=== PATIENT | female | born 1960 | race Caucasian/White ===

== ENCOUNTER 2023-08-10 11:41 | Outpatient (REF) | payer OTHER, SELFPAY ==
[2023-08-10 14:19] LABS: SARS-CoV-2 Ag POSITIVE (NEGATIVE)
[2023-08-10 14:20] LABS: Influenza Virus A Antigen Negative; Influenza Virus B Antigen Negative; Internal Control Within Normal Limits
== END 2023-08-10 11:42 | disposition home or self-care (01) ==
LOC: LAB 11:41
PROVIDERS: PCP Internal Medicine; Visit Provider Internal Medicine
DX: R53.83 Other fatigue (principal); Z20.822 Contact with and (suspected) exposure to COVID-19
CPT/HCPCS: 87804; 87811

== ENCOUNTER 2024-08-12 10:46 | Observation (INO) | payer OTHER, SELFPAY ==
[2024-08-12] VITALS (30 sets, daily range): BP systolic 144–199; BP diastolic 81–116; PULSE 78–97; TEMP 36.6–37; O2SAT 92–99; BMI 34.9; BMI 44.7
--- NOTE | 2024-08-12 10:54 | ECG_ITS ---
[facility] Test Date: 2024-08-12 Pat Name: EVY MORALES Department: Room: - Gender: Female [employer]: : 1960 Requested By: ISRAEL GERARD Order Number: [id number] Reading MD: ISRAEL GERARD Measurements Intervals [place] Rate: 84 P: 53 NC: 144 QRS: 24 QRSD: 72 T: 14 QT: 350 QTc: 391 Interpretive Statements 1100 Sinus rhythm 4068 Nonspecific Twave abnormality 9130 borderline ECG Compared to ECG 12/20/2016 19:53:50 ST (T wave) deviation no longer present Possible ischemia no longer present Electronically Signed On 08-13-2024 8:07:02 EST by ISRAEL GERARD
--- OUTSIDE RECORDS SUMMARY | 2024-08-12 10:55 | XMS_ITS | CCD ---
Author Organization [facility] Care Team Providers Care Surface Lay Out Technician Name Role Phone ALEXA LADD Unavailable Unavailable BALL, FAB E Unavailable Unavailable BALL, FAB E Unavailable Unavailable Ball, Fab Unavailable ISMAEL, DR WOOD Consulting Unavailable BALL, DR WOOD Primary Care Unavailable BALL, DR WOOD Admitting Unavailable BALL, DR WOOD Attending Unavailable BALL, DR WOOD Consulting Unavailable BALL, DR WOOD Primary Care Unavailable BALL, DR WOOD Admitting Unavailable BALL, DR WOOD Attending Unavailable BALL, DR WOOD Attending Unavailable BALL, DR WOOD Consulting Unavailable BALL, DR WOOD Primary Care Unavailable BALL, DR WOOD Admitting Unavailable ZIEBER, DR JESUS Camacho Consulting Unavailable Ball DO, Fab E Primary Care Provider BALL, FAB E Referring Unavailable BALL, FAB E Primary Care Unavailable NATE MOORESEA Sharita Referring Unavailable BALL, FAB E Primary Care Unavailable TERESA, GABRIELLA Sharita Referring Unavailable BALL, FAB E Primary Care Unavailable BALL, FAB E Referring Unavailable BALL, FAB E Primary Care Unavailable GRILLISSOPHIA Admitting Unavailable GRILLIS, SOPHIA Attending Unavailable BALL, FAB E Primary Care Unavailable GRILLISSOPHIA Attending Unavailable GRILLIS, SOPHIA Referring Unavailable BALL, FAB E Primary Care Unavailable TESS MADERA Attending Unavailable BALL, FAB E Primary Care Unavailable BALL, FAB E Referring Unavailable BALL, FAB E Primary Care Unavailable PADANILANAHY ARGUELLO Attending Unavailable BALL, FAB E Referring Unavailable BALL, FAB E Primary Care Unavailable PADANILAMANAHY Attending Unavailable BALL, FAB E Referring Unavailable BALL, FAB E Primary Care Unavailable SHARLADEUZIEL TORRES R Attending Unavailable BALL, FAB E Referring Unavailable BALL, FAB E Primary Care Unavailable SADDEMI, UZIEL R Attending Unavailable BALL, FAB E Referring Unavailable BALL, FAB E Primary Care Unavailable SADRANULFOMIUZIEL R Attending Unavailable BALL, FAB E Referring Unavailable BALL, FAB E Primary Care Unavailable SADDEMIUZIEL R Attending Unavailable BALL, FAB E Referring Unavailable BALL, FAB E Primary Care Unavailable SADDEMIUZIEL Attending Unavailable FAB GUEVARA Referring Unavailable FAB GUEVARA Primary Care Unavailable CECI REILLY Attending Unavailable FAB GUEVARA Referring Unavailable FAB GUEVARA Primary Care Unavailable Allergies Allergy Classification Reported Allergen(s) Allergy Type Date of Onset Reaction(s) Facility (18 sources) Morphine; Translations: [MORPHINE] Drug Allergy 3 Vomiting [facility] (4 sources) patient allergy list reviewed by nurse or physicia Propensity to adverse reactions 8 Comment:Done [facility] Other (2 sources) Morphine Drug Allergy Unknown Adzilla Other Medications Current Medications Medication Drug Class(es) Dates Sig (Normalized) Sig (Original) 3 ML semaglutide 1.34 MG/ML Pen Injector [Ozempic] (11 sources) Ozempic (1 MG/DO SE) 4 MG/3ML as directed Subcutaneous Active 3 ML semaglutide 2.68 MG/ML Pen Injector [Ozempic] (11 sources) Start: 10-06-2022 inject 2 mg by subcutaneous injection every week Ozempic (2 MG/DOSE) 8 MG/3ML 2 MG Subcutaneous weekly for 90 days Sep, Active Start: 10-06-2022 inject 2 mg by subcu taneous injection every week Ozempic (2 MG/DOSE) 8 MG/3ML 2 MG Subcutaneous weekly for 30 days Sep, Active amLODIPine 10 mg oral tablet (20 sources) Dihydropyridine Calcium Channel Elmer Start: 12-21-2023 End: 06-06-2024 take 10 mg by mouth once daily Amlodipine Active 10 MG PO Daily 90 June 06, 2024 3:05pm Start: 08-01-2022 amLODIPine (NO RVASC) 5 mg tablet 08/01/2022 Active cholecalciferol 1.25 mg oral tablet (15 sources) Vitamin D Start: 03-16-2024 Cholecalcifero l (Vitamin D3) Active 1250 MCG PO March 16, 2024 12:00am Dialyvite Vitami n D3 Max 1.25 MG (94835 UT) 1 tablet Orally Active Dialyvite Vitami n D3 Max 1.25 MG (51342 UT) 1 tablet Orally Active 0.5 ML dulaglutide 9 MG/ML Auto-Injector [Trulicity] (3 sources) GLP-1 Receptor Agonist Start: 05-17-2023 Trulicity 4.5 MG/0.5 ML as directed Subcutaneous weekly for 90 days Apr, Active Start: 03-22-2023 inject 4.5 mg by sub cutaneous injection every week Trulicity 4.5 MG/0.5ML 4.5 MG Subcutaneous weekly for 28 days Feb, Active levothyroxine sodium 0.025 mg oral tablet (3 sources) l-Thyroxine Start: 03-23-2024 take 1 tablet by mouth once daily Levothyroxine Active 0 .ROUTE .COMPLEX March 23, 2024 1:21pm TAKE 1 TABLET BY MOUTH DAILY Start: 03-23-2024 End: 03-23-2024 levothyroxine (SYNTHROID, LE VOTHROID) 25 MCG tablet Take 1 tablet (25 mcg total) by mouth. 03/23/2024 Active metFORMIN hydrochloride 500 mg oral tablet (20 sources) Biguanide Start: 01-21-2024 take 1 tablet by mouth once daily at dinner Metformin Active 0 .ROUTE .COMPLEX January 21, 2024 1:19pm TAKE 1 TABLET BY MOUTH EVERY DAY WITH EVENING MEAL Start: 08-01-2022 End: 01-21-2024 take 500 mg by mouth once daily Metformin Discontinued 500 MG PO Daily January 21, 2024 12:00am January 21, 2024 1:19pm take 1 tablet by kirby th every twenty-four hours metFORMIN HCl ER 500 MG 1 tablet with evening meal Orally Once a day Active MOUNJARO 2.5 mg/0.5 mL pen injector (1 source) Start: 03-17-2024 inject 2.5 mg by subcutaneous injection every week MOUNJARO 2.5 mg/0.5 mL pen injector ADMINISTER 2.5 MG UNDER THE SKIN EVERY WEEK FOR 4 WEEKS 03/17/2024 Active ozempic (2 mg/dose) 8 mg/3ml solution pen-injector (2 sources) Start: 10-06-2022 inject 2 mg by subcutaneous injection every week Ozempic (2 MG/DOSE) 8 MG/3ML 2 MG Subcutaneous weekly Sep, Active OZEMPIC 2 mg/dose (8 mg/3 mL) pen injector (2 sources) Start: 07-14-2023 OZEMPIC 2 mg/d ose (8 mg/3 mL) pen injector 07/14/2023 Active Start: 07-14-2023 OZEMPIC 2 mg/d ose (8 mg/3 mL) pen injector paxlovid (300/100) 20 x 150 mg & 10 x 100mg tablet therapy pack (2 sources) Start: 08-10-2023 Paxlovid (300/ 100) 20 x 150 MG & 10 x 100MG as directed Orally bid for 5 days Jul, Active Tirzepatide (1 source) Start: 06-06-2024 Tirzepatide (M marco) 12.5 mg/0.5 mL pen injector Active 10 MG SUBCUT every week 2 June 06, 2024 3:04pm TRULICITY 4.5 mg/0.5 mL pen injector (3 sources) Start: 04-22-2023 TRULICITY 4.5 mg/0.5 mL pen injector Start: 04-22-2023 inject 4.5 mg by sub cutaneous injection every week TRULICITY 4.5 mg/0.5 mL pen injector ADMINISTER 4.5 MG UNDER THE SKIN WEEKLY 0 04/22/2023 Active venlafaxine (20 sources) Serotonin and Norepinephrine Reuptake Inhibitor Start: 03-17-2024 Venlafaxine Active 0 .ROUTE .COMPLEX 90 March 17, 2024 11:20am TAKE 1 CAPSULE DAILY Start: 03-17-2024 End: 03-17-2024 take 75 mg by mouth once daily Venlafaxine Discontinue d 75 MG PO Daily March 17, 2024 12:00am March 17, 2024 11:20am Start: 08-02-2022 venlafaxine XR (EFFEXOR XR) 75 mg 24 hr capsule 08/02/2022 Active Venlafaxine HCl ER 75 mg TAKE 1 CAPSULE DAILY Active Completed/Discontinued Medications Medication Drug Class(es) Dates Sig (Normalized) Sig (Original) betamethasone 3 mg/ml / betamethasone acetate 3 mg/ml injectable suspension (2 sources) Corticosteroid Start: 05-16-2024 End: 05-16-2024 12 mg, intra-articular, One-Time Injection, Starting on Wed05/16/24 at 1501, For 1 dose Start: 09-07-2023 End: 09-07-2023 betamethasone acet & sod herbie s (CELESTONE) injection 12 mg ibuprofen 800 mg oral tablet (20 sources) Nonsteroidal Anti-inflammatory Drug Start: 10-06-2022 End: 03-16-2024 take 800 mg by mouth every eight hours Ibuprofen Discontinued 800 MG PO Every 8 hours 270 90 December 21, 2023 1:47pm March 16, 2024 12:01pm Lidocaine (11 sources) Antiarrhythmic, Amide Local Anesthetic Start: 07-06-2023 Lidocaine 14 Jun, 2023 20 mg Start: 12-22-2022 Lidocaine 02 2022 10 mg losartan potassium 25 mg oral tablet (20 sources) Angiotensin 2 Receptor Elmer Start: 09-02-2022 End: 10-13-2023 take 25 mg by mouth once daily Losartan Discontinued 25 MG PO Daily October 13, 2023 1:00am October 13, 2023 7:11pm OZEMPIC 1 mg/dose (4 mg/3 mL) pen injector (2 sources) Start: 09-02-2022 End: 09-28-2023 OZEMPIC 1 mg/dose (4 mg/3 mL) pen injector Start: 09-02-2022 OZEMPIC 1 mg/d ose (4 mg/3 mL) pen injector pantoprazole 40 mg delayed release oral tablet (20 sources) Proton Pump Inhibitor Start: 08-01-2022 End: 12-21-2023 take 40 mg by mouth once daily Pantoprazole Discontinued 40 MG PO Daily December 21, 2023 12:00am December 21, 2023 9:39am peg 3350-sod sulf,[id number]-ogx-zuf 178.7-7.3-0.5 gram recon soln (2 sources) Start: 09-28-2023 End: 09-29-2023 peg 3350-sod sulf,[id number]-sem-qgi 178.7-7.3-0.5 gram recon soln Indications: Encounter for screening colonoscopy Take 1 kit by mouth once daily for 1 dose. Please see instructional sheet given by physicians office. 1 each 0 09/28/2023 09/29/2023 Start: 09-28-2023 End: 09-29-2023 peg 3350-sod sulf,chlr-pot-m ag 178.7-7.3-0.5 gram recon soln Indications: Encounter for screening colonoscopy Take 1 kit by mouth once daily for 1 dose. Please see instructional sheet given by physicians office. 1 each 0 09/28/2023 09/29/2023 Active potassium chloride 10 meq extended release oral tablet (15 sources) Start: 03-16-2024 End: 03-16-2024 take 10 mEq by mouth twice daily Potassium Chloride Discontinued 10 MEQ PO Twice daily March 16, 2024 12:00am March 16, 2024 12:01pm take 1 tablet by kirby th every twelve hours Potassium Chloride ER 10 MEQ 1 tablet wi th food Orally Twice a day Active Semaglutide (Ozempic) 2 mg/dose (8 mg/3 mL) pen injector (4 sources) Start: 03-16-2024 End: 03-16-2024 inject 2 mg by subcutaneous injection every week Semaglutide (Ozempic) 2 mg/dose (8 mg/3 mL) pen injector Discontinued 2 MG SUBCUT every week March 16, 2024 12:01pm March 16, 2024 1:17pm Start: 03-16-2024 inject 2 mg by subcu taneous injection every week Semaglutide (Ozempic) 2 mg/dose (8 mg/3 mL) pen injector Active 2 MG SUBCUT every week March 16, 2024 12:01pm Start: 03-16-2024 End: 03-16-2024 Semaglutide (Ozempic) 2 mg/d ose (8 mg/3 mL) pen injector Discontinued MG SUBCUT March 16, 2024 12:00am March 16, 2024 12:02pm Tirzepatide (2 sources) Start: 04-10-2024 End: 05-02-2024 Tirzepatide (Mounjaro) 5 mg/ 0.5 mL pen injector Discontinued 5 MG SUBCUT every week 10 20April 10, 2024 1:34pm May 02, 2024 2:48pm Start: 03-16-2024 End: 04-10-2024 inject 1 mg by subcutaneous injection every week Tirzepatide (Mounjaro) 5 mg/0.5 mL pen injector Discontinued 5 MG SUBCUT every week 2 March 16, 2024 12:00am April 10, 2024 1:35pm Begin after 4 weeks at 2.5mg dose. Tirzepatide (1 source) Start: 05-02-2024 End: 06-06-2024 Tirzepatide (Mounjaro) 10 mg /0.5 mL pen injector Discontinued 10 MG SUBCUT every week 2 May 02, 2024 12:00am June 06, 2024 3:05pm Tirzepatide (2 sources) Start: 03-16-2024 End: 04-07-2024 Tirzepatide (Mounjaro) 2.5 m g/0.5 mL pen injector Discontinued 2.5 MG SUBCUT every week 2 March 16, 2024 1:19pm April 07, 2024 3:34pm Start: 03-16-2024 End: 03-16-2024 Tirzepatide (Mounjaro) 2.5 m g/0.5 mL pen injector Discontinued 2.5 MG SUBCUT every week 2 March 16, 2024 12:00am March 16, 2024 1:22pm Tirzepatide (1 source) Start: 03-16-2024 End: 05-02-2024 inject 5 mg by subcutaneous injection every week Tirzepatide (Mounjaro) 7.5 mg/0.5 mL pen injector Discontinued 7.5 MG SUBCUT every week 2 March 16, 2024 12:00am May 02, 2024 2:48pm Begin after 4 weeks of 5mg dose triamcinolone acetonide 40 mg/ml injectable suspension (11 sources) Corticosteroid Start: 12-22-2022 Kenalog-40 Jun, 40 mg Problems Active Problems Problem Classification Problem Date Documented Date Episodic/Chronic Acute bronchitis (10 sources) Acute bronchitis; Translations: [Acute bronchitis, unspecified] Onset: 07-05-2015 Episodic Anxiety disorders (19 sources) Generalized anxiety disorder; Translations: [Generalized anxiety disorder] Onset: 12-21-2016 Chronic Conditions associated with dizziness or vertigo (14 sources) Benign paroxysmal positional vertigo; Translations: [Benign paroxysmal vertigo, bilateral] Episodic Diabetes mellitus with complications (20 sources) Hyperglycemia due to type 2 diabetes mellitus; Translations: [Type 2 diabetes mellitus with hyperglycemia] Chronic Diabetes mellitus without complication (18 sources) Impaired fasting glycemia; Translations: [Impaired fasting glucose] Episodic Diverticulosis and diverticulitis (1 source) Diverticulosis of intestine, part unspecified, without perforation or abscess without bleeding; Translations: [Diverticulosis of intestine, part unspecified, without perforation or abscess without bleeding] Onset: 10-05-2023 Chronic Esophageal disorders (15 sources) Esophageal reflux finding; Translations: [Esophageal reflux] Onset: 01-31-2016 03-13-2024 Chronic Esophageal disorders (12 sources) Esophageal disorders; Translations: [Gastroesophageal reflux disease with esophagitis without hemorrhage] Essential hypertension (20 sources) Essential (primary) hypertension; Translations: [Essential hypertension] Onset: 01-07-2018 Chronic Fluid and electrolyte disorders (13 sources) Hypokalemia; Translations: [Hypokalemia] Episodic Genitourinary symptoms and ill-defined conditions (15 sources) Dysuria; Translations: [Dysuria] Onset: 01-31-2016 Episodic Headache; including migraine (5 sources) Headache; Translations: [Headache, unspecified] Episodic Joint disorders and dislocations; trauma-related (2 sources) Traumatic arthropathy-knee; Translations: [Traumatic arthropathy, left knee] Onset: 09-07-2023 09-07-2023 Chronic Malaise and fatigue (20 sources) Malaise; Translations: [Other malaise] Onset: 01-31-2016 03-16-2024 Episodic Miscellaneous mental health disorders (13 sources) Occipital headache; Translations: [Occipital headache] Chronic Mood disorders (8 sources) Major depression single episode, in partial remission; Translations: [Major depressive disorder, single episode, in partial or unspecified remission] Onset: 12-25-2016 Chronic Mood disorders (2 sources) Mood disorders; Translations: [Major depressive disorder, single episode, in partial or unspecified remission] Onset: 12-25-2016 Nutritional deficiencies (18 sources) Vitamin D deficiency; Translations: [Vitamin D deficiency, unspecified] Chronic Osteoarthritis (20 sources) Localized, primary osteoarthritis of the ankle and/or foot; Translations: [Primary osteoarthritis, unspecified ankle and foot] Onset: 12-11-2022 Chronic Other congenital anomalies (5 sources) Congenital pes planus; Translations: [Congenital pes planus, unspecified foot] Onset: 09-21-2014 Chronic Other connective tissue disease (18 sources) Other symptoms and signs involving the nervous system; Translations: [Suspected sleep apnea] Episodic Other connective tissue disease (1 source) Inflammation of rotator cuff tendon; Translations: [Other shoulder lesions, unspecified shoulder] 06-04-2024 Episodic Other connective tissue disease (1 source) Other shoulder lesions, unspecified shoulder; Translations: [Disorders of bursae and tendons in shoulder region, unspecified] 06-06-2024 Episodic Other diseases of veins and lymphatics (13 sources) Chronic peripheral venous hypertension; Translations: [Chronic venous hypertension (idiopathic) without complications of bilateral lower extremity] Chronic Other diseases of veins and lymphatics (2 sources) Venous insufficiency of leg; Translations: [Venous insufficiency (chronic) (peripheral)] 03-13-2024 Episodic Other diseases of veins and lymphatics (2 sources) Venous insufficiency (chronic) (peripheral); Translations: [Venous (peripheral) insufficiency, unspecified] 03-16-2024 Episodic Other ear and sense organ disorders (5 sources) Otitis externa; Translations: [Unspecified otitis externa, unspecified ear] Chronic Other lower respiratory disease (4 sources) Cough; Translations: [Cough, unspecified] Episodic Other nervous system disorders (20 sources) Chronic pain; Translations: [Other chronic pain] Chronic Other nervous system disorders (3 sources) Other chronic pain; Translations: [Chronic pain] Chronic Other nervous system disorders (13 sources) Skin sensation disturbance; Translations: [Paresthesia of skin] Episodic Other nervous system disorders (4 sources) Paresthesia; Translations: [Paresthesia of skin] Episodic Other nervous system disorders (1 source) Paresthesia of skin; Translations: [Paresthesia of skin] Episodic Other non-traumatic joint disorders (9 sources) Rotator cuff arthropathy of left shoulder; Translations: [Other specific arthropathies, not elsewhere classified, left shoulder] Chronic Other non-traumatic joint disorders (2 sources) Other specific arthropathies, not elsewhere classified, left shoulder; Translations: [OTH SPEC ARTHROPATHIES NEC LT SHLDR] Onset: 12-17-2022 Chronic Other non-traumatic joint disorders (13 sources) Chronic pain of left upper limb; Translations: [Pain in left shoulder] Episodic Other non-traumatic joint disorders (6 sources) Pain in left shoulder; Translations: [Left shoulder pain] Episodic Other nutritional; endocrine; and metabolic disorders (16 sources) Obesity; Translations: [Obesity, unspecified] Chronic Other nutritional; endocrine; and metabolic disorders (5 sources) Obese class II; Translations: [Body mass index 39.0-39.9, adult] Onset: 01-31-2016 Chronic Other nutritional; endocrine; and metabolic disorders (5 sources) Body mass index 40+ - severely obese; Translations: [Body mass index (BMI) 40.0-44.9, adult] Onset: 01-31-2016 Chronic Other nutritional; endocrine; and metabolic disorders (2 sources) Obesity, unspecified; Translations: [Obesity, unspecified] Chronic Other screening for suspected conditions (not mental disorders or infectious disease) (20 sources) Iron deficiency screening; Translations: [Encounter for screening for diseases of the blood and blood-forming organs and certain disorders involving the immune mechanism] Onset: 09-09-2023 09-28-2023 Episodic Residual codes; unclassified (20 sources) Obstructive sleep apnea syndrome; Translations: [Obstructive sleep apnea (adult) (pediatric)] 03-13-2024 Chronic Residual codes; unclassified (7 sources) Obstructive sleep apnea (adult) (pediatric); Translations: [Obstructive sleep apnea (adult)(pediatric)] Onset: 03-24-2022 Chronic Thyroid disorders (20 sources) Subclinical hypothyroidism; Translations: [Other specified hypothyroidism] Resolved: 04-07-2021 03-13-2024 Chronic Unclassified (4 sources) Exposure to acute respiratory syndrome coronavirus 2; Translations: [Contact with and (suspected) exposure to COVID-19] Unclassified (1 source) Contact dermatitis and other eczema, due to unspecified cause; Translations: [Contact dermatitis and other eczema, due to unspecified cause] Onset: 07-10-2014 Unclassified (1 source) Routine general medical examination at health care facility; Translations: [Routine general medical examination at health care facility] Onset: 04-29-2018 Unclassified (1 source) Other screening mammogram; Translations: [Other screening mammogram] Onset: 09-21-2014 Unclassified (1 source) Cough, unspecified; Translations: [Cough, unspecified] Unclassified (1 source) Contact with and (suspected) exposure to COVID-19; Translations: [Contact with and (suspected) exposure to COVID-19] Unclassified (1 source) screening Onset: 10-05-2023 Unclassified (1 source) Work Related Injury Onset: 10-20-2023 Unclassified (1 source) Colon Cancer Screening Onset: 09-28-2023 Past or Other Problems Problem Classification Problem Date Documented Da te Episodic/Chronic Abdominal pain (5 sources) Left upper quadrant pain; Translations: [Left upper quadrant pain] Onset: 04-20-2014 Episodic Allergic reactions (9 sources) Allergic contact dermatitis due to plants, except food; Translations: [Allergic contact dermatitis due to plants, except food] Onset: 07-10-2014 Episodic Joint disorders and dislocations; trauma-related (2 sources) Tear of medial meniscus of knee; Translations: [Other tear of medial meniscus, current injury, left knee, subsequent encounter] Onset: 09-07-2023 09-07-2023 Episodic Nonspecific chest pain (5 sources) Chest pain; Translations: [Chest pain, unspecified] Onset: 07-10-2014 Episodic Other circulatory disease (4 sources) Elevated blood-pressure reading without diagnosis of hypertension; Translations: [Elevated blood-pressure reading, without diagnosis of hypertension] Onset: 12-21-2016 Episodic Other circulatory disease (1 source) Elevated blood-pressure reading, without diagnosis of hypertension; Translations: [Elevated blood-pressure reading, without diagnosis of hypertension] Onset: 12-21-2016 Episodic Other connective tissue disease (5 sources) Enthesopathy of hip region; Translations: [Enthesopathy of hip region] Onset: 01-31-2016 Episodic Other connective tissue disease (1 source) Pain in left foot; Translations: [Pain in left foot] Onset: 09-22-2023 Episodic Other diseases of veins and lymphatics (5 sources) Peripheral venous insufficiency; Translations: [Unspecified venous (peripheral) insufficiency] Onset: 04-06-2017 Episodic Other non-traumatic joint disorders (4 sources) Arthralgia of the ankle and/or foot; Translations: [Pain in unspecified ankle and joints of unspecified foot] Onset: 04-06-2016 Episodic Other non-traumatic joint disorders (1 source) Pain in unspecified ankle and joints of unspecified foot; Translations: [Pain in unspecified ankle and joints of unspecified foot] Onset: 04-06-2016 Episodic Other non-traumatic joint disorders (1 source) Pain in left knee; Translations: [Pain in left knee] Onset: 09-22-2023 Episodic Other nutritional; endocrine; and metabolic disorders (5 sources) Morbid obesity; Translations: [Morbid (severe) obesity due to excess calories] Resolved: 07-23-2022 Chronic Residual codes; unclassified (1 source) Pain Onset: 10-20-2023 Episodic Spondylosis; intervertebral disc disorders; other back problems (5 sources) Low back pain; Translations: [Low back pain, unspecified] Onset: 01-31-2016 Episodic Sprains and strains (20 sources) Strain of other muscles, fascia and tendons at shoulder and upper arm level, left arm, subsequent encounter; Translations: [Strain of unspecified muscle, fascia and tendon at shoulder and upper arm level, left arm, subsequent encounter] Onset: 02-03-2019 09-07-2023 Episodic Unclassified (5 sources) Exposure to potentially hazardous substance; Translations: [Contact with and (suspected) exposure to other potentially hazardous chemicals] Onset: 05-31-2017 Viral infection (14 sources) Disease caused by 2019-nCoV; Translations: [COVID-19] Results Test Name Value Interpretation Reference Range Facility $ Large Joint Injection: Sharita corrales 05-16-2024 Melody Robledo 05/25/2024 6:00 PM $ Large Joint Injection: L knee on 05/16/2024 3:01 PM Indications: pain Details: 22 G needle, anterolateral approach Medications: 12 mg betamethasone acet & sod phos 6 mg/mL Outcome: tolerated well, no immediate complications The patient was instructed to use ice, NSAIDs, or Tylenol for pain as needed. The patient will call with any signs or concerns. Procedure, treatment alternatives, risks and benefits explained, specific risks discussed. Consent was given by the patient. Patient was prepped and draped in the usual sterile fashion. MANUALLY TRANSCRIBED RESULTS [facility] MAMM SCREENING BILATERAL W C classification clerk 12-28-2023 MAMM SCREENING BILATERAL W CAD MAMM SCREENING BILATERAL W CAD *ADDENDUM*Addendum: Second read. IMPRESSION: I agree with the interpretation. Finalized by Rg Godoy MD on 12/28/2023 9:00 AM 1 b MAMM 1 YR Normal [facility] XR FOOT LT MIN 3 VWSon 09-22 XR FOOT LT MIN 3 VWS XR FOOT LT MIN 3 VWS HISTORY: Pain, fall COMPARISON: None FINDINGS: Multiple views of the left foot were obtained. Osseous structures are intact with normal alignment. Plantar calcaneal spur. Degenerative change involving the midfoot. Mild soft tissue swelling. IMPRESSION: * No acute abnormality. Finalized by Weston Key MD on 09/22/2023 1:30 PM Normal [facility] XR KNEE LT MIN 4 VWSon 09-22 XR KNEE LT MIN 4 VWS XR KNEE LT MIN 4 VWS History: Left knee pain, unspecified chronicity Exam/Technique: 3 views left knee and sunrise view Comparison: 10/21/2022 x-ray Findings: There is no acute osseous injury or significant degenerative fusion. Joint spaces grossly preserved. IMPRESSION: Grossly unremarkable osseous exam Finalized by Dianna Casillas MD on 09/22/2023 1:26 PM Normal [facility] $ Large Joint Injection: L k martieon 09-07-2023 Melody Robledo 09/09/2023 4:41 PM $ Large Joint Injection: L knee on 09/07/2023 3:55 PM Indications: pain Details: 22 G needle, anterolateral approach Medications: 12 mg betamethasone acet & sod phos 6 mg/mL Outcome: tolerated well, no immediate complications The patient was instructed to use ice, NSAIDs, or Tylenol for pain as needed. The patient will call with any signs or concerns. Procedure, treatment alternatives, risks and benefits explained, specific risks discussed. Patient was prepped and draped in the usual sterile fashion. MANUALLY TRANSCRIBED RESULTS [facility] MRI SHOULDER LT WO CONon MRI SHOULDER LT WO CON EXAMINATION: MRI SHOULDER LT WO CON HISTORY: Idiopathic osteoarthritis ; chronic left shoulder pain COMPARISON: No relevant comparison available. TECHNIQUE: A variety of imaging planes and parameters were utilized for visualization of suspected pathology. Imaging was performed without contrast. FINDINGS: ROTATOR CUFF REGION CUFF TENDONS: Prominent increased signal intensity in the supraspinatus and and mildly increased within the subscapularis tendons indicates tendon degeneration and/or tendinitis. No erwin tear is seen. CUFF MUSCLES: Normal appearing muscles. DELTOID: No significant atrophy or tear. LONG BICEPS TENDON: No abnormal signal, attrition, or tear. LABRUM/BICEPS ANCHOR SUPERIOR: No visible labral tear or biceps anchor pathology. ANTERIOR/INFERIOR: No visible tear or attrition. POSTERIOR: No posterior labrum abnormality. CAPSULE No visible capsular laxity or thickening. AC JOINT REGION AC JOINT: Mild osteoarthropathy with no significant narrowing of the underlying coracoacromial arch. AC LIGAMENTS: Normal acromioclavicular ligament. CC LIGAMENTS: Normal coracoclavicular ligaments. ACROMION: Mild lateral downsloping. SUBACROMIAL BURSA: No significant effusion. HYALINE CARTILAGE: No visible cartilage narrowing or focal defect. OTHER BONES: Normal proximal humerus, glenoid, and coracoid. OTHER OBSERVATIONS: Negative. No other significant findings or glenohumeral effusion. IMPRESSION: 1. High-grade strain versus pneumonitis of the supraspinous tendon; mild involving the subscapularis tendon. No convincing tear. 2. Mild degenerative changes of acromioclavicular joint and slight lateral downsloping of the acromion process. Electronically authenticated by: JESUS TINOCO Date: 2022-12-11 15:42 Normal [facility] ED Noteon 01-07-2018 HIM IP Note OR Nursing Unit Manager Normal [facility] ED Provider Noteon 8 HIM IP Note OR Nursing Unit Manager Normal [facility] Vital Signs Date Time Vital Sign Value Performing Clinician Facility 06-06-2024 14:45-0400 Body height 139.7 cm [facility] 06-06-2024 14:45-0400 Body mass index (BMI) [Ratio] 45.3 kg/m2 [facility] 06-06-2024 14:45-0400 Body weight 88.62 kg [facility] 06-06-2024 14:45-0400 Diastolic blood pressure 80 mm[Hg] [facility] 06-06-2024 14:45-0400 Heart rate 74 /min [facility] 06-06-2024 14:45-0400 Respiratory rate 12 /min [facility] 06-06-2024 14:45-0400 Systolic blood pressure 147 mm[Hg] [facility] 05-16-2024 14:59-0400 Body height 142.2 cm Uziel Capellan MD Work Phone: [facility] 05-16-2024 14:59-0400 Body mass index (BMI) [Ratio] 41.7 kg/m2 Uziel Capellan MD Work Phone: [facility] 05-16-2024 14:59-0400 Body weight 84.37 kg Uziel Capellan MD Work Phone: [facility] 03-16-2024 11:35-0400 Body height 139.7 cm [facility] 03-16-2024 11:35-0400 Body mass index (BMI) [Ratio] 45.6 kg/m2 [facility] 03-16-2024 11:35-0400 Body weight 89.07 kg [facility] 03-16-2024 11:35-0400 Diastolic blood pressure 82 mm[Hg] [facility] 03-16-2024 11:35-0400 Heart rate 71 /min [facility] 03-16-2024 11:35-0400 Respiratory rate 12 /min [facility] 03-16-2024 11:35-0400 Systolic blood pressure 139 mm[Hg] [facility] 10-20-2023 14:27-0500 Body height 142.2 cm Anahy Marina MD Work Phone: [facility] 10-20-2023 14:27-0500 Body mass index (BMI) [Ratio] 41.7 kg/m2 Anahy Marina MD Work Phone: [facility] 10-20-2023 14:27-0500 Body weight 84.37 kg Anahy Marina MD Work Phone: [facility] 09-28-2023 14:32-0500 Body mass index (BMI) [Ratio] 42.54 kg/m2 Ceci RIZO Work Phone: [facility] 09-28-2023 14:32-0500 Body weight 89.18 kg Ceci Reilly BACKBREAKER-ADVISOR TO [employer] IN [employer] [facility]: [facility] 09-28-2023 14:32-0500 Diastolic blood pressure 94 mm[Hg] Ceci Reilly BACKBREAKER-ADVISOR TO [employer] IN [employer] [facility] 09-28-2023 14:32-0500 Heart rate 74 /min Ceci Reilly BACKBREAKER-ADVISOR TO [employer] IN [employer] [facility]: [facility] 09-28-2023 14:32-0500 Systolic blood pressure 180 mm[Hg] Ceci Reilly BACKBREAKER-ADVISOR TO [employer] IN [employer] Work [facility]: [facility] 09-07-2023 15:38-0500 Body height 144.8 cm Uziel Capellan MD [facility] 09-07-2023 15:38-0500 Body mass index (BMI) [Ratio] 40.47 kg/m2 Uziel Capellan MD [facility] 09-07-2023 15:38-0500 Body weight 84.82 kg Uziel Capellan MD Work Phone: [employer] 07-06-2023 11:30-0500 Body height 149.86 cm Fab Ball Other [employer] Other 07-06-2023 11:30-0500 Body mass index (BMI) [Ratio] 39.1 kg/m2 Fab Ball Other [employer] Other 07-06-2023 11:30-0500 Body weight 87.82 kg Fab Ball Other [employer] Other 07-06-2023 11:30-0500 Diastolic blood pressure 84 mm[Hg] Fab Ball Other [facility] Other 07-06-2023 11:30-0500 Respiratory rate 12 /min Fab Ball Other [employer] Other 07-06-2023 11:30-0500 Systolic blood pressure 145 mm[Hg] Fab Ball Other [facility] Other 12-22-2022 16:00-0400 Body height 149.86 cm Fab Ball Other [employer] Other 12-22-2022 16:00-0400 Body mass index (BMI) [Ratio] 38.69 kg/m2 Fab Ball Other [employer] Other 12-22-2022 16:00-0400 Body weight 86.91 kg Fab Ball Other [facility] Other 12-22-2022 16:00-0400 Diastolic blood pressure 85 mm[Hg] Fab Ball Other [facility] Other 12-22-2022 16:00-0400 Respiratory rate 12 /min Fab Ball Other [facility] Other 12-22-2022 16:00-0400 Systolic blood pressure 148 mm[Hg] Fab Ball Other [facility] Other 10-06-2022 15:00-0500 Body height 149.86 cm Fab Ball Other [facility] Other 10-06-2022 15:00-0500 Body mass index (BMI) [Ratio] 38.49 kg/m2 Fab Ball Other [employer] Other 10-06-2022 15:00-0500 Body weight 86.46 kg Fab Ball Other [facility] Other 10-06-2022 15:00-0500 Diastolic blood pressure 82 mm[Hg] Fab Guevara Other [employer] Other 10-06-2022 15:00-0500 Respiratory rate 12 /min Fab Guevara Other [facility] Other 10-06-2022 15:00-0500 Systolic blood pressure 124 mm[Hg] Fab Guevara Other [employer] Other Encounters Encounter Date Encounter Type Care Provider Facility Start: 06-06-2024 End: 06-06-2024 ambulatory [facility] Work Phone: Start: 06-06-2024 End: 06-06-2024 Patient encounter procedure [facility] Work Phone: Start: 05-16-2024 End: 05-16-2024 Patient encounter procedure Uziel Capellan MD Work Phone: [facility] Comment on above: Post-traumatic osteo arthritis of left knee (Primary Dx) Start: 05-16-2024 End: 05-16-2024 ambulatory [facility] Start: 04-03-2024 End: 04-03-2024 ambulatory [facility] Start: 03-16-2024 End: 03-16-2024 ambulatory [facility] Work Phone: Start: 03-16-2024 End: 03-16-2024 Patient encounter procedure [facility] Work Phone: Start: 01-04-2024 End: 01-04-2024 ambulatory [facility] Start: 12-08-2023 End: 12-08-2023 ambulatory [facility] Start: 12-01-2023 End: 12-01-2023 ambulatory [facility] Start: 10-20-2023 End: 10-20-2023 Office outpatient visit 15 minutes Anahy Marina MD Work Phone: [facility] [place] [facility] Comment on above: Sprain of MTP joint of left lesser toe(s), init (Primary Dx) Start: 10-20-2023 End: 10-20-2023 ambulatory ANAHY Mondragon [facility] Start: 10-06-2023 End: 10-07-2023 ambulatory FAB Herron [facility] Start: 10-06-2023 End: 10-06-2023 Evaluation and management of inpatient TESS MADERA [facility] Start: 10-05-2023 End: 10-06-2023 Evaluation and management of inpatient SOPHIA BRUNO [facility] Start: 09-29-2023 End: 09-29-2023 ambulatory [facility] Pat Phone Call Provider 1 [facility] Start: 09-28-2023 End: 09-28-2023 Patient encounter procedure Ceci Reilly BACKBREAKER-ADVISOR TO [employer] IN [employer] Work Phone: [facility] Comment on above: Encounter for screen ing colonoscopy (Primary Dx) Start: 09-28-2023 End: 09-28-2023 ambulatory CECI Maryellen REILLY [facility] Start: 09-22-2023 End: 09-26-2023 ambulatory GABRIELLA MOORE [facility] Start: 09-10-2023 ambulatory ANAHY [facility] Start: 09-09-2023 End: 09-10-2023 ambulatory FAB Herron ISMAEL [facility] Start: 09-07-2023 End: 09-07-2023 ambulatory UZIEL CAPELLAN [facility] Start: 09-07-2023 End: 09-07-2023 Patient encounter procedure Uziel Capellan MD Work Phone: [facility] [place] [facility] Comment on above: 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, wood veneer taper ior cruciate ligament, left, subsequent encounter (Primary Dx); Other tear of medial meniscus of left knee as current injury, subsequent encounter; Traumatic arthritis of knee, left Start: 08-10-2023 End: 08-10-2023 ambulatory Fab Ball Other [facility] Other Start: 08-10-2023 Telephone encounter Fab Ball [facility] Start: 07-06-2023 End: 07-06-2023 ambulatory Fab Ball Other [facility] Other Start: 07-06-2023 Office outpatient vi sit 15 minutes Fab Ball [facility] Start: 05-13-2023 End: 05-13-2023 ambulatory Fba Ball Other [facility] Other Start: 05-13-2023 Telephone encounter Fab Ball [facility] Start: 05-12-2023 End: 05-12-2023 ambulatory Fab Ball Other [facility] Other Start: 05-12-2023 Telephone encounter Fab Ball [facility] Start: 03-22-2023 End: 03-22-2023 ambulatory Fab Ball Other [facility] Other Start: 03-22-2023 Telephone encounter Fab Ball [facility] Start: 03-19-2023 End: 03-19-2023 ambulatory Fab Ball Other [facility] Other Start: 03-19-2023 Telephone encounter Fab Ball [facility] Start: 12-22-2022 End: 12-22-2022 ambulatory Fab Ball Other [facility] Other Start: 12-22-2022 Office outpatient vi sit 15 minutes Fab Ball [facility] Start: 12-17-2022 End: 12-17-2022 ambulatory Fab Ball Other [facility] Other Start: 12-17-2022 Telephone encounter Fab Ball [facility] Start: 12-11-2022 End: 12-12-[address] FAB GUEVARA Facility:[facility] Start: 10-06-2022 End: 10-06-2022 ambulatory Fab Guevara Other [facility] Other Start: 10-06-2022 Office outpatient vi sit 25 minutes [facility] Start: 09-02-2022 End: 09-02-2022 ambulatory Fab Guevara Other [facility] Other Start: 09-02-2022 Telephone encounter Fab [facility]ue[facility] Start: 09-01-2022 End: 09-01-2022 ambulatory Fab Guevara Other [facility] Other Start: 09-01-2022 Telephone encounter Fab Guevara [facility] Start: 03-24-2022 End: 03-25-[address] FAB GUEVARA Facility:[facility] Start: 03-03-2022 End: 03-04-[address] FAB GUEVARA Facility:[facility] Start: 01-12-2022 Adult health examination Shaun Guevara Other [facility] Other Start: 01-12-2022 Encounter for genera l adult medical examination without abnormal findings Fab Ismael Other [facility] Other Start: 01-07-2018 End: 01-07-2018 Emergency department patient visit AGUILAR WILBERTO [facility] Procedures Date Procedure Procedure Detail Performing Clinician Start: 05-16-2024 Arthrocentesis aspir &/inj major jt/bursa w/o us Uziel Capellan MD Work Phone: Start: 10-05-2023 Colonoscopy Anahy aguirre MD Work Phone: Start: 09-07-2023 Arthrocentesis aspir &/inj major jt/bursa w/o us Uziel Capellan MD Work Phone: Start: 04-29-2018 General examination of patient Fab Guevara Other Start: 01-07-2018 IP CONSULT TO PRIMAR Y CARE PROVIDER ALEXA LADD Start: 09-21-2014 Screening mammography B octavio Guevara Other Depression screening Qian Guevara Other Depression screening Qian Guevara Other Screening for malign ant neoplasm of breast Fab Guevara Other Screening for malign ant neoplasm of breast Fab Guveara Other Plan of Treatment Date Care Activity Detail Author Start: 10-05-2033 Screening for malign ant neoplasm of colon Colonoscopy [facility] Start: 07-01-2032 DTaP,Tdap and Td Vac cines (2 - Td or Tdap) DTaP,Tdap and Td Vaccines (2 - Td or Tdap) [facility] Start: 07-01-2032 DTaP,Tdap and Td Vac cines (3 - Td or Tdap) DTaP,Tdap and Td Vaccines (3 - Td or Tdap) [facility] Start: 05-16-2025 Adult BMI Screening Adult BMI Screen ing [facility] Start: 04-03-2025 Tobacco Screening Tobacco Screening [facility] Start: 10-20-2024 Adult BMI Screening Adult BMI Screen ing [facility] Start: 10-20-2024 Tobacco Screening Tobacco Screening [facility] Start: 09-29-2024 Tobacco Screening Tobacco Screening [facility] Start: 09-28-2024 Adult BMI Screening Adult BMI Screen ing [facility] Start: 09-28-2024 Tobacco Screening Tobacco Screening [facility] Start: 09-07-2024 Adult BMI Screening Adult BMI Screen ing [facility] Start: 09-07-2024 Tobacco Screening Tobacco Screening [facility] Start: 04-23-2024 COVID-19 Vaccine ( season) COVID-19 Vaccine ( season) [facility] Start: 04-23-2024 Influenza vaccination Influenza Vacc ine [facility] Start: 12-08-2023 End: 12-08-2023 Patient encounter procedure 12/08/2023 1:50 PM EDT [facility] [address] [place] [address] Uziel Capellan MD [address], [place] [address] [facility] Start: 12-01-2023 End: 12-01-2023 Patient encounter procedure 12/01/2023 2:45 PM EDT Office Visit [facility] [address] [facility] [place] [phone] Anahy Marina MD [address] [place] [address] [facility] Start: 10-05-2023 End: 10-05-2023 Admission to same day surgery center 10/05/2023 11:00 AM EST - 10/05/2023 11:30 AM EST Surgery [facility] [address] [place] [phone] Sophia Bruno, DO [address] [place], [place] [id number] COLONOSCOPY DIAGNOSTIC / SCREENING [27626 (CPT )] [facility] Comment on above: COLONOSCOPY DIAGNOST IC / SCREENING [49766 (CPT )] Start: 10-05-2023 End: 10-05-2023 Colonoscopy flx dx w/collj spec when pfrmd COLONOSCOPY DIAGNOSTIC / SCREENING Screen for colon cancer 10/05/2023 11:00 AM [facility] Start: 10-05-2023 Subsequent hospital visit by physician 10/05/2023 11:00 AM EST Hospital Encounter [facility] [address] [place] [phone] Sophia Bruno, DO [address] [place] [address] [facility] Start: 09-29-2023 End: 09-29-2023 ambulatory 09/29/2023 3:00 PM EST Support Visit [facility] [address] [facility] [place] [phone] [facility] Start: 04-23-2023 COVID-19 Vaccine ( season) COVID-19 Vaccine ( season) [facility] Start: 04-23-2023 Influenza vaccination Influenza Vacc ine [facility] Start: 2009 Administration of varicella zoster vaccine Zoster (Shingles) Vaccine (1 of 2) [facility] Start: 1977 Adult BMI Follow Up Plan Adult BMI Follow Up Plan [facility] Start: 1971 Depression Screening Depression Scre ening [facility] End: 09-28-2024 Colonoscopy Colonoscopy GI Routine Encounter for screening colonoscopy 1 Occurrences starting 09/28/2023 until 09/28/2024 [facility] Work Phone: Comment on above: 1 Occurrences starti ng 09/28/2023 until 09/28/2024 [facility] Immunizations Immunization Date Immunization Notes Care Provider Fa cility 05-29-2022 influenza virus vaccine, unspecified formulation Uziel Capellan MD Work Phone: [facility] 05-22-2014 tetanus and diphther ia toxoids, adsorbed, preservative free, for adult use (5 Lf of tetanus toxoid and 2 Lf of diphtheria toxoid) Fab Guevara Other [facility] Payers Date Payer Category Payer Unknown [id number] 2022 Worker's Compensation WORKER'S C [employer] WORKER'S COMPENSATION - GENERIC PLAN [id number] 2022-Present [phone] [facility] [address] [place] [address] [id number] 2022 Unknown [id number] 2016 Unknown [id number]. [id number] 1959 Unknown [id number] 2.16.840.1.730746.3.579.2. 593 1959 Unknown [id number] 2.16.840.1.413444.3.579.2. 593 1959 Unknown [id number] 2.16.840.1.309474.3.579.2. 593 1959 Unknown [id number] 2.16.840.1.357082.3.579.2. 1286 1959 Unknown [id number] 2.16.840.1.923793.3.579.2. 1286 1959 Unknown [id number] 2.16.840.1.340757.3.579.2. 1286 1959 Unknown [id number] 2.16.840.1.369223.3.579.2. 1286 1959 Unknown [id number] 2.16.840.1.299371.3.579.2. 1286 1959 Unknown [id number] 2.16.840.1.547640.3.579.2. 1286 1959 Unknown [id number] 2.16.840.1.662229.3.579.2. 1286 1959 Unknown [id number] 2.16.840.1.710501.3.579.2. 1286 1959 Unknown [id number] 2.16.840.1.911713.3.579.2. 1286 1959 Unknown [id number] 2.16.840.1.780605.3.579.2. 1286 1959 Unknown [id number] 2.16.840.1.949318.3.579.2. 1286 1959 Unknown [id number] 2.16.840.1.930240.3.579.2. 1286 1959 Unknown [id number] 2.16.840.1.936303.3.579.2. 1286 1959 Unknown [id number] 2.16.840.1.054869.3.579.2. 1286 1959 Unknown [id number] 2.16.840.1.519854.3.579.2. 1286 1959 Unknown [id number] 2.16.840.1.958361.3.579.2. 1286 1959 Unknown [id number] 2.16.840.1.191451.3.579.2. 1286 1959 Unknown [id number] 2.16.840.1.589611.3.579.2. 1286 1959 Unknown [id number] Social History Date Type Detail Facility Start: 10-03-2020 End: 09-07-2023 Sex Assigned At [facility] Other Start: 10-21-2022 End: 10-13-2023 Tobacco smoking status NHIS Never smoked tobacco [facility] Start: 10-21-2022 Tobacco use and exposure Smokeless tobacco non-user [facility] Start: 09-07-2023 End: 05-16-2024 Alcohol intake Lifetime non-drinker (finding) [facility] Start: 10-03-2020 End: 09-07-2023 History of Social function [facility] Housing Instability Unknown [facility] Start: 1960 Sex Assigned At Not on file [facility] Start: 1960 Sex Assigned At Female [facility] Start: 01-26-2024 Gender identity Identifies as female gender (finding) [facility] Start: 01-26-2024 Sexual orientation Heterosexual (fin ding) [facility] NEGATED: Highlighted rowStart: NINF History of tobacco use Passive smoker [facility] Clinical Notes 09-01-2022 to 05-16-2024 Uziel Capellan MD - 05/16/2024 3:20 PM Viral Marina MD - 10/20/2023 2:25 PM ESTPerioperative Nursing Note - Shikha Bailon RN - 09/29/2023 3:00 PM EST Note Date & Type Note Facility 05-16-2024 History of Presen t illness Narrative Associated Order(s): $ Large Joint Injection: L knee Post-Procedure Diagnose(s): Post-traumatic osteoarthritis of left knee Chief Complaint: Chief Complaint Patient presents with Left Knee - Pain [facility]. Left knee celestone injection 01/04/24, states it lasted almost 3 months. Approved for Lt Knee Celestone inj today Subjective History Carmen Mays is a 63 y.o. female who presents to the office today for recheck of the left knee. The last time we saw the patient was 04/03/2024 and we did seek out authorization for left knee posttraumatic osteoarthritis. This is a worker's comp claim. She does do well with the injections and they do last 3 months. Objective History: Patient was alert and oriented x3, no apparent distress. Left knee: She does lack a few degrees short of extension. She is able to flex to around 115 . She is able to perform a straight leg raise today. No significant effusion. She does have joint line tenderness. Ligamentously stable. XRAYS: None Assessment: Carmen Mays is a 63 y.o. female with left knee posttraumatic osteoarthritis Plan: We did discuss treatment options with the patient today. She does have approval for left knee cortisone injection, worker's comp. Therefore we did give her risks and benefits of left knee cortisone injection today. Patient was agreeable. We will plan to see her back in 3 months for reassessment. $ Large Joint Injection: L knee on 05/16/2024 3:01 PM Indications: pain Details: 22 G needle, anterolateral approach Medications: 12 mg betamethasone acet & sod phos 6 mg/mL Outcome: tolerated well, no immediate complications The patient was instructed to use ice, NSAIDs, or Tylenol for pain as needed. The patient will call with any signs or concerns. Procedure, treatment alternatives, risks and benefits explained, specific risks discussed. Consent was given by the patient. Patient was prepped and draped in the usual sterile fashion. I, Uziel Capellan MD, personally performed the face to face evaluation on this patient. I discussed with the patient and confirmed the accuracy and completeness of the aforementioned history prepared by the [facility] practice provider, and I personally performed the clinical examination of the patient. I discussed the treatment plan with the patient and my physician's bioinformatics assistant. Details of today's visit are as described above. The patient is doing well with the present treatment regimen. We injected her left knee again today and she will continue with home exercises and return for follow-up in about 3 months. [facility] 10-20-2023 History of Presen t illness Narrative [facility] Anahy Marina MD Orthopaedic Surgery Specializing in Foot & Ankle Last Encounter with Mt: new Last Encounter with Speciality: 07/07/2023 Uziel Capellan MD Date of visit: 10/20/2023 Chief Complaint: Chief Complaint Patient presents with Left Foot - Pain, Work Related Injury [facility]. New patient. Left foot injury 09/22/23, after she tripped over a students bag. XR 10/06/23. CELSO Mays is a 63 y.o. female that presents for evaluation of her left foot. 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 This is a [facility] claim. Since the incident she has been able to weight bear and her pain has been gradually getting better and better. She localizes the pain primarily over the dorsum of her foot but does state that it runs of along the lateral aspect of her foot to her ankle. She states that she did have some swelling about her lateral ankle at the time of the incident. She is currently working but is taking breaks every hour to elevate her foot. Examination Exam: Exam of the legs show normal posterior tibial and dorsalis pedis pulses. Normal sensation to light touch in foot and ankle. She has tenderness to palpation about the 2nd and 3rd metatarsal heads. She has 5/5 strength in plantar flexion, dorsiflexion, eversion but 4/5 strength with inversion. She has no pain about the posterior tibial tendon. She does have scars about her medial ankle from previous rivera. External notes reviewed: Review of test/study reports: My personal interpretation of tests: Xrays ordered & done in office: No image results found. Procedures in clinic today: None Assessment 63-year-old female with left 2nd and 3rd foot MTP sprain This is a [facility] claim. Plan That patient states that she is doing well and progressing. We will continue her current restrictions and have her follow up in 1 month for repeat evaluation. I, Anahy Marina, personally performed the face to face evaluation on this patient. I discussed with the patient and confirmed the accuracy and completeness of the aforementioned history, and I personally performed the clinical examination of the patient. I have established and discusses the course of treatment with the patient and Physician Bakery Manager. The critical element of all procedures were performed by me. My examination, medical decision making and treatment plan are reflected above and are as follows: Most her pain appears to be localized along the MTP joints. Patient has got pain with stressing of these joints. Some tenderness to palpation along the metatarsal shafts out. No Lisfranc tenderness. No proximal leg tenderness fairly good motion about the ankle. I think at this point I discussed with the possibility of trying a spring light insert but she does not really want to do that she does feel like things are improving. I am going to have her continue current work restrictions for now and I am going to see her back in 1 month for re-evaluation documented in this encounter [facility] 10-06-2023 Note XR FOOT LT MIN 3 VWS Procedure: Left foot radiographs performed Number of views:3 History:Injury and pain Comparison:09/22/2023 Findings: There is no fracture, dislocation, or destructive lesion. There is a plantar calcaneal enthesophyte Impression: No acute findings. Finalized by Denise Phillips DO on 10/06/2023 4:16 PM [facility] 09-29-2023 Miscellaneous Notes Preoperative Education Checklist- General Surgery date: 10/05/23 Surgery time: 1100 Arrival time: 0900 1. Bring a photo ID and your insurance card with you the day of surgery. You will check in at the main lobby of the [facility]- registration desk is straight ahead as soon as you walk in. Tell them you are here for surgery. 2. If you have a Living Will/Durable Power of Audience Development Manager for Health Care that is not on file here, please bring a copy the day of surgery. 3. Please shower/bathe the night before surgery with the provided soap or wipes. Do not shower the morning of surgery- you will do use wipes when you arrive here at the hospital before getting into your surgical gown. Do not shave the area of your procedure for 2 days prior to your surgery. 4. NO powder, lotion, perfume/cologne, aftershave, make-up, deodorant, or hair products after you have bathed. 5. NO nail jordanian/acrylic on at least one finger. If you are having a hand, wrist or foot surgery then all nail jordanian and artificial/acrylic nails must be removed from that hand or foot. 6. Avoid ALL Aspirin and non-steroidal anti-inflammatory drugs and certain vitamins (Ibuprofen, Advil, Aleve, Excedrin, Meloxicam, Celebrex, fish/krill oil, etc.) for 7 days prior to surgery as instructed by your surgeon and/or your prescribing doctor. Tylenol IS ALLOWED. If you are on Ticlid, Xarelto, Eliquis, Pradaxa, Plavix or Coumadin, please check with your prescribing doctor for instructions for when to stop them. 7. If you use an inhaler, continue to use it routinely. 8. Nothing to eat or drink (not even water, gum, mints, or hard candy!) AFTER midnight prior to your surgery. 9. Take only medications that you are instructed to on the morning of surgery with a TINY SIP OF WATER. 10. Choose a responsible adult that will be able to drive you home when you are discharged from your hospital stay for your surgery and can stay with you in your home for 24 hours after your procedure. You must NOT drive any vehicle or operate any machinery for 24 hours after surgery. 11. When you dress for your appointment, please wear loose fitting clothing that is appropriate to accommodate your surgical area procedure. BRING WITH YOU ANY DEVICES YOU MAY NEED: BETHANY hose, ice machine, sling/swath, brace or special shoe, oversized zip-up or button up shirt, CPAP machine if staying overnight. 12. Do NOT wear jewelry, watches, or any piercings or metal for surgery- leave these valuables and money at home. 13. Do NOT wear contact lenses for surgery- glasses are okay if needed. 14. The anesthesiologist will talk with you the day of surgery and will ask you to sign a Consent Form. 15. Refrain from smoking or any type of tobacco use for at least 8 hours and marijuana for 24 hours prior to arrival for your surgery. 16. If a GREEN BLOOD band is given to you, please bring it with you for the day of surgery. 17. Notify your surgeon if you develop any illness before your surgery. 18. If you are staying overnight, please DO NOT BRING your home medications with you. 19. If you have any questions prior to surgery, please call the Preadmission Testing office at [phone], Mon.-Fri. 7 a.m.-3 p.m. Leave a voicemail if needed. Pre-Surgery Instructions: Medication Instructions amLODIPine (NORVASC) 5 mg tablet Take morning of procedure ibuprofen (MOTRIN) 800 mg tablet Stop taking 1 week prior to procedure losartan (COZAAR) 25 mg tablet Take morning of procedure metFORMIN (GLUCOPHAGE) 500 mg tablet Stop taking 0 days prior to procedure pantoprazole (PROTONIX) 40 mg EC tablet Stop taking 0 days prior to procedure peg 3350-sod sulf,spdr-yjj-gur 178.7-7.3-0.5 gram recon soln Stop taking 0 days prior to procedure TRULICITY 4.5 mg/0.5 mL pen injector Stop taking 1 week prior to procedure venlafaxine XR (EFFEXOR XR) 75 mg 24 hr capsule Stop taking 0 days prior to procedure documented in this encounter [facility] 09-29-2023 Nurse Note Preoperative Education Checklist- General Surgery date: 10/05/23 Surgery time: 1100 Arrival time: 0900 1. Bring a photo ID and your insurance card with you the day of surgery. You will check in at the main lobby of the [facility]- registration desk is straight ahead as soon as you walk in. Tell them you are here for surgery. 2. If you have a Living Will/Durable Power of Audience Development Manager for Health Care that is not on file here, please bring a copy the day of surgery. 3. Please shower/bathe the night before surgery with the provided soap or wipes. Do not shower the morning of surgery- you will do use wipes when you arrive here at the hospital before getting into your surgical gown. Do not shave the area of your procedure for 2 days prior to your surgery. 4. NO powder, lotion, perfume/cologne, aftershave, make-up, deodorant, or hair products after you have bathed. 5. NO nail jordanian/acrylic on at least one finger. If you are having a hand, wrist or foot surgery then all nail jordanian and artificial/acrylic nails must be removed from that hand or foot. 6. Avoid ALL Aspirin and non-steroidal anti-inflammatory drugs and certain vitamins (Ibuprofen, Advil, Aleve, Excedrin, Meloxicam, Celebrex, fish/krill oil, etc.) for 7 days prior to surgery as instructed by your surgeon and/or your prescribing doctor. Tylenol IS ALLOWED. If you are on Ticlid, Xarelto, Eliquis, Pradaxa, Plavix or Coumadin, please check with your prescribing doctor for instructions for when to stop them. 7. If you use an inhaler, continue to use it routinely. 8. Nothing to eat or drink (not even water, gum, mints, or hard candy!) AFTER midnight prior to your surgery. 9. Take only medications that you are instructed to on the morning of surgery with a TINY SIP OF WATER. 10. Choose a responsible adult that will be able to drive you home when you are discharged from your hospital stay for your surgery and can stay with you in your home for 24 hours after your procedure. You must NOT drive any vehicle or operate any machinery for 24 hours after surgery. 11. When you dress for your appointment, please wear loose fitting clothing that is appropriate to accommodate your surgical area procedure. BRING WITH YOU ANY DEVICES YOU MAY NEED: BETHANY hose, ice machine, sling/swath, brace or special shoe, oversized zip-up or button up shirt, CPAP machine if staying overnight. 12. Do NOT wear jewelry, watches, or any piercings or metal for surgery- leave these valuables and money at home. 13. Do NOT wear contact lenses for surgery- glasses are okay if needed. 14. The anesthesiologist will talk with you the day of surgery and will ask you to sign a Consent Form. 15. Refrain from smoking or any type of tobacco use for at least 8 hours and marijuana for 24 hours prior to arrival for your surgery. 16. If a GREEN BLOOD band is given to you, please bring it with you for the day of surgery. 17. Notify your surgeon if you develop any illness before your surgery. 18. If you are staying overnight, please DO NOT BRING your home medications with you. 19. If you have any questions prior to surgery, please call the Preadmission Testing office at [phone], Mon.-Fri. 7 a.m.-3 p.m. Leave a voicemail if needed. Pre-Surgery Instructions: Medication Instructions amLODIPine (NORVASC) 5 mg tablet Take morning of procedure ibuprofen (MOTRIN) 800 mg tablet Stop taking 1 week prior to procedure losartan (COZAAR) 25 mg tablet Take morning of procedure metFORMIN (GLUCOPHAGE) 500 mg tablet Stop taking 0 days prior to procedure pantoprazole (PROTONIX) 40 mg EC tablet Stop taking 0 days prior to procedure peg 3350-sod sulf,zojb-uql-zbk 178.7-7.3-0.5 gram recon soln Stop taking 0 days prior to procedure TRULICITY 4.5 mg/0.5 mL pen injector Stop taking 1 week prior to procedure venlafaxine XR (EFFEXOR XR) 75 mg 24 hr capsule Stop taking 0 days prior to procedure [facility] 09-28-2023 History of Presen t illness Narrative Images from the original note were not included. Chief Complaint: Colon cancer screening History of Present Illness Carmen Mays is a 63 y.o. female who presents to the office for colon cancer screening. This is her first colonoscopy. She denies any changes in her bowels including diarrhea, constipation, abdominal pain, melena, hematochezia, unexplained weight loss. There is no known family history of colon cancer. Review of Systems Constitutional: Negative for fever and unexpected weight change. HENT: Negative for trouble swallowing. Respiratory: Negative for shortness of breath. Cardiovascular: Negative for chest pain. Gastrointestinal: Negative for nausea, vomiting, abdominal pain, diarrhea, constipation, blood in stool and black tarry stool. Genitourinary: Negative for dysuria and difficulty urinating. Musculoskeletal: Negative for gait problem. Skin: Negative for rash and wound. Neurological: Negative for dizziness, weakness and light-headedness. Hematological: Does not bruise/bleed easily. Psychiatric/Behavioral: Negative for confusion. Past Medical History: Diagnosis Date Diabetes mellitus type 2, controlled ([facility]) Hypertension Past Surgical History: Procedure Laterality Date GANGLION CYST EXCISION Left excision ganglion cyst left wrist HAND SURGERY OOPHORECTOMY TOTAL ABDOMINAL HYSTERECTOMY 1997 Allergies Allergen Reactions Morphine Vomiting Current Outpatient Medications: amLODIPine (NORVASC) 5 mg tablet, , Disp: , Rfl: ibuprofen (MOTRIN) 800 mg tablet, TAKE 1 TABLET BY MOUTH EVERY 8 HOURS WITH FOOD OR MILK NEEDED, Disp: , Rfl: losartan (COZAAR) 25 mg tablet, , Disp: , Rfl: metFORMIN (GLUCOPHAGE) 500 mg tablet, 1 tablet (500 mg total) daily with breakfast., Disp: , Rfl: pantoprazole (PROTONIX) 40 mg EC tablet, , Disp: , Rfl: TRULICITY 4.5 mg/0.5 mL pen injector, , Disp: , Rfl: venlafaxine XR (EFFEXOR XR) 75 mg 24 hr capsule, , Disp: , Rfl: peg 3350-sod sulf,zsnt-cwc-hmd 178.7-7.3-0.5 gram recon soln, Take 1 kit by mouth once daily for 1 dose. Please see instructional sheet given by physicians office., Disp: 1 each, Rfl: 0 Social History Socioeconomic History Marital status: Spouse name: Not on file Number of children: Not on file Years of education: Not on file Highest education level: Not on file Occupational History Not on file Tobacco Use Smoking status: Never Passive exposure: Never Smokeless tobacco: Never Vaping Use Vaping Use: Never used Substance and Sexual Activity Alcohol use: Never Drug use: Never Sexual activity: Defer Other Topics Concern Not on file Social History Narrative Not on file Social Determinants of Health Financial Resource Strain: Not on file Food Insecurity: No Food Insecurity (09/28/2023) Hunger Screening Food Insecurity - Worry: Never True Food Insecurity - Inability: Never True Transportation Needs: Not on file Physical Activity: Not on file Stress: Not on file Social Connections: Not on file Interpersonal Safety: Not on file Housing Instability: Not on file Family History Problem Relation Age of Onset Hypertension Mother Asthma Father Diabetes Sister Diabetes Brother Cancer Brother Objective Physical Exam Constitutional: General: She is not in acute distress. Appearance: Normal appearance. She is obese. She is not ill-appearing. HENT: Head: Normocephalic and atraumatic. Mouth/Throat: Mouth: Mucous membranes are moist. Eyes: Pupils: Pupils are equal, round, and reactive to light. Cardiovascular: Rate and Rhythm: Normal rate. Pulmonary: Effort: Pulmonary effort is normal. No respiratory distress. Abdominal: General: There is no distension. Palpations: Abdomen is soft. Musculoskeletal: General: Normal range of motion. Skin: General: Skin is warm and dry. Neurological: Mental Status: She is alert and oriented to person, place, and time. Mental status is at baseline. Vital Signs: Blood pressure (!) 180/94, pulse 74, weight 89.2 kg (196 lb 9.6 oz). Respiratory Source: No data recorded Admission Weight: Weight: 89.2 kg (196 lb 9.6 oz) Labs No results found for: WBC , HGB , HCT , MCV , PLT No results found for: GLU , CALCIUM , NA , K , CO2 , CL , BUN , CREATININE No results found for: AMYLASE No results found for: LIPASE No results found for: ALT , AST , GGT , ALKPHOS , LABBILI No results found for: INR , PROTIME Assessment Carmen Mays is a 63 y.o.female who presents to the office for screening colonoscopy. Plan Colonoscopy with possible biopsy and/or polypectomy. Risks, benefits, and alternatives discussed with patient. Educated on bowel evacuation preparation. Patient verbalizes understanding and wishes to proceed. Evaluation included: Preparing to see the patient (e.g., review of tests) Obtaining and/or reviewing separately obtained history Performing a medically appropriate examination and/or evaluation Counseling and educating the patient/family/caregiver Referring and communicating with other health patient care technician Encounter for screening colonoscopy [Z12.11] SALLIE OROURKE [facility] General Surgery [place] This note was created with the assistance of a speech recognition program. While intending to generate a timely document that accurately reflects the content of the visit, no guarantee can be provided that every grammatical or spelling mistake has been or will be identified or corrected. Thank you for your understanding. SALLIE Orourke 09/28/23 1457 documented in this encounter [facility] 09-07-2023 History of Presen t illness Narrative Associated Order(s): $ Large Joint Injection: L knee Post-Procedure Diagnose(s): 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, posterior cruciate ligament, left, subsequent encounter; Other tear of medial meniscus of left knee as current injury, subsequent encounter; Traumatic arthritis of knee, left Images from the original note were not included. [facility] [address] [facility] [id number] Name: Carmen Mays : 1960 SUMMARY OF VISITS: 09/09/2023 SUBJECTIVE: Chief Complaint: Left knee pain History of Present Illness: For the sake of review, the patient is a 62-year-old female with left knee pain from a reported work-related injury. 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 She reports that she recently obtained approval for a left knee cortisone injection. Currently, she rates her pain a 9/10 with 10 disabling and 1 being bothersome. Pain is diffusely located. The pain is worse with activity. Review of Systems: Refer to HPI for other pertinent ROS findings OBJECTIVE: Physical Examination: There were no vitals filed for this visit. Body mass index is 40.47 kg/m . GENERAL APPEARANCE: The patient is well-developed, well-nourished, and in no acute distress. The patient is alert and oriented x 3, pleasant, and cooperative. The patient has a very large body habitus. The patient walks with an antalgic gait. LEFT LOWER EXTREMITY: There is diffuse tricompartmental tenderness of the knee primarily involving the patellofemoral compartment. Knee flexion: 135 Extension: 0-5 degrees. There is a trace knee effusion. Crepitus is present. The patient can straight leg raise against gravity. There are no skin lesions, masses, rashes, or ulcers. There is no obvious muscle atrophy and there are no fasciculations or spasticity. There is full range of motion of the hip and ankle without crepitus or instability. There is good muscle strength 5/5 throughout the motor groups supplied by the lumbar and sacral plexus. Gastroc, TA, HS, and Quad intact. ASSESSMENT: 1. 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, posterior cruciate ligament, left, subsequent encounter 2. Other tear of medial meniscus of left knee as current injury, subsequent encounter 3. Traumatic arthritis of knee, left Radiologic findings: X-ray knee left minimum 4 views Four views of the left knee were obtained today. Grafts reveal degenerative arthritis of the left knee. There is mild medial compartment narrowing and mild patellofemoral arthrosis. No fractures, bone lesions, or loose bodies are seen. Medical Decision Making: Proceeded with left knee cortisone injection as planned for suspected left knee pain from work-related injury. PLAN: Left knee cortisone injection with 2 cc Celestone and 2 cc lidocaine/ follow-up in 3 months $ Large Joint Injection: L knee on 09/07/2023 3:55 PM Indications: pain Details: 22 G needle, anterolateral approach Medications: 12 mg betamethasone acet & sod phos 6 mg/mL Outcome: tolerated well, no immediate complications The patient was instructed to use ice, NSAIDs, or Tylenol for pain as needed. The patient will call with any signs or concerns. Procedure, treatment alternatives, risks and benefits explained, specific risks discussed. Patient was prepped and draped in the usual sterile fashion. This note is dictated with the use of M*Modal. Please note that this dictation was completed with computer voice recognition software. Quite often unanticipated grammatical, syntax, homophones, and other interpretive errors are inadvertently transcribed by the computer software. Please disregard these errors. Please excuse any errors that have escaped final proofreading PHYSICIAN ATTESTATION I, Uziel R Saddemi, MD, personally performed the face to face evaluation on this patient. I discussed with the patient and confirmed the accuracy and completeness of the aforementioned history prepared by the [facility] practice provider, and I personally performed the clinical examination of the patient. I discussed the treatment plan with the patient and my physician's bioinformatics assistant. Details of today's visit are as described above. I personally injected the patient's left knee today. [facility] Encounter Date Diagnosis Assessment Notes Jul, COVID- 19 (ICD-1 0 - U07.1) [facility] Other 11-14-2023 Evaluation note* Encounter Date Diagnosis Assessment Notes Treatment Notes Treatment Clinical Notes Jun, Rotator cuff arthropathy of left shoulder (ICD-10 - M12.812) ROM exercises, ice/heat and Tylenol. No impovement, consider referral to Orthopedics Jun, Pain in left shoulder (ICD-10 - M25.512) Subacromial injection given w/o complications. SHe is aware that her pain may worsen before it improves. Jun, Primary hypertension (ICD-10 - I10) This patient is instructed to consume a healthy, low-fat, low-salt diet. They are also encouraged to continue exercise to achieve/maintain a normal BMI. Jun, Type 2 diabetes mellitus with hyperglycemia, without long-term current use of insulin (ICD-10 - E11.65) This patient is following a comprehensive diabetic treatment plan. They are checking their feet daily for calluses and nonhealing ulcers. They are being seen for yearly dilated eye examinations. Goals: SBP less than 130, LDL less than 100, FBS less than 140, A1C less than 7%. They are checking their BS daily, will which are reviewed at the office visit. Continue regular routine monitoring of A1C,] Microalbumin, Dilated eye exam and Foot exam Jun, Other chronic pain (ICD-10 - G89.29) [facility] Other 09-21-2023 Evaluation note* Encounter Date Diagnosis Assessment Notes Treatment Notes Treatment Clinical Notes Apr, Type 2 diabetes mellitus with hyperglycemia, without long-term current use of insulin (ICD-10 - E11.65) Apr, Type 2 diabetes mellitus with hyperglycemia (ICD-10 - E11.65) [facility] Other 07-31-2023 Evaluation note* Encounter Date Diagnosis Assessment Notes Treatment Notes Treatment Clinical Notes Feb, Type 2 diabetes mellitus with hyperglycemia (ICD-10 - E11.65) [facility] Other 05-02-2023 Evaluation note* Encounter Date Diagnosis Assessment Notes Treatment Notes Treatment Clinical Notes December, Primary osteoarthritis, left shoulder (ICD-10 - M19.012) Ovoid reaching, lifting w/ left shoulder. ROM exercises to maintain adequate motion and ovoid stiffness December, Acute pain of left shoulder (ICD-10 - M25.512) ROM exercises, heat/ice and Tylenol. PT completed w/o improvement. IA injection and further treatment/evaluat ion based on response - 40mg Kenalog w/ 3ml Xylocaine injected w/o complications, patient tolerated procedure - instructed to use ice and rest shoulder for next 48 hours December, Essential hypertension (ICD-10 - I10) This patient is instructed to consume a healthy, low-fat, low-salt diet. They are also encouraged to continue exercise to achieve/maintain a normal BMI. [facility] Other 04-27-2023 Evaluation note* Encounter Date Diagnosis Assessment Notes Treatment Notes Treatment Clinical Notes Nov, Type 2 diabetes mellitus with hyperglycemia, without long-term current use of insulin (ICD-10 - E11.65) [facility] Other 02-14-2023 Evaluation note* Encounter Date Diagnosis Assessment Notes Treatment Notes Treatment Clinical Notes Sep, Essential hypertension (ICD-10 - I10) This patient is instructed to consume a healthy, low-fat, low-salt diet. They are also encouraged to continue exercise to achieve/maintain a normal BMI. Sep, Type 2 diabetes mellitus with hyperglycemia, without long-term current use of insulin (ICD-10 - E11.65) This patient is following a comprehensive diabetic treatment plan. They are checking their feet daily for calluses and nonhealing ulcers. They are being seen for yearly dilated eye examinations. Goals: SBP less than 130, LDL less than 100, FBS less than 140, AC and A1C less than 7%. They are checking their BS daily, will which are reviewed at the office visit. Sep, SANTINO (obstructive sleep apnea) (ICD-10 - G47.33) This patient is aware of the benefits associated with SANTINO: With continued use, the patient reduces the risk for [place], CVA, HTN, cardiac dysrhythmias and sudden cardiac deaths.The patient is also aware of the association between SANTINO and morning headaches, daytime somnolence, fatigue and obesity, which also has been improved with continued use.The patient is compliant with treatment, wearing the equipment every night for greater than 4 hours.The patient is instructed to continue use of the CPAP for SANTINO treatment. Sep, Benign paroxysmal positional vertigo due to bilateral vestibular disorder (ICD-10 - H81.13) Sutherland-Daroff Maneuvers given to patient. Fall precautions Sep, Pain in left shoulder (ICD-10 - M25.512) Completed PT w/o benefit. Has taken Tylenol, Motrin and creams w/o benefit Reduced ROM especially w/ abduction and internal rotation. Recommend MRI Sep, DANA (generalized anxiety disorder) (ICD-10 - F41.1) Healthy diet and exercise. Continue w/ weight loss [facility] Other 01-11-2023 Evaluation note* Encounter Date Diagnosis Assessment Notes Treatment Notes Treatment Clinical Notes Aug, Type 2 diabetes mellitus with hyperglycemia, without long-term current use of insulin (ICD-10 - E11.65) [facility] Other 01-10-2023 Evaluation note* Encounter Date Diagnosis Assessment Notes Treatment Notes Treatment Clinical Notes Aug, Pain in left shoulder (ICD-10 - M25.512) Aug, Other chronic pain (ICD-10 - G89.29) [facility] Other Evaluation noteNo InformationNortD[employer] Other Evaluation note* Diagnosis 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, posterior cruciate ligament, left, subsequent encounter- Primary Other tear of medial meniscus of left knee as current injury, subsequent encounter Traumatic arthritis of knee, left [facility] Diagnosis Encounter for screening colonoscopy- Primary Screen for colon cancer Special screening for malignant neoplasms, colon documented in [facility] Diagnosis Sprain of MTP joint of left lesser toe(s), init- Primary documented [facility] Diagnosis Onset Date Resolution Status Chronic venous insufficiency of lower extremity acute Fatigue acute GERD (gastroesophageal reflux disease) acute Hypertension acute SANTINO (obstructive sleep apnea) acute Subclinical hypothyroidism a cute Type 2 diabetes mellitus with hyperglycemia acute [facility] Work Phone: Evaluation note* Diagnosis Post-traumatic osteoarthritis of left knee- Primary documented [facility] Diagnosis Onset Date Resolution Status Chronic venous insufficiency of lower extremity acute Fatigue acute GERD (gastroesophageal reflux disease) acute Hypertension acute SANTINO (obstructive sleep apnea) acute Subclinical hypothyroidism a cute Type 2 diabetes mellitus with hyperglycemia acute Hypertension acute Left shoulder pain acute Rotator cuff tendonitis acut e Type 2 diabetes mellitus with hyperglycemia acute [facility] Work Phone: History general Narrative - Reported* Type Description Date Medical History Essential hypertension Medical History Impaired fasting blood sugar Medical History Depression screening Medical History COVID-19 Medical History Suspected sleep apnea Medical History Subclinical hypothyroidism Medical History Breast cancer screening by mammo gram Medical History Screening for iron deficiency an emia Medical History Malaise Medical History Fatigue Medical History Elevated TSH Medical History Vitamin D deficiency Medical History Obesity Medical History Occipital headache Medical History Type 2 diabetes flavia itus with hyperglycemia, without long-term current use of insulin Medical History Hypokalemia Medical History Primary osteoarthritis, left dean ulder Medical History Strain of other musc les, fascia and tendons at shoulder and upper arm level, left arm, subsequent encounter Medical History Left shoulder pain Medical History Chronic pain Medical History Gastroesophageal ref lux disease with esophagitis without hemorrhage Medical History Paresthesias Medical History Primary osteoarthritis, unspecif ied ankle and foot Medical History Obstructive sleep apnea Medical History Chronic venous hyper tension (idiopathic) without complications of bilateral lower extremity Surgical History Hysterectomy Surgical History Left wrist, ganglion cyst Hospitalization History See above [facility] Other InstructionsNot on filedocumented in this encounter [facility]ructionsNot on filedocumented [facility] Summary Purpose Family History Relationship Condition Age at Onset Recorded Date/T laurel father Hypertension Unknown Diabetes mellitus Unknown Asthma Unknown Unknown mother Hypertension Unknown Advance Directives Advance Directive Response Recorded Date/ Time Advance Directives No September 16, 2023 11:46am Chief Complaint and Reason for Visit Chief Complaint 6 month follow up Reason for Visit Chronic venous insuf ficiency of lower extremity Fatigue GERD (gastroesophageal reflux disease) Hypertension SANTINO (obstructive sleep apnea) Subclinical hypothyroidism Type 2 diabetes mellitus with hyperglycemia Chief Complaint 6 month follow up Lt shoulder cortisone injection Reason for Visit Chronic venous insuf ficiency of lower extremity Fatigue GERD (gastroesophageal reflux disease) Hypertension SANTINO (obstructive sleep apnea) Subclinical hypothyroidism Type 2 diabetes mellitus with hyperglycemia Hypertension Left shoulder pain Rotator cuff tendonitis Type 2 diabetes mellitus with hyperglycemia Additional Source Comments INFORMATION SOURCE (unrecogn ized section and content) DATE CREATED AUTHOR 02/09/2018 [facility] DATE CREATED AUTHOR AUTHOR'S ORGANIZ ATION 12/18/2022 [facility] DATE CREATED AUTHOR AUTHOR'S ORGANIZ ATION 12/29/2023 [facility] DATE CREATED AUTHOR AUTHOR'S ORGANIZ ATION 05/19/2024 [facility] REASON FOR VISIT (unrecogniz ed section and content) Reason Comments Pain BWC. Left knee jean tone injection 01/04/24, states it lasted almost 3 months. Approved for Lt Knee Celestone inj today Reason Comments Pain BWC. New patient. Le ft foot injury 09/22/23, after she tripped over a students bag. XR 10/06/23. Work Related Injury BWC. New patient. Le ft foot injury 09/22/23, after she tripped over a students bag. XR 10/06/23. Reason Comments Colon Cancer Screening Screening, first colon Reason Comments Pain Wc Ok'd injec Left k nee Test resultsLEFT SHOULDER INJECTIONMedication Changeshoulder injectionCheck Upprescription refill Care Teams (unrecognized sec tion and content) Surface Lay Out Technician Relationship Specialty [place] [address] [place] [id number] PCP - General Internal Medicine 04/07/21 Surface Lay Out Technician Relationship Specialty Start Date End Date Fab Guevara DO [address] [place] [id number] PCP - General Internal Medicine 04/07/21 Surface Lay Out Technician Relationship Specialty Start Date End Date Fab Guevara [address] [place] [id number] PCP - General Internal Medicine 04/07/21 Surface Lay Out Technician Relationship Specialty Start Date End Date Fab Guevara [address] [place] [id number] PCP - General Internal Medicine 04/07/21 Team Status: Active Member Role Status Dates Fab Guevara DO Primary Care Provider Active Team Status: Inactive Member Role Status Dates Fab Guevara DO Primary Care Provide r, Attending Provider Active Start: March 16, 2024 End: March 16, 2024 Surface Lay Out Technician Relationship Specialty Start Date End Date Fab Guevara [address] [place] [id number] PCP - General Internal Medicine 04/07/21 Team Status: Inactive Member Role Status Dates Fab Ismael DO Primary Care Provide r, Attending Provider Active Start: June 06, 2024 End: June 06, 2024 Goals (unrecognized section and content) Goals may be documented in a n alternate section FOR RECORDS PERTAINING TO PATIENTS WHO ARE OR HAVE BEEN ENROLLED IN A CHEMICAL DEPENDENCY/SUBSTANCEABUSE PROGRAM, SOME INFORMATION MAY BE OMITTED. This clinical summary was aggregated from multiple sources. Caution should be exercised in using it in the provision of clinical care. This summary normalizes information from multiple sources, and as a consequence, information in this document may materially change the coding, format and clinical context of patient data. In addition, data may be omitted in some cases. CLINICAL DECISIONS SHOULD BE BASED ON THE PRIMARY CLINICAL RECORDS. [employer] [facility]. provides no warranty or guarantee of the accuracy or completeness of information in this document.
--- NOTE | 2024-08-12 11:00 | XR_ITS ---
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 CLINICAL INDICATION: 63 years Female cough FINDINGS: The exam is limited somewhat by portable lordotic radiographic technique. The cardiomediastinal silhouette and pulmonary vasculature are within normal limits. The lungs are clear. There is no evidence of pleural effusion or pneumothorax. XR/XR chest 1V IMPRESSION: Chest radiograph is within normal limits. Electronically authenticated by: MERE SWIFT Date: 08/12/2024 11:59
--- NOTE | 2024-08-12 11:00 | CT_ITS ---
The [address] [address] Patient Name: EVY MORALES MRN: [facility]:[id number] date: 1960 Sex: F Assigned Patient Location: ER Current Patient Location: ER Accession/Order Number: [id number] Exam Date: 08/12/2024 11:05 Report Date: 08/12/2024 11:27 At the request of: VICTOR HUGO MATIAS Procedure: CT stroke head/brain wo con EXAM: CT stroke head/brain wo con HISTORY: Confusion, altered mental status, hypertension. COMPARISON: None. TECHNIQUE: Axial noncontrast CT imaging of the head was performed with coronal and sagittal reformats. This CT exam was performed using one or more of the following dose reduction techniques: Automated exposure control, adjustment of the MA and/or kV according to patient size, or use of iterative reconstruction technique. FINDINGS: Calvarium/skull base: No evidence of acute fracture or destructive lesion. Paranasal sinuses: No air fluid levels. Brain: No acute intracranial hemorrhage. No acute large vascular territory infarct. Likely remote lacunar infarct versus prominent perivascular space involving the inferior left lentiform nucleus. No mass lesion or mass effect. No hydrocephalus. CT/CT stroke head/brain wo con IMPRESSION: No acute large vascular territory infarct or acute intracranial hemorrhage. If there is clinical concern for acute ischemia recommend MRI brain for further evaluation. Electronically authenticated by: RUI MORALES Date: 08/12/2024 11:27
[2024-08-12 11:05] LABS: Glucometer 89 mg/dL (74-106)
[2024-08-12 11:07] LABS: Basophils Absolute Auto 0.1 10^3/uL (0.0-0.1); Basophils Percent Auto 0.9 % (0.2-2.0); Eosinophils Absolute Auto 0.2 10^3/uL (0.0-0.7); Eosinophils Percent Auto 3.2 % (0.9-7.0); Hematocrit 40.4 % (36.0-48.0); Hemoglobin 13.3 g/dL (12.0-16.0); Immature Granulocytes Abs Auto 0.02 10^3/uL (0.00-0.03); Immature Granulocytes Pct Auto 0.3 % (0.0-0.5); Lymphocytes Absolute Auto 2.2 10^3/uL (1.2-3.8); Lymphocytes Percent Auto 29.7 % (20.5-60.0); Mean Corpuscular HGB Conc 32.9 g/dL (29.9-35.2); Mean Corpuscular Hemoglobin 33.3 pg (26.7-34.0); Mean Platelet Volume 9.7 fL (9.5-13.5); Monocytes Absolute Auto 0.5 10^3/uL (0.3-0.8); Monocytes Percent Auto 6.2 % (1.7-12.0); Neutrophils Absolute Auto 4.5 10^3/uL (1.4-6.5); Neutrophils Percent Auto 59.7 % (43.0-75.0); Platelet Count 286 10^3/uL (150-450); Red Cell Distribution Width 12.6 % (11.0-15.0); White Blood Count 7.5 10^3/uL (4.0-11.0)
--- NOTE | 2024-08-12 11:11 | ED_ITS ---
HPI - Altered Mental Status General Chief Complaint: Altered Mental Status Stated Complaint: CONFUSION Time Seen by Provider: 08/12/24 10:52 Source: patient Mode of arrival: walk-in History of Present Illness HPI narrative: The patient is coming to us with confusion noted by the family member and at the bedside the son providing the history. They noted yesterday that she did not remember that she have to go to work and today she did not remember that it was Wednesday and she was going to work. The patient does not remember what happened today and she is tearful while being asked about the details because she does not remember them She had no specific weakness in her upper or lower extremity there was no noted specific organic symptom of nausea vomiting or difficulty speaking The patient had a cough and that was the only positive and her review of system Related Data Home Medications ?Medication ?Instructions ?Recorded ?Confirmed amlodipine 10 mg tablet 10 mg PO DAILY 08/12/24 08/12/24 ibuprofen 800 mg tablet 800 mg PO Q8H 08/12/24 08/12/24 losartan 25 mg tablet 25 mg PO DAILY 08/12/24 08/12/24 metformin 500 mg tablet 500 mg PO Q8H 08/12/24 08/12/24 pantoprazole 40 mg tablet,delayed 40 mg PO Q12H 08/12/24 08/12/24 release tirzepatide 15 mg/0.5 mL 15 mg subcut .WEEKLY 08/12/24 08/12/24 subcutaneous pen injector (Mounjaro) venlafaxine 75 mg capsule,extended 75 mg PO DAILY 08/12/24 08/12/24 release 24 hr Allergies Allergy/AdvReac Type Severity Reaction Status Date / Time No Known Drug Allergies Allergy Verified 08/12/24 10:50 Review of Systems ROS Status of ROS 10 or more systems reviewed and unremark able except as noted in history and below PFSH PFSH Social History Little interest or pleasure in doing things: not at all Feeling down, depressed, or hopeless: not at all Exam Narrative Exam Narrative: Nurses notes and vital signs reviewed and patient is not hypoxic. General: Well-appearing and in no apparent distress. Skin: Warm, dry, no pallor noted. No rash. Head: Normocephalic, atraumatic. Neck: Supple, non-tender. Eye: Pupils are equal, round and EOMI. No scleral icterus. Ears, Nose, Mouth, and Throat: TM are clear, no nasal mucosal hypertrophy. Oral mucosa is moist, no posterior oropharynx erythema, uvula is mid-line Cardiovascular: Regular Rate and Rhythm without murmur, gallop or rub. Respiratory: No accessory muscle use or respiratory distress. Lungs are clear to auscultation, no wheezing, rales or rhonchi Chest Wall: no tenderness Back: No midline thoracic or lumbar vertebral tenderness. No CVA tenderness Musculoskeletal: normal ROM, no calf or popliteal tenderness, no lower extremity edema/swelling GI: Abdomen is soft, non-distended. Normal bowel sounds. No masses appreciated. No tenderness to palpation. No rebound, guarding, or rigidity noted. Neurological: A&O x2. No cranial nerve dysfunction observed. No truncal ataxia. Moves all extremities. Sensation intact. Psychiatric: Cooperative and interactive. Normal mood and affect. Constitutional Vital Signs, click to edit/add: Last Vital Signs Temp 98.6 F 08/12/24 10:50 Pulse 88 08/12/24 11:01 Resp 25 H 08/12/24 11:01 BP 185/107 H 08/12/24 11:01 Pulse Ox 96 08/12/24 10:55 O2 Del Method Room Air 08/12/24 10:50 Course Vital Signs Vital signs: Vital Signs Temperature 98.6 F 08/12/24 10:50 Pulse Rate 93 H 08/12/24 10:50 Respiratory Rate 20 08/12/24 10:50 Blood Pressure 177/112 H 08/12/24 10:50 Pulse Oximetry 96 08/12/24 10:50 Oxygen Delivery Method Room Air 08/12/24 10:50 Temperature 98.6 F 08/12/24 10:50 Pulse Rate 88 08/12/24 11:01 Respiratory Rate 25 H 08/12/24 11:01 Blood Pressure 185/107 H 08/12/24 11:01 Pulse Oximetry 96 08/12/24 10:55 Oxygen Delivery Method Room Air 08/12/24 10:50 MDM - Altered Mental Status MDM Narrative Medical decision making narrative: The patient EKG showing sinus rhythm with a heart rate of [address] elevation or depression CBC and chemistry showed no acute pathology The patient ethanol level was negative and the patient CT head as well showed no acute pathology It was noted that the patient blood pressure was elevated upon arrival and it stayed elevated the whole time she does not remember taking her blood pressure medication today and also yesterday The patient case was discussed with teleneurology service and the diagnosis right now is transient global amnesia and possible stroke and the aspirin was started with the advised to keep the blood pressure elevated until we get an MRI of the brain CT angio head and neck are not required The patient case was discussed with and he agreed on admitting the patient for further evaluation Lab Data Labs: Lab Results 08/12/24 08/12/24 Range/Units 10:58 10:59 WBC 7.5 (4.0-11.0) 10^3/uL RBC 4.00 L (4.20-5.40) 10^6/uL Hgb 13.3 (12.0-16.0) g/dL Hct 40.4 (36.0-48.0) % MCV 101.0 H (81.0-99.0) fL MCH 33.3 (26.7-34.0) pg MCHC 32.9 (29.9-35.2) g/dL RDW 12.6 (11.0-15.0) % Plt Count 286 (150-450) 10^3/uL MPV 9.7 (9.5-13.5) fL Neut % (Auto) 59.7 (43.0-75.0) % Lymph % (Auto) 29.7 (20.5-60.0) % Bartholomew % (Auto) 6.2 (1.7-12.0) % Eos % (Auto) 3.2 (0.9-7.0) % Baso % (Auto) 0.9 (0.2-2.0) % Neut # (Auto) 4.5 (1.4-6.5) 10^3/uL Lymph # (Auto) 2.2 (1.2-3.8) 10^3/uL Bartholomew # (Auto) 0.5 (0.3-0.8) 10^3/uL Eos # (Auto) 0.2 (0.0-0.7) 10^3/uL Baso # (Auto) 0.1 (0.0-0.1) 10^3/uL Abs Immat Gran (auto) 0.02 (0.00-0.03) 10^3/uL Imm/Tot Granulo (auto) 0.3 (0.0-0.5) % PT 10.5 (9.0-11.6) sec INR 0.99 Sodium 144 (136-145) mmol/L Potassium 3.7 (3.5-5.1) mmol/L Chloride 106 (98-107) mmol/L Carbon Dioxide 27.6 (21.0-32.0) mmol/L Anion Gap 14.1 BUN 14.0 (7.0-18.0) mg/dL Creatinine 1.00 (0.55-1.02) mg/dL Est GFR ( Amer) >60 (>=60 mL/min/1.73m^2) Est GFR (Non-Af Amer) 56 L (>=60 mL/min/1.73m^2) BUN/Creatinine Ratio 14.0 Glucose 90 (74-106) mg/dL Lactate 0.9 (0.4-2.0) mmol/L Calcium 9.5 (8.5-10.1) mg/dL Magnesium 1.8 (1.8-2.4) mg/dL Total Bilirubin 0.7 (0.2-1.0) mg/dL AST 23 (15-37) U/L ALT 21 (14-59) U/L Alkaline Phosphatase 105 (46-116) U/L Troponin I High Sens 5.8 (4.0-51.3) pg/mL Total Protein 7.3 (6.4-8.2) g/dL Albumin 3.9 (3.4-5.0) g/dL Globulin 3.4 g/dL Albumin/Globulin Ratio 1.1 Ethanol Quant <3 mg/dL POC Glucose 89 (74-106) mg/dL Discharge Plan Discharge Chief Complaint: Altered Mental Status Clinical Impression: Amnesia, global, transient, Stroke Patient Disposition: Admitted As Inpatient Time of Disposition Decision: 12:55 Condition: Good
[2024-08-12 11:20] LABS: INR 0.99; Prothrombin Time 10.5 sec (9.0-11.6)
[2024-08-12 11:34] LABS: Lactate/Lactic Acid 0.9 mmol/L (0.4-2.0)
[2024-08-12 11:35] LABS: Alanine Aminotransferase 21 U/L (14-59); Albumin Globulin Ratio 1.1; Albumin Level 3.9 g/dL (3.4-5.0); Alkaline Phosphatase 105 U/L (46-116); Anion Gap 14.1; Aspartate Amino Transferase 23 U/L (15-37); Bilirubin Total 0.7 mg/dL (0.2-1.0); Calcium 9.5 mg/dL (8.5-10.1); Carbon Dioxide 27.6 mmol/L (21.0-32.0); Chloride 106 mmol/L (98-107); Estimated GFR (African America >60 (>=60 mL/min/1.73m^2); Estimated GFR (Non-African Ame 56 (>=60 mL/min/1.73m^2); Globulin 3.4 g/dL; Glucose 90 mg/dL (74-106); Magnesium 1.8 mg/dL (1.8-2.4); Potassium 3.7 mmol/L (3.5-5.1); Sodium 144 mmol/L (136-145); Total Protein 7.3 g/dL (6.4-8.2); Troponin I High Sensitivity 5.8 pg/mL (4.0-51.3)
[2024-08-12 12:34] LABS: Ethanol <3 mg/dL
--- NOTE | 2024-08-12 12:54 | CT_ITS ---
[address] [address] Patient Name: EVY MORALES MRN: [id number] date: 1960 Sex: F Assigned Patient Location: MS Current Patient Location: MS Accession/Order Number: [id number] Exam Date: 08/12/2024 13:30 Report Date: 08/12/2024 15:16 At the request of: SHAIKH REJI Procedure: CT angio neck CTA HEAD/NECK. HISTORY: SUSPECTED STROKE COMPARISON: None. TECHNIQUE: CT angiogram of the head and neck obtained after administration of nonionic intravenous contrast material, Multiplanar and volume rendered 3-D reformats were created. NASCET criteria was used for evaluation of luminal stenosis. 3-D vascular images were constructed on a separate workstation. FINDINGS: THORACIC AORTA: Normal. There is a normal anatomy at the origin of the great vessels. RIGHT COMMON CAROTID ARTERY: No significant stenosis. RIGHT EXTERNAL CAROTID ARTERY: No significant stenosis. RIGHT INTERNAL CAROTID ARTERY: No significant stenosis. LEFT COMMON CAROTID ARTERY: No significant stenosis. LEFT EXTERNAL CAROTID ARTERY: No significant stenosis. LEFT INTERNAL CAROTID ARTERY: No significant stenosis. RIGHT VERTEBRAL ARTERY: No significant stenosis. LEFT VERTEBRAL ARTERY: No significant stenosis. [place] OF [place]: The bilateral intracranial internal carotid arteries, anterior cerebral arteries, middle cerebral arteries and anterior and posterior communicating arteries are normal. POSTERIOR INTRACRANIAL CIRCULATION: The basilar artery and posterior cerebral arteries are patent, without stenosis or occlusion. DURAL SINUSES: Patent. No intracranial aneurysm measuring least 2 mm identified. No intracranial AVM. LUNG APICES: The lung apices are clear. SOFT TISSUES: The prevertebral soft tissues are normal. No soft tissue inflammation. There is a 2.5 cm right thyroid lobe nodule. OSSEOUS STRUCTURES: No acute osseous abnormality throughout the imaged axial skeleton and skull base. CT/CT angio neck IMPRESSION: 1. No high-grade or hemodynamically flow-limiting stenosis of the major arteries of the head and neck. 2. Right thyroid lobe 2.5 cm nodule. Recommend nonemergent thyroid ultrasound correlation. Electronically authenticated by: CANDIDA NAVAS Date: 08/12/2024 15:16
--- NOTE | 2024-08-12 12:54 | CT_ITS ---
[address] [address] Patient Name: EVY MORALES MRN: [id number] date: 1960 Sex: F Assigned Patient Location: ER Current Patient Location: Accession/Order Number: [id number] Exam Date: 08/12/2024 13:30 Report Date: 08/12/2024 15:16 At the request of: SHAIKH REJI Procedure: CT angio head CTA HEAD/NECK. HISTORY: SUSPECTED STROKE COMPARISON: None. TECHNIQUE: CT angiogram of the head and neck obtained after administration of nonionic intravenous contrast material, Multiplanar and volume rendered 3-D reformats were created. NASCET criteria was used for evaluation of luminal stenosis. 3-D vascular images were constructed on a separate workstation. FINDINGS: THORACIC AORTA: Normal. There is a normal anatomy at the origin of the great vessels. RIGHT COMMON CAROTID ARTERY: No significant stenosis. RIGHT EXTERNAL CAROTID ARTERY: No significant stenosis. RIGHT INTERNAL CAROTID ARTERY: No significant stenosis. LEFT COMMON CAROTID ARTERY: No significant stenosis. LEFT EXTERNAL CAROTID ARTERY: No significant stenosis. LEFT INTERNAL CAROTID ARTERY: No significant stenosis. RIGHT VERTEBRAL ARTERY: No significant stenosis. LEFT VERTEBRAL ARTERY: No significant stenosis. [place]: The bilateral intracranial internal carotid arteries, anterior cerebral arteries, middle cerebral arteries and anterior and posterior communicating arteries are normal. POSTERIOR INTRACRANIAL CIRCULATION: The basilar artery and posterior cerebral arteries are patent, without stenosis or occlusion. DURAL SINUSES: Patent. No intracranial aneurysm measuring least 2 mm identified. No intracranial AVM. LUNG APICES: The lung apices are clear. SOFT TISSUES: The prevertebral soft tissues are normal. No soft tissue inflammation. There is a 2.5 cm right thyroid lobe nodule. OSSEOUS STRUCTURES: No acute osseous abnormality throughout the imaged axial skeleton and skull base. CT/CT angio head IMPRESSION: 1. No high-grade or hemodynamically flow-limiting stenosis of the major arteries of the head and neck. 2. Right thyroid lobe 2.5 cm nodule. Recommend nonemergent thyroid ultrasound correlation. Electronically authenticated by: CANDIDA NAVAS Date: 08/12/2024 15:16
--- NOTE | 2024-08-12 12:57 | P.HP_ITS ---
HPI H&P: HPI History of Present Illness Chief complaint: CONFUSION Narrative: Delayed Note for My Encounter on 08/12/24 63 y o female with hx of HTN, T2 DM was brought over to ED by family for unusual behavior. 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 When she woke up for work on 08/11, she was acting not like her self but was still able to go to work and came back home. Then on , she woke up and could not remember anything about her previous day except for sporadic details. She feels that she has to pay attention and concentrate to comprehend normal conversation and that is unusual. She has no neurological signs or symptoms. Has no prior hx of CVA or CAD. No prior hx of similar events in the past. No prior hx of epilepsy. She has hx of migraine headache and was complaining of severe, throbbing retro orbital headache that did not respond to oral tylenol Patient at the time of eval, was distress about her memory and was tearful and crying. Opioid HPI Opioid Management Most Recent Pain and Opioid Data: Last Pain Scale 2 08/13/24 10:00 08/13/24 Last Pain Assessment 08/13/24 11:00 Last MAR Pain Assessment 08/13/24 09:10 Last ORT Total Score 0 08/12/24 14:15 08/12/24 Last ORT Risk Category Low Risk 08/12/24 14:15 08/12/24 Ur Phencyclidine Scrn Negative (NEGATIVE) 08/12/24 15:15 07/24 09/15 Review of Systems ROS Status of ROS 10 or more systems reviewed and unremark able except as noted in history and below [facility] Medical History (Updated 08/13/24 @ 11:54 by Shaikh Tamie MD) Type 2 diabetes mellitus ?E11.9 - Type 2 diabetes mellitus without complications (ICD-10) HTN (hypertension) ?I10 - Essential (primary) hypertension (ICD-10) Social History Highest level of school completed/degree received: GED or equivalent Little interest or pleasure in doing things: not at all Feeling down, depressed, or hopeless: not at all Meds Home Medications and Allergies Home Medications ?Medication ?Instructions ?Recorded ?Confirmed ?Type amlodipine 10 mg tablet 10 mg PO DAILY 08/12/24 08/12/24 History ibuprofen 800 mg tablet 800 mg PO Q8H 08/12/24 08/12/24 History levothyroxine 50 mcg tablet 50 mcg PO DAILY 08/12/24 08/12/24 History losartan 25 mg tablet 25 mg PO DAILY 08/12/24 08/12/24 History metformin 500 mg tablet 500 mg PO DAILY 08/12/24 History pantoprazole 40 mg tablet,delayed 40 mg PO DAILY 08/12/24 08/12/24 History release tirzepatide 15 mg/0.5 mL 15 mg subcut .WEEKLY 08/12/24 08/12/24 History subcutaneous pen injector (Mounjaro) venlafaxine 75 mg capsule,extended 75 mg PO DAILY 08/12/24 08/12/24 History release 24 hr Allergies Allergy/AdvReac Type Severity Reaction Status Date / Time No Known Drug Allergies Allergy Verified 08/12/24 10:50 Exam Constitutional Vital Signs, click to edit/add: Last Vital Signs Temp 98.6 F 08/12/24 10:50 Pulse 88 08/12/24 11:01 Resp 25 H 08/12/24 11:01 BP 185/107 H 08/12/24 11:01 Pulse Ox 96 08/12/24 10:55 O2 Del Method Room Air 08/12/24 10:50 Documenting provider has reviewed patient's vital signs: yes Common normals: no apparent distress and oriented x3 General appearance: cooperative HENMT Common normals: normocephalic and head/scalp atraumatic Head and scalp: normocephalic and atraumatic Eye Common normals: conjunctivae normal and no scleral icterus Conjunctiva: conjunctiva(e) normal Respiratory Common normals: normal respiratory effort and clear to auscultation bilaterally Effort & inspection: able to speak in complete sentences Auscultation: clear to auscultation bilaterally Cardio Common normals: regular rate, S1 normal heart sound and S2 normal heart sound Rate: regular rate Heart sounds: S1 normal and S2 normal GI Common normals: Normal to inspection, nondistended, normoactive bowel sounds present, soft to palpation, non-tender and no hepatosplenomegaly Palpation: soft and no hepatosplenomegaly Extremity Common normals: no clubbing, cyanosis or edema Neuro Common normals: oriented x3, moves all extremities and no focal motor deficits Psych Common normals: mental status grossly normal, denies hallucinations, denies homicidal ideation and denies suicidal ideation Results Labs Labs: Short CBC 08/12/24 Range/Units 10:59 WBC 7.5 (4.0-11.0) 10^3/uL Hgb 13.3 (12.0-16.0) g/dL Hct 40.4 (36.0-48.0) % Plt Count 286 (150-450) 10^3/uL BMP 08/12/24 10:59 Sodium 144 Potassium 3.7 Chloride 106 Carbon Dioxide 27.6 BUN 14.0 Creatinine 1.00 Glucose 90 Calcium 9.5 Liver Function 08/12/24 Range/Units 10:59 Total Bilirubin 0.7 (0.2-1.0) mg/dL AST 23 (15-37) U/L ALT 21 (14-59) U/L Alkaline Phosphatase 105 (46-116) U/L Albumin 3.9 (3.4-5.0) g/dL Assessment and Plan Assessment and Plan (1) Amnesia, global, transient: (2) Suspected cerebrovascular accident: (3) HTN (hypertension): Qualifiers: Hypertension type: primary hypertension Qualified Code(s): I10 - Essential (primary) hypertension (4) Type 2 diabetes mellitus: Qualifiers: Diabetes mellitus complication status: without complication Diabetes mellitus buttermaker insulin use: without residential use Qualified Code(s): E11.9 - Type 2 diabetes mellitus without complications (5) Migraine headache: Qualifiers: Migraine type: migraine (< 15 days per month) with aura Status migrainosus presence: without status migrainosus Intractability: not intractable Qualified Code(s): G43.109 - Migraine with aura, not intractable, without status migrainosus Plan unclear etiology. Tele stroke consulted. Ordered stroke work up including CTA head/neck and MRI brain. I will order IV toradol, benadryl and Magnesium for her acute migraine ARRIOLA. Started on ASA, check Lipid panel and A1C. C/w tele monitoring, neuro checks. Allow permissive HTN, goal SBP > 170. SSI while inpatient for T2DM.
[2024-08-12 13:49] LABS: Estimated Average Glucose 100 mg/dL; Glycohemoglobin A1C 5.1 % (4.5-6.2)
[2024-08-12 13:50] LABS: Chol HDL Ratio 3.1; Cholesterol 174 mg/dL (<=200); HDL Cholesterol 57 mg/dL (40-60); LDL Cholesterol Calculated 102.6 mg/dL; Triglycerides 72 mg/dL (<=150); VLDL CHOLESTEROL 14.4 mg/dL
--- OUTSIDE RECORDS SUMMARY | 2024-08-12 14:07 | XMS_ITS | CCD ---
Author Organization [facility] CliniSyil Care Team Providers Care Finish Patcher Name Role Phone ALEXA LADD Unavailable Unavailable [...] Morphine; Translations: [MORPHINE] Drug Allergy 3 Vomiting [facility] (4 sources) patient allergy list reviewed by nurse or physicia Propensity to adverse reactions 8 Comment:Done [facility] Other (2 sources) Morphine Drug Allergy Unknown [facility] Other Medications Current Medications Medication Drug Class(es) [...] Dialyvite Vitami n D3 Max 1.25 MG (03039 UT) 1 tablet Orally Active Dialyvite Vitami n D3 Max 1.25 MG (37862 UT) 1 tablet Orally Active 0.5 ML [...] 12:00am December 21, 2023 9:39am peg 3350-sod sulf,pajf-wuq-vwb 178.7-7.3-0.5 gram recon soln (2 sources) Start: 09-28-2023 End: 09-29-2023 peg 3350-sod sulf,bepw-oaq-bhx 178.7-7.3-0.5 gram recon soln Indications: Encounter for [...] the usual sterile fashion. MANUALLY TRANSCRIBED RESULTS [facility] MAMM SCREENING BILATERAL W C motor tester 12-28-2023 MAMM SCREENING BILATERAL W CAD MAMM SCREENING BILATERAL W CAD *ADDENDUM*Addendum: Second read. IMPRESSION: I agree with the interpretation. Finalized by Rg Godoy MD on 12/28/2023 9:00 AM 1 b MAMM 1 YR Normal [facility] XR FOOT LT MIN 3 VWSon 09-22 [...] Key MD on 09/22/2023 1:30 PM Normal [facility] XR KNEE LT MIN 4 VWSon 09-22 [...] Casillas MD on 09/22/2023 1:26 PM Normal [facility] $ Large Joint Injection: L k martieon [...] the usual sterile fashion. MANUALLY TRANSCRIBED RESULTS [facility] MRI SHOULDER LT WO CONon [...] by: JESUS TINOCO Date: 2022-12-11 15:42 Normal [facility] ED Noteon 01-07-2018 HIM IP Note OR Noodle Press Operator Normal [facility] ED Provider Noteon 8 HIM IP Note OR Noodle Press Operator Normal [facility] Vital Signs Date Time Vital Sign Value Performing Clinician Facility 06-06-2024 14:45-0400 Body height 139.7 cm [facility] 06-06-2024 14:45-0400 Body mass index (BMI) [Ratio] 45.3 kg/m2 [facility] 06-06-2024 14:45-0400 Body weight 88.62 kg [facility] 06-06-2024 14:45-0400 Diastolic blood pressure 80 mm[Hg] [facility] 06-06-2024 14:45-0400 Heart rate 74 /min [facility] 06-06-2024 14:45-0400 Respiratory rate 12 /min [facility] 06-06-2024 14:45-0400 Systolic blood pressure 147 mm[Hg] [facility] 05-16-2024 14:59-0400 Body height 142.2 cm Uziel Capellan MD Work Phone: [facility] 05-16-2024 14:59-0400 Body mass index (BMI) [Ratio] 41.7 kg/m2 Uziel Capellan MD Work Phone: [facility] 05-16-2024 14:59-0400 Body weight 84.37 kg Uziel Capellan MD Work Phone: [facility] 03-16-2024 11:35-0400 Body height 139.7 cm [facility] 03-16-2024 11:35-0400 Body mass index (BMI) [Ratio] 45.6 kg/m2 [facility] 03-16-2024 11:35-0400 Body weight 89.07 kg [facility] 03-16-2024 11:35-0400 Diastolic blood pressure 82 mm[Hg] [facility] 03-16-2024 11:35-0400 Heart rate 71 /min [facility] 03-16-2024 11:35-0400 Respiratory rate 12 /min [facility] 03-16-2024 11:35-0400 Systolic blood pressure 139 mm[Hg] [facility] 10-20-2023 14:27-0500 Body height 142.2 cm Anahy Marina MD Work Phone: [facility] 10-20-2023 14:27-0500 Body mass index (BMI) [Ratio] 41.7 kg/m2 Anahy Marina MD Work Phone: [facility] 10-20-2023 14:27-0500 Body weight 84.37 kg Anahy Marina MD Work Phone: [facility] 09-28-2023 14:32-0500 Body mass index (BMI) [Ratio] 42.54 kg/m2 Ceci RIZO Work Phone: [facility] 09-28-2023 14:32-0500 Body weight 89.18 kg Ceci Reilly GLASS HANDLER-FOREST TECHNICIAN Work Phone: [email or web address] 09-28-2023 14:32-0500 Diastolic blood pressure 94 mm[Hg] Ceci Reilly GLASS HANDLER-FOREST TECHNICIAN [facility] Phone: [facility] 09-28-2023 14:32-0500 Heart rate 74 /min Ceci Reilly GLASS HANDLER-FOREST TECHNICIAN Work Phone: [facility] 09-28-2023 14:32-0500 Systolic blood pressure 180 mm[Hg] Ceci Reilly GLASS HANDLER-FOREST TECHNICIAN Work Phone: [email or web address] 09-07-2023 15:38-0500 Body height 144.8 cm Uziel Capellan MD Work Phone: [email or web address] 09-07-2023 15:38-0500 Body mass index (BMI) [Ratio] 40.47 kg/m2 Uziel Capellan MD Work Phone: [email or web address] 09-07-2023 15:38-0500 Body weight 84.82 kg Uziel Capellan MD Work Phone: [email or web address] 07-06-2023 11:30-0500 Body height 149.86 cm Fab Ball Other [facility] Other 07-06-2023 11:30-0500 Body mass index (BMI) [Ratio] 39.1 kg/m2 Fab Ball Other [facility] Other 07-06-2023 11:30-0500 Body weight 87.82 kg Fab Ball Other [facility] Other 07-06-2023 11:30-0500 Diastolic blood pressure 84 mm[Hg] Fab Ball Other [facility] Other 07-06-2023 11:30-0500 Respiratory rate 12 /min Fab Ball Other [facility] Other 07-06-2023 11:30-0500 Systolic blood pressure 145 mm[Hg] Fab Ball Other [facility] Other 12-22-2022 16:00-0400 Body height 149.86 cm Fab Ball Other [facility] Other 12-22-2022 16:00-0400 Body mass index (BMI) [Ratio] 38.69 kg/m2 Fab Ball Other [facility] Other 12-22-2022 16:00-0400 Body weight 86.91 kg Fab Ball Other [facility] Other 12-22-2022 16:00-0400 Diastolic blood pressure 85 mm[Hg] Fab Ball Other [facility] Other 12-22-2022 16:00-0400 Respiratory rate 12 /min Fab Ball Other [facility] Other 12-22-2022 16:00-0400 Systolic blood pressure 148 mm[Hg] Fab Ball Other [facility] Other 10-06-2022 15:00-0500 Body height 149.86 cm Fab Ball Other [facility] Other 10-06-2022 15:00-0500 Body mass index (BMI) [Ratio] 38.49 kg/m2 Fab Ball Other [facility] Other 10-06-2022 15:00-0500 Body weight 86.46 kg Fab Ball Other [facility] Other 10-06-2022 15:00-0500 Diastolic blood pressure 82 mm[Hg] Fab Guevara Other [facility] Other 10-06-2022 15:00-0500 Respiratory rate 12 /min Fab Guevara Other [facility] Other 10-06-2022 15:00-0500 Systolic blood pressure 124 mm[Hg] Fab Guevara Other [facility] Other Encounters Encounter Date Encounter Type Care Provider Facility Start: 06-06-2024 End: 06-06-2024 ambulatory [facility] Work Phone: Start: 06-06-2024 End: 06-06-2024 Patient encounter procedure [facility] Work Phone: Start: 05-16-2024 End: 05-16-2024 Patient encounter procedure Uziel Capellan MD Work Phone: [facility] Comment on above: Post-traumatic osteo arthritis of left knee (Primary Dx) Start: 05-16-2024 End: 05-16-2024 ambulatory [facility] Start: 04-03-2024 End: 04-03-2024 ambulatory [facility] Start: 03-16-2024 End: 03-16-2024 ambulatory [facility] Work Phone: Start: 03-16-2024 End: 03-16-2024 Patient encounter procedure [facility] Work Phone: Start: 01-04-2024 End: 01-04-2024 ambulatory [facility] Start: 12-08-2023 End: 12-08-2023 ambulatory [facility] Start: 12-01-2023 End: 12-01-2023 ambulatory [facility] Start: 10-20-2023 End: 10-20-2023 Office outpatient visit 15 minutes Anahy Marina MD Work Phone: [facility] [place] [facility] Comment on above: Sprain of MTP joint of left lesser toe(s), init (Primary Dx) Start: 10-20-2023 End: 10-20-2023 ambulatory ANAHY Mondragon [facility] Start: 10-06-2023 End: 10-07-2023 ambulatory FAB Herron [facility] Start: 10-06-2023 End: 10-06-2023 Evaluation and management of inpatient TESS MADERA [facility] Start: 10-05-2023 End: 10-06-2023 Evaluation and management of inpatient SOPHIA BRUNO [facility] Start: 09-29-2023 End: 09-29-2023 ambulatory [facility] Pat Phone Call Provider 1 [facility] - Pre [facility] Start: 09-28-2023 End: 09-28-2023 Patient encounter procedure Ceci Reilly GLASS HANDLER-FOREST TECHNICIAN Work Phone: [facility] Comment on above: Encounter for screen ing colonoscopy (Primary Dx) Start: 09-28-2023 End: 09-28-2023 ambulatory CECI Maryellen [facility] Start: 09-22-2023 End: 09-26-2023 ambulatory GABRIELLA MOORE [facility] Start: 09-10-2023 ambulatory ANAHY [facility] Start: 09-09-2023 End: 09-10-2023 ambulatory FAB Herron ISMAEL [facility] Start: 09-07-2023 End: 09-07-2023 ambulatory UZIEL CAPELLAN [facility] Start: 09-07-2023 End: 09-07-2023 Patient encounter procedure Uziel Capellan MD Work Phone: [facility] [place] [facility] Comment on above: 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, customer advisor specialist ior cruciate ligament, left, subsequent encounter (Primary Dx); Other tear of medial meniscus of left knee as current injury, subsequent encounter; Traumatic arthritis of knee, left Start: 08-10-2023 End: 08-10-2023 ambulatory Fab Ball Other [facility] Other Start: 08-10-2023 Telephone encounter Fab Ball [facility] Start: 07-06-2023 End: 07-06-2023 ambulatory Fab Ball Other [facility] Other Start: 07-06-2023 Office outpatient vi sit 15 minutes Fab Ball [facility] Start: 05-13-2023 End: 05-13-2023 ambulatory Fab Ball Other [facility] Other Start: 05-13-2023 Telephone encounter Fab Ball [facility] Start: 05-12-2023 End: 05-12-2023 ambulatory Fab Ball Other [facility] Other Start: 05-12-2023 Telephone encounter Fab Ball [facility] Start: 03-22-2023 End: 03-22-2023 ambulatory Fab Ball Other [facility] Other Start: 03-22-2023 Telephone encounter Fab Ball [facility] Start: 03-19-2023 End: 03-19-2023 ambulatory Fab Ball Other [facility] Other Start: 03-19-2023 Telephone encounter Fab Ball [facility] Start: 12-22-2022 End: 12-22-2022 ambulatory Fab Ball Other [facility] Other Start: 12-22-2022 Office outpatient vi sit 15 minutes Fab Ball [facility] Start: 12-17-2022 End: 12-17-2022 ambulatory Fab Ball Other [facility] Other Start: 12-17-2022 Telephone encounter Fab Ball [facility] Start: 12-11-2022 End: 12-12-[address] FAB GUEVARA Facility:[facility] Start: 10-06-2022 End: 10-06-2022 ambulatory Fab Guevara Other [facility] Other Start: 10-06-2022 Office outpatient vi sit 25 minutes [facility] Start: 09-02-2022 End: 09-02-2022 ambulatory Fab Guevara Other [facility] Other Start: 09-02-2022 Telephone encounter Fab [facility]ue[facility] Start: 09-01-2022 End: 09-01-2022 ambulatory Fab Guevara Other [facility] Other Start: 09-01-2022 Telephone encounter [facility]ue[facility] Start: 03-24-2022 End: 03-25-[address] FAB GUEVARA Facility:[facility] Start: 03-03-2022 End: 03-04-[address] FAB GUEVARA Facility:[facility] Start: 01-12-2022 Adult health examination Shaun Guevara Other [facility] Other Start: 01-12-2022 Encounter for genera l adult medical examination without abnormal findings Fab Ismael Other [facility] Other Start: 01-07-2018 End: 01-07-2018 Emergency department patient visit AGUILAR WILBERTO [facility] Procedures Date Procedure Procedure Detail Performing Clinician [...] ALEXA LADD Start: 09-21-2014 Screening mammography B octavoi Guevara Other Depression screening Qian Guevara Other Depression screening Qian Guevara Other Screening for malign ant neoplasm of breast Fab Guevara Other Screening for malign ant neoplasm of breast Fab Guevar[facility] Other Plan of Treatment Date Care Activity Detail Author Start: 10-05-2033 Screening for malign ant neoplasm of colon Colonoscopy [facility] Start: 07-01-2032 DTaP,Tdap and Td Vac cines (2 - Td or Tdap) DTaP,Tdap and Td Vaccines (2 - Td or Tdap) [facility] Start: 07-01-2032 DTaP,Tdap and Td Vac cines (3 - Td or Tdap) DTaP,Tdap and Td Vaccines (3 - Td or Tdap) [facility] Start: 05-16-2025 Adult BMI Screening Adult BMI Screen ing [facility] Start: 04-03-2025 Tobacco Screening Tobacco Screening [facility] Start: 10-20-2024 Adult BMI Screening Adult BMI Screen ing [facility] Start: 10-20-2024 Tobacco Screening Tobacco Screening [facility] Start: 09-29-2024 Tobacco Screening Tobacco Screening [facility] Start: 09-28-2024 Adult BMI Screening Adult BMI Screen ing [facility] Start: 09-28-2024 Tobacco Screening Tobacco Screening [facility] Start: 09-07-2024 Adult BMI Screening Adult BMI Screen ing [facility] Start: 09-07-2024 Tobacco Screening Tobacco Screening [facility] Start: 04-23-2024 COVID-19 Vaccine ( season) COVID-19 Vaccine ( season) [facility] Start: 04-23-2024 Influenza vaccination Influenza Vacc ine [facility] Start: 12-08-2023 End: 12-08-2023 Patient encounter procedure 12/08/2023 1:50 PM EDT [facility] [address] [place] [address] Uziel Capellan MD [address], [place] [address] [facility] Start: 12-01-2023 End: 12-01-2023 Patient encounter procedure 12/01/2023 2:45 PM EDT Office Visit [facility] [address] [facility] [place] [phone] Anahy Marina MD [address] [place] [address] [facility] Start: 10-05-2023 End: 10-05-2023 Admission to same day surgery center 10/05/2023 11:00 AM EST - 10/05/2023 11:30 AM EST Surgery [facility] [address] [place] [id number] Sophia Bruno, DO [address] [place], [place] [id number] COLONOSCOPY DIAGNOSTIC / SCREENING [81005 (CPT )] [facility] Comment on above: COLONOSCOPY DIAGNOST IC / SCREENING [58163 (CPT )] Start: 10-05-2023 End: 10-05-2023 Colonoscopy flx dx w/collj spec when pfrmd COLONOSCOPY DIAGNOSTIC / SCREENING Screen for colon cancer 10/05/2023 11:00 AM [facility] Start: 10-05-2023 Subsequent hospital visit by physician 10/05/2023 11:00 AM EST Hospital Encounter [facility] [address] [place] [phone] Sophia Bruno, DO [address] [place] [address] [facility] Start: 09-29-2023 End: 09-29-2023 ambulatory 09/29/2023 3:00 PM EST Support Visit [facility] - Pre Admit [address] [place] [phone] [facility] Start: 04-23-2023 COVID-19 Vaccine ( season) COVID-19 Vaccine ( season) [facility] Start: 04-23-2023 Influenza vaccination Influenza Vacc ine [facility] Start: 2009 Administration of varicella zoster vaccine Zoster (Shingles) Vaccine (1 of 2) [facility] Start: 1977 Adult BMI Follow Up Plan Adult BMI Follow Up Plan [facility] Start: 1971 Depression Screening Depression Scre ening [facility] End: 09-28-2024 Colonoscopy Colonoscopy GI Routine Encounter for screening colonoscopy 1 Occurrences starting 09/28/2023 until 09/28/2024 [facility] Work Phone: Comment on above: 1 Occurrences starti ng 09/28/2023 until 09/28/2024 [facility] Immunizations Immunization Date Immunization Notes Care Provider Fa cility 05-29-2022 influenza virus vaccine, unspecified formulation Uziel Capellan MD Work Phone: [facility] 05-22-2014 tetanus and diphther ia toxoids, adsorbed, preservative free, for adult use (5 Lf of tetanus toxoid and 2 Lf of diphtheria toxoid) Fab Guevara Other [facility] Payers Date Payer Category Payer Unknown [id number] 2022 Worker's Compensation WORKER'S C OMPENSATION WORKER'S COMPENSATION - GENERIC PLAN [id number] 2022-Present [phone] [facility] [address] [place] [address] [id number] 2022 Unknown [id number] 2016 Unknown [id number] [id number]. [id number] 1959 Unknown [id number] 2.16.840.1.949757.3.579.2. 593 1959 Unknown [id number] 2.16.840.1.760145.3.579.2. 593 1959 Unknown [id number] 2.16.840.1.248239.3.579.2. 593 1959 Unknown [id number] 2.16.840.1.860153.3.579.2. 1286 1959 Unknown [id number] 2.16.840.1.849346.3.579.2. 1286 1959 Unknown [id number] 2.16.840.1.778727.3.579.2. 1286 1959 Unknown [id number] 2.16.840.1.633395.3.579.2. 1286 1959 Unknown [id number] 2.16.840.1.495338.3.579.2. 1286 1959 Unknown [id number] 2.16.840.1.670295.3.579.2. 1286 1959 Unknown [id number] 2.16.840.1.507812.3.579.2. 1286 1959 Unknown [id number] 2.16.840.1.142804.3.579.2. 1286 1959 Unknown [id number] 2.16.840.1.779048.3.579.2. 1286 1959 Unknown [id number] 2.16.840.1.385228.3.579.2. 1286 1959 Unknown [id number] 2.16.840.1.425872.3.579.2. 1286 1959 Unknown [id number] 2.16.840.1.334025.3.579.2. 1286 1959 Unknown [id number] 2.16.840.1.793610.3.579.2. 1286 1959 Unknown [id number] 2.16.840.1.107462.3.579.2. 1286 1959 Unknown [id number] 2.16.840.1.247756.3.579.2. 1286 1959 Unknown [id number] 2.16.840.1.415324.3.579.2. 1286 1959 Unknown [id number] 2.16.840.1.305401.3.579.2. 1286 1959 Unknown [id number] 2.16.840.1.308695.3.579.2. 1286 1959 Unknown [id number] Social History Date Type Detail Facility Start: 10-03-2020 End: 09-07-2023 Sex Assigned At [facility] Other Start: 10-21-2022 End: 10-13-2023 Tobacco smoking status NHIS Never smoked tobacco [facility] Start: 10-21-2022 Tobacco use and exposure Smokeless tobacco non-user [facility] Start: 09-07-2023 End: 05-16-2024 Alcohol intake Lifetime non-drinker (finding) [facility] Start: 10-03-2020 End: 09-07-2023 History of Social function [facility] Housing Instability Unknown [facility] Start: 1960 Sex Assigned At Not on file P [facility] Start: 1960 Sex Assigned At Female F [facility] Start: 01-26-2024 Gender identity Identifies as female gender (finding) [facility] Start: 01-26-2024 Sexual orientation Heterosexual (fin ding) [facility] NEGATED: Highlighted rowStart: NINF History of tobacco use Passive smoker [facility] Clinical Notes 09-01-2022 to 05-16-2024 Uziel Capellan [...] Patient presents with Left Knee - Pain [facility]. Left knee celestone injection 01/04/24, states it [...] of the aforementioned history prepared by the inkster practice provider, and I personally performed the clinical examination of the patient. I discussed the treatment plan with the patient and my physician's oral surgery assistant. Details of today's visit are as described above. The patient is doing well with the present treatment regimen. We injected her left knee again today and she will continue with home exercises and return for follow-up in about 3 months. [facility]23 History of Presen t illness Narrative [facility] Anahy Marina MD Orthopaedic Surgery Specializing in Foot & Ankle Last Encounter with Ma: new Last Encounter with Speciality: 07/07/2023 Uziel Capellan MD Date of visit: 10/20/2023 Chief Complaint: Chief Complaint Patient presents with Left Foot - Pain, Work Related Injury [facility]. New patient. Left foot injury 09/22/23, after she tripped over a students bag. XR 10/06/23. CELSO Mays is a 63 y.o. female that presents for evaluation of her left foot. 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 This is a [facility] claim. Since the incident she has been [...] 3rd foot MTP sprain This is a [facility] claim. Plan That patient states that she [...] of treatment with the patient and Physician Act English Tutor. The critical element of all procedures were [...] month for re-evaluation documented in this encounter [facility] 10-06-2023 Note XR FOOT LT MIN 3 VWS Procedure: Left foot radiographs performed Number of views:3 History:Injury and pain Comparison:09/22/2023 Findings: There is no fracture, dislocation, or destructive lesion. There is a plantar calcaneal enthesophyte Impression: No acute findings. Finalized by Denise Phillpis DO on 10/06/2023 4:16 PM [facility] 09-29-2023 Miscellaneous Notes Preoperative Education Checklist- General Surgery date: 10/05/23 Surgery time: 1100 Arrival time: 0900 1. Bring a photo ID and your insurance card with you the day of surgery. You will check in at the main lobby of the [facility]- registration desk is straight ahead as soon as you walk in. Tell them you are here for surgery. 2. If you have a Living Will/Durable Power of Bearing Maker for Health Care that is not on [...] after you have bathed. 5. NO nail jamaican/acrylic on at least one finger. If you are having a hand, wrist or foot surgery then all nail jamaican and artificial/acrylic nails must be removed from [...] please call the Preadmission Testing office at [phone], Mon.-Fri. 7 a.m.-3 p.m. Leave a voicemail [...] 0 days prior to procedure peg 3350-sod sulf,npnq-stw-gts 178.7-7.3-0.5 gram recon soln Stop taking 0 days prior to procedure TRULICITY 4.5 mg/0.5 mL pen injector Stop taking 1 week prior to procedure venlafaxine XR (EFFEXOR XR) 75 mg 24 hr capsule Stop taking 0 days prior to procedure documented in this encounter [facility] 09-29-2023 Nurse Note Preoperative Education Checklist- General Surgery date: 10/05/23 Surgery time: 1100 Arrival time: 0900 1. Bring a photo ID and your insurance card with you the day of surgery. You will check in at the main lobby of the [facility]- registration desk is straight ahead as soon as you walk in. Tell them you are here for surgery. 2. If you have a Living Will/Durable Power of Bearing Maker for Health Care that is not on [...] after you have bathed. 5. NO nail jamaican/acrylic on at least one finger. If you are having a hand, wrist or foot surgery then all nail jamaican and artificial/acrylic nails must be removed from [...] please call the Preadmission Testing office at [phone], Mon.-Fri. 7 a.m.-3 p.m. Leave a voicemail [...] 0 days prior to procedure peg 3350-sod sulf,yuhp-bnw-yak 178.7-7.3-0.5 gram recon soln Stop taking 0 days prior to procedure TRULICITY 4.5 mg/0.5 mL pen injector Stop taking 1 week prior to procedure venlafaxine XR (EFFEXOR XR) 75 mg 24 hr capsule Stop taking 0 days prior to procedure [facility] 09-28-2023 History of Presen t illness Narrative [...] Diagnosis Date Diabetes mellitus type 2, controlled ([facility]) Hypertension Past Surgical History: Procedure Laterality Date [...] capsule, , Disp: , Rfl: peg 3350-sod sulf,[id number]-qdu 178.7-7.3-0.5 gram recon soln, Take 1 kit [...] patient/family/caregiver Referring and communicating with other health neonatal critical care nurse Encounter for screening colonoscopy [Z12.11] SALLIE OROURKE [facility] General Surgery [place] This note was created with the assistance of a speech recognition program. While intending to generate a timely document that accurately reflects the content of the visit, no guarantee can be provided that every grammatical or spelling mistake has been or will be identified or corrected. Thank you for your understanding. SALLIE Orourke 09/28/23 1457 documented in this encounter [facility] 09-07-2023 History of Presen t illness Narrative Associated Order(s): $ Large Joint Injection: L knee Post-Procedure Diagnose(s): 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, posterior cruciate ligament, left, subsequent encounter; Other tear of medial meniscus of left knee as current injury, subsequent encounter; Traumatic arthritis of knee, left Images from the original note were not included. [facility] [address] [facility] [id number] Name: Carmen Mays : 1960 SUMMARY OF VISITS: 09/09/2023 SUBJECTIVE: Chief Complaint: Left knee pain History of Present Illness: For the sake of review, the patient is a 62-year-old female with left knee pain from a reported work-related injury. 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 She reports that she recently obtained approval [...] of the aforementioned history prepared by the inkster practice provider, and I personally performed the clinical examination of the patient. I discussed the treatment plan with the patient and my physician's oral surgery assistant. Details of today's visit are as described above. I personally injected the patient's left knee today. [facility] Evaluation note Encounter Date Diagnosis Assessment Notes Jul, COVID- 19 (ICD-1 0 - U07.1) [facility] Other 11-14-2023 Evaluation note* Encounter Date Diagnosis [...] Jun, Other chronic pain (ICD-10 - G89.29) [facility] Other 09-21-2023 Evaluation note* Encounter Date Diagnosis Assessment Notes Treatment Notes Treatment Clinical Notes Apr, Type 2 diabetes mellitus with hyperglycemia, without long-term current use of insulin (ICD-10 - E11.65) Apr, Type 2 diabetes mellitus with hyperglycemia (ICD-10 - E11.65) [facility] Other 07-31-2023 Evaluation note* Encounter Date Diagnosis Assessment Notes Treatment Notes Treatment Clinical Notes Feb, Type 2 diabetes mellitus with hyperglycemia (ICD-10 - E11.65) [facility] Other 05-02-2023 Evaluation note* Encounter Date Diagnosis [...] continue exercise to achieve/maintain a normal BMI. [facility] Other 04-27-2023 Evaluation note* Encounter Date Diagnosis Assessment Notes Treatment Notes Treatment Clinical Notes Nov, Type 2 diabetes mellitus with hyperglycemia, without long-term current use of insulin (ICD-10 - E11.65) [facility] Other 02-14-2023 Evaluation note* Encounter Date Diagnosis [...] use, the patient reduces the risk for [place], CVA, HTN, cardiac dysrhythmias and sudden cardiac [...] diet and exercise. Continue w/ weight loss [facility] Other 01-11-2023 Evaluation note* Encounter Date Diagnosis Assessment Notes Treatment Notes Treatment Clinical Notes Aug, Type 2 diabetes mellitus with hyperglycemia, without long-term current use of insulin (ICD-10 - E11.65) [facility] Other 01-10-2023 Evaluation note* Encounter Date Diagnosis Assessment Notes Treatment Notes Treatment Clinical Notes Aug, Pain in left shoulder (ICD-10 - M25.512) Aug, Other chronic pain (ICD-10 - G89.29) [facility] Other Evaluation noteNo [facility] Other Evaluation note* Diagnosis 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, posterior cruciate ligament, left, subsequent encounter- Primary Other tear of medial meniscus of left knee as current injury, subsequent encounter Traumatic arthritis of knee, left [facility] Encounter for screening colonoscopy- Primary Screen for colon cancer Special screening for malignant neoplasms, colon [facility] Sprain of MTP joint of left lesser toe(s), init- Primary [facility] Diagnosis Onset Date Resolution Status Chronic venous insufficiency of lower extremity acute Fatigue acute GERD (gastroesophageal reflux disease) acute Hypertension acute SANTINO (obstructive sleep apnea) acute Subclinical hypothyroidism a cute Type 2 diabetes mellitus with hyperglycemia acute [facility] Work Phone: Evaluation note* Diagnosis Post-traumatic osteoarthritis of left knee- Primary [facility] Diagnosis Onset Date Resolution Status Chronic venous insufficiency of lower extremity acute Fatigue acute GERD (gastroesophageal reflux disease) acute Hypertension acute SANTINO (obstructive sleep apnea) acute Subclinical hypothyroidism a cute Type 2 diabetes mellitus with hyperglycemia acute Hypertension acute Left shoulder pain acute Rotator cuff tendonitis acut e Type 2 diabetes mellitus with hyperglycemia acute [facility] Work Phone: History general Narrative - [...] wrist, ganglion cyst Hospitalization History See above [facility] Other InstructionsNot on filedocumented in this encounter [facility] ([email or web address])InstructionsNot on filedocumented in this encounter [facility] filedocumented in this encounter [facility] Summary Purpose Family History Relationship Condition [...] section and content) DATE CREATED AUTHOR 02/09/2018 [facility] DATE CREATED AUTHOR AUTHOR'S ORGANIZ ATION 12/18/2022 [facility] DATE CREATED AUTHOR AUTHOR'S ORGANIZ ATION 12/29/2023 [facility] DATE CREATED AUTHOR AUTHOR'S ORGANIZ ATION 05/19/2024 [facility] REASON FOR VISIT [...] Care Teams (unrecognized sec tion and content) Finish Patcher Relationship Specialty [place] [address] [place] [id number] PCP - General Internal Medicine 04/07/21 Finish Patcher Relationship Specialty Start Date End Date Fab Guevara DO [address] [place] [id number] PCP - General Internal Medicine 04/07/21 Finish Patcher Relationship Specialty Start Date End Date Fab Guevara [address] [place] [id number] PCP - General Internal Medicine 04/07/21 Finish Patcher Relationship Specialty Start Date End Date Fab Guevara [address] [place] [id number] PCP - General Internal Medicine 04/07/21 Team Status: Active Member Role Status Dates Fab Guevara DO Primary Care Provider Active Team Status: Inactive Member Role Status Dates Fab Guevara DO Primary Care Provide r, Attending Provider Active Start: March 16, 2024 End: March 16, 2024 Finish Patcher Relationship Specialty Start Date End Date Fab Guevara [address] [place] [id number] PCP - General Internal Medicine 04/07/21 Team [...] BE BASED ON THE PRIMARY CLINICAL RECORDS. [facility]. provides no warranty or guarantee of the accuracy or completeness of information in this document.
--- NOTE | 2024-08-12 14:22 | PC.NURSE ---
pt states she burned her right forearm Wednesday while cooking.
[2024-08-12] MEDS: HYDRALAZINE HCL 20 MG/ML VIAL 10 MG IVP (14:52)
[2024-08-12] MEDS: ASPIRIN 81 MG TAB.CHEW 324 MG PO (14:52)
[2024-08-12] MEDS: ONDANSETRON PF 4 MG/2 ML VIAL IV (14:52)
[2024-08-12] MEDS: MAALOX (MAG HYDROX/ALUMINUM HYD/SIMETH) 30 ML ORAL.SUSP PO (14:52)
[2024-08-12 16:19] LABS: Bilirubin Urine NEGATIVE (NEGATIVE); Blood Urine NEGATIVE (NEGATIVE); Clarity Urine CLEAR (CLEAR); Color Urine LT. YELLOW (YELLOW); Glucose Urine UA NEGATIVE (NEGATIVE); Ketones Urine NEGATIVE (NEGATIVE); Leukocyte Esterase Urine NEGATIVE (NEGATIVE); Nitrite Urine NEGATIVE (NEGATIVE); Protein Urine NEGATIVE (NEG/TRACE); Urine Microscopic Indicated NO; Urobilinogen Urine 0.2 EU/dL (0.2-1.0); pH Urine 7.5 (5.0-9.0)
[2024-08-12 16:27] LABS: Amphetamine Screen Urine NEGATIVE (NEGATIVE); Benzodiazepines Screen Urine NEGATIVE (NEGATIVE); Cannabinoid Screen Urine NEGATIVE (NEGATIVE); Cocaine Screen Urine NEGATIVE (NEGATIVE); Methamphetamines Screen Urine NEGATIVE (NEGATIVE); Opiate Screen Urine NEGATIVE (NEGATIVE); Phencyclidine Screen Urine NEGATIVE (NEGATIVE)
[2024-08-12 16:27] LABS: Glucometer 82 mg/dL (74-106)
[2024-08-12 16:28] LABS: Barbiturates Screen Urine NEGATIVE (NEGATIVE); Buprenorphine Screen Urine NEGATIVE (NEGATIVE); Methadone Screen Urine NEGATIVE (NEGATIVE); Oxycodone Screen Urine NEGATIVE (NEGATIVE); Tricyclic Antidepressant Urine NEGATIVE (NEGATIVE)
[2024-08-12] MEDS: KETOROLAC TROMETHAMINE 30 MG/ML VIAL IVP (17:04)
[2024-08-12] MEDS: MAGNESIUM SULFATE/D5W 1 GM/100 ML PREMIX IV (17:04)
[2024-08-12] MEDS: diphenhydrAMINE HCL 25 MG in 0.9 % SODIUM CHLORIDE 100 ML 301.5 MG IV (17:05)
--- OUTSIDE RECORDS SUMMARY | 2024-08-12 18:09 | XMS_ITS | CCD ---
Author Organization [facility] CliniSyvt Care Team Providers Care Coding Consultant Name Role Phone ALEXA LADD Unavailable Unavailable [...] Morphine; Translations: [MORPHINE] Drug Allergy 3 Vomiting [facility] (4 sources) patient allergy list reviewed by nurse or physicia Propensity to adverse reactions 8 Comment:Done [facility] Other (2 sources) Morphine Drug Allergy Unknown [facility] Other Medications Current Medications Medication Drug Class(es) [...] Dialyvite Vitami n D3 Max 1.25 MG (92847 UT) 1 tablet Orally Active Dialyvite Vitami n D3 Max 1.25 MG (79420 UT) 1 tablet Orally Active 0.5 ML [...] 12:00am December 21, 2023 9:39am peg 3350-sod sulf,fwsi-crp-huw 178.7-7.3-0.5 gram recon soln (2 sources) Start: 09-28-2023 End: 09-29-2023 peg 3350-sod sulf,iesn-yhe-hbr 178.7-7.3-0.5 gram recon soln Indications: Encounter for [...] the usual sterile fashion. MANUALLY TRANSCRIBED RESULTS [facility] MAMM SCREENING BILATERAL W C rock cutter 12-28-2023 MAMM SCREENING BILATERAL W CAD MAMM SCREENING BILATERAL W CAD *ADDENDUM*Addendum: Second read. IMPRESSION: I agree with the interpretation. Finalized by Rg Godoy MD on 12/28/2023 9:00 AM 1 b MAMM 1 YR Normal [facility] XR FOOT LT MIN 3 VWSon 09-22 [...] Key MD on 09/22/2023 1:30 PM Normal [facility] XR KNEE LT MIN 4 VWSon 09-22 [...] Casillas MD on 09/22/2023 1:26 PM Normal [facility] $ Large Joint Injection: L k martieon [...] the usual sterile fashion. MANUALLY TRANSCRIBED RESULTS [facility] MRI SHOULDER LT WO CONon MRI [...] by: JESUS TINOCO Date: 2022-12-11 15:42 Normal [facility] ED Noteon 01-07-2018 HIM IP Note OR Garden Consultant Normal [facility] ED Provider Noteon 8 HIM IP Note OR Garden Consultant Normal [facility] Vital Signs Date Time Vital Sign Value Performing Clinician Facility 06-06-2024 14:45-0400 Body height 139.7 cm [facility] 06-06-2024 14:45-0400 Body mass index (BMI) [Ratio] 45.3 kg/m2 [facility] 06-06-2024 14:45-0400 Body weight 88.62 kg [facility] 06-06-2024 14:45-0400 Diastolic blood pressure 80 mm[Hg] [facility] 06-06-2024 14:45-0400 Heart rate 74 /min [facility] 06-06-2024 14:45-0400 Respiratory rate 12 /min [facility] 06-06-2024 14:45-0400 Systolic blood pressure 147 mm[Hg] [facility] 05-16-2024 14:59-0400 Body height 142.2 cm Uziel Capellan MD Work Phone: [facility] 05-16-2024 14:59-0400 Body mass index (BMI) [Ratio] 41.7 kg/m2 Uziel Capellan MD Work Phone: [facility] 05-16-2024 14:59-0400 Body weight 84.37 kg Uziel Capellan MD Work Phone: [facility] 03-16-2024 11:35-0400 Body height 139.7 cm [facility] 03-16-2024 11:35-0400 Body mass index (BMI) [Ratio] 45.6 kg/m2 [facility] 03-16-2024 11:35-0400 Body weight 89.07 kg [facility] 03-16-2024 11:35-0400 Diastolic blood pressure 82 mm[Hg] [facility] 03-16-2024 11:35-0400 Heart rate 71 /min [facility] 03-16-2024 11:35-0400 Respiratory rate 12 /min [facility] 03-16-2024 11:35-0400 Systolic blood pressure 139 mm[Hg] [facility] 10-20-2023 14:27-0500 Body height 142.2 cm Anahy Marina MD Work Phone: [facility] 10-20-2023 14:27-0500 Body mass index (BMI) [Ratio] 41.7 kg/m2 Anahy Marina MD Work Phone: [facility] 10-20-2023 14:27-0500 Body weight 84.37 kg Anahy Marina MD Work Phone: [facility] 09-28-2023 14:32-0500 Body mass index (BMI) [Ratio] 42.54 kg/m2 Ceci RIZO Work Phone: [facility] 09-28-2023 14:32-0500 Body weight 89.18 kg Ceci Reilly SCOURING TRAIN OPERATOR CHIEF-CABLE SPLICER HELPER [facility] 09-28-2023 14:32-0500 Diastolic blood pressure 94 mm[Hg] Ceci Reilly SCOURING TRAIN OPERATOR CHIEF-CABLE SPLICER HELPER [facility] 09-28-2023 14:32-0500 Heart rate 74 /min Ceci Reilly SCOURING TRAIN OPERATOR CHIEF-CABLE SPLICER HELPER [facility] 09-28-2023 14:32-0500 Systolic blood pressure 180 mm[Hg] Ceci Reilly SCOURING TRAIN OPERATOR CHIEF-CABLE SPLICER HELPER [facility] 09-07-2023 15:38-0500 Body height 144.8 cm Uziel Capellan MD [facility] 09-07-2023 15:38-0500 Body mass index (BMI) [Ratio] 40.47 kg/m2 Uziel Capellan MD [facility] 09-07-2023 15:38-0500 Body weight 84.82 kg Uziel Capellan MD Work Phone: [facility] 07-06-2023 11:30-0500 Body height 149.86 cm Fab Ball Other [facility] Other 07-06-2023 11:30-0500 Body mass index (BMI) [Ratio] 39.1 kg/m2 Fab Ball Other [facility] Other 07-06-2023 11:30-0500 Body weight 87.82 kg Fab Ball Other [facility] Other 07-06-2023 11:30-0500 Diastolic blood pressure 84 mm[Hg] Fab Ball Other [facility] Other 07-06-2023 11:30-0500 Respiratory rate 12 /min Fab Ball Other [facility] Other 07-06-2023 11:30-0500 Systolic blood pressure 145 mm[Hg] Fab Ball Other [facility] Other 12-22-2022 16:00-0400 Body height 149.86 cm Fab Ball Other [facility] Other 12-22-2022 16:00-0400 Body mass index (BMI) [Ratio] 38.69 kg/m2 Fab Ball Other [facility] Other 12-22-2022 16:00-0400 Body weight 86.91 kg Fab Ball Other [facility] Other 12-22-2022 16:00-0400 Diastolic blood pressure 85 mm[Hg] Fab Ball Other [facility] Other 12-22-2022 16:00-0400 Respiratory rate 12 /min Fab Ball Other [facility] Other 12-22-2022 16:00-0400 Systolic blood pressure 148 mm[Hg] Fab Ball Other [facility] Other 10-06-2022 15:00-0500 Body height 149.86 cm Fab Ball Other [facility] Other 10-06-2022 15:00-0500 Body mass index (BMI) [Ratio] 38.49 kg/m2 Fab Ball Other [facility] Other 10-06-2022 15:00-0500 Body weight 86.46 kg Fab Ball Other [facility] Other 10-06-2022 15:00-0500 Diastolic blood pressure 82 mm[Hg] Fab Guevara Other [facility] Other 10-06-2022 15:00-0500 Respiratory rate 12 /min Fab Guevara Other [facility] Other 10-06-2022 15:00-0500 Systolic blood pressure 124 mm[Hg] Fab Guevara Other [facility] Other Encounters Encounter Date Encounter Type Care Provider Facility Start: 06-06-2024 End: 06-06-2024 ambulatory [facility] Work Phone: Start: 06-06-2024 End: 06-06-2024 Patient encounter procedure [facility] Work Phone: Start: 05-16-2024 End: 05-16-2024 Patient encounter procedure Uziel Capellan MD Work Phone: [facility] Comment on above: Post-traumatic osteo arthritis of left knee (Primary Dx) Start: 05-16-2024 End: 05-16-2024 ambulatory [facility] Start: 04-03-2024 End: 04-03-2024 ambulatory [facility] Start: 03-16-2024 End: 03-16-2024 ambulatory [facility] Work Phone: Start: 03-16-2024 End: 03-16-2024 Patient encounter procedure [facility] Work Phone: Start: 01-04-2024 End: 01-04-2024 ambulatory [facility] Start: 12-08-2023 End: 12-08-2023 ambulatory [facility] Start: 12-01-2023 End: 12-01-2023 ambulatory [facility] Start: 10-20-2023 End: 10-20-2023 Office outpatient visit 15 minutes Anahy Marina MD Work Phone: [facility] [place] [facility] Comment on above: Sprain of MTP joint of left lesser toe(s), init (Primary Dx) Start: 10-20-2023 End: 10-20-[address] [facility] Start: 10-06-2023 End: 10-07-2023 ambulatory FAB Herron [facility] Start: 10-06-2023 End: 10-06-2023 Evaluation and management of inpatient TESS MADERA [facility] Start: 10-05-2023 End: 10-06-2023 Evaluation and management of inpatient SOPHIA BRUNO [facility] Start: 09-29-2023 End: 09-29-2023 ambulatory [facility] Phone Call Provider 1 [facility] - Pre Ad[facility] Start: 09-28-2023 End: 09-28-2023 Patient encounter procedure Ceci Reilly SCOURING TRAIN OPERATOR CHIEF-CABLE SPLICER HELPER Work Phone: [facility] Comment on above: Encounter for screen ing colonoscopy (Primary Dx) Start: 09-28-2023 End: 09-28-2023 ambulatory CECI Maryellen REILLY [facility] Start: 09-22-2023 End: 09-26-2023 ambulatory GABRIELLA MOORE [facility] Start: 09-10-2023 ambulatory ANAHY [facility] Start: 09-09-2023 End: 09-10-2023 ambulatory FAB Herron ISMAEL [facility] Start: 09-07-2023 End: 09-07-2023 ambulatory UZIEL CAPELLAN [facility] Start: 09-07-2023 End: 09-07-2023 Patient encounter procedure Uziel Capellan MD Work Phone: [facility] [place] [facility] Comment on above: 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, medical equipment sales ior cruciate ligament, left, subsequent encounter (Primary Dx); Other tear of medial meniscus of left knee as current injury, subsequent encounter; Traumatic arthritis of knee, left Start: 08-10-2023 End: 08-10-2023 ambulatory Fab Ball Other [facility] Other Start: 08-10-2023 Telephone encounter Fab Ball [facility] Start: 07-06-2023 End: 07-06-2023 ambulatory Fab Ball Other [facility] Other Start: 07-06-2023 Office outpatient vi sit 15 minutes Fab Ball [facility] Start: 05-13-2023 End: 05-13-2023 ambulatory Fab Ball Other [facility] Other Start: 05-13-2023 Telephone encounter Fab Ball [facility] Start: 05-12-2023 End: 05-12-2023 ambulatory Fab Ball Other [facility] Other Start: 05-12-2023 Telephone encounter Fab Ball [facility] Start: 03-22-2023 End: 03-22-2023 ambulatory Fab Ball Other [facility] Other Start: 03-22-2023 Telephone encounter Fab Ball [facility] Start: 03-19-2023 End: 03-19-2023 ambulatory Fab Ball Other [facility] Other Start: 03-19-2023 Telephone encounter Fab Ball [facility] Start: 12-22-2022 End: 12-22-2022 ambulatory Fab Ball Other [facility] Other Start: 12-22-2022 Office outpatient vi sit 15 minutes Fab Ball [facility] Start: 12-17-2022 End: 12-17-2022 ambulatory Fab Ball Other [facility] Other Start: 12-17-2022 Telephone encounter Fab Ball [facility] Start: 12-11-2022 End: 12-12-[address] FAB GUEVARA Facility:[facility] Start: 10-06-2022 End: 10-06-2022 ambulatory Fab Guevara Other [facility] Other Start: 10-06-2022 Office outpatient vi sit 25 minutes Fab [facility] Start: 09-02-2022 End: 09-02-2022 ambulatory Fab Guevara Other [facility] Other Start: 09-02-2022 Telephone encounter [facility] Start: 09-01-2022 End: 09-01-2022 ambulatory Fab Guevara Other [facility] Other Start: 09-01-2022 Telephone encounter Fab [facility]ue[facility]a [facility] Start: 03-24-2022 End: 03-25-[address] FAB GUEVARA Facility:[facility] Start: 03-03-2022 End: 03-04-[address] FAB GUEVARA Facility:[facility] Start: 01-12-2022 Adult health examination Shaun Guevara Other [facility] Other Start: 01-12-2022 Encounter for genera l adult medical examination without abnormal findings Fab Ismael Other [facility] Other Start: 01-07-2018 End: 01-07-2018 Emergency department patient visit AGUILAR WILBERTO [facility] Procedures Date Procedure Procedure Detail Performing [...] ant neoplasm of colon Colonoscopy [facility] Start: 07-01-2032 DTaP,Tdap and Td Vac cines (2 - Td or Tdap) DTaP,Tdap and Td Vaccines (2 - Td or Tdap) [facility] Start: 07-01-2032 DTaP,Tdap and Td Vac cines (3 - Td or Tdap) DTaP,Tdap and Td Vaccines (3 - Td or Tdap) [facility] Start: 05-16-2025 Adult BMI Screening Adult BMI Screen ing [facility] Start: 04-03-2025 Tobacco Screening Tobacco Screening [facility] Start: 10-20-2024 Adult BMI Screening Adult BMI Screen ing [facility] Start: 10-20-2024 Tobacco Screening Tobacco Screening [facility] Start: 09-29-2024 Tobacco Screening Tobacco Screening [facility] Start: 09-28-2024 Adult BMI Screening Adult BMI Screen ing [facility] Start: 09-28-2024 Tobacco Screening Tobacco Screening [facility] Start: 09-07-2024 Adult BMI Screening Adult BMI Screen ing [facility] Start: 09-07-2024 Tobacco Screening Tobacco Screening [facility] Start: 04-23-2024 COVID-19 Vaccine ( season) COVID-19 Vaccine ( season) [facility] Start: 04-23-2024 Influenza vaccination Influenza Vacc ine [facility] Start: 12-08-2023 End: 12-08-2023 Patient encounter procedure 12/08/2023 1:50 PM EDT [facility] [address] [place] [address] Uziel Capellan MD [address], [place] [address] [facility] Start: 12-01-2023 End: 12-01-2023 Patient encounter procedure 12/01/2023 2:45 PM EDT Office Visit [facility] [address] [facility] [phone] Anahy Marina MD [address] [place] [address] [facility] Start: 10-05-2023 End: 10-05-2023 Admission to same day surgery center 10/05/2023 11:00 AM EST - 10/05/2023 11:30 AM EST Surgery [facility] [address] [place] [id number] Sophia Bruno, DO [address] [place], [place] [id number] COLONOSCOPY DIAGNOSTIC / SCREENING [85046 (CPT )] [facility] Comment on above: COLONOSCOPY DIAGNOST IC / SCREENING [67518 (CPT )] Start: 10-05-2023 End: 10-05-2023 Colonoscopy flx dx w/collj spec when pfrmd COLONOSCOPY DIAGNOSTIC / SCREENING Screen for colon cancer 10/05/2023 11:00 AM [facility] Start: 10-05-2023 Subsequent hospital visit by physician 10/05/2023 11:00 AM EST Hospital Encounter [facility] [address] [place] [phone] Sophia Bruno, DO [address] [place] [address] [facility] Start: 09-29-2023 End: 09-29-2023 ambulatory 09/29/2023 3:00 PM EST Support Visit [facility] - Pre Admit [address] [place] [phone] [facility] - Pre Admit Start: 04-23-2023 COVID-19 Vaccine ( season) COVID-19 Vaccine ( season) [facility] Start: 04-23-2023 Influenza vaccination Influenza Vacc ine [facility] Start: 2009 Administration of varicella zoster vaccine Zoster (Shingles) Vaccine (1 of 2) [facility] Start: 1977 Adult BMI Follow Up Plan Adult BMI Follow Up Plan [facility] Start: 1971 Depression Screening Depression Scre ening [facility] End: 09-28-2024 Colonoscopy Colonoscopy GI Routine Encounter for screening colonoscopy 1 Occurrences starting 09/28/2023 until 09/28/2024 [facility] Work Phone: Comment on above: 1 Occurrences starti ng 09/28/2023 until 09/28/2024 [facility] Immunizations Immunization Date Immunization Notes Care Provider Fa cility 05-29-2022 influenza virus vaccine, unspecified formulation Uziel Capellan MD Work Phone: [facility] 05-22-2014 tetanus and diphther ia toxoids, adsorbed, preservative free, for adult use (5 Lf of tetanus toxoid and 2 Lf of diphtheria toxoid) Fab Guevara Other [facility] Payers Date Payer Category Payer Unknown [id number] 2022 Worker's Compensation WORKER'S C OMPENSATION WORKER'S COMPENSATION - GENERIC PLAN [id number] 2022-Present [phone] [facility] [address] [place] [address] [id number] 2022 Unknown [id number] 2016 Unknown [id number] [id number]. [id number] 1959 Unknown [id number] 2.16.840.1.257833.3.579.2. 593 1959 Unknown [id number] 2.16.840.1.839465.3.579.2. 593 1959 Unknown [id number] 2.16.840.1.799874.3.579.2. 593 1959 Unknown [id number] 2.16.840.1.234971.3.579.2. 1286 1959 Unknown [id number] 2.16.840.1.144026.3.579.2. 1286 1959 Unknown [id number] 2.16.840.1.995743.3.579.2. 1286 1959 Unknown [id number] 2.16.840.1.283965.3.579.2. 1286 1959 Unknown [id number] 2.16.840.1.235386.3.579.2. 1286 1959 Unknown [id number] 2.16.840.1.798982.3.579.2. 1286 1959 Unknown [id number] 2.16.840.1.406447.3.579.2. 1286 1959 Unknown [id number] 2.16.840.1.555085.3.579.2. 1286 1959 Unknown [id number] 2.16.840.1.185657.3.579.2. 1286 1959 Unknown [id number] 2.16.840.1.028838.3.579.2. 1286 1959 Unknown [id number] 2.16.840.1.468025.3.579.2. 1286 1959 Unknown [id number] 2.16.840.1.585118.3.579.2. 1286 1959 Unknown [id number] 2.16.840.1.464485.3.579.2. 1286 1959 Unknown [id number] 2.16.840.1.106645.3.579.2. 1286 1959 Unknown [id number] 2.16.840.1.321113.3.579.2. 1286 1959 Unknown [id number] 2.16.840.1.715593.3.579.2. 1286 1959 Unknown [id number] 2.16.840.1.393827.3.579.2. 1286 1959 Unknown [id number] 2.16.840.1.187872.3.579.2. 1286 1959 Unknown [id number] Social History Date Type Detail Facility Start: 10-03-2020 End: 09-07-2023 Sex Assigned At [facility] Other Start: 10-21-2022 End: 10-13-2023 Tobacco smoking status NHIS Never smoked tobacco [facility] Start: 10-21-2022 Tobacco use and exposure Smokeless tobacco non-user [facility] Start: 09-07-2023 End: 05-16-2024 Alcohol intake Lifetime non-drinker (finding) [facility] Start: 10-03-2020 End: 09-07-2023 History of Social function [facility] Housing Instability Unknown [facility] Start: 1960 Sex Assigned At Not on file P [facility] Start: 1960 Sex Assigned At Female F [facility] Start: 01-26-2024 Gender identity Identifies as female gender (finding) [facility] Start: 01-26-2024 Sexual orientation Heterosexual (fin ding) [facility] NEGATED: Highlighted rowStart: NINF History of tobacco use Passive smoker [facility] Clinical Notes 09-01-2022 to 05-16-2024 Uziel Capellan [...] Patient presents with Left Knee - Pain [facility]. Left knee celestone injection 01/04/24, states it [...] of the aforementioned history prepared by the [place] practice provider, and I personally performed the clinical examination of the patient. I discussed the treatment plan with the patient and my physician's driller's assistant. Details of today's visit are as described above. The patient is doing well with the present treatment regimen. We injected her left knee again today and she will continue with home exercises and return for follow-up in about 3 months. [facility] 10-20-2023 History of Presen t illness Narrative [facility] Anahy Marina MD Orthopaedic Surgery Specializing in Foot & Ankle Last Encounter with Wy: new Last Encounter with Speciality: 07/07/2023 Uziel Capellan MD Date of visit: 10/20/2023 Chief Complaint: Chief Complaint Patient presents with Left Foot - Pain, Work Related Injury [facility]. New patient. Left foot injury 09/22/23, after she tripped over a students bag. XR 10/06/23. CELSO Mays is a 63 y.o. female that presents for evaluation of her left foot. 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 This is a [facility] claim. Since the incident she has been [...] 3rd foot MTP sprain This is a [facility] claim. Plan That patient states that she [...] of treatment with the patient and Physician Courtroom Clerk. The critical element of all procedures were [...] re-evaluation documented in this encounter [facility] 10-06-2023 Note XR FOOT LT MIN 3 VWS Procedure: Left foot radiographs performed Number of views:3 History:Injury and pain Comparison:09/22/2023 Findings: There is no fracture, dislocation, or destructive lesion. There is a plantar calcaneal enthesophyte Impression: No acute findings. Finalized by Denise Phillips DO on 10/06/2023 4:16 PM [facility] 09-29-2023 Miscellaneous Notes Preoperative Education Checklist- General Surgery date: 10/05/23 Surgery time: 1100 Arrival time: 0900 1. Bring a photo ID and your insurance card with you the day of surgery. You will check in at the main lobby of the [facility]- registration desk is straight ahead as soon as you walk in. Tell them you are here for surgery. 2. If you have a Living Will/Durable Power of Application Specialist for Health Care that is not on [...] after you have bathed. 5. NO nail cymro/acrylic on at least one finger. If you are having a hand, wrist or foot surgery then all nail cymro and artificial/acrylic nails must be removed from [...] please call the Preadmission Testing office at [phone], Mon.-Fri. 7 a.m.-3 p.m. Leave a voicemail [...] 0 days prior to procedure peg 3350-sod sulf,duqh-nha-cbs 178.7-7.3-0.5 gram recon soln Stop taking 0 days prior to procedure TRULICITY 4.5 mg/0.5 mL pen injector Stop taking 1 week prior to procedure venlafaxine XR (EFFEXOR XR) 75 mg 24 hr capsule Stop taking 0 days prior to procedure documented in this encounter [facility] [employer] [facility] 09-29-2023 Nurse Note Preoperative Education Checklist- General Surgery date: 10/05/23 Surgery time: 1100 Arrival time: 0900 1. Bring a photo ID and your insurance card with you the day of surgery. You will check in at the main lobby of the [facility]- registration desk is straight ahead as soon as you walk in. Tell them you are here for surgery. 2. If you have a Living Will/Durable Power of Application Specialist for Health Care that is not on [...] after you have bathed. 5. NO nail cymro/acrylic on at least one finger. If you are having a hand, wrist or foot surgery then all nail cymro and artificial/acrylic nails must be removed from [...] please call the Preadmission Testing office at [phone], Mon.-Fri. 7 a.m.-3 p.m. Leave a voicemail [...] 0 days prior to procedure peg 3350-sod sulf,ezfl-ghv-xld 178.7-7.3-0.5 gram recon soln Stop taking 0 days prior to procedure TRULICITY 4.5 mg/0.5 mL pen injector Stop taking 1 week prior to procedure venlafaxine XR (EFFEXOR XR) 75 mg 24 hr capsule Stop taking 0 days prior to procedure [facility] 09-28-2023 History of Presen t illness [...] Diagnosis Date Diabetes mellitus type 2, controlled ([facility]) Hypertension Past Surgical History: Procedure Laterality Date [...] capsule, , Disp: , Rfl: peg 3350-sod sulf,rbou-vob-oti 178.7-7.3-0.5 gram recon soln, Take 1 kit [...] patient/family/caregiver Referring and communicating with other health career technology teacher Encounter for screening colonoscopy [Z12.11] SALLIE OROURKE [facility] General Surgery [place] This note was created with the assistance of a speech recognition program. While intending to generate a timely document that accurately reflects the content of the visit, no guarantee can be provided that every grammatical or spelling mistake has been or will be identified or corrected. Thank you for your understanding. SALLIE Orourke 09/28/23 1457 documented in this encounter [facility] 09-07-2023 History of Presen t illness Narrative Associated Order(s): $ Large Joint Injection: L knee Post-Procedure Diagnose(s): 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, posterior cruciate ligament, left, subsequent encounter; Other tear of medial meniscus of left knee as current injury, subsequent encounter; Traumatic arthritis of knee, left Images from the original note were not included. [facility] [address] [facility] [id number] Name: Carmen Mays : 1960 SUMMARY OF VISITS: 09/09/2023 SUBJECTIVE: Chief Complaint: Left knee pain History of Present Illness: For the sake of review, the patient is a 62-year-old female with left knee pain from a reported work-related injury. 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 She reports that she recently obtained approval [...] of the aforementioned history prepared by the [place] practice provider, and I personally performed the clinical examination of the patient. I discussed the treatment plan with the patient and my physician's driller's assistant. Details of today's visit are as described above. I personally injected the patient's left knee today. [facility] Encounter Date Diagnosis Assessment Notes Jul, COVID- 19 (ICD-1 0 - U07.1) [facility] Other 11-14-2023 Evaluation note* Encounter Date Diagnosis [...] Jun, Other chronic pain (ICD-10 - G89.29) [facility] Other 09-21-2023 Evaluation note* Encounter Date Diagnosis Assessment Notes Treatment Notes Treatment Clinical Notes Apr, Type 2 diabetes mellitus with hyperglycemia, without long-term current use of insulin (ICD-10 - E11.65) Apr, Type 2 diabetes mellitus with hyperglycemia (ICD-10 - E11.65) [facility] Other 07-31-2023 Evaluation note* Encounter Date Diagnosis Assessment Notes Treatment Notes Treatment Clinical Notes Feb, Type 2 diabetes mellitus with hyperglycemia (ICD-10 - E11.65) [facility] Other 05-02-2023 Evaluation note* Encounter Date Diagnosis [...] continue exercise to achieve/maintain a normal BMI. [facility] Other 04-27-2023 Evaluation note* Encounter Date Diagnosis Assessment Notes Treatment Notes Treatment Clinical Notes Nov, Type 2 diabetes mellitus with hyperglycemia, without long-term current use of insulin (ICD-10 - E11.65) [facility] Other 02-14-2023 Evaluation note* Encounter Date Diagnosis [...] use, the patient reduces the risk for TX, CVA, HTN, cardiac dysrhythmias and sudden cardiac [...] diet and exercise. Continue w/ weight loss [facility] Other 01-11-2023 Evaluation note* Encounter Date Diagnosis Assessment Notes Treatment Notes Treatment Clinical Notes Aug, Type 2 diabetes mellitus with hyperglycemia, without long-term current use of insulin (ICD-10 - E11.65) [facility] Other 01-10-2023 Evaluation note* Encounter Date Diagnosis Assessment Notes Treatment Notes Treatment Clinical Notes Aug, Pain in left shoulder (ICD-10 - M25.512) Aug, Other chronic pain (ICD-10 - G89.29) [facility] Other Evaluation noteNo [facility] [employer] Other Evaluation note* Diagnosis 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, posterior cruciate ligament, left, subsequent encounter- Primary Other tear of medial meniscus of left knee as current injury, subsequent encounter Traumatic arthritis of knee, left [facility] Encounter for screening colonoscopy- Primary Screen for colon cancer Special screening for malignant neoplasms, colon [facility] Diagnosis Sprain of MTP joint of left lesser toe(s), init- Primary [facility] Diagnosis Onset Date Resolution Status Chronic venous insufficiency of lower extremity acute Fatigue acute GERD (gastroesophageal reflux disease) acute Hypertension acute SANTINO (obstructive sleep apnea) acute Subclinical hypothyroidism a cute Type 2 diabetes mellitus with hyperglycemia acute [facility] Work Phone: Evaluation note* Diagnosis Post-traumatic osteoarthritis of left knee- Primary [facility] Diagnosis Onset Date Resolution Status Chronic venous insufficiency of lower extremity acute Fatigue acute GERD (gastroesophageal reflux disease) acute Hypertension acute SANTINO (obstructive sleep apnea) acute Subclinical hypothyroidism a cute Type 2 diabetes mellitus with hyperglycemia acute Hypertension acute Left shoulder pain acute Rotator cuff tendonitis acut e Type 2 diabetes mellitus with hyperglycemia acute [facility] Work Phone: History general Narrative - Reported* [...] wrist, ganglion cyst Hospitalization History See above [facility] Other InstructionsNot on filedocumented in this encounter [facility] filed[facility]ructionsNot on filedocumented in this encounter [facility] Summary Purpose Family History Relationship Condition [...] section and content) DATE CREATED AUTHOR 02/09/2018 [facility] DATE CREATED AUTHOR AUTHOR'S ORGANIZ ATION 12/18/2022 [facility] DATE CREATED AUTHOR AUTHOR'S ORGANIZ ATION 12/29/2023 [facility] DATE CREATED AUTHOR AUTHOR'S ORGANIZ ATION 05/19/2024 [facility] REASON FOR VISIT [...] Care Teams (unrecognized sec tion and content) Coding Consultant Relationship Specialty Start [place] [address] [place] [id number] PCP - General Internal Medicine 04/07/21 Coding Consultant Relationship Specialty Start Date End Date Fab Guevara DO [address] [place] [id number] PCP - General Internal Medicine 04/07/21 Coding Consultant Relationship Specialty Start Date End Date Fab Guevara [address] [place] [id number] PCP - General Internal Medicine 04/07/21 Coding Consultant Relationship Specialty Start Date End Date Fab Guevara [address] [place] [id number] PCP - General Internal Medicine 04/07/21 Team Status: Active Member Role Status Dates Fab Guevara DO Primary Care Provider Active Team Status: Inactive Member Role Status Dates Fab Guevara DO Primary Care Provide r, Attending Provider Active Start: March 16, 2024 End: March 16, 2024 Coding Consultant Relationship Specialty Start Date End Date Fab Guevara [address] [place] [phone] PCP - General Internal Medicine 04/07/21 Team [...] BE BASED ON THE PRIMARY CLINICAL RECORDS. [email or web address] [facility]. provides no warranty or guarantee of the accuracy or completeness of information in this document.
--- OUTSIDE RECORDS SUMMARY | 2024-08-12 18:10 | XMS_ITS | CCD ---
Author Organization [facility] CliniSyok Care Team Providers Care Television News Anchor Name Role Phone ALEXA LADD Unavailable Unavailable [...] Unavailable FAB GUEVARA Primary Care Unavailable CECI RIELLY Attending Unavailable FAB GUEVARA Referring Unavailable FAB GUEVARA Primary Care Unavailable Allergies Allergy Classification Reported Allergen(s) Allergy Type Date of Onset Reaction(s) Facility (18 sources) Morphine; Translations: [MORPHINE] Drug Allergy 3 Vomiting [facility] (4 sources) patient allergy list reviewed by nurse or physicia Propensity to adverse reactions 8 Comment:Done [facility] Other (2 sources) Morphine Drug Allergy Unknown [facility] Other Medications Current Medications Medication Drug Class(es) [...] Dialyvite Vitami n D3 Max 1.25 MG (05363 UT) 1 tablet Orally Active Dialyvite Vitami n D3 Max 1.25 MG (96565 UT) 1 tablet Orally Active 0.5 ML [...] 12:00am December 21, 2023 9:39am peg 3350-sod sulf,tmhq-qrm-lsr 178.7-7.3-0.5 gram recon soln (2 sources) Start: 09-28-2023 End: 09-29-2023 peg 3350-sod sulf,sjic-rgb-tkg 178.7-7.3-0.5 gram recon soln Indications: Encounter for [...] the usual sterile fashion. MANUALLY TRANSCRIBED RESULTS [facility] MAMM SCREENING BILATERAL W C photovoltaic fabrication technician 12-28-2023 MAMM SCREENING BILATERAL W CAD MAMM SCREENING BILATERAL W CAD *ADDENDUM*Addendum: Second read. IMPRESSION: I agree with the interpretation. Finalized by Rg Godoy MD on 12/28/2023 9:00 AM 1 b MAMM 1 YR Normal [facility] XR FOOT LT MIN 3 VWSon [...] Key MD on 09/22/2023 1:30 PM Normal [facility] XR KNEE LT MIN 4 VWSon [...] Casillas MD on 09/22/2023 1:26 PM Normal [facility] $ Large Joint Injection: L k [...] the usual sterile fashion. MANUALLY TRANSCRIBED RESULTS [facility] MRI SHOULDER LT WO CONon [...] by: JESUS TINOCO Date: 2022-12-11 15:42 Normal [facility] ED Noteon 01-07-2018 HIM IP Note OR Service Promoter Salesperson Normal [facility] ED Provider Noteon 8 HIM IP Note OR Service Promoter Salesperson Normal [facility] Vital Signs Date Time Vital Sign Value Performing Clinician Facility 06-06-2024 14:45-0400 Body height 139.7 cm [facility] 06-06-2024 14:45-0400 Body mass index (BMI) [Ratio] 45.3 kg/m2 [facility] 06-06-2024 14:45-0400 Body weight 88.62 kg [facility] 06-06-2024 14:45-0400 Diastolic blood pressure 80 mm[Hg] [facility] 06-06-2024 14:45-0400 Heart rate 74 /min [facility] 06-06-2024 14:45-0400 Respiratory rate 12 /min [facility] 06-06-2024 14:45-0400 Systolic blood pressure 147 mm[Hg] [facility] 05-16-2024 14:59-0400 Body height 142.2 cm Uziel Capellan MD Work Phone: [facility] 05-16-2024 14:59-0400 Body mass index (BMI) [Ratio] 41.7 kg/m2 Uziel Capellan MD Work Phone: [facility] 05-16-2024 14:59-0400 Body weight 84.37 kg Uziel Capellan MD Work Phone: [facility] 03-16-2024 11:35-0400 Body height 139.7 cm [facility] 03-16-2024 11:35-0400 Body mass index (BMI) [Ratio] 45.6 kg/m2 [facility] 03-16-2024 11:35-0400 Body weight 89.07 kg [facility] 03-16-2024 11:35-0400 Diastolic blood pressure 82 mm[Hg] [facility] 03-16-2024 11:35-0400 Heart rate 71 /min [facility] 03-16-2024 11:35-0400 Respiratory rate 12 /min [facility] 03-16-2024 11:35-0400 Systolic blood pressure 139 mm[Hg] [facility] 10-20-2023 14:27-0500 Body height 142.2 cm Anahy Marina MD Work Phone: [facility] 10-20-2023 14:27-0500 Body mass index (BMI) [Ratio] 41.7 kg/m2 Anahy Marina MD Work Phone: [facility] 10-20-2023 14:27-0500 Body weight 84.37 kg Anahy Marina MD Work Phone: [facility] 09-28-2023 14:32-0500 Body mass index (BMI) [Ratio] 42.54 kg/m2 Ceci RIZO Work Phone: [facility] 09-28-2023 14:32-0500 Body weight 89.18 kg Ceci Reilly PARATRANSIT OPERATOR-HOUSE SUPERVISOR [facility] 09-28-2023 14:32-0500 Diastolic blood pressure 94 mm[Hg] Ceci Reilly PARATRANSIT OPERATOR-HOUSE SUPERVISOR [facility] 09-28-2023 14:32-0500 Heart rate 74 /min Ceci Reilly PARATRANSIT OPERATOR-HOUSE SUPERVISOR [facility] 09-28-2023 14:32-0500 Systolic blood pressure 180 mm[Hg] Ceci Reilly PARATRANSIT OPERATOR-HOUSE SUPERVISOR Work Phone[facility] 09-07-2023 15:38-0500 Body height 144.8 cm Uziel Capellan MD Work [facility] 09-07-2023 15:38-0500 Body mass index (BMI) [Ratio] 40.47 kg/m2 Uziel Capellan MD Work Phone[facility] 09-07-2023 15:38-0500 Body weight 84.82 kg Uziel Capellan MD Work Phone: [facility] 07-06-2023 11:30-0500 Body height 149.86 cm Fab Ball Other [facility] Other 07-06-2023 11:30-0500 Body mass index (BMI) [Ratio] 39.1 kg/m2 Fab Ball Other [facility] Other 07-06-2023 11:30-0500 Body weight 87.82 kg Fab Ball Other [facility] Other 07-06-2023 11:30-0500 Diastolic blood pressure 84 mm[Hg] Fab Ball Other [facility] Other 07-06-2023 11:30-0500 Respiratory rate 12 /min Fab Ball Other [facility] Other 07-06-2023 11:30-0500 Systolic blood pressure 145 mm[Hg] Fab Ball Other [facility] Other 12-22-2022 16:00-0400 Body height 149.86 cm Fab Ball Other [facility] Other 12-22-2022 16:00-0400 Body mass index (BMI) [Ratio] 38.69 kg/m2 Fab Ball Other [facility] Other 12-22-2022 16:00-0400 Body weight 86.91 kg Fab Ball Other [facility] Other 12-22-2022 16:00-0400 Diastolic blood pressure 85 mm[Hg] Fab Ball Other [facility] Other 12-22-2022 16:00-0400 Respiratory rate 12 /min Fab Ball Other [facility] Other 12-22-2022 16:00-0400 Systolic blood pressure 148 mm[Hg] Fab Ball Other [facility] Other 10-06-2022 15:00-0500 Body height 149.86 cm Fab Ball Other [facility] Other 10-06-2022 15:00-0500 Body mass index (BMI) [Ratio] 38.49 kg/m2 [facility] Other [facility] Other 10-06-2022 15:00-0500 Body weight 86.46 kg Fab Ball Other [facility] Other 10-06-2022 15:00-0500 Diastolic blood pressure 82 mm[Hg] Fab Guevara Other [facility] Other 10-06-2022 15:00-0500 Respiratory rate 12 /min Fab Guevara Other [facility] Other 10-06-2022 15:00-0500 Systolic blood pressure 124 mm[Hg] Fab Guevara Other [facility] Other Encounters Encounter Date Encounter Type Care Provider Facility Start: 06-06-2024 End: 06-06-2024 ambulatory [facility] Work Phone: Start: 06-06-2024 End: 06-06-2024 Patient encounter procedure [facility] Work Phone: Start: 05-16-2024 End: 05-16-2024 Patient encounter procedure Uziel Capellan MD Work Phone: [facility] Comment on above: Post-traumatic osteo arthritis of left knee (Primary Dx) Start: 05-16-2024 End: 05-16-2024 ambulatory [facility] Start: 04-03-2024 End: 04-03-2024 ambulatory [facility] Start: 03-16-2024 End: 03-16-2024 ambulatory [facility] Work Phone: Start: 03-16-2024 End: 03-16-2024 Patient encounter procedure [facility] Work Phone: Start: 01-04-2024 End: 01-04-2024 ambulatory [facility] Start: 12-08-2023 End: 12-08-2023 ambulatory [facility] Start: 12-01-2023 End: 12-01-2023 ambulatory [facility] Start: 10-20-2023 End: 10-20-2023 Office outpatient visit 15 minutes Anahy Marina MD Work Phone: [facility] Comment on above: Sprain of MTP joint of left lesser toe(s), init (Primary Dx) Start: 10-20-2023 End: 10-20-2023 ambulatory ANAHY Mondragon [facility] Start: 10-06-2023 End: 10-07-2023 ambulatory FAB Herron [facility] Start: 10-06-2023 End: 10-06-2023 Evaluation and management of inpatient TESS MADERA [facility] Start: 10-05-2023 End: 10-06-2023 Evaluation and management of inpatient SOPHIA BRUNO [facility] Start: 09-29-2023 End: 09-29-2023 ambulatory [facility] Pat Phone Call Provider 1 [facility] Pre [facility] Start: 09-28-2023 End: 09-28-2023 Patient encounter procedure Ceci Reilly PARATRANSIT OPERATOR-HOUSE SUPERVISOR Work Phone: [facility] Comment on above: Encounter for screen ing colonoscopy (Primary Dx) Start: 09-28-2023 End: 09-28-2023 ambulatory CECI Maryellen REILLY [facility] Start: 09-22-2023 End: 09-26-2023 ambulatory GABRIELLA MOORE [facility] Start: 09-10-2023 ambulatory ANAHY [facility] Start: 09-09-2023 End: 09-10-2023 ambulatory FAB Herron [facility] Start: 09-07-2023 End: 09-07-2023 ambulatory UZIEL CAPELLAN [facility] Start: 09-07-2023 End: 09-07-2023 Patient encounter procedure Uziel Caepllan MD Work Phone: [facility] Comment on above: 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, 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 industry analyst ior cruciate ligament, left, subsequent encounter (Primary Dx); Other tear of medial meniscus of left knee as current injury, subsequent encounter; Traumatic arthritis of knee, left Start: 08-10-2023 End: 08-10-2023 ambulatory Fab Ball Other [facility] Other Start: 08-10-2023 Telephone encounter Fab Ball [facility] Start: 07-06-2023 End: 07-06-2023 ambulatory Fab Ball Other [facility] Other Start: 07-06-2023 Office outpatient vi sit 15 minutes Fab Ball [facility] Start: 05-13-2023 End: 05-13-2023 ambulatory Fab Ball Other [facility] Other Start: 05-13-2023 Telephone encounter Fab Ball [facility] Start: 05-12-2023 End: 05-12-2023 ambulatory Fab Ball Other [facility] Other Start: 05-12-2023 Telephone encounter Fab Ball [facility] Start: 03-22-2023 End: 03-22-2023 ambulatory Fab Ball Other [facility] Other Start: 03-22-2023 Telephone encounter Fab Ball [facility] Start: 03-19-2023 End: 03-19-2023 ambulatory Fab Ball Other [facility] Other Start: 03-19-2023 Telephone encounter Fab Ball [facility] Start: 12-22-2022 End: 12-22-2022 ambulatory Fab Ball Other [facility] Other Start: 12-22-2022 Office outpatient vi sit 15 minutes Fab Ball [facility] Start: 12-17-2022 End: 12-17-2022 ambulatory Fab Ball Other [facility] Other Start: 12-17-2022 Telephone encounter Fab Ball [facility] Start: 12-11-2022 End: 12-12-[address] FAB GUEVARA Facility:[facility] Start: 10-06-2022 End: 10-06-2022 ambulatory Fab Guevara Other [facility] Other Start: 10-06-2022 Office outpatient vi sit 25 minutes [facility] Start: 09-02-2022 End: 09-02-2022 ambulatory Fab Guevara Other [facility] Other Start: 09-02-2022 Telephone encounter [facility]ue[facility]a [facility] Start: 09-01-2022 End: 09-01-2022 ambulatory Fab Guevara Other [facility] Other Start: 09-01-2022 Telephone encounter Fab Guevara [facility] Start: 03-24-2022 End: 03-25-[address] FAB GUEVARA Facility:[facility] Start: 03-03-2022 End: 03-04-[address] FAB GUEVARA Facility:[facility] Start: 01-12-2022 Adult health examination Shaun Guevara Other [facility] Other Start: 01-12-2022 Encounter for genera l adult medical examination without abnormal findings Fab Ismael Other [facility] Other Start: 01-07-2018 End: 01-07-2018 Emergency department patient visit AGUILAR WILBERTO [facility] Procedures Date Procedure Procedure Detail [...] for malign ant neoplasm of colon Colonoscopy [facility] Start: 07-01-2032 DTaP,Tdap and Td Vac cines (2 - Td or Tdap) DTaP,Tdap and Td Vaccines (2 - Td or Tdap) [facility] Start: 07-01-2032 DTaP,Tdap and Td Vac cines (3 - Td or Tdap) DTaP,Tdap and Td Vaccines (3 - Td or Tdap) [facility] Start: 05-16-2025 Adult BMI Screening Adult BMI Screen ing [facility] Start: 04-03-2025 Tobacco Screening Tobacco Screening [facility] Start: 10-20-2024 Adult BMI Screening Adult BMI Screen ing [facility] Start: 10-20-2024 Tobacco Screening Tobacco Screening [facility] Start: 09-29-2024 Tobacco Screening Tobacco Screening [facility] Start: 09-28-2024 Adult BMI Screening Adult BMI Screen ing [facility] Start: 09-28-2024 Tobacco Screening Tobacco Screening [facility] Start: 09-07-2024 Adult BMI Screening Adult BMI Screen ing [facility] Start: 09-07-2024 Tobacco Screening Tobacco Screening [facility] Start: 04-23-2024 COVID-19 Vaccine ( season) COVID-19 Vaccine ( season) [facility] Start: 04-23-2024 Influenza vaccination Influenza Vacc ine [facility] Start: 12-08-2023 End: 12-08-2023 Patient encounter procedure 12/08/2023 1:50 PM EDT [facility] [address] [place] [address] Uziel Capellan MD [address], [place] [address] [facility] Start: 12-01-2023 End: 12-01-2023 Patient encounter procedure 12/01/2023 2:45 PM EDT Office Visit [facility] [address] [facility] [place] [id number] Anahy Marina MD [address] [place] [address] [facility] Start: 10-05-2023 End: 10-05-2023 Admission to same day surgery center 10/05/2023 11:00 AM EST - 10/05/2023 11:30 AM EST Surgery [facility] [address] [place] [phone] Sophia Bruno, DO [address] [place], [place] [id number] COLONOSCOPY DIAGNOSTIC / SCREENING [26257 (CPT )] [facility] Comment on above: COLONOSCOPY DIAGNOST IC / SCREENING [97221 (CPT )] Start: 10-05-2023 End: 10-05-2023 Colonoscopy flx dx w/collj spec when pfrmd COLONOSCOPY DIAGNOSTIC / SCREENING Screen for colon cancer 10/05/2023 11:00 AM [facility] Start: 10-05-2023 Subsequent hospital visit by physician 10/05/2023 11:00 AM EST Hospital Encounter [facility] [address] [place] [id number] Sophia Bruno, DO [address] [place] [address] [facility] Start: 09-29-2023 End: 09-29-2023 ambulatory 09/29/2023 3:00 PM EST Support Visit [facility] Pre [facility] [address] [facility] [phone] [facility] Start: 04-23-2023 COVID-19 Vaccine ( season) COVID-19 Vaccine ( season) [facility] Start: 04-23-2023 Influenza vaccination Influenza Vacc ine [facility] Start: 2009 Administration of varicella zoster vaccine Zoster (Shingles) Vaccine (1 of 2) [facility] Start: 1977 Adult BMI Follow Up Plan Adult BMI Follow Up Plan [facility] Start: 1971 Depression Screening Depression Scre ening [facility] End: 09-28-2024 Colonoscopy Colonoscopy GI Routine Encounter for screening colonoscopy 1 Occurrences starting 09/28/2023 until 09/28/2024 [facility] Work Phone: Comment on above: 1 Occurrences starti ng 09/28/2023 until 09/28/2024 [facility] Immunizations Immunization Date Immunization Notes Care Provider Fa cility 05-29-2022 influenza virus vaccine, unspecified formulation Uziel Capellan MD Work Phone: [facility] 05-22-2014 tetanus and diphther ia toxoids, adsorbed, preservative free, for adult use (5 Lf of tetanus toxoid and 2 Lf of diphtheria toxoid) Fab Guevara Other [facility] Payers Date Payer Category Payer Unknown [id number] 2022 Worker's Compensation WORKER'S C OMPENSATION WORKER'S COMPENSATION - GENERIC PLAN [id number] 2022-Present [phone] [facility] [address] [place] [address] [id number] 2022 Unknown [id number] 2016 Unknown [id number] [id number]. [id number] 1959 Unknown [id number] 2.16.840.1.131480.3.579.2. 593 1959 Unknown [id number] 2.16.840.1.267896.3.579.2. 593 1959 Unknown [id number] 2.16.840.1.118582.3.579.2. 593 1959 Unknown [id number] 2.16.840.1.519087.3.579.2. 1286 1959 Unknown [id number] 2.16.840.1.403357.3.579.2. 1286 1959 Unknown [id number] 2.16.840.1.181814.3.579.2. 1286 1959 Unknown [id number] 2.16.840.1.263874.3.579.2. 1286 1959 Unknown [id number] 2.16.840.1.152531.3.579.2. 1286 1959 Unknown [id number] 2.16.840.1.962316.3.579.2. 1286 1959 Unknown [id number] 2.16.840.1.107682.3.579.2. 1286 1959 Unknown [id number] 2.16.840.1.490519.3.579.2. 1286 1959 Unknown [id number] 2.16.840.1.163337.3.579.2. 1286 1959 Unknown [id number] 2.16.840.1.529813.3.579.2. 1286 1959 Unknown [id number] 2.16.840.1.034439.3.579.2. 1286 1959 Unknown [id number] 2.16.840.1.425978.3.579.2. 1286 1959 Unknown [id number] 2.16.840.1.243750.3.579.2. 1286 1959 Unknown [id number] 2.16.840.1.593370.3.579.2. 1286 1959 Unknown [id number] 2.16.840.1.611137.3.579.2. 1286 1959 Unknown [id number] 2.16.840.1.544734.3.579.2. 1286 1959 Unknown [id number] 2.16.840.1.483609.3.579.2. 1286 1959 Unknown [id number] 2.16.840.1.490124.3.579.2. 1286 1959 Unknown [id number] Social History Date Type Detail Facility Start: 10-03-2020 End: 09-07-2023 Sex Assigned At [facility] Other Start: 10-21-2022 End: 10-13-2023 Tobacco smoking status NHIS Never smoked tobacco [facility] Start: 10-21-2022 Tobacco use and exposure Smokeless tobacco non-user [facility] Start: 09-07-2023 End: 05-16-2024 Alcohol intake Lifetime non-drinker (finding) [facility] Start: 10-03-2020 End: 09-07-2023 History of Social function [facility] Housing Instability Unknown [facility] Start: 1960 Sex Assigned At Not on file P [facility] Start: 1960 Sex Assigned At Female F [facility] Start: 01-26-2024 Gender identity Identifies as female gender (finding) [facility] Start: 01-26-2024 Sexual orientation Heterosexual (fin ding) [facility] NEGATED: Highlighted rowStart: NINF History of tobacco use Passive smoker [facility] Clinical Notes 09-01-2022 to 05-16-2024 [...] Patient presents with Left Knee - Pain [facility]. Left knee celestone injection 01/04/24, states [...] of the aforementioned history prepared by the [place] practice provider, and I personally performed the clinical examination of the patient. I discussed the treatment plan with the patient and my physician's pizza hut assistant. Details of today's visit are as described above. The patient is doing well with the present treatment regimen. We injected her left knee again today and she will continue with home exercises and return for follow-up in about 3 months. documented [facility] this [facility] 10-20-2023 History of Presen t illness Narrative [facility] Anahy Marina MD Orthopaedic Surgery Specializing in Foot & Ankle Last Encounter with Ks: new Last Encounter with Speciality: 07/07/2023 Uziel Capellan MD Date of visit: 10/20/2023 Chief Complaint: Chief Complaint Patient presents with Left Foot - Pain, Work Related Injury [facility]. New patient. Left foot injury 09/22/23, after she tripped over a students bag. XR 10/06/23. CELSO Mays is a 63 y.o. female that presents for evaluation of her left foot. 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 This is a [facility] claim. Since the incident she has [...] 3rd foot MTP sprain This is a [facility] claim. Plan That patient states that [...] of treatment with the patient and Physician Directory Carrier. The critical element of all procedures were [...] month for re-evaluation documented in this encounter [facility] 10-06-2023 Note XR FOOT LT MIN 3 VWS Procedure: Left foot radiographs performed Number of views:3 History:Injury and pain Comparison:09/22/2023 Findings: There is no fracture, dislocation, or destructive lesion. There is a plantar calcaneal enthesophyte Impression: No acute findings. Finalized by Denise Phillips DO on 10/06/2023 4:16 PM [facility] 09-29-2023 Miscellaneous Notes Preoperative Education Checklist- General Surgery date: 10/05/23 Surgery time: 1100 Arrival time: 0900 1. Bring a photo ID and your insurance card with you the day of surgery. You will check in at the main lobby of the [facility]- registration desk is straight ahead as soon as you walk in. Tell them you are here for surgery. 2. If you have a Living Will/Durable Power of Lead Process Engineer for Health Care that is not on [...] after you have bathed. 5. NO nail [place] citizen/acrylic on at least one finger. If you are having a hand, wrist or foot surgery then all nail [place] citizen and artificial/acrylic nails must be removed from [...] please call the Preadmission Testing office at [phone], Mon.-Fri. 7 a.m.-3 p.m. Leave a voicemail [...] 0 days prior to procedure peg 3350-sod sulf,gvxs-zjd-zrp 178.7-7.3-0.5 gram recon soln Stop taking 0 days prior to procedure TRULICITY 4.5 mg/0.5 mL pen injector Stop taking 1 week prior to procedure venlafaxine XR (EFFEXOR XR) 75 mg 24 hr capsule Stop taking 0 days prior to procedure documented in this encounter [facility] 09-29-2023 Nurse Note Preoperative Education Checklist- General Surgery date: 10/05/23 Surgery time: 1100 Arrival time: 0900 1. Bring a photo ID and your insurance card with you the day of surgery. You will check in at the main lobby of the [facility]- registration desk is straight ahead as soon as you walk in. Tell them you are here for surgery. 2. If you have a Living Will/Durable Power of Lead Process Engineer for Health Care that is not on [...] after you have bathed. 5. NO nail [place] citizen/acrylic on at least one finger. If you are having a hand, wrist or foot surgery then all nail [place] citizen and artificial/acrylic nails must be removed from [...] please call the Preadmission Testing office at [phone], Mon.-Fri. 7 a.m.-3 p.m. Leave a voicemail [...] 0 days prior to procedure peg 3350-sod sulf,olyb-iyd-jhq 178.7-7.3-0.5 gram recon soln Stop taking 0 [...] Diagnosis Date Diabetes mellitus type 2, controlled ([facility]) Hypertension Past Surgical History: Procedure Laterality [...] capsule, , Disp: , Rfl: peg 3350-sod sulf,wkak-pvz-hgs 178.7-7.3-0.5 gram recon soln, Take 1 kit [...] patient/family/caregiver Referring and communicating with other health nursing care partner Encounter for screening colonoscopy [Z12.11] SALLIE OROURKE [facility] General Surgery [place] This note was created with the assistance of a speech recognition program. While intending to generate a timely document that accurately reflects the content of the visit, no guarantee can be provided that every grammatical or spelling mistake has been or will be identified or corrected. Thank you for your understanding. SALLIE Orourke 09/28/23 1457 documented in this encounter [facility] 09-07-2023 History of Presen t illness Narrative Associated Order(s): $ Large Joint Injection: L knee Post-Procedure Diagnose(s): 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, posterior cruciate ligament, left, subsequent encounter; Other tear of medial meniscus of left knee as current injury, subsequent encounter; Traumatic arthritis of knee, left Images from the original note were not included. [facility] [address] [facility] [phone] Name: Carmen Mays : 1960 SUMMARY OF VISITS: 09/09/2023 SUBJECTIVE: Chief Complaint: Left knee pain History of Present Illness: For the sake of review, the patient is a 62-year-old female with left knee pain from a reported work-related injury. 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 She reports that she recently obtained approval [...] of the aforementioned history prepared by the [place] practice provider, and I personally performed the clinical examination of the patient. I discussed the treatment plan with the patient and my physician's pizza hut assistant. Details of today's visit are as described above. I personally injected the patient's left knee today. [facility] Encounter Date Diagnosis Assessment Notes Jul, COVID- 19 (ICD-1 0 - U07.1) [facility] Other 11-14-2023 Evaluation note* Encounter Date Diagnosis [...] Jun, Other chronic pain (ICD-10 - G89.29) [facility] Other 09-21-2023 Evaluation note* Encounter Date Diagnosis Assessment Notes Treatment Notes Treatment Clinical Notes Apr, Type 2 diabetes mellitus with hyperglycemia, without long-term current use of insulin (ICD-10 - E11.65) Apr, Type 2 diabetes mellitus with hyperglycemia (ICD-10 - E11.65) [facility] Other 07-31-2023 Evaluation note* Encounter Date Diagnosis Assessment Notes Treatment Notes Treatment Clinical Notes Feb, Type 2 diabetes mellitus with hyperglycemia (ICD-10 - E11.65) [facility] Other 05-02-2023 Evaluation note* Encounter Date Diagnosis [...] continue exercise to achieve/maintain a normal BMI. [facility] Other 04-27-2023 Evaluation note* Encounter Date Diagnosis Assessment Notes Treatment Notes Treatment Clinical Notes Nov, Type 2 diabetes mellitus with hyperglycemia, without long-term current use of insulin (ICD-10 - E11.65) [facility] Other 02-14-2023 Evaluation note* Encounter Date Diagnosis [...] use, the patient reduces the risk for WA, CVA, HTN, cardiac dysrhythmias and sudden cardiac [...] diet and exercise. Continue w/ weight loss [facility] Other 01-11-2023 Evaluation note* Encounter Date Diagnosis Assessment Notes Treatment Notes Treatment Clinical Notes Aug, Type 2 diabetes mellitus with hyperglycemia, without long-term current use of insulin (ICD-10 - E11.65) [facility] Other 01-10-2023 Evaluation note* Encounter Date Diagnosis Assessment Notes Treatment Notes Treatment Clinical Notes Aug, Pain in left shoulder (ICD-10 - M25.512) Aug, Other chronic pain (ICD-10 - G89.29) [facility] Other Evaluation noteNo InformationNortMeddle Other Evaluation note* Diagnosis 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, posterior cruciate ligament, left, subsequent encounter- Primary Other tear of medial meniscus of left knee as current injury, subsequent encounter Traumatic arthritis of knee, left [facility] Encounter for screening colonoscopy- Primary Screen for colon cancer Special screening for malignant neoplasms, colon [facility] Sprain of MTP joint of left lesser toe(s), init- Primary [facility] Diagnosis Onset Date Resolution Status Chronic venous insufficiency of lower extremity acute Fatigue acute GERD (gastroesophageal reflux disease) acute Hypertension acute SANTINO (obstructive sleep apnea) acute Subclinical hypothyroidism a cute Type 2 diabetes mellitus with hyperglycemia acute [facility] Work Phone: Evaluation note* Diagnosis Post-traumatic osteoarthritis of left knee- Primary [facility] Onset Date Resolution Status Chronic venous insufficiency of lower extremity acute Fatigue acute GERD (gastroesophageal reflux disease) acute Hypertension acute SANTINO (obstructive sleep apnea) acute Subclinical hypothyroidism a cute Type 2 diabetes mellitus with hyperglycemia acute Hypertension acute Left shoulder pain acute Rotator cuff tendonitis acut e Type 2 diabetes mellitus with hyperglycemia acute [facility] Work Phone: History general Narrative - Reported* [...] wrist, ganglion cyst Hospitalization History See above [facility] Other InstructionsNot on filedocumented in this encounter [facility] filedocumented [facility] this [facility]InstructionsNot on filedocumented in this encounter [facility] Summary Purpose Family History Relationship [...] section and content) DATE CREATED AUTHOR 02/09/2018 [facility] DATE CREATED AUTHOR AUTHOR'S ORGANIZ ATION 12/18/2022 [facility] DATE CREATED AUTHOR AUTHOR'S ORGANIZ ATION 12/29/2023 [facility] DATE CREATED AUTHOR AUTHOR'S ORGANIZ ATION 05/19/2024 [facility] REASON [...] Care Teams (unrecognized sec tion and content) Television News Anchor Relationship Specialty [place] [address] [place] [id number] PCP - General Internal Medicine 04/07/21 [employer] An[employer] Relationship Specialty Start Date End Date Fab Guevara DO [address] [place] [id number] PCP - General Internal Medicine 04/07/21 Television News Anchor Relationship Specialty Start Date End Date Fab Guevara [address] [place] [id number] PCP - General Internal Medicine 04/07/21 Television News Anchor Relationship Specialty Start Date End Date Fab Guevara [address] [place] [phone] PCP - General Internal Medicine 04/07/21 Team Status: Active Member Role Status Dates Fab Guevara DO Primary Care Provider Active Team Status: Inactive Member Role Status Dates Fab Guevara DO Primary Care Provide r, Attending Provider Active Start: March 16, 2024 End: March 16, 2024 Television News Anchor Relationship Specialty Start Date End Date Fab Guevara [address] [place] [id number] PCP - General Internal Medicine 04/07/21 Team [...] BE BASED ON THE PRIMARY CLINICAL RECORDS. [employer] [facility]. provides no warranty or guarantee of the accuracy or completeness of information in this document.
[2024-08-12 19:51] LABS: Glucometer 111 mg/dL (74-106)
[2024-08-12] MEDS: ENOXAPARIN SODIUM 40 MG/0.4 ML SYRINGE SUBQ (21:36)
[2024-08-12] MEDS: ACETAMINOPHEN 325 MG TABLET 650 MG PO (21:36)
[2024-08-12] MEDS: OMEPRAZOLE 40 MG CAPSULE.DR PO (21:36)
[2024-08-13] VITALS (17 sets, daily range): BP systolic 119–139; BP diastolic 71–85; PULSE 66–85; TEMP 36.4–36.7; O2SAT 92–96
[2024-08-13] MEDS: LEVOTHYROXINE SODIUM 25 MCG TABLET 50 MCG PO (06:58)
[2024-08-13 07:50] LABS: Glucometer 91 mg/dL (74-106)
[2024-08-13] MEDS: ASPIRIN 81 MG TAB.CHEW PO (08:10)
[2024-08-13] MEDS: LOSARTAN POTASSIUM 25 MG TABLET PO (08:10)
[2024-08-13] MEDS: ACETAMINOPHEN 325 MG TABLET 650 MG PO (08:10)
[2024-08-13] MEDS: AMLODIPINE BESYLATE 5 MG TABLET 10 MG PO (08:10)
[2024-08-13] MEDS: OMEPRAZOLE 40 MG CAPSULE.DR PO ×2 (08:10→21:42)
[2024-08-13] MEDS: VENLAFAXINE HCL ER 75 MG CAPSULE PO (08:11)
[2024-08-13] MEDS: MAALOX (MAG HYDROX/ALUMINUM HYD/SIMETH) 30 ML ORAL.SUSP PO (10:49)
[2024-08-13 11:53] LABS: Glucometer 94 mg/dL (74-106)
--- NOTE | 2024-08-13 11:56 | PM.IMPN1 ---
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 MRI brain pending, ECHO pending. Started on Lipitor 40 mg, LDL>100 with hx of T2DM. Will get EEG as outpatient. C/w ASA for suspected CVA. Tele stroke consult and appreciate their input/recommendations. Internal Medicine - PN: Subj Subjective Interval history: Seen and examined. Headache is better. She still does not feel like her usual self but overall feeling better. No overnight events. Exam Constitutional Vital Signs, click to edit/add: Last Vital Signs Temp 98.0 F 08/13/24 07:48 Pulse 74 08/13/24 11:53 Resp 18 08/13/24 07:48 BP 127/81 08/13/24 07:48 Pulse Ox 94 L 08/13/24 07:48 O2 Del Method Room Air 08/13/24 07:48 Documenting provider has reviewed patient's vital signs: yes Common normals: no apparent distress and oriented x3 General appearance: cooperative Respiratory Common normals: normal respiratory effort and clear to auscultation bilaterally Effort & inspection: able to speak in complete sentences Auscultation: clear to auscultation bilaterally Cardio Common normals: regular rate, S1 normal heart sound and S2 normal heart sound Rate: regular rate Heart sounds: S1 normal and S2 normal Extremity Common normals: no clubbing, cyanosis or edema Neuro Common normals: oriented x3, moves all extremities and no focal motor deficits Psych Common normals: mental status grossly normal, denies hallucinations, denies homicidal ideation and denies suicidal ideation Internal Medicine - PN: Obj Da Labs Labs: Laboratory Results - last 24 hr 08/12/24 08/12/24 08/12/24 10:59 15:15 16:15 Sodium 144 Potassium 3.7 Chloride 106 Carbon Dioxide 27.6 Anion Gap 14.1 BUN 14.0 Creatinine 1.00 Est GFR ( Amer) >60 Est GFR (Non-Af Amer) 56 L BUN/Creatinine Ratio 14.0 Glucose 90 Estimat Average Glucose 100 Hemoglobin A1c 5.1 Lactate 0.9 Calcium 9.5 Magnesium 1.8 Total Bilirubin 0.7 AST 23 ALT 21 Alkaline Phosphatase 105 Troponin I High Sens 5.8 Total Protein 7.3 Albumin 3.9 Globulin 3.4 Albumin/Globulin Ratio 1.1 Triglycerides 72 Cholesterol 174 LDL Cholesterol, Calc 102.6 VLDL Cholesterol 14.4 HDL Cholesterol 57 Cholesterol/HDL Ratio 3.1 Urine Color Lt. yellow Urine Clarity Clear Urine pH 7.5 Ur Specific [place] 1.010 Urine Protein Negative Urine Glucose (UA) Negative Urine Ketones Negative Urine Occult Blood Negative Urine Nitrite Negative Urine Bilirubin Negative Urine Urobilinogen 0.2 Ur Leukocyte Esterase Negative Urine Opiates Screen Negative Ur Buprenorphine Scrn Negative Ur Oxycodone Screen Negative Urine Methadone Screen Negative Ur Barbiturates Screen Negative U Tricyclic Antidepress Negative Ur Phencyclidine Scrn Negative Ur Amphetamines Screen Negative U Methamphetamines Scrn Negative U Benzodiazepines Scrn Negative Urine Cocaine Screen Negative U Cannabinoids Screen Negative Ethanol Quant <3 POC Glucose 82 08/12/24 08/13/24 08/13/24 19:46 07:42 11:43 Sodium Potassium Chloride Carbon Dioxide Anion Gap BUN Creatinine Est GFR ( Amer) Est GFR (Non-Af Amer) BUN/Creatinine Ratio Glucose Estimat Average Glucose Hemoglobin A1c Lactate Calcium Magnesium Total Bilirubin AST ALT Alkaline Phosphatase Troponin I High Sens Total Protein Albumin Globulin Albumin/Globulin Ratio Triglycerides Cholesterol LDL Cholesterol, Calc VLDL Cholesterol HDL Cholesterol Cholesterol/HDL Ratio Urine Color Urine Clarity Urine pH Ur Specific [place] Urine Protein Urine Glucose (UA) Urine Ketones Urine Occult Blood Urine Nitrite Urine Bilirubin Urine Urobilinogen Ur Leukocyte Esterase Urine Opiates Screen Ur Buprenorphine Scrn Ur Oxycodone Screen Urine Methadone Screen Ur Barbiturates Screen U Tricyclic Antidepress Ur Phencyclidine Scrn Ur Amphetamines Screen U Methamphetamines Scrn U Benzodiazepines Scrn Urine Cocaine Screen U Cannabinoids Screen Ethanol Quant POC Glucose 111 H 91 94
--- NOTE | 2024-08-13 11:59 | CA_ITS ---
Patient Name: EVY MORALES MR#: [id number] : 1960 Exam Date: 08/14/2024 Ordering Doctor: SHAIKH Abbey MENDOZA . ECHOCARDIOGRAM REPORT PROCEDURE: CA ECHO DOPPLER COMPLETE INDICATIONS: suspected CVA, hypertension, diabetes COMPARISON: None. DESCRIPTION: COMPLETE ECHOCARDIOGRAM Real-time transthoracic echocardiography with 2D, M-mode, spectral and color flow Doppler performed. QUALITY: Technical quality was good. LEFT VENTRICLE: Normal chamber size. Thickened septal wall. Mild concentric hypertrophy. Normal systolic function. LV EF: Normal left ventricular ejection fraction, (60%). DIASTOLIC: Diastolic function is indeterminate. ATRIAL SEPTUM: LEFT ATRIUM: Mild dilatation. RIGHT ATRIUM: Normal chamber size. RIGHT VENTRICLE: Normal chamber size. Normal right ventricular systolic function. TRICUSPID VALVE: Normal mobility and thickness. No stenosis with mild regurgitation. No evidence of pulmonary hypertension. RVSP 32 mmHg MITRAL VALVE: Normal mobility and thickness. No evidence of mitral valve stenosis. There is no mitral annular calcification. Trivial mitral regurgitation. AORTIC VALVE: Normal trileaflet appearance. No visible sclerosis. Normal leaflet mobility. No evidence of aortic valve stenosis. No aortic regurgitation. AORTIC ROOT: Normal diameter and appearance. Ascending aorta is normal in size. PULMONIC VALVE: Normal thickness and mobility. No stenosis. No regurgitation. PERICARDIUM: No evidence of pericardial effusion. IVC: Not well visualized. PLEURA: CONCLUSION: 1. Mild concentric ventricular hypertrophy with normal systolic function. LVEF is estimated at 60%. 2. Normal right ventricular size and systolic function. 3. Mild tricuspid regurgitation. 4. Normal right-sided pressures. 5. No pericardial effusion. Adult Echocardiography Procedure Report Left Ventricle LVEDD (3.7 - 5.6 cm): 4.34 cm LVESD (2.2 - 4.0 cm): 3.29 cm LVIVS thickness (0.6 - 1.2 cm): 1.41 cm LVPW thickness (0.5 - 1.0 cm): 0.89 cm e': 0.09 m/s E - e': 7.54 LVOT Max Gradient: 2.09 mm[Hg] LVOT Area (cm2): 0.72 m/s Peak Velocity (LVOT): 0.72 m/s Mean Velocity (LVOT): 0.47 m/s LVOT Diameter 2.08 cm Left Atrium LA Volume Index (2D A2C): 39.22 ml/m2 Left Atrium Systolic Dimension: 3.30 cm Mitral Valve MV E to A Ratio: 1 Mitral Valve A-Wave Peak Velocity: 0.65 m/s Mitral Valve E-Wave Peak Velocity: 0.65 m/s Right Ventricle Aorta AO Root Diam: 3.57 cm Ascending Ao Diam: 2.85 cm Aortic Valve AoV Area (Peak Kole): 2.18 cm2, 2.18 cm2 AoV Area (VTI): 2.55 cm2, 2.55 cm2 Peak Velocity(Antegrade Flow): 1.13 m/s Peak Gradient(Antegrade Flow): 5.08 mm[Hg] Mean Velocity(Antegrade Flow): 0.72 m/s Mean Gradient(Antegrade Flow): 2.38 mm[Hg] Velocity Time Integral: 25.15 cm Tricuspid Valve Peak Velocity (Regurgitant Flow): 2.58 m/s, 2.69 m/s, 2.65 m/s Pulmonic Valve Mean Gradient: 1.55 mm[Hg] Mean Velocity: 0.58 m/s Peak Velocity: 0.85 m/s, 0.94 m/s Peak Gradient: 2.90 mm[Hg], 3.54 mm[Hg] Right Atrium Right Atrium Systolic Pressure: 51.17 ml, 51.17 ml Dictated by: Jimenez García M.D. on 08/14/2024 at 18:39 Approved by: Jimenez García M.D. on 08/14/2024 at 18:44
[2024-08-13 16:48] LABS: Glucometer 80 mg/dL (74-106)
[2024-08-13] MEDS: ATORVASTATIN CALCIUM 40 MG TABLET PO (21:42)
[2024-08-13] MEDS: ENOXAPARIN SODIUM 40 MG/0.4 ML SYRINGE SUBQ (21:42)
[2024-08-13 21:43] LABS: Glucometer 80 mg/dL (74-106)
[2024-08-14] VITALS (9 sets, daily range): BP systolic 116–176; BP diastolic 70–89; PULSE 68–92; TEMP 36.6–36.7; O2SAT 92–96
[2024-08-14] MEDS: LEVOTHYROXINE SODIUM 25 MCG TABLET 50 MCG PO (06:44)
[2024-08-14 07:49] LABS: Glucometer 85 mg/dL (74-106)
--- NOTE | 2024-08-14 08:40 | MR_ITS ---
The [address] [address] Patient Name: EVY MORALES MRN: [facility]:[id number] date: 1960 Sex: F Assigned Patient Location: [place] Current Patient Location: [place] Accession/Order Number: [id number] Exam Date: 08/14/2024 11:00 Report Date: 08/14/2024 12:42 At the request of: SHAIKH REJI Procedure: MR head/brain wo/w con MR head/brain wo/w con, 08/14/2024 11:00 AM EST INDICATION: Stroke/seizure COMPARISON: Prior CT of the head dated 08/12/2024 TECHNIQUE: Multiplanar, multisequential MRI images of brain were obtained without and with injection of contrast. FINDINGS: The cerebral sulci as well as ventricular system are appropriate for age. There is no restricted diffusion. Periventricular and centrum semiovale hypodensities are most likely consistent with microvascular ischemic changes. There is no intracranial mass, mass effect, midline shift, intra or extra-axial fluid collection or large hemorrhage. Normal flow-void in the intracranial vessels is noted. Left maxillary sinus retention cyst is noted. The visualized portions of orbits, mastoid air cells as well as remainder of paranasal sinuses are unremarkable. MR/MR head/brain wo/w con IMPRESSION: No acute intracranial process is noted. Electronically authenticated by: RANDI CAMACHO Date: 08/14/2024 12:42
[2024-08-14] MEDS: VENLAFAXINE HCL ER 75 MG CAPSULE PO (08:59)
[2024-08-14] MEDS: ASPIRIN 81 MG TAB.CHEW PO (09:00)
[2024-08-14] MEDS: LOSARTAN POTASSIUM 25 MG TABLET PO (09:00)
[2024-08-14] MEDS: OMEPRAZOLE 40 MG CAPSULE.DR PO (09:00)
--- NOTE | 2024-08-14 10:00 | CM.NOTE ---
Rounds made with Dr. Willett, pt will have MRI scan today and teleneuro consult. Possible discharge this afternoon after testing and consult. Pt will need to f/u with neurologist and PCP.
--- NOTE | 2024-08-14 11:31 | SWNOTE1 ---
SW reviewed therapy notes and pt was independent in room. No discharge needs at this time.
[2024-08-14 12:28] LABS: Glucometer 90 mg/dL (74-106)
--- NOTE | 2024-08-14 12:53 | P.DS_ITS ---
DS: Providers Provider Date of admission: 08/12/24 14:02 Primary care physician: Fab Guevara DO Admitting clinician: Shaikh Tamie Attending physician on admission: Shaikh Tamie Consults: 08/12/24 12:35 Consult to Telestroke Routine Reason for consultation: acute neurological symp 08/12/24 12:55 Occupational Therapy Eval and Treat Routine Reason for consultation: Ambulatory dysfunction/weakness Physical Therapy Eval and Treat Routine Reason for consultation: Ambulatory dysfunction/weakness Attending physician on discharge: Shaikh Tamie Discharging clinician: Shaikh Tamie Anticipated date of discharge: 08/14/24 DS: Diagnosis Discharge Diagnosis (1) Amnesia, global, transient: (2) Suspected cerebrovascular accident: (3) HTN (hypertension): Qualifiers: Hypertension type: primary hypertension Qualified Code(s): I10 - Essential (primary) hypertension (4) Type 2 diabetes mellitus: Qualifiers: 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 use: without correction use Diabetes mellitus complication status: without complication Qualified Code(s): E11.9 - Type 2 diabetes mellitus without complications (5) Migraine headache: Qualifiers: Migraine type: migraine (< 15 days per month) with aura Status migrainosus presence: without status migrainosus Intractability: not intractable Qualified Code(s): G43.109 - Migraine with aura, not intractable, without status migrainosus (6) HLD (hyperlipidemia): Qualifiers: Hyperlipidemia type: unspecified Qualified Code(s): E78.5 - Hyperlipidemia, unspecified DS: Summary Hospital Course Hospital Course: 63 y o female with hx of HTN, T2 DM was brought over to ED by family for unusual behavior. 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 When she woke up for work on 08/11, she was not acting like her self but was still able to go to work and came back home. Then on , she woke up and could not remember anything about her previous day except for sporadic details. Upon admission, she was complaining of intractable migrain ARRIOLA for which she received toradol and benadrly with resolution of her ARRIOLA. She was admitted to the hospital to w/u for transient global amnesia. Patient was evaluated by tele stroke. Patient had normal CTH, CTA head/neck. No sig finding on MRI brain w and w/o contrast. ECHO - no sig abnormality (unofficial read). Patient will need outpatient EEG. Cleared for discharge on ASA, lipitor with outpatient f/u by Neurology as outpatient recommended. F/u with PCP also within 1-2 weeks Status at Discharge Functional status at discharge: independent ambulation Overall status at discharge: patient is back to baseline Time Spent with Patient Time attestation: Total time spent providing and/or coordinating discharge services: Time spent: greater than 30 minutes Exam Constitutional Vital Signs, click to edit/add: Last Vital Signs Temp 98.0 F 08/14/24 07:38 Pulse 71 08/14/24 10:00 Resp 16 08/14/24 07:38 BP 145/71 H 08/14/24 07:38 Pulse Ox 95 08/14/24 11:00 O2 Del Method Room Air 08/14/24 11:00 Documenting provider has reviewed patient's vital signs: yes Common normals: no apparent distress and oriented x3 General appearance: cooperative Respiratory Common normals: normal respiratory effort and clear to auscultation bilaterally Effort & inspection: able to speak in complete sentences Auscultation: clear to auscultation bilaterally Cardio Common normals: regular rate, S1 normal heart sound and S2 normal heart sound Rate: regular rate Heart sounds: S1 normal and S2 normal Extremity Common normals: no clubbing, cyanosis or edema Neuro Common normals: oriented x3, moves all extremities and no focal motor deficits Psych Common normals: mental status grossly normal, denies hallucinations, denies homicidal ideation and denies suicidal ideation DS: Data Data Completed and Pending Labs on day of discharge: Labs from last 24 hours 08/14/24 08/14/24 08/13/24 12:26 07:47 21:32 POC Glucose 90 85 80 08/13/24 16:46 POC Glucose 80 Discharge Plan Discharge Disposition: Home, Self-Care Condition: Good Discharge Medications: New aspirin 81 mg tablet,chewable 81 mg PO DAILY Qty: 30 0RF atorvastatin [Lipitor] 20 mg tablet 20 mg PO DAILY Qty: 30 0RF Continued venlafaxine 75 mg capsule,extended release 24hr 75 mg PO DAILY Mounjaro 15 mg/0.5 mL pen injector 15 mg SUBCUT .WEEKLY ibuprofen 800 mg tablet 800 mg PO Q8H losartan 25 mg tablet 25 mg PO DAILY amlodipine 10 mg tablet 10 mg PO DAILY metformin 500 mg tablet 500 mg PO DAILY pantoprazole 40 mg tablet,delayed release (DR/EC) 40 mg PO DAILY levothyroxine 50 mcg tablet 50 mcg PO DAILY cholecalciferol (vitamin D3) 1,250 mcg (50,000 unit) capsule 1,250 mcg PO QWEEK Activity: increase activity as tolerated Diet: advance to your usual diet Print Language: Northern Irish Forms: Portal Instructions Follow Up Appointments: F/u with PCP in one week F/u with Neurology in 2 weeks Outpatient EEG ordered.
--- NOTE | 2024-08-17 12:35 | CM.DCFOLLOWU ---
Person spoke with:patient How are you feeling? well How is your pain? none Did you understand your discharge instructions? yes Do you have any questions about your discharge instructions? no Were you given any prescriptions at discharge? yes Were you able to get your prescriptions filled?yes Do you understand how to take your medications as ordered?yes Do you have any questions about your follow up appointment and do you plan to keep your follow up appointment? no questions, follow up reviewed Is there anything else that you would like to discuss?no Questions/Comments/Concerns/Other:none
== END 2024-08-14 13:43 | disposition home or self-care (01) ==
LOC: ER 12:55 → MS 18:07
PROVIDERS: Admitting Provider Internal Medicine; Emergency Provider Emergency Medicine; PCP Internal Medicine; Visit Provider Internal Medicine
DX: G45.4 Transient global amnesia (principal); R41.82 Altered mental status, unspecified; R20.2 Paresthesia of skin; R53.1 Weakness; G43.109 Migraine with aura, not intractable, without status migrainosus; E78.5 Hyperlipidemia, unspecified; I10 Essential (primary) hypertension; E11.9 Type 2 diabetes mellitus without complications; Z79.85 Long-term (current) use of injectable non-insulin antidiabetic drugs; Z79.84 Long term (current) use of oral hypoglycemic drugs; Z79.890 Hormone replacement therapy; Z79.899 Other long term (current) drug therapy
CPT/HCPCS: 36415; 70450; 70496; 70498; 70553; 71045; 80053; 80061; 80307; 80320; 81003; 82948; 83036; 83605; 83735; 84484; 85025; 85610; 93005; 93306; 94761; 96365; 96368; 96372; 96375; 99285; A9575; G0378; J0360; J1200; J1650; J1885; J2405; J3475; Q9967

== ENCOUNTER 2024-08-22 07:20 | Outpatient (OUT) | payer OTHER, SELFPAY ==
--- OUTSIDE RECORDS SUMMARY | 2024-08-22 07:23 | XMS_ITS | CCD ---
Author Organization [facility] [employer] Care Team Providers Care Supply Chain Business Analyst Name Role Phone WILBERTO ALEXA Bojorquez Unavailable Unavailable BALL, FAB E Unavailable Unavailable [...] Unavailable BALL, FAB E Primary Care Unavailable GABRIELLA MOORE Referring Unavailable BALL, FAB E Primary Care Unavailable GABRIELLA MOORE Referring Unavailable BALL, FAB E Primary Care Unavailable BALL, FAB E Referring Unavailable BALL, FAB E Primary Care Unavailable GRILLISOPHIA Hogue Admitting Unavailable GRILLISSOPHIA Attending Unavailable BALL, FAB E Primary Care Unavailable GRILLISSOPHIA Attending Unavailable GRILLISSOPHIA Referring Unavailable BALL, FAB E Primary Care Unavailable TESS MADERA Attending Unavailable BALL, FAB E Primary Care Unavailable BALL, FAB E Referring Unavailable BALL, FAB E Primary Care Unavailable PADANAHY TOTH Attending Unavailable BALL, FAB E Referring Unavailable BALL, FAB E Primary Care Unavailable PADANAHY TOTH Attending Unavailable BALL, FAB E Referring Unavailable BALL, FAB E Primary Care Unavailable UZIEL CAPELLAN Attending Unavailable BALL, FAB E Referring Unavailable BALL, FAB E Primary Care Unavailable SHARLADEUZIEL TORRES Attending Unavailable BALL, FAB E Referring Unavailable BALL, FAB E Primary Care Unavailable UZIEL CAPELLAN Attending Unavailable BALL, FAB E Referring Unavailable BALL, FAB E Primary Care Unavailable UZIEL CAPELLAN Attending Unavailable BALL, FAB E Referring Unavailable BALL, FAB E Primary Care Unavailable UZIEL CAPELLAN Attending Unavailable BALL, FAB E Referring Unavailable BALL, FAB E Primary Care Unavailable CECI REILLY Attending Unavailable BALL, FAB E Referring Unavailable BALL, FAB E Primary Care Unavailable BALL, FAB E Primary Care Unavailable BALL, FAB E Referring Unavailable BALL, FAB E Primary Care Unavailable BALL, FAB E Referring Unavailable BALL, FAB E Primary Care Unavailable BALL, FAB E Referring Unavailable BALL, FAB E Primary Care Unavailable BALL, FAB E Referring Unavailable BALL, FAB E Primary Care Unavailable Allergies Allergy Classification Reported Allergen(s) Allergy Type Date of Onset Reaction(s) Facility (18 sources) Morphine; Translations: [MORPHINE] Drug Allergy 3 [facility] patient allergy list reviewed by nurse or physicia Propensity to adverse reactions 8 Comment:Done Narrative Other (2 sources) Morphine Drug Allergy Unknown Narrative Other Medications Current Medications Medication Drug Class(es) [...] Dialyvite Vitami n D3 Max 1.25 MG (16835 UT) 1 tablet Orally Active Dialyvite Vitami n D3 Max 1.25 MG (29176 UT) 1 tablet Orally Active 0.5 ML [...] Active Tirzepatide (1 source) Start: 06-06-2024 Tirzepatide (Melody lara) 12.5 mg/0.5 mL pen injector Active 10 [...] 2023 20 mg Start: 12-22-2022 Lidocaine 02 M 2022 10 mg losartan potassium 25 mg [...] 12:00am December 21, 2023 9:39am peg 3350-sod sulf,jdnk-uke-njk 178.7-7.3-0.5 gram recon soln (2 sources) Start: 09-28-2023 End: 09-29-2023 peg 3350-sod sulf,azmh-wyc-tha 178.7-7.3-0.5 gram recon soln Indications: Encounter for [...] injector Discontinued 10 MG SUBCUT every week May 02, 2024 12:00am June 06, 2024 [...] Translations: [Acute bronchitis, unspecified] Onset: 07-05-2015 Episodic Acute cerebrovascular disease (1 source) Acute cerebrovascular disease Onset: 08-12-2024 Anxiety disorders (19 sources) Generalized anxiety disorder; [...] sources) Obesity, unspecified; Translations: [Obesity, unspecified] Chronic Residual codes; unclassified (20 sources) Obstructive sleep apnea syndrome; Translations: [Obstructive sleep apnea (adult) (pediatric)] 03-13-2024 Chronic Residual codes; unclassified (7 sources) Obstructive sleep apnea (adult) (pediatric); Translations: [Obstructive sleep apnea (adult)(pediatric)] Onset: 03-24-2022 Chronic Residual codes; unclassified (1 source) Pain, unspecified; Translations: [Pain, unspecified] Onset: 08-14-2024 Episodic Thyroid disorders (20 sources) Subclinical hypothyroidism; Translations: [...] due to excess calories] Resolved: 07-23-2022 Chronic Other screening for suspected conditions (not mental disorders or infectious disease) (20 sources) Iron deficiency screening; Translations: [Encounter for screening for diseases of the blood and blood-forming organs and certain disorders involving the immune mechanism] Onset: 09-09-2023 09-28-2023 Episodic Residual codes; unclassified (1 source) Pain Onset: [...] the usual sterile fashion. MANUALLY TRANSCRIBED RESULTS [employer] [employer] [facility] MAMM SCREENING BILATERAL W C accounts officer 12-28-2023 MAMM SCREENING BILATERAL W CAD MAMM SCREENING BILATERAL W CAD *ADDENDUM*Addendum: Second read. IMPRESSION: I agree with the interpretation. Finalized by Rg Godoy MD on 12/28/2023 9:00 AM 1 b MAMM 1 YR Normal [facility] XR FOOT LT MIN 3 [...] Key MD on 09/22/2023 1:30 PM Normal [facility] XR KNEE LT MIN 4 [...] Casillas MD on 09/22/2023 1:26 PM Normal [facility] $ Large Joint Injection: L [...] the usual sterile fashion. MANUALLY TRANSCRIBED RESULTS [facility] MRI SHOULDER LT WO CONon MRI [...] by: JESUS TINOCO Date: 2022-12-11 15:42 Normal [facility] ED Noteon 01-07-2018 HIM IP Note OR [employer] Normal [facility] ED Provider Noteon 8 HIM IP Note OR [employer] Normal [facility] Vital Signs Date Time Vital Sign Value Performing Clinician Facility 06-06-2024 14:45-0400 Body height 139.7 cm [facility] 06-06-2024 14:45-0400 Body mass index (BMI) [Ratio] 45.3 kg/m2 [facility] 06-06-2024 14:45-0400 Body weight 88.62 kg [facility] 06-06-2024 14:45-0400 Diastolic blood pressure 80 mm[Hg] [facility] 06-06-2024 14:45-0400 Heart rate 74 /min [facility] 06-06-2024 14:45-0400 Respiratory rate 12 /min [facility] 06-06-2024 14:45-0400 Systolic blood pressure 147 mm[Hg] [facility] 05-16-2024 14:59-0400 Body height 142.2 cm Uziel Capellan MD Work Phone: [facility] 05-16-2024 14:59-0400 Body mass index (BMI) [Ratio] 41.7 kg/m2 Uziel Capellan MD Work Phone: [facility] 05-16-2024 14:59-0400 Body weight 84.37 kg Uziel Capellan MD Work Phone: [facility] 03-16-2024 11:35-0400 Body height 139.7 cm [facility] 03-16-2024 11:35-0400 Body mass index (BMI) [Ratio] 45.6 kg/m2 [facility] 03-16-2024 11:35-0400 Body weight 89.07 kg [facility] 03-16-2024 11:35-0400 Diastolic blood pressure 82 mm[Hg] [facility] 03-16-2024 11:35-0400 Heart rate 71 /min [facility] 03-16-2024 11:35-0400 Respiratory rate 12 /min [facility] 03-16-2024 11:35-0400 Systolic blood pressure 139 mm[Hg] [facility] 10-20-2023 14:27-0500 Body height 142.2 cm Anahy Marina MD Work Phone: [facility] 10-20-2023 14:27-0500 Body mass index (BMI) [Ratio] 41.7 kg/m2 Anahy Marina MD Work Phone: [facility] 10-20-2023 14:27-0500 Body weight 84.37 kg Anahy Marina MD [facility]: [facility] 09-28-2023 14:32-0500 Body mass index (BMI) [Ratio] 42.54 kg/m2 Ceci Reilly STEEL INSPECTOR-CATERPILLAR DRIVER Work Phone: [facility] 09-28-2023 14:32-0500 Body weight 89.18 kg Ceci Reilly STEEL INSPECTOR-CATERPILLAR DRIVER Work Phone: [facility] 09-28-2023 14:32-0500 Diastolic blood pressure 94 mm[Hg] Ceci Reilly STEEL INSPECTOR-CATERPILLAR DRIVER Work Phone: [facility] 09-28-2023 14:32-0500 Heart rate 74 /min Ceci Reilly STEEL INSPECTOR-CATERPILLAR DRIVER Work Phone: [facility] 09-28-2023 14:32-0500 Systolic blood pressure 180 mm[Hg] Ceci Reilly STEEL INSPECTOR-CATERPILLAR DRIVER Work Phone: [facility] 09-07-2023 15:38-0500 Body height 144.8 cm Uziel Capellan MD Work [facility]: [facility] 09-07-2023 15:38-0500 Body mass index (BMI) [Ratio] 40.47 kg/m2 Uziel Capellan MD Work Phone: [facility] 09-07-2023 15:38-0500 Body weight 84.82 kg Uziel Capellan MD Work Phone: [facility] 07-06-2023 11:30-0500 Body height 149.86 cm Fab Ball Other Narrative Other 07-06-2023 11:30-0500 Body mass index (BMI) [Ratio] 39.1 kg/m2 Fab Ball Other Narrative Other 07-06-2023 11:30-0500 Body weight 87.82 kg Fab Ball Other Narrative Other 07-06-2023 11:30-0500 Diastolic blood pressure 84 mm[Hg] Fab Ball Other Narrative Other 07-06-2023 11:30-0500 Respiratory rate 12 /min Fab Ball Other Narrative Other 07-06-2023 11:30-0500 Systolic blood pressure 145 mm[Hg] Fab Ball Other Narrative Other 12-22-2022 16:00-0400 Body height 149.86 cm Fab Ball Other Narrative Other 12-22-2022 16:00-0400 Body mass index (BMI) [Ratio] 38.69 kg/m2 Fab Ball Other Narrative Other 12-22-2022 16:00-0400 Body weight 86.91 kg Fab Ball Other Narrative Other 12-22-2022 16:00-0400 Diastolic blood pressure 85 mm[Hg] Fab Ball Other Narrative Other 12-22-2022 16:00-0400 Respiratory rate 12 /min Fab Ball Other Narrative Other 12-22-2022 16:00-0400 Systolic blood pressure 148 mm[Hg] Fab Ball Other Narrative Other 10-06-2022 15:00-0500 Body height 149.86 cm Fab Ball Other Narrative Other 10-06-2022 15:00-0500 Body mass index (BMI) [Ratio] 38.49 kg/m2 Fab Guevara Other Narrative Other 10-06-2022 15:00-0500 Body weight 86.46 kg Fab Guevara Other Narrative Other 10-06-2022 15:00-0500 Diastolic blood pressure 82 mm[Hg] Fab Guevara Other Narrative Other 10-06-2022 15:00-0500 Respiratory rate 12 /min Fab Guevara Other Narrative Other 10-06-2022 15:00-0500 Systolic blood pressure 124 mm[Hg] Fab Guevara Other Narrative Other Encounters Encounter Date Encounter Type Care Provider Facility Start: 08-17-2024 ambulatory [facility] Start: 08-14-2024 ambulatory [facility] Start: 08-12-2024 End: 08-14-2024 Emergency department patient visit [facility] Start: 06-06-2024 End: 06-06-2024 ambulatory [facility] Work Phone: Start: 06-06-2024 End: 06-06-2024 [facility] Work Phone: Start: 05-16-2024 End: 05-16-2024 Patient encounter procedure Uziel Capellan MD Work Phone: [facility] Comment on above: Post-traumatic osteo arthritis of left knee (Primary Dx) Start: 05-16-2024 End: 05-16-2024 ambulatory UZIEL CAPELLAN [facility] Start: 04-03-2024 End: 04-03-2024 ambulatory [facility] Start: 03-16-2024 End: 03-16-2024 ambulatory [facility] Work Phone: Start: 03-16-2024 End: 03-16-2024 Patient encounter procedure [facility] Work Phone: Start: 01-04-2024 End: 01-04-2024 ambulatory [facility] Start: 12-08-2023 End: 12-08-2023 ambulatory [facility] Start: 12-01-2023 End: 12-01-2023 ambulatory [facility] Start: 10-20-2023 End: 10-20-2023 Office outpatient visit 15 minutes Anahy Marina MD Work Phone: [facility] Comment on above: Sprain of MTP joint of left lesser toe(s), init (Primary Dx) Start: 10-20-2023 End: 10-20-2023 ambulatory ANAHY [facility] Start: 10-06-2023 End: 10-07-2023 ambulatory FAB GUEVARA [facility] Start: 10-06-2023 End: 10-06-2023 Evaluation and management of inpatient TESS MADERA [facility] Start: 10-05-2023 End: 10-06-2023 Evaluation and management of inpatient SOPHIA BRUNO [facility] Start: 09-29-2023 End: 09-29-2023 ambulatory [facility] Pat Phone Call Provider 1 [facility] - Pre Admit Start: 09-28-2023 End: 09-28-2023 Patient encounter procedure Ceci Reilly APRN-CATERPILLAR DRIVER Work Phone: [facility] Comment on above: Encounter for screen ing colonoscopy (Primary Dx) Start: 09-28-2023 End: 09-28-2023 ambulatory CECI REILLY [facility] Start: 09-22-2023 End: 09-26-2023 ambulatory GABRIELLA Sheriff TERESA [facility] Start: 09-10-2023 ambulatory ANAHY MARINA [facility] Start: 09-09-2023 End: 09-10-2023 ambulatory FAB GUEVARA [facility] Start: 09-07-2023 End: 09-07-2023 ambulatory UZIEL CAPELLAN [facility] Start: 09-07-2023 End: 09-07-2023 Patient encounter procedure Uziel Capellan MD Work Phone: [facility] Comment on above: 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, 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, left, subsequent encounter (Primary Dx); Other tear of medial meniscus of left knee as current injury, subsequent encounter; Traumatic arthritis of knee, left Start: 08-10-2023 End: 08-10-2023 ambulatory Fab Guevara Other Narrative Other Start: 08-10-2023 Telephone encounter Fab Ball [facility] Start: 07-06-2023 End: 07-06-2023 ambulatory Fab Ball Other Narrative Other Start: 07-06-2023 Office outpatient vi sit 15 minutes Fab Ismael [facility] Start: 05-13-2023 End: 05-13-2023 ambulatory Fab Ball Other Narrative Other Start: 05-13-2023 Telephone encounter Fab Ball [facility] Start: 05-12-2023 End: 05-12-2023 ambulatory Fab Ball Other Narrative Other Start: 05-12-2023 Telephone encounter Fab Ball [facility] Start: 03-22-2023 End: 03-22-2023 ambulatory Fab Ball Other Narrative Other Start: 03-22-2023 Telephone encounter Fab Ball [facility] Start: 03-19-2023 End: 03-19-2023 ambulatory Fab Guevara Other Narrative Other Start: 03-19-2023 Telephone encounter Fab Guevara [facility] Start: 12-22-2022 End: 12-22-2022 ambulatory Fab Ismael Other Narrative Other Start: 12-22-2022 Office outpatient vi sit 15 minutes Fab Ball [facility] Start: 12-17-2022 End: 12-17-2022 ambulatory Fab Guevara Other Narrative Other Start: 12-17-2022 Telephone encounter Fab Guevara [facility] Start: 12-11-2022 End: 12-12-[address] FAB GUEVARA Facility:[facility] Start: 10-06-2022 End: 10-06-2022 ambulatory Fab Ismael Other Narrative Other Start: 10-06-2022 Office outpatient vi sit 25 minutes Fab Ball [facility] Start: 09-02-2022 End: 09-02-2022 ambulatory Fab Guevara Other Narrative Other Start: 09-02-2022 Telephone encounter Fab Guevara [facility] Start: 09-01-2022 End: 09-01-2022 ambulatory Fab Guevara Other Narrative Other Start: 09-01-2022 Telephone encounter Fab Ismael [facility] Start: 03-24-2022 End: 03-25-[address] FAB GUEVARA Facility:[facility] Start: 03-03-2022 End: 03-04-[address] FAB GUEVARA Facility:[facility] Start: 01-12-2022 Adult health examination Shaun Guevara Other Narrative Other Start: 01-12-2022 Encounter for genera l adult medical examination without abnormal findings Fab Guevara Other Narrative Other Start: 01-07-2018 End: 01-07-2018 Emergency department patient visit ALEXA Mariscal [facility] Procedures Date Procedure Procedure Detail Performing Clinician Start: 05-16-2024 Arthrocentesis aspir &/inj major jt/bursa w/o us Uziel Capellan MD Work Phone: Start: 10-05-2023 Colonoscopy Anahy toth MD Work Phone: Start: 09-07-2023 Arthrocentesis aspir &/inj major jt/bursa w/o us Uziel Capellan MD Work Phone: Start: 04-29-2018 General examination of patient Fab Guevara Other Start: 01-07-2018 IP CONSULT TO PRIMAR Y CARE PROVIDER ALEXA LADD Start: 09-21-2014 Screening mammography B encarolina Guevara Other Depression screening Qian n Ismael Other Depression screening Qian Guevara Other Screening for malign ant neoplasm of breast Fab Guevara Other Screening for malign ant neoplasm of breast Fab Guevara Other Plan of Treatment Date Care Activity Detail Author Start: 10-05-2033 Screening for malign ant neoplasm of colon Colonoscopy [facility] Start: 07-01-2032 DTaP,Tdap and Td Vac cines (2 - Td or Tdap) DTaP,Tdap and Td Vaccines (2 - Td or Tdap) [facility] Start: 07-01-2032 DTaP,Tdap and Td Vac cines (3 - Td or Tdap) DTaP,Tdap and Td Vaccines (3 - Td or Tdap) [facility] Start: 05-16-2025 Adult BMI Screening Adult BMI Screen ing [facility] Start: 04-03-2025 Tobacco Screening Tobacco Screening [facility] Start: 10-20-2024 Adult BMI Screening Adult BMI Screen ing [facility] Start: 10-20-2024 Tobacco Screening Tobacco Screening [facility] Start: 09-29-2024 Tobacco Screening Tobacco Screening [facility] Start: 09-28-2024 Adult BMI Screening Adult BMI Screen ing [facility] Start: 09-28-2024 Tobacco Screening Tobacco Screening [facility] Start: 09-07-2024 Adult BMI Screening Adult BMI Screen ing [facility] Start: 09-07-2024 Tobacco Screening Tobacco Screening [facility] Start: 04-23-2024 COVID-19 Vaccine () COVID-19 Vaccine () [facility] Start: 04-23-2024 Influenza vaccination Influenza Vacc ine [facility] Start: 12-08-2023 End: 12-08-2023 Patient encounter procedure 12/08/2023 1:50 PM EDT Office Visit [facility] [address] [place] [phone] Uziel Capellan MD [address], [place] [address] [facility] Start: 12-01-2023 End: 12-01-2023 Patient encounter procedure 12/01/2023 2:45 PM EDT Office Visit [facility] [address] [place] [phone] Anahy Marina MD [address] [place] [address] [facility] Start: 10-05-2023 End: 10-05-2023 Admission to same day surgery center 10/05/2023 11:00 AM EST - 10/05/2023 11:30 AM EST Surgery [facility] - Surgery [address] [place] [phone] Sophia Bruno, DO [address] [place] [id number] COLONOSCOPY DIAGNOSTIC / SCREENING [73993 (CPT )] [facility] Comment on above: COLONOSCOPY DIAGNOST IC / SCREENING [47425 (CPT )] Start: 10-05-2023 End: 10-05-2023 Colonoscopy flx dx w/collj spec when pfrmd COLONOSCOPY DIAGNOSTIC / SCREENING Screen for colon cancer 10/05/2023 11:00 AM EST [facility] Start: 10-05-2023 Subsequent hospital visit by physician 10/05/2023 11:00 AM EST Hospital Encounter [facility] [address] [place] [address] Sophia Bruno, [address] [place] [address] [id number] [facility] Start: 09-29-2023 End: 09-29-2023 ambulatory 09/29/2023 3:00 PM EST Support Visit [facility] Admit [address] [place] [id number] [facility] Pre Admit Start: 04-23-2023 COVID-19 Vaccine ( season) COVID-19 Vaccine ( season) [facility] Start: 04-23-2023 Influenza vaccination Influenza Vacc ine [facility] Start: 2009 Administration of varicella zoster vaccine Zoster (Shingles) Vaccine (1 of 2) [facility] Start: 1977 Adult BMI Follow Up Plan Adult BMI Follow Up Plan [facility] Start: 1971 Depression Screening Depression Scre ening [facility] End: 09-28-2024 Colonoscopy Colonoscopy GI Routine Encounter for screening colonoscopy 1 Occurrences starting 09/28/2023 until 09/28/2024 [employer] Work Phone: Comment on above: 1 Occurrences starti ng 09/28/2023 until 09/28/2024 [facility] Immunizations Immunization Date Immunization Notes Care Provider Fa cility 05-29-2022 influenza virus vaccine, unspecified formulation Uziel Capellan MD Work Phone: [facility] 05-22-2014 tetanus and diphther ia toxoids, adsorbed, preservative free, for adult use (5 Lf of tetanus toxoid and 2 Lf of diphtheria toxoid) Fab Guevara Other [facility] Payers Date Payer Category Payer Unknown [id number] 2022 Worker's Compensation WORKER'S C OMPENSATION WORKER'S COMPENSATION - GENERIC PLAN [id number] 2022-Present [phone] [facility] [address] [place] [address] [id number] 2022 Unknown [id number] 2016 Unknown [id number]. 1.13.424.2. [id number] 1959 Unknown [id number] 2.16.840.1.660466.3.579.2. 593 1959 Unknown [id number] 2.16.840.1.402235.3.579.2. 593 1959 Unknown [id number] 2.16.840.1.497227.3.579.2. 593 1959 Unknown [id number] 2.16.840.1.966732.3.579.2. 1286 1959 Unknown [id number] 2.16.840.1.762853.3.579.2. 1286 1959 Unknown [id number] 2.16.840.1.641443.3.579.2. 1286 1959 Unknown [id number] 2.16.840.1.130894.3.579.2. 1286 1959 Unknown [id number] 2.16.840.1.350717.3.579.2. 1286 1959 Unknown [id number] 2.16.840.1.699248.3.579.2. 1285 1959 Unknown [id number] 2.16.840.1.374523.3.579.2. 1285 1959 Unknown [id number] 2.16.840.1.264412.3.579.2. 1285 1959 Unknown [id number] 2.16.840.1.259551.3.579.2. 1285 1959 Unknown [id number] 2.16.840.1.725248.3.579.2. 1285 1959 Unknown [id number] 2.16.840.1.877821.3.579.2. 1285 1959 Unknown [id number] 2.16.840.1.109709.3.579.2. 1285 1959 Unknown [id number] 2.16.840.1.048829.3.579.2. 1285 1959 Unknown [id number] 2.16.840.1.154258.3.579.2. 1285 1959 Unknown [id number] 2.16.840.1.016164.3.579.2. 1285 1959 Unknown [id number] 2.16.840.1.053496.3.579.2. 1285 1959 Unknown [id number] 2.16.840.1.552486.3.579.2. 1285 1959 Unknown [id number] 2.16.840.1.644855.3.579.2. 1285 1959 Unknown [id number] 2.16.840.1.116028.3.579.2. 1285 1959 Unknown [id number] 2.16.840.1.805529.3.579.2. 1285 1959 Unknown [id number] 2.16.840.1.318431.3.579.2. 12851960 Unknown [id number] 2.16.840.1.440209.3.579.2. 1286 1959 Unknown [id number] 2.16.840.1.173021.3.579.2. 1286 1959 Unknown [id number] Social History Date Type Detail Facility Start: 10-03-2020 End: 09-07-2023 Sex Assigned At Narrative Other Start: 10-21-2022 End: 10-13-2023 Tobacco smoking status NHIS Never smoked tobacco [facility] Start: 10-21-2022 Tobacco use and exposure Smokeless tobacco non-user [facility] Start: 09-07-2023 End: 05-16-2024 Alcohol intake Lifetime non-drinker (finding) [facility] Start: 10-03-2020 End: 09-07-2023 History of Social function [facility] Housing Instability Unknown [facility] Start: 1960 Sex Assigned At Not on file P [facility] Start: 1960 Sex Assigned At Female F [facility] Start: 01-26-2024 Gender identity Identifies as female gender (finding) [facility] Start: 01-26-2024 Sexual orientation Heterosexual (fin ding) [facility] NEGATED: Highlighted rowStart: NINF History of tobacco use Passive smoker [facility] Clinical Notes 09-01-2022 to 05-16-2024 Uziel [...] with Left Knee - Pain [facility]. Left knee celestone injection 01/04/24, states it lasted almost 3 months. Approved for Lt Knee Celestone inj today Subjective History Evy Morales is a 63 y.o. female who presents [...] line tenderness. Ligamentously stable. XRAYS: None Assessment: Evy Morales is a 63 y.o. female with left [...] of the aforementioned history prepared by the [place] practice provider, and I personally performed the clinical examination of the patient. I discussed the treatment plan with the patient and my physician's pharmacy technician assistant. Details of today's visit are as described above. The patient is doing well with the present treatment regimen. We injected her left knee again today and she will continue with home exercises and return for follow-up in about 3 months. documented in this encounter [facility] 10-20-2023 History of Presen t illness Narrative [facility] Anahy Marina MD Orthopaedic Surgery Specializing in Foot & Ankle Last Encounter with Me: new Last Encounter with Speciality: 07/07/2023 Uziel Capellan MD Date of visit: 10/20/2023 Chief Complaint: Chief Complaint Patient presents with Left Foot - Pain, Work Related Injury [facility]. New patient. Left foot injury 09/22/23, after she tripped over a students bag. XR 10/06/23. CELSO Morales is a 63 y.o. female that presents for evaluation of her left foot. 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 This is a [facility] claim. Since the incident she has been [...] MTP sprain This is a [facility] claim. 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 The critical element of all procedures were [...] month for re-evaluation documented in this encounter [facility] 10-06-2023 Note XR FOOT LT MIN 3 VWS Procedure: Left foot radiographs performed Number of views:3 History:Injury and pain Comparison:09/22/2023 Findings: There is no fracture, dislocation, or destructive lesion. There is a plantar calcaneal enthesophyte Impression: No acute findings. Finalized by Denise Phillips DO on 10/06/2023 4:16 PM [facility] 09-29-2023 Miscellaneous Notes Preoperative Education Checklist- General Surgery date: 10/05/23 Surgery time: 1100 Arrival time: 0900 1. Bring a photo ID and your insurance card with you the day of surgery. You will check in at the main lobby of the [facility]- registration desk is straight ahead as soon as you walk in. Tell them you are here for surgery. 2. 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 5. NO nail burkinan/acrylic on at least one finger. If you are having a hand, wrist or foot surgery then all nail burkinan and artificial/acrylic nails must be removed from [...] please call the Preadmission Testing office at [phone], Mon.-Fri. 7 a.m.-3 p.m. Leave a voicemail [...] 0 days prior to procedure peg 3350-sod sulf,zlkr-ekh-auy 178.7-7.3-0.5 gram recon soln Stop taking 0 days prior to procedure TRULICITY 4.5 mg/0.5 mL pen injector Stop taking 1 week prior to procedure venlafaxine XR (EFFEXOR XR) 75 mg 24 hr capsule Stop taking 0 days prior to procedure [facility] Nurse Note Preoperative Education Checklist- General Surgery date: 10/05/23 Surgery time: 1100 Arrival time: 0900 1. Bring a photo ID and your insurance card with you the day of surgery. You will check in at the main lobby of the [facility]- registration desk is straight ahead as soon as you walk in. Tell them you are here for surgery. 2. 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 5. NO nail burkinan/acrylic on at least one finger. If you are having a hand, wrist or foot surgery then all nail burkinan and artificial/acrylic nails must be removed from [...] please call the Preadmission Testing office at [phone], Mon.-Fri. 7 a.m.-3 p.m. Leave a voicemail [...] 0 days prior to procedure peg 3350-sod sulf,fmjp-hje-nxx 178.7-7.3-0.5 gram recon soln Stop taking 0 days prior to procedure TRULICITY 4.5 mg/0.5 mL pen injector Stop taking 1 week prior to procedure venlafaxine XR (EFFEXOR XR) 75 mg 24 hr capsule Stop taking 0 days prior to procedure [facility] 09-28-2023 History of Presen t illness Narrative Images from the original note were not included. Chief Complaint: Colon cancer screening History of Present Illness Evy Morales is a 63 y.o. female who presents [...] Diagnosis Date Diabetes mellitus type 2, controlled ([facility]) Hypertension Past Surgical History: Procedure Laterality Date [...] capsule, , Disp: , Rfl: peg 3350-sod sulf,tiro-pbk-cwx 178.7-7.3-0.5 gram recon soln, Take 1 kit [...] results found for: INR , PROTIME Assessment Evy Morales is a 63 y.o.female who presents to [...] Referring and communicating with other health neonatal intensive care nurse Encounter for screening colonoscopy [Z12.11] SALLIE OROURKE [facility] [place] This note was created with the assistance of a speech recognition program. While intending to generate a timely document that accurately reflects the content of the visit, no guarantee can be provided that every grammatical or spelling mistake has been or will be identified or corrected. Thank you for your understanding. SALLIE Orourke 09/28/23 [id number] documented in this encounter [facility] 09-07-2023 History of Presen t illness Narrative Associated Order(s): $ Large Joint Injection: L knee Post-Procedure Diagnose(s): 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, posterior cruciate ligament, left, subsequent encounter; Other tear of medial meniscus of left knee as current injury, subsequent encounter; Traumatic arthritis of knee, left Images from the original note were not included. [facility] [address] [place] [facility] [id number] Name: Evy Morales : 1960 SUMMARY OF VISITS: 09/09/2023 SUBJECTIVE: Chief Complaint: Left knee pain History of Present Illness: For the sake of review, the patient is a 62-year-old female with left knee pain from a reported work-related injury. 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 She reports that she recently obtained approval [...] escaped final proofreading PHYSICIAN ATTESTATION I, Uziel Capellan MD, personally performed the face to face evaluation on this patient. I discussed with the patient and confirmed the accuracy and completeness of the aforementioned history prepared by the [place] practice provider, and I personally performed the clinical examination of the patient. I discussed the treatment plan with the patient and my physician's pharmacy technician assistant. Details of today's visit are as described above. I personally injected the patient's left knee today. documented in this encounter [facility] 08-10-2023 Evaluation note Encounter Date Diagnosis Assessment Notes Jul, COVID- 19 (ICD-1 0 - U07.1) Narrative Other 11-14-2023 Evaluation note* Encounter Date Diagnosis [...] Jun, Other chronic pain (ICD-10 - G89.29) Narrative Other 09-21-2023 Evaluation note* Encounter Date Diagnosis Assessment Notes Treatment Notes Treatment Clinical Notes Apr, Type 2 diabetes mellitus with hyperglycemia, without long-term current use of insulin (ICD-10 - E11.65) Apr, Type 2 diabetes mellitus with hyperglycemia (ICD-10 - E11.65) Narrative Other 07-31-2023 Evaluation note* Encounter Date Diagnosis Assessment Notes Treatment Notes Treatment Clinical Notes Feb, Type 2 diabetes mellitus with hyperglycemia (ICD-10 - E11.65) Narrative Other 05-02-2023 Evaluation note* Encounter Date Diagnosis [...] continue exercise to achieve/maintain a normal BMI. Narrative Other 04-27-2023 Evaluation note* Encounter Date Diagnosis Assessment Notes Treatment Notes Treatment Clinical Notes Nov, Type 2 diabetes mellitus with hyperglycemia, without long-term current use of insulin (ICD-10 - E11.65) Narrative Other 02-14-2023 Evaluation note* Encounter Date Diagnosis [...] use, the patient reduces the risk for AK, CVA, HTN, cardiac dysrhythmias and sudden cardiac [...] diet and exercise. Continue w/ weight loss Narrative Other 01-11-2023 Evaluation note* Encounter Date Diagnosis Assessment Notes Treatment Notes Treatment Clinical Notes Aug, Type 2 diabetes mellitus with hyperglycemia, without long-term current use of insulin (ICD-10 - E11.65) Narrative Other 01-10-2023 Evaluation note* Encounter Date Diagnosis Assessment Notes Treatment Notes Treatment Clinical Notes Aug, Pain in left shoulder (ICD-10 - M25.512) Aug, Other chronic pain (ICD-10 - G89.29) Narrative Other Evaluation noteNo [facility] Other Evaluation note* Diagnosis 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, posterior cruciate ligament, left, subsequent encounter- Primary Other tear of medial meniscus of left knee as current injury, subsequent encounter Traumatic arthritis of knee, left [email or web address]* Diagnosis Encounter for screening colonoscopy- Primary Screen for colon cancer Special screening for malignant neoplasms, colon documented [email or web address]* Diagnosis Sprain of MTP joint of left lesser toe(s), init- Primary [email or web address]* Diagnosis Onset Date Resolution Status Chronic venous insufficiency of lower extremity acute Fatigue acute GERD (gastroesophageal reflux disease) acute Hypertension acute SANTINO (obstructive sleep apnea) acute Subclinical hypothyroidism a cute Type 2 diabetes mellitus with hyperglycemia acute [facility] Work Phone: Evaluation note* Diagnosis Post-traumatic osteoarthritis of left knee- Primary [email or web address]* Diagnosis Onset Date Resolution Status Chronic venous insufficiency of lower extremity acute Fatigue acute GERD (gastroesophageal reflux disease) acute Hypertension acute SANTINO (obstructive sleep apnea) acute Subclinical hypothyroidism a cute Type 2 diabetes mellitus with hyperglycemia acute Hypertension acute Left shoulder pain acute Rotator cuff tendonitis acut e Type 2 diabetes mellitus with hyperglycemia acute [facility] Work Phone: History general Narrative - Reported* [...] wrist, ganglion cyst Hospitalization History See above Narrative Other InstructionsNot on filedocumented in this encounter [email or web address] SystemInstructionsNot on filedocumented in this encounter [email or web address] SystemInstructionsNot on filedocumented in this encounter [facility] Summary Purpose Family History No Family History Records Found Relationship Condition Age at Onset Recorded Date/T laurel father Hypertension Unknown Diabetes mellitus Unknown Asthma Unknown Unknown mother Hypertension Unknown Advance Directives No Advanced Directives Records Found Advance Directive Response Recorded Date/ Time Advance [...] section and content) DATE CREATED AUTHOR 02/09/2018 [facility] DATE CREATED AUTHOR AUTHOR'S ORGANIZ ATION 12/18/2022 [facility] DATE CREATED AUTHOR AUTHOR'S ORGANIZ ATION 12/29/2023 [facility] DATE CREATED AUTHOR AUTHOR'S ORGANIZ ATION 08/20/2024 [facility] REASON FOR VISIT (unrecogniz [...] Care Teams (unrecognized sec tion and content) Supply Chain Business Analyst Relationship Specialty Start Date End Date Fab Guevara DO [address] [place] [address] PCP - General Internal Medicine 04/07/21 Supply Chain Business Analyst Relationship Specialty Start Date End Date Fab Guevara DO [address] [place], [place] [id number] PCP - General Internal Medicine 04/07/21 Supply Chain Business Analyst Relationship Specialty Start Date End Date Fab Guevara DO [address] [place] [address] PCP - General Internal Medicine 04/07/21 Supply Chain Business Analyst Relationship Specialty Start Date End Date Fab Guevara DO [address] [place] [address] PCP - General Internal Medicine 04/07/21 Team Status: Active Member Role Status Dates Fab Guevara DO Primary Care Provider Active Team Status: Inactive Member Role Status Dates Fab Guevara DO Primary Care Provide r, Attending Provider Active Start: March 16, 2024 End: March 16, 2024 Supply Chain Business Analyst Relationship Specialty Start Date End Date Fab Guevara DO [address] [place] [address] PCP - General Internal Medicine 04/07/21 Team [...] BE BASED ON THE PRIMARY CLINICAL RECORDS. [facility]. provides no warranty or guarantee of the accuracy or completeness of information in this document.
== END 2024-08-22 07:21 | disposition home or self-care (01) ==
PROVIDERS: PCP Internal Medicine; Visit Provider Internal Medicine
DX: G45.4 Transient global amnesia (principal)
CPT/HCPCS: 95819

== ENCOUNTER 2024-08-26 11:53 | Outpatient (OUT) | payer OTHER, SELFPAY ==
--- NOTE | 2024-08-26 11:56 | US_ITS ---
[address] [address] Patient Name: EVY MORALES MRN: [id number] date: 1960 Sex: F Assigned Patient Location: US Current Patient Location: Accession/Order Number: [id number] Exam Date: 08/26/2024 12:02 Report Date: 08/28/2024 06:27 At the request of: ISRAEL GERARD Procedure: US thyroid EXAMINATION: US thyroid HISTORY: THYROID NODULE E04.1 COMPARISON: CT neck 08/12/2024 FINDINGS: RIGHT LOBE: Heterogeneous echotexture of the thyroid lobe which also contains a lobular markedly heterogeneous hypoechoic TR 4 nodule, 3.0 x 2.7 x 2.6 cm. Lobe size: 4.1 x 2.4 x 2.3 cm LEFT LOBE: Normal size and echotexture. Lobe size: 3.8 x 1.2 x 1.4 cm ISTHMUS: Normal size and echotexture. Thickness: 2 mm US/US thyroid IMPRESSION: 1. Ultrasound-guided fine-needle aspiration of the right lobe 3.0 cm TR 4 nodule is recommended. TR4 (moderately suspicious): If > 1.0 cm, follow-up ultrasound in 1, 2, 3, and 5 years. If > 1.5 cm, fine needle aspiration (FNA). Electronically authenticated by: JESUS TINOCO Date: 08/28/2024 06:27
== END 2024-08-26 11:54 | disposition home or self-care (01) ==
LOC: US 11:53
PROVIDERS: PCP Internal Medicine; Visit Provider Internal Medicine
DX: E04.1 Nontoxic single thyroid nodule (principal)
CPT/HCPCS: 76536

== ENCOUNTER 2024-09-04 15:30 | Outpatient (OUT) | payer OTHER, MEDICARE, SELFPAY ==
--- OUTSIDE RECORDS SUMMARY | 2024-09-04 15:50 | XMS_ITS | CCD ---
Author Organization [facility] Care Team Providers Care Mathematics Education Professor Name Role Phone ALEXA LADD Unavailable Unavailable [...] E Primary Care Unavailable SADDEMIUZIEL Attending Unavailable BALL, FAB E Referring Unavailable [...] Morphine; Translations: [MORPHINE] Drug Allergy 3 Vomiting [facility] (4 sources) patient allergy list reviewed by nurse or physicia Propensity to adverse reactions 8 Comment:Done [employer] Other (2 sources) Morphine Drug Allergy Unknown [employer] Other Medications Current Medications Medication Drug Class(es) [...] Subcutaneous weekly for 30 days Sep, Active aspirin 81 mg delayed release oral tablet (1 source) Platelet Aggregation Inhibitor, Nonsteroidal Anti-inflammatory Drug Start: 08-14-2024 take 1 tablet by mouth once daily Aspirin 81 mg tablet,delayed release (DR/EC) Active 81 MG PO Daily August 14, 2024 12:00am atorvastatin 20 mg oral tablet (1 source) HMG-CoA Reductase Inhibitor Start: 08-14-2024 take 1 tablet by mouth once daily at bedtime Atorvastatin 20 mg tablet Active 20 MG PO Daily at bedtime August 14, 2024 12:00am 0.5 ML dulaglutide 9 MG/ML Auto-Injector [Trulicity] (3 sources) GLP-1 Receptor Agonist Start: 05-17-2023 Trulicity 4.5 MG/0.5ML as directed Subcutaneous weekly for 90 days Apr, Active Start: 03-22-2023 inject 4.5 mg by sub cutaneous injection every week Trulicity 4.5 MG/0.5ML 4.5 MG Subcutaneous weekly for 28 days Feb, Active levothyroxine sodium 0.05 mg oral tablet (6 sources) l-Thyroxine Start: 08-02-2024 take 1 tablet by mouth once daily Levothyroxine 50 mcg tablet Active 50 MCG PO Daily August 02, 2024 2:49pm Start: 03-23-2024 End: 08-02-2024 take 1 tablet by mouth once daily Levothyroxine 25 mcg tablet Discontinued 0 .ROUTE .COMPLEX March 23, 2024 12:21pm August 02, 2024 2:51pm TAKE 1 TABLET BY MOUTH DAILY Start: 03-23-2024 End: 03-23-2024 take 1 tablet by mouth once daily Levothyroxine 25 mcg tablet Discontinued 25 MCG PO Daily March 22, 2024 11:00pm March 23, 2024 12:21pm MOUNJARO 2.5 mg/0.5 mL pen injector (1 [...] days Jul, Active Tirzepatide (1 source) Start: 08-02-2024 Tirzepatide 15 mg/0.5 mL pen injector Active 15 MG SUBCUT every week 2 August 02, 2024 2:55pm TRULICITY 4.5 mg/0.5 mL pen injector (3 sources) Start: 04-22-2023 TRULICITY 4.5 mg/0.5 mL pen injector Start: 04-22-2023 inject 4.5 mg by sub cutaneous injection every week TRULICITY 4.5 mg/0.5 mL pen injector ADMINISTER 4.5 MG UNDER THE SKIN WEEKLY 0 04/22/2023 Active venlafaxine (20 sources) Serotonin and Norepinephrine Reuptake Inhibitor Start: 03-17-2024 Venlafaxine 75 mg capsule,extended release 24hr Active 0 .ROUTE .COMPLEX March 17, 2024 10:20am TAKE 1 CAPSULE DAILY Start: 03-17-2024 Venlafaxine Ac tive 0 .ROUTE .COMPLEX March 17, 2024 11:20am TAKE 1 CAPSULE DAILY Start: 03-17-2024 End: 03-17-2024 take 1 tablet by mouth once daily Venlafaxine 75 mg tablet extended release 24hr Discontinued 75 MG PO Daily March 16, 2024 11:00pm March 17, 2024 10:20am Start: 08-02-2022 venlafaxine XR (EFFEXOR XR) 75 mg 24 hr capsule 08/02/2022 Active Venlafaxine HCl ER 75 mg TAKE 1 CAPSULE DAILY Active Completed/Discontinued Medications Medication Drug Class(es) Dates Sig (Normalized) Sig (Original) amLODIPine 10 mg oral tablet (20 sources) Dihydropyridine Calcium Channel Elmer Start: 12-21-2023 End: 06-06-2024 take 1 tablet by mouth once daily Amlodipine 10 mg tablet Discontinued 10 MG PO Daily 90 90 December 21, 2023 8:39am June 06, 2024 2:05pm Start: 08-01-2022 amLODIPine (NO RVASC) 5 mg tablet 08/01/2022 Active betamethasone 3 mg/ml / betamethasone acetate 3 mg/ml injectable suspension (2 sources) Corticosteroid Start: 05-16-2024 End: 05-16-2024 12 mg, intra-articular, One-Time Injection, Starting on Wed05/16/24 at 1501, For 1 dose Start: 09-07-2023 End: 09-07-2023 betamethasone acet & sod herbie s (CELESTONE) injection 12 mg cholecalciferol 1.25 mg oral tablet (16 sources) Vitamin D Start: 03-16-2024 End: 08-24-2024 Cholecalciferol (Vitamin D3) 1,250 mcg (50,000 unit) tablet Discontinued 1250 MCG PO March 15, 2024 11:00pm August 24, 2024 11:50am Dialyvite Vitami n D3 Max 1.25 MG (48152 UT) 1 tablet Orally Active Dialyvite Vitami n D3 Max 1.25 MG (34612 UT) 1 tablet Orally Active ibuprofen 800 mg oral tablet (20 sources) Nonsteroidal Anti-inflammatory Drug Start: 10-06-2022 End: 03-16-2024 take 1 tablet by mouth every eight hours Ibuprofen 800 mg tablet Discontinued 800 MG PO Every 8 hours 270 90 December 21, 2023 12:47pm March 16, 2024 11:01am Lidocaine (11 sources) Antiarrhythmic, Amide Local Anesthetic Start: 07-06-2023 Lidocaine Jun, 20 mg Start: 12-22-2022 Lidocaine 02 M 2022 10 mg losartan potassium 25 mg oral tablet (20 sources) Angiotensin 2 Receptor Elmer Start: 09-02-2022 End: 10-13-2023 take 1 tablet by mouth once daily Losartan 25 mg tablet Discontinued 25 MG PO Daily October 13, 2023 12:00am October 13, 2023 6:11pm metFORMIN hydrochloride 500 mg oral tablet (20 sources) Biguanide Start: 01-21-2024 End: 08-24-2024 take 1 tablet by mouth once daily at dinner Metformin 500 mg tablet Discontinued 0 .ROUTE .COMPLEX January 21, 2024 12:19pm August 24, 2024 11:51am TAKE 1 TABLET BY MOUTH EVERY DAY WITH EVENING MEAL Start: 08-01-2022 End: 01-21-2024 take 1 tablet by mouth once daily Metformin 500 mg tablet Discontinued 500 MG PO Daily January 20, 2024 11:00pm January 21, 2024 12:19pm take 1 tablet by kirby th every twenty-four hours metFORMIN HCl ER 500 MG 1 tablet with evening meal Orally Once a day Active OZEMPIC 1 mg/dose (4 mg/3 mL ) pen injector (2 sources) Start: 09-02-2022 End: 09-28-2023 OZEMPIC 1 mg/dose (4 mg/3 mL ) pen injector Start: 09-02-2022 OZEMPIC 1 mg/d ose (4 mg/3 mL) pen injector pantoprazole 40 mg delayed release oral tablet (20 sources) Proton Pump Inhibitor Start: 08-01-2022 End: 12-21-2023 take 1 tablet by mouth once daily Pantoprazole 40 mg tablet,delayed release (DR/EC) Discontinued 40 MG PO Daily December 20, 2023 11:00pm December 21, 2023 8:39am peg 3350-sod sulf,ooyd-kle-qvf 178.7-7.3-0.5 gram recon soln (2 sources) Start: 09-28-2023 End: 09-29-2023 peg 3350-sod sulf,molo-byl-ton 178.7-7.3-0.5 gram recon soln Indications: Encounter for [...] chloride 10 meq extended release oral tablet (16 sources) Start: 03-16-2024 End: 03-16-2024 take 1 tablet by mouth twice daily Potassium Chloride 10 mEq tablet extended release Discontinued 10 MEQ PO Twice daily March 15, 2024 11:00pm March 16, 2024 11:01am take 1 tablet by kirby th every twelve hours Potassium Chloride ER 10 MEQ 1 tablet wi th food Orally Twice a day Active Semaglutide (Ozempic) 2 mg/dose (8 mg/3 mL) pen injector (6 sources) Start: 03-16-2024 End: 03-16-2024 inject 2 mg by subcutaneous injection every week Semaglutide (Ozempic) 2 mg/dose (8 mg/3 mL) pen injector Discontinued 2 MG SUBCUT every week March 16, 2024 11:01am March 16, 2024 12:17pm Start: 03-16-2024 End: 03-16-2024 inject 2 mg [...] mL) pen injector Discontinued MG SUBCUT March 15, 2024 11:00pm March 16, 2024 11:02am Start: 03-16-2024 End: 03-16-2024 Semaglutide (Ozempic) 2 mg/d ose (8 mg/3 mL) pen injector Discontinued MG SUBCUT March 16, 2024 12:00am March 16, 2024 12:02pm Tirzepatide (3 sources) Start: 06-12-2024 End: 08-02-2024 Tirzepatide (Mounjaro) 12.5 mg/0.5 mL pen injector Discontinued 12.5 MG SUBCUT every week 2 June 12, 2024 8:15am August 02, 2024 2:55pm Start: 06-06-2024 End: 06-12-2024 Tirzepatide (Mounjaro) 12.5 mg/0.5 mL pen injector Discontinued 10 MG SUBCUT every week 2 June 06, 2024 2:04pm June 12, 2024 8:15am Start: 06-06-2024 Tirzepatide (M ounjaro) 12.5 mg/0.5 mL pen injector Active 10 MG SUBCUT every week 2 June 06, 2024 3:04pm Tirzepatide (4 sources) Start: 04-10-2024 End: 05-02-2024 Tirzepatide (Mounjaro) 5 mg/ 0.5 mL pen injector Discontinued 5 MG SUBCUT every week 2 April 10, 2024 12:34pm May 02, 2024 1:48pm Start: 04-10-2024 End: 05-02-2024 Tirzepatide (Mounjaro) 5 mg/ 0.5 mL pen injector Discontinued 5 MG SUBCUT every week 2 April 10, 2024 1:34pm May 02, 2024 2:48pm Start: 03-16-2024 End: 04-10-2024 inject 1 mg by subcutaneous injection every week Tirzepatide (Mounjaro) 5 mg/0.5 mL pen injector Discontinued 5 MG SUBCUT every week 2 March 15, 2024 11:00pm April 10, 2024 12:35pm Begin after 4 weeks at 2.5mg dose. Start: 03-16-2024 End: 04-10-2024 inject 1 mg by subcutaneous injection every week Tirzepatide (Mounjaro) 5 mg/0.5 mL pen injector Discontinued 5 MG SUBCUT every week 2 March 16, 2024 12:00am April 10, 2024 1:35pm Begin after 4 weeks at 2.5mg dose. Tirzepatide (2 sources) Start: 05-02-2024 End: 06-06-2024 Tirzepatide (Mounjaro) 10 mg /0.5 mL pen injector Discontinued 10 MG SUBCUT every week May 01, 2024 11:00pm June 06, 2024 2:05pm Start: 05-02-2024 End: 06-06-2024 Tirzepatide (Mounjaro) 10 mg /0.5 mL pen injector Discontinued 10 MG SUBCUT every week May 02, 2024 12:00am June 06, 2024 3:05pm Tirzepatide (4 sources) Start: 03-16-2024 End: 04-07-2024 Tirzepatide (Mounjaro) 2.5 m g/0.5 mL pen injector Discontinued 2.5 MG SUBCUT every week 2 March 16, 2024 12:19pm April 07, 2024 2:34pm Start: 03-16-2024 End: 04-07-2024 Tirzepatide (Mounjaro) 2.5 m g/0.5 mL pen injector Discontinued 2.5 MG SUBCUT every week 2 March 16, 2024 1:19pm April 07, 2024 3:34pm Start: 03-16-2024 End: 03-16-2024 Tirzepatide (Mounjaro) 2.5 m g/0.5 mL pen injector Discontinued 2.5 MG SUBCUT every week 2 March 15, 2024 11:00pm March 16, 2024 12:22pm Start: 03-16-2024 End: 03-16-2024 Tirzepatide (Mounjaro) 2.5 m g/0.5 mL pen injector Discontinued 2.5 MG SUBCUT every week 2 March 16, 2024 12:00am March 16, 2024 1:22pm Tirzepatide (2 sources) Start: 03-16-2024 End: 05-02-2024 inject 5 mg by subcutaneous injection every week Tirzepatide (Mounjaro) 7.5 mg/0.5 mL pen injector Discontinued 7.5 MG SUBCUT every week 2 March 15, 2024 11:00pm May 02, 2024 1:48pm Begin after 4 weeks of 5mg dose Start: 03-16-2024 End: 05-02-2024 inject 5 mg [...] without bleeding] Onset: 10-05-2023 Chronic Esophageal disorders (16 sources) Esophageal reflux finding; Translations: [Esophageal reflux] [...] sleep apnea] Episodic Other connective tissue disease (2 sources) Inflammation of rotator cuff tendon; Translations: [Other shoulder lesions, unspecified shoulder] 06-04-2024 Episodic Other connective tissue disease (3 sources) Other shoulder lesions, unspecified shoulder; Translations: [Disorders of bursae and tendons in shoulder region, unspecified] 06-06-2024 Episodic Other diseases of veins and lymphatics (13 sources) Chronic peripheral venous hypertension; Translations: [Chronic venous hypertension (idiopathic) without complications of bilateral lower extremity] Chronic Other diseases of veins and lymphatics (3 sources) Venous insufficiency of leg; Translations: [Venous [...] left shoulder] Episodic Other non-traumatic joint disorders (8 sources) Pain in left shoulder; Translations: [Left [...] (adult) (pediatric)] 03-13-2024 Chronic Residual codes; unclassified (8 sources) Obstructive sleep apnea (adult) (pediatric); Translations: [Obstructive sleep apnea (adult)(pediatric)] Onset: 03-24-2022 Chronic Residual codes; unclassified (1 source) Pain, unspecified; Translations: [Pain, unspecified] Onset: 08-14-2024 Episodic Thyroid disorders (20 sources) Subclinical hypothyroidism; Translations: [Other specified hypothyroidism] Resolved: 04-07-2021 03-13-2024 Chronic Comment on above: CTA neck: 2.5cm righ t thyroid nodule - 07/2024 Transient cerebral ischemia (3 sources) Transient global amnesia; 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] 08-14-2024 Chronic Comment on above: CT brain: normal - 1 09/2023,CTA brain/neck: normal - 07/2024,MRI brain: normal - 07/2024,Echo: LVEF 60%, LAE, normal RV size/function, RVSP 32 Unclassified (4 sources) Exposure to acute respiratory [...] exposure to other potentially hazardous chemicals] Onset: 10-09-2017 Viral infection (14 sources) Disease caused by 2019-nCoV; Translations: [COVID-19] Results Test Name Value Interpretation Reference Range Facility Basophils Auto (Bld) [#/Vol] on 08-12-2024 Basophils (Bld) [#/Vol] Automated basophil count 0.0-0.1 [facility] Basophils/100 WBC Auto (Bld) on 08-12-2024 Basophils/100 WBC (Bld) Automated basophil % 0.2-2.0 [facility] Buprenorphine [Presence] in Urineon 08-12-2024 Buprenorphine Ql (U) Buprenorphine [Presence] in Urine NEGATIVE [facility] Comment on above: DRUG CLASS TEST SYST EM CUT-OFF CONCENTRATIONS ARE ASFOLLOWS:AMP (Amphetamine): 500 ng/mLBAR (Barbiturates): 200 ng/mLBZO (Benzodiazepines): 150 ng/mLBUP (Buprenorphine): 10 ng/mLCOC (Cocaine): 150 ng/mLmAMP (Methamphetamine): 500 ng/mLMTD (Methadone): 200 ng/mLOPI (Opiates): 100 ng/mLOXY (Oxycodone): 100 ng/mLPCP (Phencyclidine): 25 ng/mLTHC (Cannabinoids): 50 ng/mLTCA (Trycyclic Antidepressants): 300 ng/mL Cholesterol in LDL Calc [Mas s/Vol]on 08-12-2024 Cholesterol in LDL [Mass/Vol] Cholesterol in LDL [Mass/volume] in Serum or Plasma by calculation [facility] Comment on above: <100 mg/dl [id number] 0-129 mg/dl NEAR OR ABOVE [id number] mg/dl BORDERLINE [id number] mg/dl HIGH>190 mg/dl VERY HIGH Cholesterol in VLDL Calc [Ma ss/Vol]on 08-12-2024 Cholesterol in VLDL [Mass/Vol] Cholesterol in VLDL [Mass/volume] in Serum or Plasma by calculation [facility] Eosinophils/100 WBC Auto (Bl d)on 08-12-2024 Eosinophils/100 WBC (Bld) Automated eosinophil % 0.9-7.0 [facility] Erythrocyte distribution wid th Auto (RBC) [Ratio]on 08-12-2024 Erythrocyte distribution width (RBC) [Ratio] Erythrocyte distribution width [Ratio] by Automated count 11.0-15.0 [facility] Estimated glomerular filtrat ion rate (GFR) non- Americanon 08-12-2024 GFR/1.73 sq M.predicted among non-blacks MDRD (S/P/Bld) [Vol rate/Area] Estimated glomerular filtration rate (GFR) non- Low >=60 mL/min/1.73m 2 [facility] Globulin Calc (S) [Mass/Vol] on 08-12-2024 Globulin (S) [Mass/Vol] Serum globulin measurement by calculation (mass/volume) [facility] Glucose mean value [Mass/vol ume] in Blood Estimated from glycated hemoglobinon 08-12-2024 Average glucose Estimated from glycated hemoglobin (Bld) [Mass/Vol] Glucose mean value [Mass/volume] in Blood Estimated from glycated hemoglobin [facility] Hematocrit Auto (Bld) [Volum e fraction]on 08-12-2024 Hematocrit (Bld) [Volume fraction] Hematocrit [Volume Fraction] of Blood by Automated count 36.0-48.0 [facility] Hemoglobin [Mass/volume] in Bloodon 08-12-2024 Hemoglobin (Bld) [Mass/Vol] Hemoglobin [Mass/volume] in Blood 12.0-16.0 [facility] INR in Platelet poor plasma by Coagulation assayon 08-12-2024 INR Coag (PPP) [Relative time] INR in Platelet poor plasma by Coagulation assay [facility] Comment on above: DESIRED INR:2.0-3.0 CONDITIONS NOT LISTED BELOW2.5-3.5 FOR PROSTHETIC HEART VALVE REPLACEMENT2.5-3.5 RECURRENT THROMBOSIS Laboratory - Chemistry and C hemistry - challengeon 08-12-2024 Bilirubin Ql (U) Negative NEGATIVE [facility] Glucose (U) [Mass/Vol] Negative NEGATIVE [facility] Ketones Ql (U) Negative NEGATIVE [facility] pH (U) 7.5 [pH] 5.0-9.0 [facility] Specific gravity (U) [Rel density] 1.010 1.005-1.025 [facility] Urobilinogen Qn (U) 0.2 {Kala'U}/dL 0.2-1.0 [facility] Albumin [Mass/Vol] 3.9 g/dL 3.4-5.0 [facility] ALP [Catalytic activity/Vol] 105 U/L 46-116 [facility] ALT [Catalytic activity/Vol] 21 U/L 14-59 [facility] AST [Catalytic activity/Vol] 23 U/L 15-37 [facility] Bilirubin [Mass/Vol] 0.7 mg/dL 0.2-1.0 [facility] Calcium [Mass/Vol] 9.5 mg/dL 8.5-10.1 [facility] Chloride [Moles/Vol] 106 mmol/L 98-107 [facility] Cholesterol [Mass/Vol] 174 mg/dL <=200 [facility] Cholesterol in HDL [Mass/Vol] 57 mg/dL 40-60 [facility] Comment on above: > or =60 mg/dl - LOW CARDIOVASCULAR RISK<40 mg/dl - HIGH CARDIOVASCULAR RISK CO2 [Moles/Vol] 27.6 mmol/L 21.0-32.0 [facility] Creatinine [Mass/Vol] 1.00 mg/dL 0.55-1.02 [facility] GFR/1.73 sq M.predicted MDRD (S/P/Bld) [Vol rate/Area] mL/min/{1.73_m2} >=60 mL/min/1.73m 2 [facility] Glucose [Mass/Vol] 90 mg/dL 74-106 [facility] Lactate [Moles/Vol] 0.9 mmol/L 0.4-2.0 [facility] Magnesium [Mass/Vol] 1.8 mg/dL 1.8-2.4 [facility] Potassium [Moles/Vol] 3.7 mmol/L 3.5-5.1 [facility] Protein [Mass/Vol] 7.3 g/dL 6.4-8.2 [facility] Sodium [Moles/Vol] 144 mmol/L 136-145 [facility] Triglyceride [Mass/Vol] 72 mg/dL <=150 [facility] Urea nitrogen [Mass/Vol] 14.0 mg/dL 7.0-18.0 [facility] Urea nitrogen/Creatinine [Mass ratio] 14.0 mg/mg [facility] Laboratory - Drug toxicology on 08-12-2024 Amphetamines Ql (U) Negative NEGATIVE [facility] Benzodiazepines Ql (U) Negative NEGATIVE [facility] Cocaine Ql (U) Negative NEGATIVE [facility] Opiates Ql (U) Negative NEGATIVE [facility] Phencyclidine Ql (U) Negative NEGATIVE [facility] Laboratory - Hematology and Cell countson 08-12-2024 HbA1c (Bld) [Mass fraction] 5.1 % 4.5-6.2 [facility] Comment on above: ADA RECOMMENDED LIMI T 4.0 - 6.0ADA THERAPEUTIC TARGET < 7.0ACTION SUGGESTED> 7.0 Immature granulocytes/100 WBC (Bld) 0.3 % 0.0-0.5 [facility] Laboratory - Specimen inform ationon 08-12-2024 Appearance (U) CLEAR CLEAR [facility] Color (U) LT. YELLOW YELLOW [facility] Laboratory - Urinalysison Leukocyte esterase Test strip Ql (U) Negative NEGATIVE [facility] Nitrite Ql (U) Negative NEGATIVE [facility] Protein Ql (U) Negative NEG/TRACE [facility] Leukocytes [#/volume] correc bethany for nucleated erythrocytes in Blood by Automated counon 08-12-2024 WBC corrected for nucl RBC Auto (Bld) [#/Vol] Leukocytes [#/volume] corrected for nucleated erythrocytes in Blood by Automated coun 4.0-11.0 [facility] Lymphocytes Auto (Bld) [#/Vo l]on 08-12-2024 Lymphocytes (Bld) [#/Vol] Lymphocytes [#/volume] in Blood by Automated count 1.2-3.8 [facility] Lymphocytes/100 WBC Auto (Bl d)on 08-12-2024 Lymphocytes/100 WBC (Bld) Lymphocytes/100 leukocytes in Blood by Automated count 20.5-60.0 [facility] MCH Auto (RBC) [Entitic mass ]on 08-12-2024 MCH (RBC) [Entitic mass] MCH [Entitic mass] by Automated count 26.7-34.0 [facility] MCHC Auto (RBC) [Mass/Vol]on 08-12-2024 MCHC (RBC) [Mass/Vol] MCHC [Mass/volume] by Automated count 29.9-35.2 [facility] MCV Auto (RBC) [Entitic vol] on 08-12-2024 MCV (RBC) [Entitic vol] MCV [Entitic volume] by Automated count High 81.0-99.0 [facility] Methadone [Presence] in Urin e by Screen methodon 08-12-2024 Methadone Screen Ql (U) Methadone [Presence] in Urine by Screen method NEGATIVE [facility] Monocytes Auto (Bld) [#/Vol] on 08-12-2024 Monocytes (Bld) [#/Vol] Automated blood monocyte count 0.3-0.8 [facility] Monocytes/100 WBC Auto (Bld) on 08-12-2024 Monocytes/100 WBC (Bld) Automated monocyte % 1.7-12.0 [facility] Neutrophils Auto (Bld) [#/Vo l]on 08-12-2024 Neutrophils (Bld) [#/Vol] Neutrophils [#/volume] in Blood by Automated count 1.4-6.5 [facility] Neutrophils/100 WBC Auto (Bl d)on 08-12-2024 Neutrophils/100 WBC (Bld) Automated neutrophil % 43.0-75.0 [facility] No Panel Informationon 08-12 Urine Barbiturates Screen Negative NEGATIVE [facility] Urine Marijuana (THC) Screen Negative NEGATIVE [facility] Urine Methamphetamines Screen Negative NEGATIVE [facility] Urine Microscopic Review NO [facility] Urine Occult Blood Negative NEGATIVE [facility] Eosinophils # (Auto) 0.2 10 3/uL 0.0-0.7 [facility] Ethyl Alcohol Level <3 mg/dL [facility] Comment on above: NOTE: 80 mg/dl is th e legal limit for a blood alcohol level Immature Granulocyte # (Auto) 0.02 10 3/uL 0.00-0.03 [facility] Troponin I High Sensitivity 5.8 pg/mL 4.0-51.3 [facility] Comment on above: CUT-OFF POINTS HAVE BEEN ESTABLISHED BASED ON THE FOURTHUNIVERSAL DEFINITION OF MYOCARDIAL INFARCTION. THE UPPERREFERENCE LIMIT (URL) OF TROPONIN, DEFINED THE 99THPERCENTILE OF cTnI DISTRIBUTION IN A REFERENCE POPULATION,HAS BEEN CONFIRMED THE DECISION THRESHOLD FOR MIDIAGNOSIS.99TH PERCENTILE = 51.4 PG/MLNOTE: HIGH-SENSITIVITY TROPONIN ASSAY IS NOT INTENDED TO BEUSED IN ISOLATION BUT SHOULD BE INTERPRETED IN CONJUNCTIONWITH OTHER DIAGNOSTIC AND CLINICAL INFORMATION. Platelet mean volume Auto (B ld) [Entitic vol]on 08-12-2024 Platelet mean volume (Bld) [Entitic vol] Platelet mean volume [Entitic volume] in Blood by Automated count 9.5-13.5 [facility] Platelets Auto (Bld) [#/Vol] on 08-12-2024 Platelets (Bld) [#/Vol] Platelets [#/volume] in Blood by Automated count 150-450 [facility] Prothrombin time (PT)on 07-24 PT Coag (PPP) [Time] Prothrombin time (PT) 9.0- 11.6 [facility] RBC Auto (Bld) [#/Vol]on RBC (Bld) [#/Vol] Erythrocytes [#/volume] in Blood by Automated count Low 4.20-5.40 [facility] Serum or plasma albumin/glob ulin mass ratioon 08-12-2024 Albumin/Globulin [Mass ratio] Serum or plasma albumin/globulin mass ratio [facility] Serum or plasma anion gap de terminationon 08-12-2024 Anion gap [Moles/Vol] Serum or plasma an ion gap determination [facility] Serum or plasma total choles terol/high density lipoprotein (HDL) cholesterol mass stephanie 08-12-2024 Cholesterol.total/Cho lesterol in HDL [Mass ratio] Serum or plasma total cholesterol/high density lipoprotein (HDL) cholesterol mass rat [facility] Comment on above: 3.3 - 4.4 LOW RISK4. 4 - 7.1 AVERAGE RISK7.1 - 11.0 MODERATE RISK>11.0 HIGH RISK Urine tricyclic antidepressa nt measurementon 08-12-2024 Tricyclic antidepressants (U) [Mass/Vol] Urine tricyclic antidepressant measurement NEGATIVE [facility] oxyCODONE+oxyMORphone [Prese nce] in Urine by Screen methodon 08-12-2024 oxyCODONE+oxyMORphone Screen Ql (U) oxyCODONE+oxyMORphone [Presence] in Urine by Screen method NEGATIVE [facility] $ Large Joint Injection: Sharita corrales 05-16-2024 [...] the usual sterile fashion. MANUALLY TRANSCRIBED RESULTS [facility] MAMM SCREENING BILATERAL W C associate brand manager 12-28-2023 MAMM SCREENING BILATERAL W CAD MAMM SCREENING BILATERAL W CAD *ADDENDUM*Addendum: Second read. IMPRESSION: I agree with the interpretation. Finalized by Rg Godoy MD on 12/28/2023 9:00 AM 1 b MAMM 1 YR Normal [facility] XR FOOT LT MIN 3 Son 09-22 XR FOOT LT MIN 3 VWS XR FOOT LT MIN 3 VW S HISTORY: Pain, fall COMPARISON: None FINDINGS: Multiple views of the left foot were obtained. Osseous structures are intact with normal alignment. Plantar calcaneal spur. Degenerative change involving the midfoot. Mild soft tissue swelling. IMPRESSION: * No acute abnormality. Finalized by Weston Key MD on 09/22/2023 1:30 PM Normal [facility] XR KNEE LT MIN 4 VWSon 09-22 XR KNEE LT MIN 4 VWS XR KNEE LT MIN 4 VW S History: Left knee pain, unspecified chronicity Exam/Technique: 3 views left knee and sunrise view Comparison: 10/21/2022 x-ray Findings: There is no acute osseous injury or significant degenerative fusion. Joint spaces grossly preserved. IMPRESSION: Grossly unremarkable osseous exam Finalized by Dianna Casillas MD on 09/22/2023 1:26 PM Normal [facility] $ Large Joint Injection: Sharita corrales 09-07-2023 Melody Robledo 09/09/2023 4:41 PM $ [...] the usual sterile fashion. MANUALLY TRANSCRIBED RESULTS [facility] MRI SHOULDER LT WO CONon MRI SHOULDER [...] by: JESUS TINOCO Date: 2022-12-11 15:42 Normal [facility] ED Noteon 01-07-2018 HIM IP Note OR Tram Operator Normal [facility] ED Provider Noteon 8 HIM IP Note OR Tram Operator Normal [facility] Vital Signs Date Time Vital Sign Value Performing Clinician Facility 08-24-2024 11:45-0500 Body height 139.7 cm [facility] 08-24-2024 11:45-0500 Body mass index (BMI) [Ratio] 43 kg/m2 [facility] 08-24-2024 11:45-0500 Body weight 83.91 kg [facility] 08-24-2024 11:45-0500 Diastolic blood pressure 83 mm[Hg] [facility] 08-24-2024 11:45-0500 Heart rate 65 /min [facility] 08-24-2024 11:45-0500 Systolic blood pressure 135 mm[Hg] [facility] 08-02-2024 14:28-0500 Body height 139.7 cm [facility] 08-02-2024 14:28-0500 Body mass index (BMI) [Ratio] 43.5 kg/m2 [facility] 08-02-2024 14:28-0500 Body weight 84.93 kg [facility] 08-02-2024 14:28-0500 Diastolic blood pressure 84 mm[Hg] [facility] 08-02-2024 14:28-0500 Heart rate 76 /min [facility] 08-02-2024 14:28-0500 Respiratory rate 12 /min [facility] 08-02-2024 14:28-0500 Systolic blood pressure 144 mm[Hg] [facility] 06-06-2024 14:45-0400 Body height 139.7 cm [facility] 06-06-2024 14:45-0400 Body mass index (BMI) [Ratio] 45.3 kg/m2 [facility] 06-06-2024 14:45-0400 Body weight 88.62 kg [facility] 06-06-2024 14:45-0400 Diastolic blood pressure 80 mm[Hg] [facility] 06-06-2024 14:45-0400 Heart rate 74 /min [facility] 06-06-2024 14:45-0400 Respiratory rate 12 /min [facility] 06-06-2024 14:45-0400 Systolic blood pressure 147 mm[Hg] [facility] 05-16-2024 14:59-0400 Body height 142.2 cm Uziel Capellan MD Work Phone: [facility] [employer] [facility] 05-16-2024 14:59-0400 Body mass index (BMI) [Ratio] 41.7 kg/m2 Uziel Capellan MD Work Phone: [facility] 05-16-2024 14:59-0400 Body weight 84.37 kg Uziel Capellan MD Work Phone: [facility] 03-16-2024 11:35-0400 Body height 139.7 cm [facility] 03-16-2024 11:35-0400 Body mass index (BMI) [Ratio] 45.6 kg/m2 [facility] 03-16-2024 11:35-0400 Body weight 89.07 kg [facility] 03-16-2024 11:35-0400 Diastolic blood pressure 82 mm[Hg] [facility] 03-16-2024 11:35-0400 Heart rate 71 /min [facility] 03-16-2024 11:35-0400 Respiratory rate 12 /min [facility] 03-16-2024 11:35-0400 Systolic blood pressure 139 mm[Hg] [facility] 10-20-2023 14:27-0500 Body height 142.2 cm Anahy Marina MD Work Phone: [employer] [facility] 10-20-2023 14:27-0500 Body mass index (BMI) [Ratio] 41.7 kg/m2 Anahy Marina MD Work Phone: [employer] 10-20-2023 14:27-0500 Body weight 84.37 kg Anahy Marina MD [facility] 09-28-2023 14:32-0500 Body mass index (BMI) [Ratio] 42.54 kg/m2 Ceci Reilly [employer] Work Phone: [facility] 09-28-2023 14:32-0500 Body weight 89.18 kg Ceci Reilly [employer] Work Phone: [employer] 09-28-2023 14:32-0500 Diastolic blood pressure 94 mm[Hg] Ceci Reilly [employer] Work Phone: [facility] 09-28-2023 14:32-0500 Heart rate 74 /min Ceci Reilly [employer] Work Phone: [facility] 09-28-2023 14:32-0500 Systolic blood pressure 180 mm[Hg] Ceci Reilly [employer] Work Phone: [facility] 09-07-2023 15:38-0500 Body height 144.8 cm Uziel Capellan MD Work Phone: [employer] 09-07-2023 15:38-0500 Body mass index (BMI) [Ratio] 40.47 kg/m2 Uziel Capellan MD Work Phone: [employer] 09-07-2023 15:38-0500 Body weight 84.82 kg Uziel Capellan MD Work Phone: [employer] 07-06-2023 11:30-0500 Body height 149.86 cm Fab Ball Other [employer] Other 07-06-2023 11:30-0500 Body mass index (BMI) [Ratio] 39.1 kg/m2 Fab Ball Other [employer] Other 07-06-2023 11:30-0500 Body weight 87.82 kg Fab Ball Other [place] [employer] Other 07-06-2023 11:30-0500 Diastolic blood pressure 84 mm[Hg] Fab Ball Other [place] [employer] Other 07-06-2023 11:30-0500 Respiratory rate 12 /min Fab Ball Other [place] [employer] Other 07-06-2023 11:30-0500 Systolic blood pressure 145 mm[Hg] Fab Ball Other [employer] Other 12-22-2022 16:00-0400 Body height 149.86 cm Fab Ball Other [employer] Other 12-22-2022 16:00-0400 Body mass index (BMI) [Ratio] 38.69 kg/m2 Fab Ball Other [employer] Other 12-22-2022 16:00-0400 Body weight 86.91 kg Fab Ball Other [employer] Other 12-22-2022 16:00-0400 Diastolic blood pressure 85 mm[Hg] Fab Ball Other [employer] Other 12-22-2022 16:00-0400 Respiratory rate 12 /min Fab Ball Other [employer] Other 12-22-2022 16:00-0400 Systolic blood pressure 148 mm[Hg] Fab Ball Other [employer] Other 10-06-2022 15:00-0500 Body height 149.86 cm Fab Ball Other [employer] Other 10-06-2022 15:00-0500 Body mass index (BMI) [Ratio] 38.49 kg/m2 Fab Guevara Other [employer] Other 10-06-2022 15:00-0500 Body weight 86.46 kg Fab Guevara Other [employer] Other 10-06-2022 15:00-0500 Diastolic blood pressure 82 mm[Hg] Fab Guevara Other [employer] Other 10-06-2022 15:00-0500 Respiratory rate 12 /min Fab Guevara Other [employer] Other 10-06-2022 15:00-0500 Systolic blood pressure 124 mm[Hg] Fab Guevara Other [employer] Other Encounters Encounter Date Encounter Type Care Provider Facility Start: 08-24-2024 End: 08-24-2024 ambulatory [facility] Work Phone: Start: 08-24-2024 End: 08-24-2024 Patient encounter procedure [facility] Work Phone: Start: 08-17-2024 ambulatory [facility] Start: 08-14-2024 Non-patient / Non-visit [facility] Work Phone: Start: 08-14-2024 ambulatory [facility] Start: 08-12-2024 End: 08-14-2024 Emergency department patient visit [facility] Start: 08-12-2024 Non-patient / Non-visit [facility] [employer] Work Phone: Start: 08-04-2024 Non-patient / Non-visit [facility] Work Phone: Start: 08-02-2024 End: 08-02-2024 Encounter for general adult medical examination without abnormal findings [facility] Start: 08-02-2024 End: 08-02-2024 Patient encounter procedure [facility] Work Phone: Start: 07-31-2024 Patient encounter status [facility] Start: 06-06-2024 End: 06-06-2024 ambulatory [facility] Work Phone: Start: 06-06-2024 End: 06-06-2024 Patient encounter procedure [facility] Work Phone: Start: 05-16-2024 End: 05-16-2024 Patient encounter procedure Uziel Capellan MD [facility] Comment on above: Post-traumatic osteo arthritis of left knee (Primary Dx) Start: 05-16-2024 End: 05-16-2024 ambulatory [facility] Start: 04-03-2024 End: 04-03-2024 ambulatory [facility] Start: 03-16-2024 End: 03-16-2024 ambulatory [facility] Work Phone: Start: 03-16-2024 End: 03-16-2024 Patient encounter procedure [facility] Work Phone: Start: 01-04-2024 End: 01-04-2024 ambulatory [facility] Start: 12-08-2023 End: 12-08-2023 ambulatory [facility] Start: 12-01-2023 End: 12-01-2023 [facility] Start: 10-20-2023 End: 10-20-2023 Office outpatient visit 15 minutes Anahy Marina MD Work Phone: [facility] Comment on above: Sprain of MTP joint of left lesser toe(s), init (Primary Dx) Start: 10-20-2023 End: 10-20-2023 ambulatory ANAHY Mondragon [facility] Start: 10-06-2023 End: 10-07-2023 ambulatory FAB GUEVARA [facility] Start: 10-06-2023 End: 10-06-2023 Evaluation and management of inpatient TESS MADERA [facility] Start: 10-05-2023 End: 10-06-2023 Evaluation and management of inpatient SOPHIA BRUNO [facility] Start: 09-29-2023 End: 09-29-2023 ambulatory [facility] Pat Phone Call Provider 1 [facility] - Pre Admit Start: 09-28-2023 End: 09-28-2023 Patient encounter procedure Ceci Bojorquez Alfredo [employer] Work Phone: [facility] Comment on above: Encounter for screen ing colonoscopy (Primary Dx) Start: 09-28-2023 End: 09-28-2023 ambulatory CECI Maryellen REILLY [facility] Start: 09-22-2023 End: 09-26-2023 ambulatory GABRIELLA MOORE [facility] Start: 09-10-2023 ambulatory [facility] Start: 09-09-2023 End: 09-10-2023 ambulatory FAB GUEVARA [facility] Start: 09-07-2023 End: 09-07-2023 ambulatory UZIEL CAPELLAN [facility] Start: 09-07-2023 End: 09-07-2023 Patient encounter procedure Uziel Capellan MD Work Phone: [facility] Comment on above: 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, glass edger ior cruciate ligament, left, subsequent encounter (Primary Dx); Other tear of medial meniscus of left knee as current injury, subsequent encounter; Traumatic arthritis of knee, left Start: 08-10-2023 End: 08-10-2023 ambulatory Fab Guevara Other [employer] Other Start: 08-10-2023 Telephone encounter Fab Guevara [facility] Start: 07-06-2023 End: 07-06-2023 ambulatory Fab Guevara Other [employer] Other Start: 07-06-2023 Office outpatient vi sit 15 minutes Fab Ball [facility] Start: 05-13-2023 End: 05-13-2023 ambulatory Fab Guevara Other [employer] Other Start: 05-13-2023 Telephone encounter Fab Guevara [facility] Start: 05-12-2023 End: 05-12-2023 ambulatory Fab Guevara Other [employer] Other Start: 05-12-2023 Telephone encounter Fab Guevara [facility] Start: 03-22-2023 End: 03-22-2023 ambulatory Fab Guevara Other [employer] Other Start: 03-22-2023 Telephone encounter Fab Guevara [facility] Start: 03-19-2023 End: 03-19-2023 ambulatory Fab Guevara Other [employer] Other Start: 03-19-2023 Telephone encounter Fab Guevara [facility] Start: 12-22-2022 End: 12-22-2022 ambulatory Fab Guevara Other [employer] Other Start: 12-22-2022 Office outpatient vi sit 15 minutes Fab Guevara [facility] Start: 12-17-2022 End: 12-17-2022 ambulatory Fab Guevara Other [employer] Other Start: 12-17-2022 Telephone encounter Fab Guevara [facility] Start: 12-11-2022 End: 12-12-[address] FAB GUEVARA Facility: Start: 10-06-2022 End: 10-06-2022 ambulatory Fab Ismael Other [employer] Other Start: 10-06-2022 Office outpatient vi sit 25 minutes [facility] Start: 09-02-2022 End: 09-02-2022 ambulatory Fab Guevara Other [employer] Other Start: 09-02-2022 Telephone encounter Fab Is[facility]el [facility] Start: 09-01-2022 End: 09-01-2022 ambulatory Fab Guevara Other [employer] Other Start: 09-01-2022 Telephone encounter [facility] Start: 03-24-2022 End: 03-25-[address] FAB GUEVARA Facility:[facility] Start: 03-03-2022 End: 03-04-[address] FAB GUEVARA Facility:[facility] Start: 01-12-2022 Adult health examination Shaun Guevara Other [employer] Other Start: 01-12-2022 Encounter for genera l adult medical examination without abnormal findings Fab Guevara Other [employer] Other Start: 01-07-2018 End: 01-07-2018 Emergency department patient visit ALEXA Bojorquez WILBERTO [facility] Procedures Date Procedure Procedure Detail Performing [...] ALEXA LADD Start: 09-21-2014 Screening mammography B entoryluis Ismael Other Depression screening Justineami n Ismael Other Depression screening Benjami n Ismael Other Screening for malign ant neoplasm of breast [employer] Other Screening for malign ant neoplasm of breast [employer] Other Plan of Treatment Date Care Activity Detail Author Start: 10-05-2033 Screening for malign ant neoplasm of colon Colonoscopy [facility] Start: 07-01-2032 DTaP,Tdap and Td Vac cines (2 - Td or Tdap) DTaP,Tdap and Td Vaccines (2 - Td or Tdap) [facility] Start: 07-01-2032 DTaP,Tdap and Td Vac cines (3 - Td or Tdap) DTaP,Tdap and Td Vaccines (3 - Td or Tdap) [facility] Start: 05-16-2025 Adult BMI Screening Adult BMI Screen ing [facility] Start: 04-03-2025 Tobacco Screening Tobacco Screening [facility] Start: 10-20-2024 Adult BMI Screening Adult BMI Screen ing [facility] Start: 10-20-2024 Tobacco Screening Tobacco Screening [facility] Start: 09-29-2024 Tobacco Screening Tobacco Screening [facility] Start: 09-28-2024 Adult BMI Screening Adult BMI Screen ing [facility] Start: 09-28-2024 Tobacco Screening Tobacco Screening [facility] Start: 09-07-2024 Adult BMI Screening Adult BMI Screen ing [facility] Start: 09-07-2024 Tobacco Screening Tobacco Screening [facility] Start: 04-23-2024 COVID-19 Vaccine ( season) COVID-19 Vaccine ( season) [facility] Start: 04-23-2024 Influenza vaccination Influenza Vacc ine [facility] Start: 12-08-2023 End: 12-08-2023 Patient encounter procedure 12/08/2023 1:50 PM EDT Office Visit [facility] [address] [place] [address] Uziel Capellan MD [address], [place] [address] [facility] Start: 12-01-2023 End: 12-01-2023 Patient encounter procedure 12/01/2023 2:45 PM EDT Office Visit [facility] [address] [place] [address] Anahy Marina MD [address] [place] [id number] [facility] Start: 10-05-2023 End: 10-05-2023 Admission to same day surgery center 10/05/2023 11:00 AM EST - 10/05/2023 11:30 AM EST Surgery [facility] [address] [place] [id number] Sophia Bruno, DO [address] [place] [id number] COLONOSCOPY DIAGNOSTIC / SCREENING [56844 (CPT )] [facility] Comment on above: COLONOSCOPY DIAGNOST IC / SCREENING [57073 (CPT )] Start: 10-05-2023 End: 10-05-2023 Colonoscopy flx dx w/collj spec when pfrmd COLONOSCOPY DIAGNOSTIC / SCREENING Screen for colon cancer 10/05/2023 11:00 AM EST [facility] Start: 10-05-2023 Subsequent hospital visit by physician 10/05/2023 11:00 AM EST Hospital Encounter [facility] [address] [place] [address] Sophia Bruno, DO [address] [place] [address] [id number] [facility] Start: 09-29-2023 End: 09-29-2023 ambulatory 09/29/2023 3:00 PM EST Support Visit [facility] - Pre Admit [address] [place] [address] [facility] - Pre Admit Start: 04-23-2023 COVID-19 Vaccine ( season) COVID-19 Vaccine ( season) [facility] Start: 04-23-2023 Influenza vaccination Influenza Vacc ine [facility] Start: 2009 Administration of varicella zoster vaccine Zoster (Shingles) Vaccine (1 of 2) [facility] Start: 1977 Adult BMI Follow Up Plan Adult BMI Follow Up Plan [facility] Start: 1971 Depression Screening Depression Scre ening [facility] End: 09-28-2024 Colonoscopy Colonoscopy GI Routine Encounter for screening colonoscopy 1 Occurrences starting 09/28/2023 until 09/28/2024 [facility] Work Phone: Comment on above: 1 Occurrences starti ng 09/28/2023 until 09/28/2024 MG Breast - bilatera l Screening [facility] Immunizations Immunization Date Immunization Notes Care Provider Yamel wheeler 08-02-2024 influenza, seasonal, injectable, preservative free [facility] 05-29-2022 influenza virus vaccine, unspecified formulation Uziel Capellan MD Work Phone: [facility] 05-22-2014 tetanus and diphther ia toxoids, adsorbed, preservative free, for adult use (5 Lf of tetanus toxoid and 2 Lf of diphtheria toxoid) Fab Guevara Other [facility] Payers Date Payer Category Payer Unknown [id number] 2022 Worker's Compensation WORKER'S C OMPENSATION WORKER'S COMPENSATION - GENERIC PLAN [id number] 2022-Present [phone] [facility] [address] [place] [address] [id number] 2022 Unknown 2016 Unknown [id number]. [id number]. [id number] 1959 Unknown [id number] 2.16.840.1.069322.3.579.2. 593 1959 Unknown [id number] 2.16.840.1.911237.3.579.2. 593 1959 Unknown [id number] 2.16.840.1.392268.3.579.2. 593 1959 Unknown [id number] 2.16.840.1.561552.3.579.2. 1286 1959 Unknown [id number] 2.16.840.1.016240.3.579.2. 1286 1959 Unknown [id number] 2.16.840.1.231202.3.579.2. 1286 1959 Unknown [id number] 2.16.840.1.942720.3.579.2. 1286 1959 Unknown [id number] 2.16.840.1.544764.3.579.2. 1286 1959 Unknown [id number] 2.16.840.1.265429.3.579.2. 1286 1959 Unknown [id number] 2.16.840.1.838593.3.579.2. 1286 1959 Unknown [id number] 2.16.840.1.871227.3.579.2. 1286 1959 Unknown [id number] 2.16.840.1.509346.3.579.2. 1286 1959 Unknown [id number] 2.16.840.1.900972.3.579.2. 1286 1959 Unknown [id number] 2.16.840.1.685697.3.579.2. 1286 1959 Unknown [id number] 2.16.840.1.288488.3.579.2. 1286 1959 Unknown [id number] 2.16.840.1.720442.3.579.2. 1285 1959 Unknown [id number] 2.16.840.1.731642.3.579.2. 1286 1959 Unknown [id number] 2.16.840.1.661383.3.579.2. 1285 1959 Unknown [id number] 2.16.840.1.017895.3.579.2. 1286 1959 Unknown [id number] 2.16.840.1.898885.3.579.2. 1285 1959 Unknown [id number] 2.16.840.1.445705.3.579.2. 6 1959 Unknown [id number] 2.16.840.1.856257.3.579.2. 1285 1959 Unknown [id number] 2.16.840.1.481104.3.579.2. 128 1959 Unknown [id number] 2.16.840.1.928969.3.579.2. 128 1959 Unknown [id number] 2.16.840.1.570241.3.579.2. 6 1959 Unknown [id number] 2.16.840.1.143900.3.579.2. 1285 1959 Unknown [id number] Social History Date Type Detail Facility Start: 10-03-2020 End: 09-07-2023 Sex Assigned At [employer] Other Start: 10-21-2022 End: 10-13-2023 Tobacco smoking status WVIS Never smoked tobacco [facility] Start: 10-21-2022 Tobacco use and exposure Smokeless tobacco non-user [facility] Start: 09-07-2023 End: 05-16-2024 Alcohol intake Lifetime non-drinker (finding) [facility] Start: 10-03-2020 End: 09-07-2023 History of Social function [facility] Housing Instability Unknown [facility] Start: 1960 Sex Assigned At Not on file P [facility] Start: 1960 Sex Assigned At Female F [facility] Start: 01-26-2024 Gender identity Identifies as female gender (finding) [facility] Start: 01-26-2024 Sexual orientation Heterosexual (fin ding) [facility] Start: 08-24-2024 Sex Female (finding) [facility] NEGATED: Highlighted rowStart: NINF History of tobacco use Passive smoker [facility] Clinical Notes 09-01-2022 to 06-06-2024 Note Date & Type Note Facility 06-06-2024 Evaluation note Diagnosis Onset Date Resolution Hypertension acute May 2:38pm Left shoulder pain acute Octobe r 2023 2:38pm Rotator cuff tendonitis acute O ctober 2023 2:38pm Type 2 diabetes mellitus with hyperglycemia acute June 06, 2024 2:38pm Hypertension acute July 2:04pm Rotator cuff tendonitis acute D ecember 2023 2:04pm Screening mammogram for breast cancer acute August 02, 2 024 2:04pm Type 2 diabetes mellitus with hyperglycemia acute July 2:04pm Wellness examination acute Dece mber 2023 2:04pm Hypertension acute August 24, 2024 11:28am SANTINO (obstructive sleep apnea) acute August 24 11:28am Thyroid nodule acute August 11:28am Transient global amnesia acute August 24, 2024 11:28am Type 2 diabetes mellitus with hyperglycemia acute August 24, 2024 11:28am [facility] Work Phone: 1(291) 922-460409-24-2024 History of Present illness Narrative* Uziel Capellan MD - 05/16/2024 3:20 PM EDTAssociated Order(s): $ Large Joint Injection: L knee Post-Procedure Diagnose(s): Post-traumatic osteoarthritis of left knee Chief Complaint: Chief Complaint Patient presents with Left Knee - Pain BWC. Left knee celestone injection 01/04/24, states it [...] for pain as needed. The patient will callwith any signs or concerns. Procedure, treatment alternatives, risks and benefits explained, specific risks discussed. Consent was given by the patient. Patient was prepped and draped in the usual sterile fashion. I, Uziel Capellan MD, personally performed the face to face evaluation on this patient. I discussed with the patient and confirmed the accuracy and completeness of the aforementioned history prepared by the advance practice provider, and I personally performed the clinical examination of the patient. I discussed the treatment plan with the patient and my physician's senior agricultural assistant. Details of today's visit are as described above. The patient is doing well with the present treatment regimen. We injected her left knee again today and she will continue with home exercises and return for follow-upin about 3 months. [facility] History of Present illness Narrative* Anahy Marina MD - 10/20/2023 2:25 PM EST [facility] Anahy Marina MD Orthopaedic Surgery Specializing in Foot & Ankle Last Encounter with Me: new Last Encounter with Speciality: 07/07/2023 Uziel Capellan MD Date of visit: 10/20/2023 Chief Complaint: Chief Complaint Patient presents with Left Foot - Pain, Work Related Injury [facility]. New patient. Left foot injury 09/22/23, after she tripped over a students bag. XR 10/06/23. CELSO Mays is a 63 y.o. female that presents for evaluation of her left foot. 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 This is a C claim. Since the incident she has been able to weight bear and her pain has been gradually getting better and better. She localizes the pain primarily over the dorsum of herfoot but does state that it runs of along the lateral aspect of her foot to her ankle. She states that she did have some swelling about her lateral ankle at the time of the incident. She is currentlyworking but is taking breaks every hour to [...] 3rd foot MTP sprain This is a [facility] claim. Plan That patient states that she [...] of treatment with the patient and Physician Assembly Line Inspector. The critical element of all procedures were [...] her continue current work restrictions for now Reilly am going to see her back in 1 month for re-evaluation documented [facility] NoteXR FOOT LT MIN 3 VWS Procedure: Left foot radiographs performed Number of views:3 History:Injury and pain Comparison:09/22/2023 Findings: There is no fracture, dislocation, or destructive lesion. There is a plantar calcaneal enthesophyte Impression: No acute findings. Finalized by Denise Phillips DO on 10/06/2023 4:16 [facility] 09-29-2023 Miscellaneous Notes* Perioperative Nursing Note - Shikha Bailon RN - 09/29/2023 3:00 PM EST Preoperative Education Checklist- General Surgery date: 10/05/23 Surgery time: 1100 Arrival time: 0900 1. Bring a photo ID and your insurance card with you the day of surgery. You will check in at the main lobby of the [facility]- registration desk is straight ahead as soon as you walk in. Tell them you are here for surgery. 2. If you have a Living Will/Durable Power of [employer] Clerk for Health Care that is not on [...] after you have bathed. 5. NO nail moroccan/acrylic on at least one finger. If you are having a hand, wrist or foot surgery then all nail moroccan and artificial/acrylic nails must be removed from [...] least 8 hours and marijuana for 24 hoursprior to arrival for your surgery. 16. If [...] please call the Preadmission Testing office at [phone], Mon.-Fri. 7 a.m.-3 p.m. Leave a voicemail [...] 0 days prior to procedure peg 3350-sod sulf,odtg-igi-ped 178.7-7.3-0.5 gram recon soln Stop taking 0 days prior to procedure TRULICITY 4.5 mg/0.5 mL pen injector Stop taking 1 week prior to procedure venlafaxine XR (EFFEXOR XR) 75 mg 24 hr capsule Stop taking 0 days prior to procedure documented in this encounterHol[facility] Nurse Note* Perioperative Nursing Note - Shikha Bailon RN - 09/29/2023 3:00 PM EST Preoperative Education Checklist- General Surgery date: 10/05/23 Surgery time: 1100 Arrival time: 0900 1. Bring a photo ID and your insurance card with you the day of surgery. You will check in at the main lobby of the [facility]- registration desk is straight ahead as soon as you walk in. Tell them you are here for surgery. 2. If you have a Living Will/Durable Power of [employer] Clerk for Health Care that is not on [...] after you have bathed. 5. NO nail moroccan/acrylic on at least one finger. If you are having a hand, wrist or foot surgery then all nail moroccan and artificial/acrylic nails must be removed from [...] least 8 hours and marijuana for 24 hoursprior to arrival for your surgery. 16. If [...] please call the Preadmission Testing office at [phone], Mon.-Fri. 7 a.m.-3 p.m. Leave a voicemail [...] 0 days prior to procedure peg 3350-sod sulf,rjlg-aah-mrw 178.7-7.3-0.5 gram recon soln Stop taking 0 days prior to procedure TRULICITY 4.5 mg/0.5 mL pen injector Stop taking 1 week prior to procedure venlafaxine XR (EFFEXOR XR) 75 mg 24 hr capsule Stop taking 0 days prior to procedure [facility] History of Present illness Narrative* Ceci Reilly, LAP LAYER-RUBBER TURNER - 09/28/2023 2:30 PM EST Images from the original note were not included. Chief Complaint: Colon cancer screening History of Present Illness Carmen Mays is a 63 y.o. female who presents to the office for colon cancer screening. This is her first colonoscopy. She denies any changes in her bowels including diarrhea, constipation, abdominal pain, melena, hematochezia, unexplained weight loss. There is no known family history of coloncancer. Review of Systems Constitutional: Negative for fever [...] Diagnosis Date Diabetes mellitus type 2, controlled ([facility]) Hypertension Past Surgical History: Procedure Laterality Date GANGLION CYST EXCISION Left excision ganglion cyst left wrist HAND SURGERY OOPHORECTOMY TOTAL ABDOMINAL HYSTERECTOMY 1997 Allergies Allergen Reactions Morphine Vomiting Current Outpatient Medications: amLODIPine (NORVASC) 5 mg tablet, , Disp: , Rfl: ibuprofen (MOTRIN) 800 mg tablet, TAKE 1 TABLET BY MOUTH EVERY 8 HOURS WITH FOOD OR MILK NEEDED,Disp: , Rfl: losartan (COZAAR) 25 mg tablet, , Disp: , Rfl: metFORMIN (GLUCOPHAGE) 500 mg tablet, 1 tablet (500 mg total) daily with breakfast., Disp: , Rfl: pantoprazole (PROTONIX) 40 mg EC tablet, , Disp: , Rfl: TRULICITY 4.5 mg/0.5 mL pen injector, , Disp: , Rfl: venlafaxine XR (EFFEXOR XR) 75 mg 24 hr capsule, , Disp: , Rfl: peg 3350-sod sulf,lybj-sqj-vba 178.7-7.3-0.5 gram recon soln, Take 1 kit [...] evacuation preparation. Patient verbalizes understanding and wishes toproceed. Evaluation included: Preparing to see the patient (e.g., review of tests) Obtaining and/or reviewing separately obtained history Performing a medically appropriate examination and/or evaluation Counseling and educating the patient/family/caregiver Referring and communicating with other health youth care professional Encounter for screening colonoscopy [Z12.11] CECI REILLY, LAP LAYER-RUBBER TURNER [facility] This note was created with the assistance of a speech recognition program. While intending to generate a timely document that accurately reflects the content of the visit, no guarantee can be provided that every grammatical or spelling mistake has been or will be identified or corrected. Thank you for your understanding. SALLIE Tao 09/28/23 1457 documented in this encounterHol[facility] [place]01-16-[facility]24 History of Present illness Narrative* Uziel Capellan MD - 09/07/2023 3:20 PM ESTAssociated Order(s): $ Large Joint Injection: L knee Post-Procedure Diagnose(s): 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, posterior cruciate ligament, left, subsequent encounter; Other tear of medial meniscus of left knee as current injury, subsequent encounter; Traumatic arthritis of knee, left Images from the original note were not included. [facility] [address] [facility] [id number] Name: Carmen Mays : 1960 SUMMARY OF VISITS: 09/09/2023 SUBJECTIVE: Chief Complaint: Left knee pain History of Present Illness: For the sake of review, the patient is a 62-year-old female with left knee pain from a reported work-related injury. 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 She reports that she recently obtained approval [...] for pain as needed. The patient will callwith any signs or concerns. Procedure, treatment alternatives, [...] personally performed the face to face evaluation onthis patient. I discussed with the patient and confirmed the accuracy and completeness of the aforementioned history prepared by the [facility] practice provider, and I personally performed the clinicalexamination of the patient. I discussed the treatment plan with the patient and my physician's senior agricultural assistant. Details of today's visit are as described above. I personally injected the patient's left knee today. documented in this encounterHol[facility] [place]12-19-[facility]23 Evaluation note* Encounter Date Diagnosis Assessment Notes Treatment Notes Treatment Clinical Notes Jul, COVID-19 (ICD-10 - U07.1) [employer] Other 11-14-2023 Evaluation note* Encounter Date Diagnosis [...] Jun, Other chronic pain (ICD-10 - G89.29) [employer] Other 09-21-2023 Evaluation note* Encounter Date Diagnosis Assessment Notes Treatment Notes Treatment Clinical Notes Apr, Type 2 diabetes mellitus with hyperglycemia, without long-term current use of insulin (ICD-10 - E11.65) Apr, Type 2 diabetes mellitus with hyperglycemia (ICD-10 - E11.65) [employer] Other 07-31-2023 Evaluation note* Encounter Date Diagnosis Assessment Notes Treatment Notes Treatment Clinical Notes Feb, Type 2 diabetes mellitus with hyperglycemia (ICD-10 - E11.65) [employer] Other 05-02-2023 Evaluation note* Encounter Date Diagnosis [...] continue exercise to achieve/maintain a normal BMI. [employer] Other 04-27-2023 Evaluation note* Encounter Date Diagnosis Assessment Notes Treatment Notes Treatment Clinical Notes Nov, Type 2 diabetes mellitus with hyperglycemia, without long-term current use of insulin (ICD-10 - E11.65) [employer] Other 02-14-2023 Evaluation note* Encounter Date Diagnosis [...] use, the patient reduces the risk for MT, CVA, HTN, cardiac dysrhythmias and sudden cardiac [...] diet and exercise. Continue w/ weight loss [employer] Other 01-11-2023 Evaluation note* Encounter Date Diagnosis Assessment Notes Treatment Notes Treatment Clinical Notes Aug, Type 2 diabetes mellitus with hyperglycemia, without long-term current use of insulin (ICD-10 - E11.65) [employer] Other 01-10-2023 Evaluation note* Encounter Date Diagnosis Assessment Notes Treatment Notes Treatment Clinical Notes Aug, Pain in left shoulder (ICD-10 - M25.512) Aug, Other chronic pain (ICD-10 - G89.29) [employer] Other Evaluation noteNo InformationNort [employer] Other Evaluation note* Diagnosis 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, posterior cruciate ligament, left, subsequent encounter- Primary Other tear of medial meniscus of left knee as current injury, subsequent encounter Traumatic arthritis of knee, left [facility] Encounter for screening colonoscopy- Primary Screen for colon cancer Special screening for malignant neoplasms, colon [facility] Diagnosis Sprain of MTP joint of left lesser toe(s), init- Primary [facility]* Diagnosis Onset Date Resolution Status Chronic venous insufficiency of lower extremity acute Fatigue acute GERD (gastroesophageal reflux disease) acute Hypertension acute SANTINO (obstructive sleep apnea) acute Subclinical hypothyroidism a cute Type 2 diabetes mellitus with hyperglycemia acute [facility] Work Phone: Evaluation note* Diagnosis Post-traumatic osteoarthritis of left knee- Primary documented [facility] Diagnosis Onset Date Resolution Status Chronic venous insufficiency of lower extremity acute Fatigue acute GERD (gastroesophageal reflux disease) acute Hypertension acute SANTINO (obstructive sleep apnea) acute Subclinical hypothyroidism a cute Type 2 diabetes mellitus with hyperglycemia acute Hypertension acute Left shoulder pain acute Rotator cuff tendonitis acut e Type 2 diabetes mellitus with hyperglycemia acute [facility] Work Phone: History general Narrative [...] wrist, ganglion cyst Hospitalization History See above [employer] Other InstructionsNot on filedocumented in this encounter [facility]InstructionsNot on filedocumented in this encounter [facility] SystemInstructionsNot on filedocumented in this encounter [facility] Summary Purpose Family History Relationship Condition Age at Onset Recorded Date/T la[place] father Hypertension Unknown Diabetes mellitus Unknown Asthma Unknown Unknown mother Hypertension Unknown Advance Directives Advance Directive Response Recorded Date/ Time Advance Directives No September 16, 2023 11:46am Advance Directive Response Recorded Date/ Time Advance Directives No September 16, 2023 10:46am Chief Complaint and Reason for Visit Chief [...] tendonitis Type 2 diabetes mellitus with hyperglycemia Chief Complaint Admit Date Lt shoulder cortisone injection June 06, 2024 2:38pm wellness August 02, 2024 2:04pm CC Adult Risk Stratification August 042023 10:03am Amb Documentation August 14, 2024 2:05pm IP f/u altered mental status August 11:28am Reason for Visit Admit Date Hypertension June 06, 2024 2 :38pm Left shoulder pain June 06, 2024 2 :38pm Rotator cuff tendonitis June 06 2:38pm Type 2 diabetes mellitus with hyperglyce fabrizio June 06, 2024 2:38pm Hypertension August 02, 2024 2:04pm Rotator cuff tendonitis August 02, 2 024 2:04pm Screening mammogram for breast cancer De cember 2023 2:04pm Type 2 diabetes mellitus with hyperglyce fabrizio August 02, 2024 2:04pm Wellness examination August 02, 2024 2:04pm Hypertension August 24, 2024 11 :28am SANTINO (obstructive sleep apnea) August 11:28am Thyroid nodule August 24, 2024 11 :28am Transient global amnesia August 24 11:28am Type 2 diabetes mellitus with hyperglyce fabrizio August 24, 2024 11:28am Additional Source Comments INFORMATION SOURCE (unrecogn ized section and content) DATE CREATED AUTHOR 02/09/2018 [facility] DATE CREATED AUTHOR AUTHOR'S ORGANIZ ATION 12/18/2022 [facility] DATE CREATED AUTHOR AUTHOR'S ORGANIZ ATION [facility]20[facility] DATE CREATED AUTHOR AUTHOR'S ORGANIZ [...] Care Teams (unrecognized sec tion and content) Mathematics Education Professor Relationship Specialty [place] [address] [place] [address] [id number] PCP - General Internal Medicine 04/07/21 Mathematics Education Professor Relationship Specialty [place] [address] [place] [address] [id number] PCP - General Internal Medicine 04/07/21 Mathematics Education Professor Relationship Specialty Start [place] [address] [place] [address] [id number] PCP - General Internal Medicine 04/07/21 Mathematics Education Professor Relationship Specialty Start [place] [address] [place] [address] [id number] PCP - General Internal Medicine 04/07/21 Team Status: Active Member Role Status Dates Fab Guevara DO Primary Care Provider Active Team Status: Inactive Member Role Status Dates Fab Guevara DO Primary Care Provide r, Attending Provider Active Start: March 16, 2024 End: March 16, 2024 Mathematics Education Professor Relationship Specialty Start Date End Date Fab Guevara DO [address] [place] [id number] PCP - General Internal Medicine 04/07/21 Team Status: Inactive Member Role Status Dates Fab Guevara DO Primary Care Provide r, Attending Provider Active Start: June 06, 2024 End: June 06, 2024 Team Status: Inactive Member Role Status Dates Fab Guevara Primary Care Provide r, Attending Provider Active Start: August 02, 2024 End: August 02, 2024 Team Status: Active Member Role Status Dates Fab Guevara Primary Care Provide r, Attending Provider Active Start: August 04, 2024 Team Status: Active Member Role Status Dates Fab Guevara Primary Care Provider Active Start: August 12, 2024 Jossy Rodriguez MD Attending Provider Active Sta rt: August 12, 2024 Team Status: Active Member Role Status Dates Fab Guevara Primary Care Provider Active Start: August 14, 2024 Sima Carlos CMA Attending Provider Active Start: August 14, 2024 Team Status: Inactive Member Role Status Dates Fab Guevara DO Primary Care Provide r, Attending Provider Active Start: August 24, 2024 End: August 24, 2024 Goals (unrecognized section and content) Goals [...] BE BASED ON THE PRIMARY CLINICAL RECORDS. [facility] [employer] [facility]. provides no warranty or guarantee of the accuracy or completeness of information in this document.
[2024-09-04 16:46] LABS: Thyroid Stimulating Hormone 3.049 uIU/mL (0.358-3.740)
[2024-09-06 12:08] LABS: Triiodothyronine (T3) 82 ng/dL (71-180)
== END 2024-09-04 15:31 | disposition home or self-care (01) ==
LOC: LAB 15:38
PROVIDERS: PCP Internal Medicine; Visit Provider Internal Medicine
DX: R79.89 Other specified abnormal findings of blood chemistry (principal)
CPT/HCPCS: 36415; 84439; 84443; 84480

== ENCOUNTER 2024-09-19 09:21 | Outpatient (OUT) | payer OTHER, MEDICARE, SELFPAY ==
--- NOTE | 2024-09-19 09:25 | MM_ITS ---
Patient Name: EVY MORALES MR#: [id number] : 1960 Exam Date: 09/19/2024 Ordering Doctor: DR Fab Guevara D.O. RADIOLOGY REPORT PROCEDURE: MM TOMOSYNTHESIS SCREENING BI COMPARISON: MM TOMOSYNTHESIS SCREENING BI, 09/09/2023. MG MAMM SCREEN 3D BURT CAD, 03/14/2021. INDICATIONS: Screening Calculator Name NCI Breast Cancer Risk Assessment Tool 5 Year Breast Cancer Risk 1.30% Lifetime Breast Cancer Risk 5.00% Personal Breast Cancer No Personal Ovarian Cancer No Treatments None Family Cancers None LOCATION: [facility] BREAST COMPOSITION: There are scattered areas of fibroglandular density. FINDINGS: DIAGNOSTIC CATEGORY 1--NEGATIVE. NO CHANGE FROM COMPARISON ASSESSMENT. Scattered benign-appearing calcifications are present. RIGHT BREAST: No significant suspicious finding. LEFT BREAST: No significant suspicious finding. RECOMMENDATIONS: ROUTINE MAMMOGRAM AND CLINICAL EVALUATION IN 12 MONTHS. PLEASE NOTE: A NORMAL MAMMOGRAM DOES NOT EXCLUDE THE POSSIBILITY OF BREAST CANCER. A CLINICALLY SUSPICIOUS PALPABLE LUMP SHOULD BE BIOPSIED. Dictated by: Maciej Gerard MD on 09/19/2024 at 14:00 Approved by: Maciej Gerard MD on 09/19/2024 at 14:01
--- OUTSIDE RECORDS SUMMARY | 2024-09-19 09:40 | XMS_ITS | CCD ---
Author Organization [facility] Care Team Providers Care Manager Process Excellence Name Role Phone ALEXA LADD Unavailable Unavailable [...] Unavailable BALL, FAB E Primary Care Unavailable TERESA GABRIELLA Sharita Referring Unavailable BALL, FAB E [...] sources) Morphine; Translations: [MORPHINE] Drug Allergy 3 [facility] (4 sources) patient allergy list reviewed by nurse or physicia Propensity to adverse reactions 8 Comment:Done [facility] Other (2 sources) Morphine Drug Allergy Unknown [facility] Other Medications Current Medications Medication Drug Class(es) [...] weekly for 30 days Sep, Active amLODIPine 5 mg oral tablet (20 sources) Dihydropyridine Calcium Channel Elmer Start: 09-04-2024 take 1 tablet by mouth once daily Amlodipine 5 mg tablet Active 5 MG PO Daily September 04, 2024 3:04pm Start: 12-21-2023 End: 09-04-2024 take 1 tablet by mouth once daily Amlodipine 10 mg tablet Discontinued 10 MG PO Daily June 06, 2024 2:05pm September 04, 2024 3:04pm Start: 08-01-2022 amLODIPine (NO RVASC) 5 mg tablet 08/01/2022 Active aspirin 81 mg delayed release oral tablet (2 sources) Platelet Aggregation Inhibitor, Nonsteroidal Anti-inflammatory Drug Start: 08-14-2024 take 1 tablet by mouth once daily Aspirin 81 mg tablet,delayed release (DR/EC) Active 81 MG PO Daily August 14, 2024 12:00am atorvastatin 20 mg oral tablet (3 sources) HMG-CoA Reductase Inhibitor Start: 08-14-2024 take 1 tablet by mouth once daily at bedtime Atorvastatin 20 mg tablet Active 20 MG PO Daily at bedtime August 24, 2024 12:00am 0.5 ML dulaglutide 9 MG/ML Auto-Injector [Trulicity] (3 sources) GLP-1 Receptor Agonist Start: 05-17-2023 Trulicity 4.5 MG/0.5ML as directed Subcutaneous weekly for 90 days Apr, Active Start: 03-22-2023 inject 4.5 mg by sub cutaneous injection every week Trulicity 4.5 MG/0.5ML 4.5 MG Subcutaneous weekly for 28 days Feb, Active levothyroxine sodium 0.05 mg oral tablet (9 sources) l-Thyroxine Start: 08-02-2024 take 1 tablet [...] bid for 5 days Jul, Active Tirzepatide (2 sources) Start: 08-02-2024 Tirzepatide 15 mg/0.5 mL pen [...] 2024 11:00pm March 17, 2024 10:20am Start: 12-11-2022 venlafaxine XR (EFFEXOR XR) 75 mg 24 [...] 12 mg cholecalciferol 1.25 mg oral tablet (17 sources) Vitamin D Start: 03-16-2024 End: 08-24-2024 Cholecalciferol (Vitamin D3) 1,250 mcg (50,000 unit) tablet Discontinued 1250 MCG PO March 15, 2024 11:00pm August 24, 2024 11:50am Dialyvite Vitami n D3 Max 1.25 MG (40444 UT) 1 tablet Orally Active Dialyvite Vitami n D3 Max 1.25 MG (63026 UT) 1 tablet Orally Active ibuprofen 800 [...] 11:00pm December 21, 2023 8:39am peg 3350-sod sulf,nust-dky-hpm 178.7-7.3-0.5 gram recon soln (2 sources) Start: 09-28-2023 End: 09-29-2023 peg 3350-sod sulf,xzti-qau-xce 178.7-7.3-0.5 gram recon soln Indications: Encounter for [...] chloride 10 meq extended release oral tablet (17 sources) Start: 03-16-2024 End: 03-16-2024 take 1 [...] 2 mg/dose (8 mg/3 mL) pen injector (8 sources) Start: 03-16-2024 End: 03-16-2024 inject 2 [...] 2024 12:00am March 16, 2024 12:02pm Tirzepatide (5 sources) Start: 06-12-2024 End: 08-02-2024 Tirzepatide (Mounjaro) 12.5 mg/0.5 mL pen injector Discontinued 12.5 MG SUBCUT every week 10 20June 12, 2024 8:15am August 02, 2024 2:55pm Start: 06-06-2024 End: 06-12-2024 Tirzepatide (Mounjaro) 12.5 mg/0.5 mL pen injector Discontinued 10 MG SUBCUT every week 2 June 06, 2024 2:04pm June 12, 2024 8:15am Start: 06-06-2024 Tirzepatide (M ounjaro) 12.5 mg/0.5 mL pen injector Active 10 MG SUBCUT every week 2 June 06, 2024 3:04pm Tirzepatide (6 sources) Start: 04-10-2024 End: 05-02-2024 Tirzepatide (Mounjaro) [...] after 4 weeks at 2.5mg dose. Tirzepatide (3 sources) Start: 05-02-2024 End: 06-06-2024 Tirzepatide (Mounjaro) 10 mg /0.5 mL pen injector Discontinued 10 MG SUBCUT every week May 01, 2024 11:00pm June 06, 2024 2:05pm Start: 05-02-2024 End: 06-06-2024 Tirzepatide (Mounjaro) 10 mg /0.5 mL pen injector Discontinued 10 MG SUBCUT every week May 02, 2024 12:00am June 06, 2024 3:05pm Tirzepatide (6 sources) Start: 03-16-2024 End: 04-07-2024 Tirzepatide (Mounjaro) [...] 2024 12:00am March 16, 2024 1:22pm Tirzepatide (3 sources) Start: 03-16-2024 End: 05-02-2024 inject 5 [...] suspension (11 sources) Corticosteroid Start: 12-22-2022 Kenalog-40 14 Jun, 2023 40 mg Problems Active Problems Problem Classification [...] fasting glycemia; Translations: [Impaired fasting glucose] Episodic Disorders of lipid metabolism (3 sources) Hypercholesterolemia; Translations: [Pure hypercholesterolemia, unspecified] 08-24-2024 Chronic Diverticulosis and diverticulitis (1 source) Diverticulosis of intestine, part unspecified, without perforation or abscess without bleeding; Translations: [Diverticulosis of intestine, part unspecified, without perforation or abscess without bleeding] Onset: 10-05-2023 Chronic Esophageal disorders (17 sources) Esophageal reflux finding; Translations: [Esophageal reflux] [...] sleep apnea] Episodic Other connective tissue disease (3 sources) Inflammation of rotator cuff tendon; Translations: [Other shoulder lesions, unspecified shoulder] 06-04-2024 Episodic Other connective tissue disease (5 sources) Other shoulder lesions, unspecified shoulder; Translations: [Disorders of bursae and tendons in shoulder region, unspecified] 06-06-2024 Episodic Other diseases of veins and lymphatics (13 sources) Chronic peripheral venous hypertension; Translations: [Chronic venous hypertension (idiopathic) without complications of bilateral lower extremity] Chronic Other diseases of veins and lymphatics (4 sources) Venous insufficiency of leg; Translations: [Venous [...] left shoulder] Episodic Other non-traumatic joint disorders (10 sources) Pain in left shoulder; Translations: [Left [...] (adult) (pediatric)] 03-13-2024 Chronic Residual codes; unclassified (10 sources) Obstructive sleep apnea (adult) (pediatric); Translations: [Obstructive sleep apnea (adult)(pediatric)] Onset: 03-24-2022 Chronic Residual codes; unclassified (1 source) Pain, unspecified; Translations: [Pain, unspecified] Onset: 08-14-2024 Episodic Thyroid disorders (20 sources) Subclinical hypothyroidism; Translations: [Other specified hypothyroidism] Resolved: 04-07-2021 03-13-2024 Chronic Comment on above: CTA neck: 2.5cm righ t thyroid nodule - 07/2024 CTA neck: 2.5cm righ t thyroid nodule - 07/2024,US: 3cm TR4 right - 08/2024 Transient cerebral ischemia (7 sources) Transient global amnesia; Translations: [Transient global [...] Basophils (Bld) [#/Vol] Automated basophil count 0.0-0.1 [facility] Basophils/100 WBC Auto (Bld) on 08-12-2024 Basophils/100 WBC (Bld) Automated basophil % 0.2-2.0 [facility] Buprenorphine [Presence] in Urineon 08-12-2024 Buprenorphine Ql (U) Buprenorphine [Presence] in Urine NEGATIVE [facility] Comment on above: DRUG CLASS TEST SYST [...] [Mass/volume] in Serum or Plasma by calculation [facility] Comment on above: <100 mg/dl [id number] 0-129 mg/dl NEAR OR ABOVE [id number] mg/dl BORDERLINE [id number] mg/dl HIGH>190 mg/dl VERY HIGH Cholesterol in VLDL Calc [Ma ss/Vol]on 08-12-2024 Cholesterol in VLDL [Mass/Vol] Cholesterol in VLDL [Mass/volume] in Serum or Plasma by calculation [facility] Eosinophils/100 WBC Auto (Bl d)on 08-12-2024 Eosinophils/100 WBC (Bld) Automated eosinophil % 0.9-7.0 [facility] Erythrocyte distribution wid th Auto (RBC) [Ratio]on 08-12-2024 Erythrocyte distribution width (RBC) [Ratio] Erythrocyte distribution width [Ratio] by Automated count 11.0-15.0 [facility] Estimated glomerular filtrat ion rate (GFR) non- Americanon 08-12-2024 GFR/1.73 sq M.predicted among non-blacks MDRD (S/P/Bld) [Vol rate/Area] Estimated glomerular filtration rate (GFR) non- Low >=60 mL/min/1.73m 2 [facility] Globulin Calc (S) [Mass/Vol] on 08-12-2024 Globulin (S) [Mass/Vol] Serum globulin measurement by calculation (mass/volume) [facility] Glucose mean value [Mass/vol ume] in Blood Estimated from glycated hemoglobinon 08-12-2024 Average glucose Estimated from glycated hemoglobin (Bld) [Mass/Vol] Glucose mean value [Mass/volume] in Blood Estimated from glycated hemoglobin [facility] Hematocrit Auto (Bld) [Volum e fraction]on 08-12-2024 Hematocrit (Bld) [Volume fraction] Hematocrit [Volume Fraction] of Blood by Automated count 36.0-48.0 [facility] Hemoglobin [Mass/volume] in Bloodon 08-12-2024 Hemoglobin (Bld) [Mass/Vol] Hemoglobin [Mass/volume] in Blood 12.0-16.0 [facility] INR in Platelet poor plasma by Coagulation assayon 08-12-2024 INR Coag (PPP) [Relative time] INR in Platelet poor plasma by Coagulation assay [facility] Comment on above: DESIRED INR:2.0-3.0 CONDITIONS NOT LISTED BELOW2.5-3.5 FOR PROSTHETIC HEART VALVE REPLACEMENT2.5-3.5 RECURRENT THROMBOSIS Laboratory - Chemistry and C hemistry - challengeon 08-12-2024 Bilirubin Ql (U) Negative NEGATIVE [facility] Glucose (U) [Mass/Vol] Negative NEGATIVE [facility] Ketones Ql (U) Negative NEGATIVE [facility] pH (U) 7.5 [pH] 5.0-9.0 [facility] Specific gravity (U) [Rel density] 1.010 1.005-1.025 [facility] Urobilinogen Qn (U) 0.2 {Kala'U}/dL 0.2-1.0 [facility] Albumin [Mass/Vol] 3.9 g/dL 3.4-5.0 [facility] ALP [Catalytic activity/Vol] 105 U/L 46-116 [facility] ALT [Catalytic activity/Vol] 21 U/L 14-59 [facility] AST [Catalytic activity/Vol] 23 U/L 15-37 [facility] Bilirubin [Mass/Vol] 0.7 mg/dL 0.2-1.0 [facility] Calcium [Mass/Vol] 9.5 mg/dL 8.5-10.1 [facility] Chloride [Moles/Vol] 106 mmol/L 98-107 [facility] Cholesterol [Mass/Vol] 174 mg/dL <=200 [facility] Cholesterol in HDL [Mass/Vol] 57 mg/dL 40-60 [facility] Comment on above: > or =60 mg/dl - LOW CARDIOVASCULAR RISK<40 mg/dl - HIGH CARDIOVASCULAR RISK CO2 [Moles/Vol] 27.6 mmol/L 21.0-32.0 [facility] Creatinine [Mass/Vol] 1.00 mg/dL 0.55-1.02 [facility] GFR/1.73 sq M.predicted MDRD (S/P/Bld) [Vol rate/Area] mL/min/{1.73_m2} >=60 mL/min/1.73m 2 [facility] Glucose [Mass/Vol] 90 mg/dL 74-106 [facility] Lactate [Moles/Vol] 0.9 mmol/L 0.4-2.0 [facility] Magnesium [Mass/Vol] 1.8 mg/dL 1.8-2.4 [facility] Potassium [Moles/Vol] 3.7 mmol/L 3.5-5.1 [facility] Protein [Mass/Vol] 7.3 g/dL 6.4-8.2 [facility] Sodium [Moles/Vol] 144 mmol/L 136-145 [facility] Triglyceride [Mass/Vol] 72 mg/dL <=150 [facility] Urea nitrogen [Mass/Vol] 14.0 mg/dL 7.0-18.0 [facility] Urea nitrogen/Creatinine [Mass ratio] 14.0 mg/mg [facility] Laboratory - Drug toxicology on 08-12-2024 Amphetamines Ql (U) Negative NEGATIVE [facility] Benzodiazepines Ql (U) Negative NEGATIVE [facility] Cocaine Ql (U) Negative NEGATIVE [facility] Opiates Ql (U) Negative NEGATIVE [facility] Phencyclidine Ql (U) Negative NEGATIVE [facility] Laboratory - Hematology and Cell countson 08-12-2024 HbA1c (Bld) [Mass fraction] 5.1 % 4.5-6.2 [facility] Comment on above: ADA RECOMMENDED LIMI T 4.0 - 6.0ADA THERAPEUTIC TARGET < 7.0ACTION SUGGESTED> 7.0 Immature granulocytes/100 WBC (Bld) 0.3 % 0.0-0.5 [facility] Laboratory - Specimen inform ationon 08-12-2024 Appearance (U) CLEAR CLEAR [facility] Color (U) LT. YELLOW YELLOW [facility] Laboratory - Urinalysison Leukocyte esterase Test strip Ql (U) Negative NEGATIVE [facility] Nitrite Ql (U) Negative NEGATIVE [facility] Protein Ql (U) Negative NEG/TRACE [facility] Leukocytes [#/volume] correc bethany for nucleated erythrocytes in Blood by Automated counon 08-12-2024 WBC corrected for nucl RBC Auto (Bld) [#/Vol] Leukocytes [#/volume] corrected for nucleated erythrocytes in Blood by Automated coun 4.0-11.0 [facility] Lymphocytes Auto (Bld) [#/Vo l]on 08-12-2024 Lymphocytes (Bld) [#/Vol] Lymphocytes [#/volume] in Blood by Automated count 1.2-3.8 [facility] Lymphocytes/100 WBC Auto (Bl d)on 08-12-2024 Lymphocytes/100 WBC (Bld) Lymphocytes/100 leukocytes in Blood by Automated count 20.5-60.0 [facility] MCH Auto (RBC) [Entitic mass ]on 08-12-2024 MCH (RBC) [Entitic mass] MCH [Entitic mass] by Automated count 26.7-34.0 [facility] MCHC Auto (RBC) [Mass/Vol]on 08-12-2024 MCHC (RBC) [Mass/Vol] MCHC [Mass/volume] by Automated count 29.9-35.2 [facility] MCV Auto (RBC) [Entitic vol] on 08-12-2024 MCV (RBC) [Entitic vol] MCV [Entitic volume] by Automated count High 81.0-99.0 [facility] Methadone [Presence] in Urin e by Screen methodon 08-12-2024 Methadone Screen Ql (U) Methadone [Presence] in Urine by Screen method NEGATIVE [facility] Monocytes Auto (Bld) [#/Vol] on 08-12-2024 Monocytes (Bld) [#/Vol] Automated blood monocyte count 0.3-0.8 [facility] Monocytes/100 WBC Auto (Bld) on 08-12-2024 Monocytes/100 WBC (Bld) Automated monocyte % 1.7-12.0 [facility] Neutrophils Auto (Bld) [#/Vo l]on 08-12-2024 Neutrophils (Bld) [#/Vol] Neutrophils [#/volume] in Blood by Automated count 1.4-6.5 [facility] Neutrophils/100 WBC Auto (Bl d)on 08-12-2024 Neutrophils/100 WBC (Bld) Automated neutrophil % 43.0-75.0 [facility] No Panel Informationon 08-12 Urine Barbiturates Screen Negative NEGATIVE [facility] Urine Marijuana (THC) Screen Negative NEGATIVE [facility] Urine Methamphetamines Screen Negative NEGATIVE [facility] Urine Microscopic Review NO [facility] Urine Occult Blood Negative NEGATIVE [facility] Eosinophils # (Auto) 0.2 10 3/uL 0.0-0.7 [facility] Ethyl Alcohol Level <3 mg/dL [facility] Comment on above: NOTE: 80 mg/dl is th e legal limit for a blood alcohol level Immature Granulocyte # (Auto) 0.02 10 3/uL 0.00-0.03 [facility] Troponin I High Sensitivity 5.8 pg/mL 4.0-51.3 [facility] Comment on above: CUT-OFF POINTS HAVE BEEN [...] volume] in Blood by Automated count 9.5-13.5 [facility] Platelets Auto (Bld) [#/Vol] on 08-12-2024 Platelets (Bld) [#/Vol] Platelets [#/volume] in Blood by Automated count 150-450 [facility] Prothrombin time (PT)on 07-24 PT Coag (PPP) [Time] Prothrombin time (PT) 9.0- 11.6 [facility] RBC Auto (Bld) [#/Vol]on RBC (Bld) [#/Vol] Erythrocytes [#/volume] in Blood by Automated count Low 4.20-5.40 [facility] Serum or plasma albumin/glob ulin mass ratioon 08-12-2024 Albumin/Globulin [Mass ratio] Serum or plasma albumin/globulin mass ratio [facility] Serum or plasma anion gap de terminationon 08-12-2024 Anion gap [Moles/Vol] Serum or plasma an ion gap determination [facility] Serum or plasma total choles terol/high density lipoprotein (HDL) cholesterol mass stephanie 08-12-2024 Cholesterol.total/Cho lesterol in HDL [Mass ratio] Serum or plasma total cholesterol/high density lipoprotein (HDL) cholesterol mass rat [facility] Comment on above: 3.3 - 4.4 LOW RISK4. 4 - 7.1 AVERAGE RISK7.1 - 11.0 MODERATE RISK>11.0 HIGH RISK Urine tricyclic antidepressa nt measurementon 08-12-2024 Tricyclic antidepressants (U) [Mass/Vol] Urine tricyclic antidepressant measurement NEGATIVE [facility] oxyCODONE+oxyMORphone [Prese nce] in Urine by Screen methodon 08-12-2024 oxyCODONE+oxyMORphone Screen Ql (U) oxyCODONE+oxyMORphone [Presence] in Urine by Screen method NEGATIVE [facility] $ Large Joint Injection: L k neeon 05-16-2024 Melody Robledo 05/25/2024 6:00 PM $ [...] the usual sterile fashion. MANUALLY TRANSCRIBED RESULTS [facility] Anonymess [facility] MAMM SCREENING BILATERAL W C cake icer 12-28-2023 MAMM SCREENING BILATERAL W CAD MAMM SCREENING BILATERAL W CAD *ADDENDUM*Addendum: Second read. IMPRESSION: I agree with the interpretation. Finalized by Rg Godoy MD on 12/28/2023 9:00 AM 1 b MAMM 1 YR Normal [facility] XR FOOT LT MIN 3 VWSon 09-22 [...] Key MD on 09/22/2023 1:30 PM Normal [facility] XR KNEE LT MIN 4 VWSon 09-22 [...] Casillas MD on 09/22/2023 1:26 PM Normal [facility] $ Large Joint Injection: Sharita corrales 09-07-2023 [...] the usual sterile fashion. MANUALLY TRANSCRIBED RESULTS [facility] MRI SHOULDER LT WO CONon MRI SHOULDER [...] by: JESUS TINOCO Date: 2022-12-11 15:42 Normal [facility] ED Noteon 01-07-2018 HIM IP Note OR [employer] Sales Representative Normal [facility] ED Provider Noteon 8 HIM IP Note OR [employer] Sales Representative Normal [facility] Vital Signs Date Time Vital Sign Value Performing Clinician Facility 09-04-2024 14:46-0500 Body height 139.7 cm [facility] 09-04-2024 14:46-0500 Body mass index (BMI) [Ratio] 44.1 kg/m2 [facility] 09-04-2024 14:46-0500 Body weight 86.23 kg [facility] 09-04-2024 14:46-0500 Diastolic blood pressure 79 mm[Hg] [facility] 09-04-2024 14:46-0500 Heart rate 72 /min [facility] 09-04-2024 14:46-0500 Respiratory rate 12 /min [facility] 09-04-2024 14:46-0500 Systolic blood pressure 139 mm[Hg] [facility] 08-24-2024 11:45-0500 Body height 139.7 cm [facility] 08-24-2024 11:45-0500 Body mass index (BMI) [Ratio] 43 kg/m2 [facility] 08-24-2024 11:45-0500 Body weight 83.91 kg [facility] 08-24-2024 11:45-0500 Diastolic blood pressure 83 mm[Hg] [facility] 08-24-2024 11:45-0500 Heart rate 65 /min [facility] 08-24-2024 11:45-0500 Systolic blood pressure 135 mm[Hg] [facility] 08-02-2024 14:28-0500 Body height 139.7 cm [facility] 08-02-2024 14:28-0500 Body mass index (BMI) [Ratio] 43.5 kg/m2 [facility] 08-02-2024 14:28-0500 Body weight 84.93 kg [facility] 08-02-2024 14:28-0500 Diastolic blood pressure 84 mm[Hg] [facility] 08-02-2024 14:28-0500 Heart rate 76 /min [facility] 08-02-2024 14:28-0500 Respiratory rate 12 /min [facility] 08-02-2024 14:28-0500 Systolic blood pressure 144 mm[Hg] [facility] 06-06-2024 14:45-0400 Body height 139.7 cm [facility] 06-06-2024 14:45-0400 Body mass index (BMI) [Ratio] 45.3 kg/m2 [facility] 06-06-2024 14:45-0400 Body weight 88.62 kg [facility] 06-06-2024 14:45-0400 Diastolic blood pressure 80 mm[Hg] [facility] 06-06-2024 14:45-0400 Heart rate 74 /min [facility] 06-06-2024 14:45-0400 Respiratory rate 12 /min [facility] 06-06-2024 14:45-0400 Systolic blood pressure 147 mm[Hg] [facility] 05-16-2024 14:59-0400 Body height 142.2 cm Uziel Capellan MD Work Phone: [facility] 05-16-2024 14:59-0400 Body mass index (BMI) [Ratio] 41.7 kg/m2 Uziel Capellan MD Work Phone: [employer] [facility] 05-16-2024 14:59-0400 Body weight 84.37 kg Uziel Capellan MD Work Phone: [facility] 03-16-2024 11:35-0400 Body height 139.7 cm [facility] 03-16-2024 11:35-0400 Body mass index (BMI) [Ratio] 45.6 kg/m2 [facility] 03-16-2024 11:35-0400 Body weight 89.07 kg [facility] 03-16-2024 11:35-0400 Diastolic blood pressure 82 mm[Hg] [facility] 03-16-2024 11:35-0400 Heart rate 71 /min [facility] 03-16-2024 11:35-0400 Respiratory rate 12 /min [facility] 03-16-2024 11:35-0400 Systolic blood pressure 139 mm[Hg] [facility] 10-20-2023 14:27-0500 Body height 142.2 cm Anahy Marina MD Work Phone: [facility] 10-20-2023 14:27-0500 Body mass index (BMI) [Ratio] 41.7 kg/m2 Anahy Marina MD Work Phone: [facility] 10-20-2023 14:27-0500 Body weight 84.37 kg Anahy Marina MD Work Phone: [facility] 09-28-2023 14:32-0500 Body mass index (BMI) [Ratio] 42.54 kg/m2 Ceci Reilly [employer] Work Phone: [facility] 09-28-2023 14:32-0500 Body weight 89.18 kg Ceci Reilly [employer] Work Phone: [facility] 09-28-2023 14:32-0500 Diastolic blood pressure 94 mm[Hg] Ceci Reilly [employer] Work Phone: [facility] 09-28-2023 14:32-0500 Heart rate 74 /min Ceci Reilly [employer] Work Phone: [facility] 09-28-2023 14:32-0500 Systolic blood pressure 180 mm[Hg] Ceci Reilly [employer] Work Phone: [facility] 09-07-2023 15:38-0500 Body height 144.8 cm Uziel Capellan MD Work Phone: [employer] 09-07-2023 15:38-0500 Body mass index (BMI) [Ratio] 40.47 kg/m2 Uziel Capellan MD Work Phone: [facility] 09-07-2023 15:38-0500 Body weight 84.82 kg Uziel Capellan MD Work Phone: [facility] 07-06-2023 11:30-0500 Body height 149.86 cm Fab Ball Other [employer] Other 07-06-2023 11:30-0500 Body mass index (BMI) [Ratio] 39.1 kg/m2 Fab Ball Other [employer] Other 07-06-2023 11:30-0500 Body weight 87.82 kg Fab Ball Other [employer] Other 07-06-2023 11:30-0500 Diastolic blood pressure 84 mm[Hg] Fab Ball Other [employer] Other 07-06-2023 11:30-0500 Respiratory rate 12 /min Fab Ball Other [employer] Other 07-06-2023 11:30-0500 Systolic blood pressure 145 mm[Hg] Fab Ball Other [employer] Other 12-22-2022 16:00-0400 Body height 149.86 cm Fab Ball Other [employer] Other 12-22-2022 16:00-0400 Body mass index (BMI) [Ratio] 38.69 kg/m2 Fab Ball Other [employer] Other 12-22-2022 16:00-0400 Body weight 86.91 kg Fab Ball Other [employer] Other 12-22-2022 16:00-0400 Diastolic blood pressure 85 mm[Hg] Fab Ball Other [employer] Other 12-22-2022 16:00-0400 Respiratory rate 12 /min Fab Ball Other [employer] Other 12-22-2022 16:00-0400 Systolic blood pressure 148 mm[Hg] Fab Ball Other [employer] Other 10-06-2022 15:00-0500 Body height 149.86 cm Fab Ball Other [employer] Other 10-06-2022 15:00-0500 Body mass index (BMI) [Ratio] 38.49 kg/m2 Fab Ball Other [employer] Other 10-06-2022 15:00-0500 Body weight 86.46 kg Fab Ball Other [employer] Other 10-06-2022 15:00-0500 Diastolic blood pressure 82 mm[Hg] Fab Ball Other [employer] Other 10-06-2022 15:00-0500 Respiratory rate 12 /min Fab Ball Other [employer] Other 10-06-2022 15:00-0500 Systolic blood pressure 124 mm[Hg] Fab Ball Other [facility] Other Encounters Encounter Date Encounter Type Care Provider Facility Start: 09-04-2024 End: 09-04-[address] [facility] Work Phone: Start: 09-04-2024 End: 09-04-2024 Patient encounter procedure [facility] Work Phone: Start: 08-24-2024 End: 08-24-[address] [facility] Work Phone: Start: 08-24-2024 End: 08-24-2024 Patient encounter procedure [facility] Work Phone: Start: 08-17-2024 ambulatory [facility] Start: 08-14-2024 Non-patient / Non-visit [facility] Work Phone: Start: 08-14-2024 ambulatory [facility] Start: 08-12-2024 End: 08-14-2024 Emergency department patient visit [facility] Start: 08-12-2024 Non-patient / Non-visit [facility] Work Phone: Start: 08-04-2024 Non-patient / Non-visit [facility] Work Phone: Start: 08-02-2024 End: 08-02-2024 Encounter for general adult medical examination without abnormal findings [facility] Start: 08-02-2024 End: 08-02-2024 Patient encounter procedure [facility] Work Phone: Start: 07-31-2024 Patient encounter status [facility] Start: 06-06-2024 End: 06-06-[address] [facility] Work Phone: Start: 06-06-2024 End: 06-06-2024 Patient encounter procedure [facility] Work Phone: Start: 05-16-2024 End: 05-16-2024 Patient encounter procedure Uziel Capellan MD Work Phone: [facility] Comment on above: Post-traumatic osteo arthritis of left knee (Primary Dx) Start: 05-16-2024 End: 05-16-2024 ambulatory [facility] Start: 04-03-2024 End: 04-03-2024 ambulatory [facility] Start: 03-16-2024 End: 03-16-[address] [facility] Work Phone: Start: 03-16-2024 End: 03-16-2024 Patient encounter procedure [facility] Work Phone: Start: 01-04-2024 End: 01-04-2024 ambulatory [facility] Start: 12-08-2023 End: 12-08-2023 ambulatory [facility] Start: 12-01-2023 End: 12-01-2023 ambulatory ANAHY [facility] Start: 10-20-2023 End: 10-20-2023 Office outpatient visit 15 minutes Anahy Marina MD Work Phone: [facility] Comment on above: Sprain of MTP joint of left lesser toe(s), init (Primary Dx) Start: 10-20-2023 End: 10-20-2023 ambulatory ANAHY Mondragon [facility] Start: 10-06-2023 End: 10-07-2023 ambulatory FAB GUEVARA [facility] Start: 10-06-2023 End: 10-06-2023 Evaluation and management of inpatient TESS MADERA [facility] Start: 10-05-2023 End: 10-06-2023 Evaluation and management of inpatient SOPHIA BRUNO [facility] Start: 09-29-2023 End: 09-29-2023 ambulatory [facility] Pat Phone Call Provider 1 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 Start: 09-22-2023 End: 09-26-2023 ambulatory GABRIELLA MOORE [facility] Start: 09-10-2023 ambulatory ANAHY MARINA [facility] Start: 09-09-2023 End: 09-10-2023 ambulatory FAB GUEVARA [facility] Start: 09-07-2023 End: 09-07-2023 ambulatory UZIEL CAPELLAN 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 (Primary Dx); Other tear of medial meniscus of left knee as current injury, subsequent encounter; Traumatic arthritis of knee, left Start: 08-10-2023 End: 08-10-2023 ambulatory Fab Guevara Other [facility] Other Start: 08-10-2023 Telephone encounter [facility] Start: 07-06-2023 End: 07-06-2023 ambulatory Fab Guevara Other [facility] Other Start: 07-06-2023 Office outpatient vi sit 15 minutes [facility] Start: 05-13-2023 End: 05-13-2023 ambulatory Fab Guevara Other [facility] Other Start: 05-13-2023 Telephone encounter [facility] Start: 05-12-2023 End: 05-12-2023 ambulatory Fab Guevara Other [facility] Other Start: 05-12-2023 Telephone encounter Fab Ismael [facility] Start: 03-22-2023 End: 03-22-2023 ambulatory Fab Guevara Other [facility] Other Start: 03-22-2023 Telephone encounter Fab Ismael [facility] Start: 03-19-2023 End: 03-19-2023 ambulatory Fab Guevara Other [facility] Other Start: 03-19-2023 Telephone encounter Fab Ismael [facility] Start: 12-22-2022 End: 12-22-2022 ambulatory Fab Ismael Other [facility] Other Start: 12-22-2022 Office outpatient vi sit 15 minutes Fab Guevara [facility] Start: 12-17-2022 End: 12-17-2022 ambulatory Fab Ismael Other [facility] Other Start: 12-17-2022 Telephone encounter Fab Guevara [facility] Start: 12-11-2022 End: 12-12-[address] FAB GUEVARA Facility:[facility] Start: 10-06-2022 End: 10-06-2022 ambulatory Fab Ismael Other [facility] Other Start: 10-06-2022 Office outpatient vi sit 25 minutes Fab Guevara [facility] Start: 09-02-2022 End: 09-02-2022 ambulatory Fab Ismael Other [facility] Other Start: 09-02-2022 Telephone encounter Fab Ismael [facility] Start: 09-01-2022 End: 09-01-2022 ambulatory Fab Guevara Other [facility] Other Start: 09-01-2022 Telephone encounter Fab Guevara [facility] Start: 03-24-2022 End: 03-25-[address] FAB GUEVARA Facility:[facility] Start: 03-03-2022 End: 03-04-[address] FAB GUEVARA Facility:[facility] Start: 01-12-2022 Adult health examination Shaun Guevara Other [facility] Other Start: 01-12-2022 Encounter for genera l adult medical examination without abnormal findings Fab Guevara Other [facility] Other Start: 01-07-2018 End: 01-07-2018 Emergency department patient visit ALEXA LADD [facility] Procedures Date Procedure Procedure Detail Performing [...] for malign ant neoplasm of colon Colonoscopy [facility] Start: 07-01-2032 DTaP,Tdap and Td Vac cines (2 - Td or Tdap) DTaP,Tdap and Td Vaccines (2 - Td or Tdap) [facility] Start: 07-01-2032 DTaP,Tdap and Td Vac cines (3 - Td or Tdap) DTaP,Tdap and Td Vaccines (3 - Td or Tdap) [facility] Start: 05-16-2025 Adult BMI Screening Adult BMI Screen ing [facility] Start: 04-03-2025 Tobacco Screening Tobacco Screening [facility] Start: 10-20-2024 Adult BMI Screening Adult BMI Screen ing [facility] Start: 10-20-2024 Tobacco Screening Tobacco Screening [facility] Start: 09-29-2024 Tobacco Screening Tobacco Screening [facility] Start: 09-28-2024 Adult BMI Screening Adult BMI Screen ing [facility] Start: 09-28-2024 Tobacco Screening Tobacco Screening [facility] Start: 09-07-2024 Adult BMI Screening Adult BMI Screen ing [facility] Start: 09-07-2024 Tobacco Screening Tobacco Screening [facility] Start: 04-23-2024 COVID-19 Vaccine () COVID-19 Vaccine () [facility] Start: 04-23-2024 Influenza vaccination Influenza Vacc ine [facility] Start: 12-08-2023 End: 12-08-2023 Patient encounter procedure 12/08/2023 1:50 PM EDT Office Visit [facility] [address] [place] [id number] Uziel Capellan MD [address], [place] [address] [facility] Start: 12-01-2023 End: 12-01-2023 Patient encounter procedure 12/01/2023 2:45 PM EDT Office Visit [facility] [address] [facility] [place] [phone] Anahy Marina MD [address] [facility] [place] [address] [facility] Start: 10-05-2023 End: 10-05-2023 Admission to same day surgery center 10/05/2023 11:00 AM EST - 10/05/2023 11:30 AM EST Surgery [facility] [address] [place] [address] Sophia Bruno, DO [address] [place], [place] [id number] COLONOSCOPY DIAGNOSTIC / SCREENING [59579 (CPT )] [facility] Comment on above: COLONOSCOPY DIAGNOST IC / SCREENING [78774 (CPT )] Start: 10-05-2023 End: 10-05-2023 Colonoscopy flx dx w/collj spec when pfrmd COLONOSCOPY DIAGNOSTIC / SCREENING Screen for colon cancer 10/05/2023 11:00 [facility] Start: 10-05-2023 Subsequent hospital visit by physician 10/05/2023 11:00 AM EST Hospital Encounter [facility] - Surgery [address] [place] [address] Sophia Bruno, DO [address] [place], [place] [id number] [facility] Start: 09-29-2023 End: 09-29-2023 ambulatory 09/29/2023 3:00 PM EST Support Visit [facility] - Pre Admit [address] [place] [address] [facility] - Pre Admit Start: 04-23-2023 COVID-19 Vaccine ( season) COVID-19 Vaccine ( season) [facility] Start: 04-23-2023 Influenza vaccination Influenza Vacc ine [facility] Start: 2009 Administration of varicella zoster vaccine Zoster (Shingles) Vaccine (1 of 2) [facility] Start: 1977 Adult BMI Follow Up Plan Adult BMI Follow Up Plan [facility] Start: 1971 Depression Screening Depression Scre cheng [facility] End: 09-28-2024 Colonoscopy Colonoscopy GI Routine Encounter for screening colonoscopy 1 Occurrences starting 09/28/2023 until 09/28/2024 [facility] Comment on above: 1 Occurrences starti ng 09/28/2023 until 09/28/2024 MG Breast - bilatera l Screening [facility] US Thyroid gland [facility] Immunizations Immunization Date Immunization Notes Care Provider Fa cility 08-02-2024 influenza, seasonal, injectable, preservative free [facility] 05-29-2022 influenza virus vaccine, unspecified formulation Uziel Capellan MD Work Phone: [facility] 05-22-2014 tetanus and diphther ia toxoids, adsorbed, preservative free, for adult use (5 Lf of tetanus toxoid and 2 Lf of diphtheria toxoid) Fab Guevara Other [facility] Payers Date Payer Category Payer Unknown [id number] 2022 Worker's Compensation WORKER'S C OMPENSATION WORKER'S COMPENSATION - GENERIC PLAN [id number] 2022-Present [phone] [facility] [address] [place] [address] [id number]. [id number] 2022 Unknown [id number] 2016 Unknown [id number]. 1.13.424.2. [id number] 1959 Unknown [id number] 2.16.840.1.820323.3.579.2. 593 1959 Unknown [id number] 2.16.840.1.634022.3.579.2. 593 1959 Unknown [id number] 2.16.840.1.936075.3.579.2. 593 1959 Unknown [id number] 2.16.840.1.076955.3.579.2. 1285 1959 Unknown [id number] 2.16.840.1.435011.3.579.2. 1285 1959 Unknown [id number] 2.16.840.1.761260.3.579.2. 1285 1959 Unknown [id number] 2.16.840.1.099399.3.579.2. 1285 1959 Unknown [id number] 2.16.840.1.596243.3.579.2. 1285 1959 Unknown [id number] 2.16.840.1.128910.3.579.2. 1285 1959 Unknown [id number] 2.16.840.1.182929.3.579.2. 1285 1959 Unknown [id number] 2.16.840.1.558184.3.579.2. 1285 1959 Unknown [id number] 2.16.840.1.821467.3.579.2. 1285 1959 Unknown [id number] 2.16.840.1.662962.3.579.2. 1285 1959 Unknown [id number] 2.16.840.1.145082.3.579.2. 1285 1959 Unknown [id number] 2.16.840.1.948675.3.579.2. 1285 1959 Unknown [id number] 2.16.840.1.914809.3.579.2. 1285 1959 Unknown [id number] 2.16.840.1.703584.3.579.2. 1285 1959 Unknown [id number] 2.16.840.1.845961.3.579.2. 1285 1959 Unknown [id number] 2.16.840.1.738514.3.579.2. 1286 1959 Unknown [id number] 2.16.840.1.752276.3.579.2. 1286 1959 Unknown [id number] 2.16.840.1.362336.3.579.2. 1286 1959 Unknown [id number] 2.16.840.1.896478.3.579.2. 1286 1959 Unknown [id number] 2.16.840.1.369493.3.579.2. 1286 1959 Unknown [id number] 2.16.840.1.654558.3.579.2. 1286 1959 Unknown [id number] 2.16.840.1.865862.3.579.2. 6 1959 Unknown [id number] 2.16.840.1.649470.3.579.2. 6 1959 Unknown [id number] Medicare Medicare [id number] Social History Date Type Detail Facility Start: 10-03-2020 End: 09-07-2023 Sex Assigned At [facility] Other Start: 10-21-2022 End: 10-13-2023 Tobacco smoking status NHIS Never smoked tobacco [facility] Start: 10-21-2022 Tobacco use and exposure Smokeless tobacco non-user [facility] Start: 09-07-2023 End: 05-16-2024 Alcohol intake Lifetime non-drinker (finding) [facility] Start: 10-03-2020 End: 09-07-2023 History of Social function [facility] Housing Instability Unknown [facility] Start: 1960 Sex Assigned At Not on file P [facility] Start: 1960 Sex Assigned At Female F [facility] Start: 01-26-2024 Gender identity Identifies as female gender (finding) [facility] Start: 01-26-2024 Sexual orientation Heterosexual (fin ding) [facility] Start: 08-24-2024 End: 09-04-2024 Sex Female (finding) [facility] NEGATED: Highlighted rowStart: LEEANNF History of tobacco use Passive smoker [facility] Clinical Notes 09-01-2022 to 06-06-2024 Note Date [...] with hyperglycemia acute August 24, 2024 11:28am [facility] Work Phone: 1(816) 568-192510-15-2024 Evaluation note* Diagnosis Onset Date Resolution Status Admit Date Hypertension acute May 2:38pm Left shoulder pain acute Octobe r 2023 2:38pm Rotator cuff tendonitis acute O ctober 2023 2:38pm Type 2 diabetes mellitus wit h hyperglycemia acute June 06 2:38pm Hypertension acute July 2:04pm Rotator cuff tendonitis acute D ecember 2023 2:04pm Screening mammogram for j[facility] cancer acute August 02, 2 024 2:04pm Type 2 diabetes mellitus wit h hyperglycemia acute August 02, 2 024 2:04pm Wellness examination acute Dece mber 2023 2:04pm Hypercholesterolemia acute 2024 11:28am Hypertension acute August 24, 2024 11:28am SANTINO (obstructive sleep apnea) acute August 24, 2024 11:28am Thyroid nodule acute August 11:28am Transient global amnesia acute August 24, 2024 11:28am Type 2 diabetes mellitus wit h hyperglycemia acute August 24 11:28am Elevated TSH acute August 2:35pm Hypercholesterolemia acute Nghia joann 2024 2:35pm Hypertension acute August 2:35pm SANTINO (obstructive sleep apnea) acute September 04, 2024 2:35pm Transient global amnesia acute September 04, 2024 2:35pm Type 2 diabetes mellitus wit h hyperglycemia acute September 04 2:35pm [facility] Work Phone: 1(176) 793-937809-24-2024 History of Present illness Narrative* Uziel Capellan MD - 05/16/2024 3:20 PM EDTAssociated Order(s): $ Large Joint Injection: L knee Post-Procedure Diagnose(s): Post-traumatic osteoarthritis of left knee Chief Complaint: Chief Complaint Patient presents with Left Knee - Pain [facility]. Left knee celestone injection 01/04/24, states [...] of the aforementioned history prepared by the [place] practice provider, and I personally performed the clinical examination of the patient. I discussed the treatment plan with the patient and my physician's rehab care assistant. Details of today's visit are as described above. The patient is doing well with the present treatment regimen. We injected her left knee again today and she will continue with home exercises and return for follow-upin about 3 months. documented in this encounterParkview Health02-28-2024 History of Present illness Narrative* Anahy Marina MD - 10/20/2023 2:25 PM EST [facility] Anahy Marina MD Orthopaedic Surgery Specializing in Foot & Ankle Last Encounter with Me: new Last Encounter with Speciality: 07/07/2023 Uziel Capellan MD Date of visit: 10/20/2023 Chief Complaint: Chief Complaint Patient presents with Left Foot - Pain, Work Related Injury [facility]. New patient. Left foot injury 09/22/23, after she tripped over a students bag. XR 10/06/23. CELSO Mays is a 63 y.o. female that presents for evaluation of her left foot. 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 This is a [facility] claim. Since the incident she has [...] 3rd foot MTP sprain This is a [facility] claim. Plan That patient states that [...] of treatment with the patient and Physician Computer Science Intern. The critical element of all procedures were [...] 1 month for re-evaluation documented in this encounterParkview Health02-14-2024 NoteXR FOOT LT MIN 3 VWS Procedure: Left foot radiographs performed Number of views:3 History:Injury and pain Comparison:09/22/2023 Findings: There is no fracture, dislocation, or destructive lesion. There is a plantar calcaneal enthesophyte Impression: No acute findings. Finalized by Denise Phillips DO on 10/06/2023 4:16 [facility] 09-29-2023 Miscellaneous Notes* Perioperative Nursing Note - Shikha Bailon RN - 09/29/2023 3:00 PM EST Preoperative Education Checklist- General Surgery date: 10/05/23 Surgery time: 1100 Arrival time: 0900 1. Bring a photo ID and your insurance card with you the day of surgery. You will check in at the main lobby of the [facility]- registration desk is straight ahead as soon as you walk in. Tell them you are here for surgery. 2. If you have a Living Will/Durable Power of Tool And Fixture Repairer for Health Care that is not on [...] after you have bathed. 5. NO nail panamanian/acrylic on at least one finger. If you are having a hand, wrist or foot surgery then all nail panamanian and artificial/acrylic nails must be removed from [...] please call the Preadmission Testing office at [phone], Mon.-Fri. 7 a.m.-3 p.m. Leave a voicemail [...] 0 days prior to procedure peg 3350-sod sulf,qxno-lyr-rri 178.7-7.3-0.5 gram recon soln Stop taking 0 days prior to procedure TRULICITY 4.5 mg/0.5 mL pen injector Stop taking 1 week prior to procedure venlafaxine XR (EFFEXOR XR) 75 mg 24 hr capsule Stop taking 0 days prior to procedure documented in this encounterParkview Health02-07-2024 Nurse Note* Perioperative Nursing Note - Shikha Bailon RN - 09/29/2023 3:00 PM EST Preoperative Education Checklist- General Surgery date: 10/05/23 Surgery time: 1100 Arrival time: 0900 1. Bring a photo ID and your insurance card with you the day of surgery. You will check in at the main lobby of the [facility]- registration desk is straight ahead as soon as you walk in. Tell them you are here for surgery. 2. If you have a Living Will/Durable Power of Tool And Fixture Repairer for Health Care that is not on [...] after you have bathed. 5. NO nail panamanian/acrylic on at least one finger. If you are having a hand, wrist or foot surgery then all nail panamanian and artificial/acrylic nails must be removed from [...] please call the Preadmission Testing office at [phone], Mon.-Fri. 7 a.m.-3 p.m. Leave a voicemail [...] 0 days prior to procedure peg 3350-sod sulf,ncvh-hyy-ncg 178.7-7.3-0.5 gram recon soln Stop taking 0 days prior to procedure TRULICITY 4.5 mg/0.5 mL pen injector Stop taking 1 week prior to procedure venlafaxine XR (EFFEXOR XR) 75 mg 24 hr capsule Stop taking 0 days prior to procedure [facility] [id number] History of Present illness Narrative* Ceci Reilly, SPIRAL TUBE WINDER HELPER-TRANSFER KNITTER - 09/28/2023 2:30 PM EST Images from [...] Diagnosis Date Diabetes mellitus type 2, controlled ([facility]) Hypertension Past Surgical History: Procedure Laterality Date [...] capsule, , Disp: , Rfl: peg 3350-sod sulf,risj-vcu-rum 178.7-7.3-0.5 gram recon soln, Take 1 kit [...] patient/family/caregiver Referring and communicating with other health lawn care worker Encounter for screening colonoscopy [Z12.11] SALLIE OROURKE [facility] General [facility] [place] This note was created with the assistance of a speech recognition program. While intending to generate a timely document that accurately reflects the content of the visit, no guarantee can be provided that every grammatical or spelling mistake has been or will be identified or corrected. Thank you for your understanding. SALLIE Orourke 09/28/23 1457 documented in this encounterParkview Health01-16-2024 History of Present illness Narrative* Uziel Capellan MD - 09/07/2023 3:20 PM ESTAssociated Order(s): $ Large Joint Injection: L knee Post-Procedure Diagnose(s): 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, posterior cruciate ligament, left, subsequent encounter; Other tear of medial meniscus of left knee as current injury, subsequent encounter; Traumatic arthritis of knee, left Images from the original note were not included. [facility] [address] [place] [facility] [address] Name: Carmen Mays : 1960 SUMMARY OF VISITS: 09/09/2023 SUBJECTIVE: Chief Complaint: Left knee pain History of Present Illness: For the sake of review, the patient is a 62-year-old female with left knee pain from a reported work-related injury. 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 She reports that she recently obtained approval [...] of the aforementioned history prepared by the [place] practice provider, and I personally performed the clinicalexamination of the patient. I discussed the treatment plan with the patient and my physician's rehab care assistant. Details of today's visit are as described above. I personally injected the patient's left knee today. documented in this encounterParkview Health12-19-2023 Evaluation note* Encounter Date Diagnosis Assessment Notes Treatment Notes Treatment Clinical Notes Jul, COVID-19 (ICD-10 - U07.1) [facility] Other 11-14-2023 Evaluation note* Encounter Date Diagnosis [...] Jun, Other chronic pain (ICD-10 - G89.29) [facility] Other 09-21-2023 Evaluation note* Encounter Date Diagnosis Assessment Notes Treatment Notes Treatment Clinical Notes Apr, Type 2 diabetes mellitus with hyperglycemia, without long-term current use of insulin (ICD-10 - E11.65) Apr, Type 2 diabetes mellitus with hyperglycemia (ICD-10 - E11.65) [facility] Other 07-31-2023 Evaluation note* Encounter Date Diagnosis Assessment Notes Treatment Notes Treatment Clinical Notes Feb, Type 2 diabetes mellitus with hyperglycemia (ICD-10 - E11.65) [facility] Other 05-02-2023 Evaluation note* Encounter Date Diagnosis [...] continue exercise to achieve/maintain a normal BMI. [facility] Other 04-27-2023 Evaluation note* Encounter Date Diagnosis Assessment Notes Treatment Notes Treatment Clinical Notes Nov, Type 2 diabetes mellitus with hyperglycemia, without long-term current use of insulin (ICD-10 - E11.65) [facility] Other 02-14-2023 Evaluation note* Encounter Date Diagnosis [...] use, the patient reduces the risk for NV, CVA, HTN, cardiac dysrhythmias and sudden cardiac [...] w/ abduction and internal rotation. Recommend MRI 14 Sep, 2022 DANA (generalized anxiety disorder) (ICD-10 - F41.1) Healthy diet and exercise. Continue w/ weight loss [facility] Other 01-11-2023 Evaluation note* Encounter Date Diagnosis Assessment Notes Treatment Notes Treatment Clinical Notes Aug, Type 2 diabetes mellitus with hyperglycemia, without long-term current use of insulin (ICD-10 - E11.65) [facility] Other 01-10-2023 Evaluation note* Encounter Date Diagnosis Assessment Notes Treatment Notes Treatment Clinical Notes Aug, Pain in left shoulder (ICD-10 - M25.512) Aug, Other chronic pain (ICD-10 - G89.29) [facility] Other Evaluation noteNo InformationNort [employer] Other Evaluation note* Diagnosis 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, posterior cruciate ligament, left, subsequent encounter- Primary Other tear of medial meniscus of left knee as current injury, subsequent encounter Traumatic arthritis of knee, left documented in this encounter [facility] SystemEvaluation note* Diagnosis Encounter for screening colonoscopy- Primary Screen for colon cancer Special screening for malignant neoplasms, colon documented in this encounter [facility]* Diagnosis Sprain of MTP joint of left lesser toe(s), init- Primary documented in this encounter [facility]* Diagnosis Onset Date Resolution Status Chronic venous insufficiency of lower extremity acute Fatigue acute GERD (gastroesophageal reflux disease) acute Hypertension acute SANTINO (obstructive sleep apnea) acute Subclinical hypothyroidism a cute Type 2 diabetes mellitus with hyperglycemia acute [facility] Work Phone: Evaluation note* Diagnosis Post-traumatic osteoarthritis of left knee- Primary documented in this encounter [facility] SystemEvaluation note* Diagnosis Onset Date Resolution Status Chronic venous insufficiency of lower extremity acute Fatigue acute GERD (gastroesophageal reflux disease) acute Hypertension acute SANTINO (obstructive sleep apnea) acute Subclinical hypothyroidism a cute Type 2 diabetes mellitus with hyperglycemia acute Hypertension acute Left shoulder pain acute Rotator cuff tendonitis acut e Type 2 diabetes mellitus with hyperglycemia acute [facility] Work Phone: History general Narrative [...] wrist, ganglion cyst Hospitalization History See above [facility] Other InstructionsNot on filedocumented in this encounter [facility] SystemInstructionsNot on filedocumented in this encounter [employer]ructionsNot on filedocumented in this encounter [employer] Summary Purpose Family History Relationship Condition Age [...] 024 2:04pm Screening mammogram for breast cancer 2023 2:04pm Type 2 diabetes mellitus with hyperglyce fabrizio August 02, 2024 2:04pm Wellness examination August 02, 2024 2:04pm Hypertension August 24, 2024 11 :28am SANTINO (obstructive sleep apnea) August 11:28am Thyroid nodule August 24, 2024 11 :28am Transient global amnesia August 24 11:28am Type 2 diabetes mellitus with hyperglyce fabrizio August 24, 2024 11:28am Chief Complaint Admit Date Lt shoulder cortisone injection June 06, 2024 2:38pm wellness August 02, 2024 2:04pm CC Adult Risk Stratification August 042023 10:03am Amb Documentation August 14, 2024 2:05pm IP f/u altered mental status August 11:28am headache/dizziness September 04, 2024 2 :35pm Reason for Visit Admit Date Hypertension June 06, 2024 2 :38pm Left shoulder pain June 06, 2024 2 :38pm Rotator cuff tendonitis June 06 2:38pm Type 2 diabetes mellitus with hyperglyce fabrizio June 06, 2024 2:38pm Hypertension August 02, 2024 2:04pm Rotator cuff tendonitis August 02, 2 024 2:04pm Screening mammogram for breast cancer 2023 2:04pm Type 2 diabetes mellitus with hyperglyce fabrizio August 02, 2024 2:04pm Wellness examination August 02, 2024 2:04pm Hypercholesterolemia August 24, 2024 1 1:28am Hypertension August 24, 2024 11 :28am SANTINO (obstructive sleep apnea) August 11:28am Thyroid nodule August 24, 2024 11 :28am Transient global amnesia August 24 11:28am Type 2 diabetes mellitus with hyperglyce fabrizio August 24, 2024 11:28am Elevated TSH September 04, 2024 2 :35pm Hypercholesterolemia September 04, 2024 2:35pm Hypertension September 04, 2024 2 :35pm SANTINO (obstructive sleep apnea) September 042024 2:35pm Transient global amnesia September 04, 025 2:35pm Type 2 diabetes mellitus with hyperglyce fabrizio September 04, 2024 2:35pm Additional Source Comments INFORMATION SOURCE (unrecogn ized section and content) DATE CREATED AUTHOR 02/09/2018 [facility] DATE CREATED AUTHOR AUTHOR'S ORGANIZ ATION [facility]/[address] [facility] DATE CREATED AUTHOR AUTHOR'S ORGANIZ ATION 12/29/2023 [facility] DATE CREATED AUTHOR AUTHOR'S ORGANIZ ATION 08/20/2024 [facility] REASON FOR VISIT [...] Care Teams (unrecognized sec tion and content) Manager Process Excellence Relationship Specialty Start Date End Date Fab Guevara DO [address] [place] [address] PCP - General Internal Medicine 04/07/21 Manager Process Excellence Relationship Specialty Start Date End Date Fab Guevara DO [address] [place] [address] PCP - General Internal Medicine 04/07/21 Manager Process Excellence Relationship Specialty Start Date End Date Fab Guevara DO [address] [place] [address] PCP - General Internal Medicine 04/07/21 Manager Process Excellence Relationship Specialty Start Date End Date Fab Guevara DO [address] [place] [address] PCP - [facility] Internal Medicine 04/07/21 Team Status: Active Member Role Status Dates Fab Guevara DO Primary Care Provider Active Team Status: Inactive Member Role Status Dates Fab Guevara DO Primary Care Provide r, Attending Provider Active Start: March 16, 2024 End: March 16, 2024 Manager Process Excellence Relationship Specialty Start Date End Date Fab Guevara DO [address] [place] [address] PCP - [facility] Internal Medicine 04/07/21 Team Status: Inactive Member [...] Fab Guevara DO Primary Care Provider Active Start: August 12, 2024 Jossy Rodriguez MD Attending Provider Active Sta rt: August 12, 2024 Team Status: Active Member Role Status Dates Fab Guevara DO Primary Care Provider Active Start: August 14, 2024 Sima Carlos CMA Attending Provider Active Start: August 14, 2024 Team Status: Inactive Member Role Status Dates Fab Guevara DO Primary Care Provide r, Attending Provider Active Start: August 24, 2024 End: August 24, 2024 Team Status: Inactive Member Role Status Dates Fab Guevara DO Primary Care Provide r, Attending Provider Active Start: September 04, 2024 End: September 04, 2024 Goals (unrecognized section and content) Goals [...] BE BASED ON THE PRIMARY CLINICAL RECORDS. [facility] [employer] [facility]. provides no warranty or guarantee of the accuracy or completeness of information in this document.
== END 2024-09-19 09:22 | disposition home or self-care (01) ==
LOC: MAMMO 09:21
PROVIDERS: PCP Internal Medicine; Visit Provider Internal Medicine
DX: Z12.31 Encounter for screening mammogram for malignant neoplasm of breast (principal)
CPT/HCPCS: 77063; 77067

== ENCOUNTER 2024-10-16 10:54 | Emergency (ER) | payer OTHER, MEDICARE, SELFPAY ==
[2024-10-16 11:02] VITALS: BP 150/77; PULSE 72; TEMP 37.1; O2SAT 96; BMI 43.5
[2024-10-16 12:41] LABS: Basophils Percent Auto 0.6 % (0.2-2.0); Eosinophils Absolute Auto 0.2 10^3/uL (0.0-0.7); Eosinophils Percent Auto 2.6 % (0.9-7.0); Hematocrit 37.4 % (36.0-48.0); Hemoglobin 12.3 g/dL (12.0-16.0); Immature Granulocytes Abs Auto 0.01 10^3/uL (0.00-0.03); Immature Granulocytes Pct Auto 0.1 % (0.0-0.5); Lymphocytes Absolute Auto 1.8 10^3/uL (1.2-3.8); Lymphocytes Percent Auto 25.9 % (20.5-60.0); Mean Corpuscular HGB Conc 32.9 g/dL (29.9-35.2); Mean Corpuscular Hemoglobin 32.7 pg (26.7-34.0); Mean Corpuscular Volume 99.5 fL (81.0-99.0); Mean Platelet Volume 9.7 fL (9.5-13.5); Monocytes Absolute Auto 0.5 10^3/uL (0.3-0.8); Monocytes Percent Auto 6.5 % (1.7-12.0); Neutrophils Absolute Auto 4.4 10^3/uL (1.4-6.5); Neutrophils Percent Auto 64.3 % (43.0-75.0); Platelet Count 304 10^3/uL (150-450); Red Blood Count 3.76 10^6/uL (4.20-5.40); Red Cell Distribution Width 11.9 % (11.0-15.0); White Blood Count 6.9 10^3/uL (4.0-11.0)
[2024-10-16 12:58] LABS: Alanine Aminotransferase 19 U/L (14-59); Albumin Globulin Ratio 0.9; Albumin Level 3.2 g/dL (3.4-5.0); Alkaline Phosphatase 108 U/L (46-116); Anion Gap 10.3; Aspartate Amino Transferase 15 U/L (15-37); BUN Creatinine Ratio 19.8; Bilirubin Total 0.4 mg/dL (0.2-1.0); Calcium 8.9 mg/dL (8.5-10.1); Carbon Dioxide 29.5 mmol/L (21.0-32.0); Chloride 105 mmol/L (98-107); Estimated GFR (African America >60 (>=60 mL/min/1.73m^2); Estimated GFR (Non-African Ame >60 (>=60 mL/min/1.73m^2); Globulin 3.7 g/dL; Glucose 92 mg/dL (74-106); Potassium 3.8 mmol/L (3.5-5.1); Sodium 141 mmol/L (136-145); Total Protein 6.9 g/dL (6.4-8.2)
[2024-10-16 13:11] LABS: Thyroid Stimulating Hormone 2.346 uIU/mL (0.358-3.740)
--- NOTE | 2024-10-16 13:43 | ED.GENADUL1 ---
HPI HPI - General Adult General Chief complaint: Weakness Stated complaint: LIGHTHEADED FOGGINESS Time Seen by Provider: 10/16/24 11:42 Source: patient Mode of arrival: Wheelchair Limitations: no limitations History of Present Illness HPI narrative: The patient is 64-year-old female who was evaluated for amnesia almost 2 months ago, that time she was diagnosed with absence seizures and started on Keppra, the patient is coming to us after she was at work today when she said that she used the stairs instead of the elevator, she mentioned that when she went up the stairs she noticed that she is able to but confused, she denies any chest pain or any shortness of breath at the moment She also denies any chest pain at any time The patient at the moment does not have any symptoms that she does not have any confusion and she mentioned that when she mention confusion she just felt like she does not know what she had for few seconds although she was able to recognize the person talking to her, she denies any headache at any moment She also mentioned that she feels like when she walks that she is leaning to the left side but this has been going on since the last time she was diagnosed with amnesia Related Data Home Medications ?Medication ?Instructions ?Recorded ?Confirmed amlodipine 10 mg tablet 5 mg PO BID 08/12/24 10/16/24 levothyroxine 50 mcg tablet 25 mcg PO DAILY 08/12/24 10/16/24 losartan 25 mg tablet 25 mg PO DAILY 08/12/24 10/16/24 pantoprazole 40 mg tablet,delayed 40 mg PO DAILY 08/12/24 10/16/24 release venlafaxine 75 mg capsule,extended 75 mg PO DAILY 08/12/24 10/16/24 release 24 hr levetiracetam 500 mg tablet 500 mg PO Q12H 10/16/24 10/16/24 Previous Rx's ?Medication ?Instructions ?Recorded aspirin 81 mg chewable tablet 81 mg PO DAILY #30 tabs 08/14/24 atorvastatin 20 mg tablet (Lipitor) 20 mg PO DAILY #30 tabs 08/14/24 Allergies Allergy/AdvReac Type Severity Reaction Status Date / Time No Known Drug Allergies Allergy Verified 08/12/24 10:50 Opioid HPI Opioid Management Most Recent Opioid Data: Last Pain Scale 2 08/13/24 10:00 08/13/24 Last ORT Total Score 0 08/12/24 14:15 08/12/24 Last ORT Risk Category Low Risk 08/12/24 14:15 08/12/24 Ur Phencyclidine Scrn Negative (NEGATIVE) 08/12/24 15:15 08/12/24 Review of Systems ROS Status of ROS 10 or more systems reviewed and unremarkable except as noted in history and below [facility] Medical History (Updated 10/16/24 @ 13:46 by Jossy Rodriguez MD) Amnesia, global, transient ?G45.4 - Transient global amnesia (ICD-10) HLD (hyperlipidemia) ?E78.5 - Hyperlipidemia, unspecified (ICD-10) Type 2 diabetes mellitus ?E11.9 - Type 2 diabetes mellitus without complications (ICD-10) HTN (hypertension) ?I10 - Essential (primary) hypertension (ICD-10) Social History Highest level of school completed/degree received: GED or equivalent Little interest or pleasure in doing things: not at all Feeling down, depressed, or hopeless: not at all Exam Narrative Exam Narrative: Nurses notes and vital signs reviewed and patient is not hypoxic. General: Well-appearing and in no apparent distress. Skin: Warm, dry, no pallor noted. No rash. Head: Normocephalic, atraumatic. Neck: Supple, non-tender. Eye: Pupils are equal, round and EOMI. No scleral icterus. Ears, Nose, Mouth, and Throat: TM are clear, no nasal mucosal hypertrophy. Oral mucosa is moist, no posterior oropharynx erythema, uvula is mid-line Cardiovascular: Regular Rate and Rhythm without murmur, gallop or rub. Respiratory: No accessory muscle use or respiratory distress. Lungs are clear to auscultation, no wheezing, rales or rhonchi Chest Wall: no tenderness Back: No midline thoracic or lumbar vertebral tenderness. No CVA tenderness Musculoskeletal: normal ROM, no calf or popliteal tenderness, no lower extremity edema/swelling GI: Abdomen is soft, non-distended. Normal bowel sounds. No masses appreciated. No tenderness to palpation. No rebound, guarding, or rigidity noted. Neurological: A&O x4. No cranial nerve dysfunction observed. No truncal ataxia. Moves all extremities. Sensation intact. Psychiatric: Cooperative and interactive. Normal mood and affect. NIH score is 0 Constitutional Vital Signs, click to edit/add: Last Vital Signs Temp 98.7 F 10/16/24 11:02 Pulse 72 10/16/24 11:02 Resp 18 10/16/24 11:02 BP 150/77 H 10/16/24 11:02 Pulse Ox 96 10/16/24 11:02 O2 Del Method Room Air 10/16/24 11:02 Course Vital Signs Vital signs: Vital Signs Temperature 98.7 F 10/16/24 11:02 Pulse Rate 72 10/16/24 11:02 Respiratory Rate 18 10/16/24 11:02 Blood Pressure 150/77 H 10/16/24 11:02 Pulse Oximetry 96 10/16/24 11:02 Oxygen Delivery Method Room Air 10/16/24 11:02 Temperature 98.7 F 10/16/24 11:02 Pulse Rate 72 10/16/24 11:02 Respiratory Rate 18 10/16/24 11:02 Blood Pressure 150/77 H 10/16/24 11:02 Pulse Oximetry 96 10/16/24 11:02 Oxygen Delivery Method Room Air 10/16/24 11:02 Medical Decision Making [facility] Narrative Medical decision making narrative: Upon arrival the patient had extensive workup last time she was here noted that she had a normal NIH score The patient does not have any symptoms at the moment CT of the head showed no acute pathology and the CBC and chemistry were within normal as well Her blood pressure was 150/77 I discussed the case with attending neurologist on-call after the CT head came negative and he recommended the patient continue aspirin and continue her Keppra and follow-up with neurology as outpatient Right now I did recommend that the patient to rest and follow-up with outpatient The patient is to follow up with primary care physician in next 2-3 days or to return to the emergency department should any of the signs or symptoms worsen or new symptoms develop. The patient agrees with the following Diagnosis and Treatment plan and the patient will be discharged home. Lab Data Labs: Lab Results 10/16/24 Range/Units 12:16 WBC 6.9 (4.0-11.0) 10^3/uL RBC 3.76 L (4.20-5.40) 10^6/uL Hgb 12.3 (12.0-16.0) g/dL Hct 37.4 (36.0-48.0) % MCV 99.5 H (81.0-99.0) fL MCH 32.7 (26.7-34.0) pg MCHC 32.9 (29.9-35.2) g/dL RDW 11.9 (11.0-15.0) % Plt Count 304 (150-450) 10^3/uL MPV 9.7 (9.5-13.5) fL Neut % (Auto) 64.3 (43.0-75.0) % Lymph % (Auto) 25.9 (20.5-60.0) % [place] % (Auto) 6.5 (1.7-12.0) % Eos % (Auto) 2.6 (0.9-7.0) % Baso % (Auto) 0.6 (0.2-2.0) % Neut # (Auto) 4.4 (1.4-6.5) 10^3/uL Lymph # (Auto) 1.8 (1.2-3.8) 10^3/uL [place] # (Auto) 0.5 (0.3-0.8) 10^3/uL Eos # (Auto) 0.2 (0.0-0.7) 10^3/uL Baso # (Auto) 0.0 (0.0-0.1) 10^3/uL Abs Immat Gran (auto) 0.01 (0.00-0.03) 10^3/uL Imm/Tot Granulo (auto) 0.1 (0.0-0.5) % Sodium 141 (136-145) mmol/L Potassium 3.8 (3.5-5.1) mmol/L Chloride 105 (98-107) mmol/L Carbon Dioxide 29.5 (21.0-32.0) mmol/L Anion Gap 10.3 BUN 16.0 (7.0-18.0) mg/dL Creatinine 0.81 (0.55-1.02) mg/dL Est GFR ( Amer) >60 (>=60 mL/min/1.73m^2) Est GFR (Non-Af Amer) >60 (>=60 mL/min/1.73m^2) BUN/Creatinine Ratio 19.8 Glucose 92 (74-106) mg/dL Calcium 8.9 (8.5-10.1) mg/dL Total Bilirubin 0.4 (0.2-1.0) mg/dL AST 15 (15-37) U/L ALT 19 (14-59) U/L Alkaline Phosphatase 108 (46-116) U/L Total Protein 6.9 (6.4-8.2) g/dL Albumin 3.2 L (3.4-5.0) g/dL Globulin 3.7 g/dL Albumin/Globulin Ratio 0.9 TSH 2.346 (0.358-3.740) uIU/mL Discharge Plan Discharge Chief Complaint: Weakness Clinical Impression: Weakness Patient Disposition: Home, Self-Care Time of Disposition Decision: 13:45 Condition: Good Prescriptions / Home Meds: No Action venlafaxine 75 mg capsule,extended release 24hr 75 mg PO DAILY losartan 25 mg tablet 25 mg PO DAILY amlodipine 10 mg tablet 5 mg PO BID pantoprazole 40 mg tablet,delayed release (DR/EC) 40 mg PO DAILY levothyroxine 50 mcg tablet 25 mcg PO DAILY aspirin 81 mg tablet,chewable 81 mg PO DAILY Qty: 30 0RF atorvastatin [Lipitor] 20 mg tablet 20 mg PO DAILY Qty: 30 0RF levetiracetam 500 mg tablet 500 mg PO Q12H Print Language: Pashto Instructions: Weakness (ED) Referrals: Fab Guevara DO [Primary Care Provider] - 1 week
== END 2024-10-16 13:54 | disposition home or self-care (01) ==
PROVIDERS: Emergency Provider Emergency Medicine; PCP Internal Medicine
DX: R53.1 Weakness (principal); Z79.899 Other long term (current) drug therapy
CPT/HCPCS: 36415; 70450; 80053; 82310; 84443; 85025; 99284

== ENCOUNTER 2025-02-26 11:45 | Outpatient (OUT) | payer OTHER, SELFPAY ==
--- OUTSIDE RECORDS SUMMARY | 2025-02-01 10:04 | XMS_ITS ---
Author Name Auto Generated Organization OHIP Support Name Relationship Address Phone Tomás Morales Next of Kin Unknown [phone] MoralesTomás Next of Kin Unknown [phone] Morales, Tomás Next of Kin Unknown [phone] Morales, Tomás Next of Kin Unknown [phone] Morales, Tomás Next of Kin Unknown [phone] Morales, Tomás Next of Kin Unknown [phone] Morales, Tomás Next of Kin Unknown [phone] MORALES, TOMÁS Next of Kin Unknown Unavailabl e Tomás Morales Next of Kin Unknown [phone] MORALESTOMÁS Next of Kin Unknown Unavailabl e [place] [address] [phone] MORALES, MANUEL Next of Kin Unknown Unavailabl e [place] [address] [phone] MORALES, TOMÁS Next of Kin Unknown Unavailabl e [place] [address] [phone] MORALES, TOMÁS Next of Kin Unknown Unavailabl e [place] [address] [phone] MORALES, TOMÁS Next of Kin Unknown Unavailabl e [place] [address] [phone] MORALES, TOMÁS Next of Kin Unknown Unavailabl e NOT GIVEN [place] [address] [phone] TOMÁS MORALES Next of Kin Unknown Unavailabl e [place] [address] [phone] Care Team Providers Care Black Belt Name Role Phone YESSICA MCKINNEY Attending Unavailable BALL, FAB E Referring Unavailable BALL, FAB E Primary Care Unavailable SHARLADEYESSICA TORRES Attending Unavailable BALL, FAB E Referring [...] Unavailable BALL, FAB E Primary Care Unavailable Murcek, Fab Attending Unavailable Murcek, Fab Admitting Unavailable Ball, Fab Primary Care Unavailable Murcek, Fab Attending Unavailable Murcek, Fab Admitting Unavailable Ball, Fab Primary Care Unavailable Ball, Fab Primary Care Unavailable Ball, Fab Attending Unavailable Ball, Fab Admitting Unavailable Murcek, Fab Admitting Unavailable Murcek, Fab Attending Unavailable Ball, Fab Primary Care Unavailable Murcek, Fab Referring Unavailable Fred, Faina R Admitting Unavailable Fred, Faina R Attending Unavailable Ball, Fab Primary Care Unavailable Murcek, Fab Admitting Unavailable Murcek, Fab Attending Unavailable Ball, Fab Primary Care Unavailable PROBLEMS DATE TYPE CONDITION / CODE ATTENDING STATUS [facility] 10/30/2024 Unknown Malignant neopla sm of thyroid gland / C73(ICD-10) Reji [facility] 10/19/2024 Unknown Encounter for preprocedural laboratory examination / Z01.812(ICD-10) Reji [facility] 10/05/2024 Unknown 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 08/12/2024 Unknown Brigantine Stroke Alert / UNK(Unknown) [facility] 12/08/2023 Unknown Unilateral post-traumatic osteoarthritis, left knee / M17.32(ICD-10) YESSICA MCKINNEY [facility] 04/03/2024 Unknown Pain / FREETEXT(AOF) HANK YESSICA R [facility] PROCEDURES No Procedure Records Found RESULTS NM THYROID CA WHOLE BODY Observed: 02/09 5:41 PM Status: COMPLETED Source: [facility] Main [address] [address] Nuclear Medicine Report Signed Patient: Evy Morales MR#: [id number] : 1960 Acct:[id number] Age/Sex: 64 / F ADM Date: 02/01/25 Loc: XT Room: Type: [facility] Attending Dr: Faina Ibarra MD Copies to: Carmelo Estrada II, MD Norleena Poynter, MD Ordering Provider: Faina Ibarra MD Date of Service: 02/09/25 NM/NM thyroid ca whole body: *Dose ordered* Thyroid cancer ([id number]) NM/NM tx radpharm oral: Thyroid cancer DOSE ORDERED [facility] NM thyroid ca whole body 02/09/2025 11:27 AM SIGNS AND SYMPTOMS: *Dose ordered* Thyroid cancer PROTOCOL: Scintigraphic images of the whole body were obtained after oral radiotracer administration COMPARISON: 02/01/2025 RADIOPHARMACEUTICAL: 101.9 mCi of oral iodine-131 FINDINGS: Radiotracer accumulation is noted within the salivary glands, the right thyroid bed, and within the neck in a distribution similar to that seen on the previous study. There is radiotracer activity also noted within the bowel and bladder which is presumably physiologic. NM/NM thyroid ca whole body IMPRESSION: Radiotracer accumulation is noted within the salivary glands, the right thyroid bed, and within the neck in a distribution similar to that seen on the previous study. Impression dictated by: Carmelo Estrada M.D. 02/09/2025 5:47 PM Dictation Location: [place] [address] Transcribed By: [facility] 02/09/251746 Dictated By: Carmelo Estrada II, MD 02/09/251740 Signed By: <Electronically signed by Carmelo Estrada II, MD in OV> 02/09/251746 NM THYROID CA WHOLE BODY Observed: 02/01 11:08 AM Status: COMPLETED Source: [facility] Main [address] [address] Nuclear Medicine Report Signed Patient: Evy Morales MR#: [id number] : 1960 Acct:[id number] Age/Sex: 64 / F ADM Date: 02/01/25 Loc: Room: Type: [facility] Attending Dr: Faina Ibarra MD Copies to: Valerio Villa Jr, DO Norleena Poynter, MD Ordering Provider: Faina Ibarra MD Date of Service: 02/01/25 NM/NM thyroid ca whole body: Thyroid cancer DOSE ORDERED Nuclear medicine whole body I-123 imaging. Reason for exam: Thyroid cancer. COMPARISON: Thyroid ultrasound 08/26/2024. TECHNIQUE: Whole body imaging was performed after oral administration of 2 mCi of I-123. FINDINGS: Presumed abnormal activity is seen involving the right aspect of the thyroid bed as well as the right neck. Additional physiological activity is seen within the abdomen. NM/NM thyroid ca whole body Impression: Abnormal activity is seen involving the right aspect of the thyroid bed as well as the right neck. Impression dictated by: Valerio Villa Jr., D.O. 02/01/2025 11:10 AM Dictation Location: [place] [address] Transcribed By: [facility] 02/01/25 1110 Dictated By: Valerio Villa Jr, DO 02/01/25 1108 Signed By: <Electronically signed by Valerio Villa Jr, DO in OV> 02/01/25 1110 THYROID STIMULATING HORMONE Collected: 01/31/2025 9:1 2 AM Status: F Source: [facility] TYPE CODE TESTS RESULT OUT OF RANGE REFERENCE UNITS LAB TSH3 Thyroid Stimulating Hormone 154.48 High 0.45-5.33 u[iU]/mL Result Comment: PERFORMED BY : [address] [address] PATHOLOGIST HOME ECONOMICS TEACHER ULISES LAN M.D. Performed By: #### THYGLOB # ### [facility] , #### TSH3 #### [address] THYROGLOBULIN, QUANT + TG AB Collected: 01/31/2025 9: 12 AM Status: F Source: [facility] TYPE CODE TESTS RESULT OUT OF RANGE REFERENCE UNITS LAB THYGLOB AB Antithyroglobulin Ab <1.0 0.0-0.9 [IU]/mL Result Comment: Thyroglobuli n Antibody measured by Jorge Alberto Masha Methodology It should be noted that the presence of thyroglobulin antibodies may not be pathogenic nor diagnostic, especially at very low levels. The assay [employer] has found that four percent of individuals without evidence of thyroid disease or autoimmunity will have positive TgAb levels up to 4 IU/mL. LAB TG-RAMIRO Thyroglobulin by RAMIRO 0.2 Low 1.5-38.5 ng /mL Result Comment: According t o the National Academy of Clinical Biochemistry, the reference interval for Thyroglobulin (TG) should be related to euthyroid patients and not for patients who underwent thyroidectomy. TG reference intervals for these patients depend on the residual mass of the thyroid tissue left after surgery. Establishing a post-operative baseline is recommended. The assay limit of quantitation is 0.1 ng/mL Thyroglobulin measured by Jorge Alberto Henderson Immunometric Assay Performed at: [facility] [employer] [address] [id number] Body And Fender Mechanic: Joseph Miller PhD, Phone: [phone] PERFORMED BY: [place] [address] PATHOLOGIST HOME ECONOMICS TEACHER ULISES LAN M.D. Performed By: #### THYGLOB # ### [facility] , #### TSH3 #### [address] THYROXINE (T4) TOTAL Collected: 11:59 AM Status: F Source: [facility] TYPE CODE TESTS RESULT OUT OF RANGE REFERENCE UNITS LAB T4T Thyroxine (T4) Total 3.18 Low 5.39-11.82 ug/dL Performed By: #### TSH3, T3T , T4T #### [address] TRIIODOTHYRONINE (T3) TOTAL Collected: 12/04/2024 11: 59 AM Status: F Source: [facility] TYPE CODE TESTS RESULT OUT OF RANGE REFERENCE UNITS LAB T3T Triiodothyronine (T3) Total 0.70 Low 0.87-1.78 ng/mL Performed By: #### TSH3, T3T , T4T #### [place] [id number] [facility] THYROID STIMULATING HORMONE Collected: 12/04/2024 11:59 AM Status: F Source: [facility] TYPE CODE TESTS RESULT OUT OF RANGE REFERENCE UNITS LAB TSH3 Thyroid Stimulating Hormone 115.36 High 0.45-5.33 u[iU]/mL Result Comment: PERFORMED BY : [place] [address] PATHOLOGIST HOME ECONOMICS TEACHER ELIUD HIGGINBOTHAM M.D. Performed By: #### TSH3, T3T , T4T #### [address] PARATHYROID HORMONE INTACT Collected: 10/30/2024 10:0 2 AM Status: F Source: [facility] TYPE CODE TESTS RESULT OUT OF RANGE REFERENCE UNITS LAB PTH Parathyroid Hormone Intact 29.9 Normal 12-88 pg/mL Result Comment: PERFORMED BY : [place] [address] PATHOLOGIST HOME ECONOMICS TEACHER ELIUD HIGGINBOTHAM M.D. Performed By: #### PTH #### [facility] [address] [place] [address] CALCIUM Collected: 10:02 AM Status: F Source: [facility] TYPE CODE TESTS RESULT OUT OF RANGE REFERENCE UNITS LAB CA Calcium 9.7 Normal 8.6-10.3 mg/dL Performed By: #### [id number], CA, T4T, T3T, TSH3 #### [place] [id number] [facility] THYROXINE (T4) TOTAL Collected: 10:02 AM Status: F Source: [facility] TYPE CODE TESTS RESULT OUT OF RANGE REFERENCE UNITS LAB T4T Thyroxine (T4) Total 10.80 Normal 5.39-11.82 ug/dL Performed By: #### [id number], CA, T4T, T3T, TSH3 #### [place] [id number] [facility] TRIIODOTHYRONINE (T3) TOTAL Collected: 10/30/2024 10: 02 AM Status: F Source: [facility] TYPE CODE TESTS RESULT OUT OF RANGE REFERENCE UNITS LAB T3T Triiodothyronine (T3) Total 1.05 Normal 0.87-1.78 ng/mL Performed By: #### [id number], CA, T4T, T3T, TSH3 #### [place] [id number] [facility] THYROID STIMULATING HORMONE Collected: 10/30/2024 10:02 AM Status: F Source: [facility] TYPE CODE TESTS RESULT OUT OF RANGE REFERENCE UNITS LAB TSH3 Thyroid Stimulating Hormone 0.53 Normal 0.45-5.33 u[iU]/mL Performed By: #### [id number], CA, T4T, T3T, TSH3 #### [place] [id number] [facility] VITAMIN D 25 HYDROXY TOTAL Collected: 0 10/30/2024 10:02 AM Status: F Source: [facility] TYPE CODE TESTS RESULT OUT OF RANGE REFERENCE UNITS LAB [id number] Vitamin D 25 Hydroxy Total 13.8 Low 30-100 ng/mL Result Comment: VITAMIN D ST ATUS 25(OH)VITAMIN D RANGE (ng/mL) Deficient <20 Insufficient 20 to <30 Sufficient 30 to 100 Reference: Flip MF,Neal NC, Jasvir ARRIOLA, et al. Evaluation,treatment, and prevention of vitamin D deficiency; an Endocrine Society clinical practice guideline. JCEM. 2010; 96(7):1911-30. PERFORMED BY: [place] [id number] PATHOLOGIST HOME ECONOMICS TEACHER ELIUD HIGGINBOTHAM M.D. Performed By: #### [id number], CA, T4T, T3T, TSH3 #### [place] [id number] [facility] CALCIUM Collected: 10:25 AM Status: F Source: [facility] Order Comment: Comment Call to Dr. Mendoza TYPE CODE TESTS RESULT OUT OF RANGE REFERENCE UNITS LAB CA Calcium 9.0 Normal 8.6-10.3 mg/dL Result Comment: PERFORMED BY : [place] [address] PATHOLOGIST HOME ECONOMICS TEACHER ELIUD HIGGINBOTHAM M.D. Performed By: #### PTH, CA # ### [address] PARATHYROID HORMONE INTACT Collected: 10/25/2024 10:2 5 AM Status: F Source: [facility] Order Comment: Comment Call to Dr. Mendoza TYPE CODE TESTS RESULT OUT OF RANGE REFERENCE UNITS LAB PTH Parathyroid Hormone Intact 5.8 Low 12-88 pg/mL Result Comment: PERFORMED BY : [address] [address] PATHOLOGIST HOME ECONOMICS TEACHER ELIUD HIGGINBOTHAM M.D. Performed By: #### PTH, CA # ### [place] [id number] [facility] L Observed: 10/25/2024 8:25 AM Status: F Source: [facility] ----- ------- Specimen: [id number] Received: 10/25/24 Status: ANGLE Mcwilliams Num: [id number] Spec Type: Surgical Subm Dr: Fab Mendoza DO Tissues: A Parathyroid Gland (PARATHYROID) B Parathyroid Gland (PARATHYROID) C THYROID - Lobe (RT LOBE AND ISTHMUS) D Lymph Node - Regional Resection (RT LATERAL CENTRAL COMPARTME) E Lymph Node - Regional Resection (CENTRAL RT CENTRAL COMPARTME) F THYROID - Lobe (LEFT LOBE) Procedures: HE/32, Gross/Micro L5/4, Gross/Micro L4/2, TTF1/3, FS HE/4, DIFF QWIK/2 ----- ------- Age/ Patient Sex Location Account Attending Physician ----- ------- Evy Morales 64/F [place] [id number] Fab Mendoza DO ----- ------- SPEC NUM: [id number] RECD: 10/25/24 STATUS: ANGLE MCWILLIAMS NUM: [id number] CLIFF: 10/25/[address] [facility] [address]: Fab Mendoza DO ENTERED: 10/25/24 [facility] DR: RAVI TYPE: Surgical DEPT: S ENTERED BY: [id number] RECV BY: [id number] ORDERED: HE/32, Gross/Micro L5/4, Gross/Micro L4/2, TTF1/3, FS HE/4, DIFF QWIK/2 ORDERED: HE/32, Gross/Micro L5/4, Gross/Micro L4/2, TTF1/3, FS HE/4, DIFF QWIK/2 Pathological Diagnosis A, rule out parathyroid versus metastatic tumor, biopsy: -Small benign parathyroid gland with 50% adipocytes (not shown on the original slide of the frozen section) B, rule out parathyroid, biopsy: -Tiny benign parathyroid gland with 40% adipocytes C, right thyroid lobe and isthmus, right lobectomy with isthmectomy: -Papillary thyroid carcinoma -3 x 2.5 x 1.7 cm -Only tiny minimal per-thyroidal invasion -All margins are negative for malignancy -Severe lymphocytic chronic thyroiditis in the remaining thyroid tissue -Incidental at least 1 small perithyroid lymph node without tumor (0/1) -See cancer summary below D, right lateral central compartment lymph node dissection: -Metastatic cancer in 2 of 3 lymph nodes (2/3, including 1 macrometastasis, 1 micrometastasis, No perinodal invasion) ----- ------- Specimen: [id number] Received: 10/25/24 Status: ANGLE Mcwilliams Num: [id number] Spec Type: Surgical Subm Dr: Fab Mendoza DO Tissues: A Parathyroid Gland (PARATHYROID) B Parathyroid Gland (PARATHYROID) C THYROID - Lobe (RT LOBE AND ISTHMUS) D Lymph Node - Regional Resection (RT LATERAL CENTRAL COMPARTME) E Lymph Node - Regional Resection (CENTRAL RT CENTRAL COMPARTME) F THYROID - Lobe (LEFT LOBE) Procedures: HE/32, Gross/Micro L5/4, Gross/Micro L4/2, TTF1/3, FS HE/4, DIFF QWIK/2 ----- ------- Patient: Evy Morales [id number] (Continued) ----- ------- Specimen: [id number] Received: 10/25/24 (Continued) Pathological Diagnosis (Continued) Signed (signature on file) Ebony Freeman MD 10/29/242037 ----- ------- Specimen: [id number] Received: 10/25/24 Status: ANGEL Mcwilliams Num: [id number] Spec Type: Surgical Subm Dr: Fab Mendoza DO Tissues: A Parathyroid Gland (PARATHYROID) B Parathyroid Gland (PARATHYROID) C THYROID - Lobe (RT LOBE AND ISTHMUS) D Lymph Node - Regional Resection (RT LATERAL CENTRAL COMPARTME) E Lymph Node - Regional Resection (CENTRAL RT CENTRAL COMPARTME) F THYROID - Lobe (LEFT LOBE) Procedures: HE/32, Gross/Micro L5/4, Gross/Micro L4/2, TTF1/3, FS HE/4, DIFF QWIK/2 ----- ------- Patient: Evy Morales [id number] (Continued) ----- ------- Specimen: [id number] Received: 10/25/24 (Continued) Pathological Diagnosis (Continued) -1 small benign parathyroid gland with 50% adipocytes E, central right central compartment lymph node biopsy: -Micrometastasis in 3 small lymph nodes (3/3) -TTF-1 IHC are also examined F, left lobe of thyroid, left lobectomy: -Severe lymphocytic chronic thyroiditis -Mild background thyroid follicular nodular disease -At least 1 tiny focus of papillary microcarcinoma of classic type (< 0.5 mm) CAP CANCER SUMMARY SPECIMEN Procedure: C, Right lobectomy with isthmusectomy (Right hemithyroidectomy) F, Left lobectomy TUMOR Tumor Focality: Multifocal Tumor Characteristics -Tumor Site: Right (large tumor) and left lobe -Tumor Size: Greatest Dimension (Centimeters) - 3 cm (right lobe) and < 0.05 cm (left lobe) Histologic Tumor Types and Subtypes: -Papillary carcinoma, mixed columnar cell and oncocytic classic subtype, with minor follicular component Tumor Proliferative Activity -Mitotic Rate: Less than 3 mitoses per 2mm2 Tumor Necrosis: Identified, large foci, probably due to biopsy related ischemic infarction Angioinvasion (vascular invasion): Identified, 1 tiny tumor nest in vascular wall of 1 large vessel Lymphatic Invasion: Not identified Perineural Invasion: Identified, at least 1 nerve Extrathyroidal Extension: Identified, minimal / minute foci ----- ------- Specimen: [id number] Received: 10/25/24 Status: ANGLE Mcwilliams Num: [id number] Spec Type: Surgical Subm Dr: Fab Mendoza DO Tissues: A Parathyroid Gland (PARATHYROID) B Parathyroid Gland (PARATHYROID) C THYROID - Lobe (RT LOBE AND ISTHMUS) D Lymph Node - Regional Resection (RT LATERAL CENTRAL COMPARTME) E Lymph Node - Regional Resection (CENTRAL RT CENTRAL COMPARTME) F THYROID - Lobe (LEFT LOBE) Procedures: HE/32, Gross/Micro L5/4, Gross/Micro L4/2, TTF1/3, FS HE/4, DIFF QWIK/2 ----- ------- Patient: Evy Morales [id number] (Continued) ----- ------- Specimen: [id number] Received: 10/25/24 (Continued) Pathological Diagnosis (Continued) Signed (signature on file)__Gregoria_Susanna Freeman MD 10/29/24 2038 ----- ------- Specimen: [id number] Received: 10/25/24 Status: ANGLE Mcwilliams Num: [id number] Spec Type: Surgical Subm Dr: Fab Mendoza, Tissues: A Parathyroid Gland (PARATHYROID) B Parathyroid Gland (PARATHYROID) C THYROID - Lobe (RT LOBE AND ISTHMUS) D Lymph Node - Regional Resection (RT LATERAL CENTRAL COMPARTME) E Lymph Node - Regional Resection (CENTRAL RT CENTRAL COMPARTME) F THYROID - Lobe (LEFT LOBE) Procedures: HE/32, Gross/Micro L5/4, Gross/Micro L4/2, TTF1/3, FS HE/4, DIFF QWIK/2 ----- ------- Patient: Evy Morales [id number] (Continued) ----- ------- Specimen: [id number] Received: 10/25/24 (Continued) Pathological Diagnosis (Continued) MARGIN STATUS: -All margins negative for carcinoma Margin Comment: -The closest margin is < 1 mm to posterior margin -The closest margin is < 1 mm to anterior margin REGIONAL LYMPH NODES Regional Lymph Node Status: -Tumor present in regional lymph nodes Number of lymph nodes with tumor: 5 Jasmin levels involved: level Size of largest metastatic deposit: 2.1 mm Extranodal extension: Not identified Number of Lymph Nodes Examined: 7 Jasmin Level(s) Examined: Level pTNM CLASSIFICATION (AJCC 8th Edition) Reporting of pT, pN, and (when applicable) pM categories is based on information available to the pathologist at the time the report is issued. As per the AJCC (Chapter 1, 8th Ed.) it is the managing physician's responsibility to establish the final pathologic stage based upon all pertinent information, including but potentially not limited to this pathology report. pT Category: pT2 pN Category: pN1a ADDITIONAL FINDINGS Parathyroid gland(s) present -Number of Parathyroid Glands: 3 biopsies -Location of Parathyroid Gland(s): Not specified -Parathyroid Gland Findings: Normal, small Severe chronic lymphocytic thyroiditis with marked follicular lymphoid hyperplasia including prominent germinal centers, and the occasionally associated cytological atypia of thyroiditis Thyroid nodular follicular disease ----- ------- Specimen: [id number] Received: 10/25/24 Status: ANGLE Mcwilliams Num: [id number] Spec Type: Surgical Subm Dr: Fab Mendoza DO Tissues: A Parathyroid Gland (PARATHYROID) B Parathyroid Gland (PARATHYROID) C THYROID - Lobe (RT LOBE AND ISTHMUS) D Lymph Node - Regional Resection (RT LATERAL CENTRAL COMPARTME) E Lymph Node - Regional Resection (CENTRAL RT CENTRAL COMPARTME) F THYROID - Lobe (LEFT LOBE) Procedures: HE/32, Gross/Micro L5/4, Gross/Micro L4/2, TTF1/3, FS HE/4, DIFF QWIK/2 ----- ------- Patient: Evy Morales [id number] (Continued) ----- ------- Specimen: [id number] Received: 10/25/24 (Continued) Signed (signature on file) LukasDionicio Freeman MD 10/29/242037 ----- ------- Specimen: [id number] Received: 10/25/24 Status: YOELNicole Mcwilliams Num: [id number] Spec Type: Surgical Subm Dr: Fab Mendoza DO Tissues: A Parathyroid Gland (PARATHYROID) B Parathyroid Gland (PARATHYROID) C THYROID - Lobe (RT LOBE AND ISTHMUS) D Lymph Node - Regional Resection (RT LATERAL CENTRAL COMPARTME) E Lymph Node - Regional Resection (CENTRAL RT CENTRAL COMPARTME) F THYROID - Lobe (LEFT LOBE) Procedures: HE/32, Gross/Micro L5/4, Gross/Micro L4/2, TTF1/3, FS HE/4, DIFF QWIK/2 ----- ------- Patient: Evy Morales [id number] (Continued) ----- ------- Specimen: [id number] Received: 10/25/24 (Continued) Clinical Information Thyroid cancer, rule out parathyroid versus metastatic papillary thyroid cancer Gross Description Part A is received fresh for frozen section labeled with the patients name, date of , and rule out parathyroid versus metastatic papillary thyroid cancer is a less than 0.1 g, fibrofatty nodule, 0.5 x 0.4 x 0.3 cm. Touch prep slides are prepared and the specimen is entirely submitted for frozen section as A1. (1, ns, [id number] A) JG Part B is received fresh for frozen section labeled with the patients name, date of , and rule out parathyroid is a less than 0.1 g, 0.3 cm, red-cerda tissue bit. Touch prep slides are prepared and the specimen is entirely submitted in a single cassette. (1, ns, [id number] B) JG Part C is received in formalin labeled with the patients name, date of , and RT thyroid lobe and isthmus is a 12.2 g, right thyroidectomy specimen, 3.2 cm superior to inferior, 3.3 cm medial to lateral, and 2.4 cm anterior to posterior. The inferomedial aspect of the specimen displays a roughened irregular area, 0.8 x 0.3 cm, consistent with fragmented isthmic margin. The remaining capsular surface is cerda-pink, smooth and glistening with focal adhesions on the posterior aspect. The fragmented isthmic margin is inked orange with the remainder the thyroid inked black. Serial sections reveal a sam-cerda to pink-yellow, ill-defined fibrous nodule, 3 x 2.5 x 1.7 cm. The nodule is situated 1.2 cm from the fragmented isthmic margin, and adjacent (less than 0.1 cm) from the anterior, as well as posterior surfaces. The remaining thyroid parenchyma is red-brown, glistening and uniform. The specimen is entirely submitted progressing from superior to inferior in C1?C12, respectively. (12, ns, [id number] C)JG Part D is received in formalin labeled with the patients name, date of , and RT lateral central compartment LN dissection are fragments of fibrofatty tissue, 3 x 1.3 x 0.8 cm in aggregate. Within the adipose tissue are 4 lymph node candidates. The specimen is entirely submitted. Cassettes: D1 2 bisected 0.5 cm each in greatest dimension lymph node candidates (1 inked blue and 1 inked black) ----- ------- Specimen: [id number] Received: 10/25/24 Status: ANGLE Herbertrachel Num: [id number] Spec Type: Surgical Subm Dr: Fab Mendoza DO Tissues: A Parathyroid Gland (PARATHYROID) B Parathyroid Gland (PARATHYROID) C THYROID - Lobe (RT LOBE AND ISTHMUS) D Lymph Node - Regional Resection (RT LATERAL CENTRAL COMPARTME) E Lymph Node - Regional Resection (CENTRAL RT CENTRAL COMPARTME) F THYROID - Lobe (LEFT LOBE) Procedures: HE/32, Gross/Micro L5/4, Gross/Micro L4/2, TTF1/3, FS HE/4, DIFF QWIK/2 ----- ------- Patient: Evy Morales [id number] (Continued) ----- ------- Specimen: [id number] Received: 10/25/24 (Continued) Gross Description (Continued) Signed (signature on file) Ebony Freeman MD 10/29/242037 ----- ------- Specimen: [id number] Received: 10/25/24 Status: ANGLE Herbertrachel Num: [id number] Spec Type: Surgical Subm Dr: Fab Mendoza DO Tissues: A Parathyroid Gland (PARATHYROID) B Parathyroid Gland (PARATHYROID) C THYROID - Lobe (RT LOBE AND ISTHMUS) D Lymph Node - Regional Resection (RT LATERAL CENTRAL COMPARTME) E Lymph Node - Regional Resection (CENTRAL RT CENTRAL COMPARTME) F THYROID - Lobe (LEFT LOBE) Procedures: HE/32, Gross/Micro L5/4, Gross/Micro L4/2, TTF1/3, FS HE/4, DIFF QWIK/2 ----- ------- Patient: Evy Morales [id number] (Continued) ----- ------- Specimen: [id number] Received: 10/25/24 (Continued) Gross Description (Continued) D2 2 intact 0.3 cm each in greatest dimension lymph node candidates D3-D4 Remaining fibrofatty tissue (4, ns, Z62-9570 D) Part E is received in formalin labeled with the patients name, date of , and central RT central compartment is and ovoid portion of fibrofatty tissue, 2 x 1.7 x 1 cm. Within the adipose tissue are 2 lymph node candidates. The specimen is entirely submitted. Cassettes: E1 Bisected 0.4 cm in greatest dimension lymph node candidate E2 Intact 0.3 cm in greatest dimension lymph node candidate A3 Remaining fibrofatty tissue (3, ns, [id number] E) Part F is received in formalin labeled with the patients name, date of , and left lobe is a 7.2 g, left thyroidectomy specimen, 3.5 cm superior to inferior, 2.5 cm medial to lateral, and 1.5 cm anterior to posterior. The inferomedial aspect of the specimen displays a rough and irregular area, 1.2 x 0.4 cm, consistent with fragmented isthmic margin. The remaining capsular surface is cerda-pink, smooth and glistening with focal adhesions on the posterior aspect. Serial sections reveal red-brown, glistening and uniform cut surfaces. The specimen is entirely submitted progressing from superior to inferior in F1?F9, respectively. (9, ns, X11-7044 A) Intraoperative Diagnosis Frozen section diagnosis Part A rule out parathyroid versus metastatic papillary thyroid CA Focal fibrosis and fat, pending permanent sections, 1 PIN-CYC called results into Dr. Mendoza at 0842 on 10/25/2024 Part B rule out parathyroid Small parathyroid tissue, 1 PIN-CYC called results into Dr. Mendoza at 0916 on 10/25/2024 ----- ------- Specimen: [id number] Received: 10/25/24 Status: ANGLE Mcwilliams Num: [id number] Spec Type: Surgical Subm Dr: Fab Mendoza DO Tissues: A Parathyroid Gland (PARATHYROID) B Parathyroid Gland (PARATHYROID) C THYROID - Lobe (RT LOBE AND ISTHMUS) D Lymph Node - Regional Resection (RT LATERAL CENTRAL COMPARTME) E Lymph Node - Regional Resection (CENTRAL RT CENTRAL COMPARTME) F THYROID - Lobe (LEFT LOBE) Procedures: HE/32, Gross/Micro L5/4, Gross/Micro L4/2, TTF1/3, FS HE/4, DIFF QWIK/2 ----- ------- Patient: Evy Morales [id number] (Continued) ----- ------- Specimen: [id number] Received: 10/25/24 (Continued) Signed (signature on file) Ebony Freeman MD 10/29/242037 ----- ------- Specimen: [id number] Received: 10/25/24 Status: ANGLE Mcwilliams Num: [id number] Spec Type: Surgical Subm Dr: Fab Mendoza DO Tissues: A Parathyroid Gland (PARATHYROID) B Parathyroid Gland (PARATHYROID) C THYROID - Lobe (RT LOBE AND ISTHMUS) D Lymph Node - Regional Resection (RT LATERAL CENTRAL COMPARTME) E Lymph Node - Regional Resection (CENTRAL RT CENTRAL COMPARTME) F THYROID - Lobe (LEFT LOBE) Procedures: HE/32, Gross/Micro L5/4, Gross/Micro L4/2, TTF1/3, FS HE/4, DIFF QWIK/2 ----- ------- Patient: Evy Morales [id number] (Continued) ----- ------- Specimen: [id number] Received: 10/25/24 (Continued) Microscopic Description Microscopic examinations are performed supporting the above interpretation CPT Codes 18103b0 55514a7 80282c0 67958x8 07677j4 ----- ------- ----- ------- Specimen: [id number] Received: 10/25/24 Status: ANGLE Mcwilliams Num: [id number] Spec Type: Surgical Subm Dr: Fab Mendoza DO Tissues: A Parathyroid Gland (PARATHYROID) B Parathyroid Gland (PARATHYROID) C THYROID - Lobe (RT LOBE AND ISTHMUS) D Lymph Node - Regional Resection (RT LATERAL CENTRAL COMPARTME) E Lymph Node - Regional Resection (CENTRAL RT CENTRAL COMPARTME) F THYROID - Lobe (LEFT LOBE) Procedures: HE/32, Gross/Micro L5/4, Gross/Micro L4/2, TTF1/3, FS HE/4, DIFF QWIK/2 ----- ------- Patient: Evy Morales [id number] (Continued) ----- ------- Signed (signature on file) Ebony Freeman MD 10/29/242037 PARATHYROID HORMONE INTACT Collected: 10/19/2024 4:03 PM Status: F Source: [facility] TYPE CODE TESTS RESULT OUT OF RANGE REFERENCE UNITS LAB PTH Parathyroid Hormone Intact 112.5 High 12-88 pg/mL Result Comment: PERFORMED BY : [facility] [place] [address] PATHOLOGIST HOME ECONOMICS TEACHER ELIUD HIGGINBOTHAM M.D. Performed By: #### T3T, T4T, PTH, TSH3 #### [facility] [address] [place] [address] #### CAION #### [facility] , THYROXINE (T4) TOTAL Collected: 10/19/2024 4:03 PM S tatus: F Source: [facility] TYPE CODE TESTS RESULT OUT OF RANGE REFERENCE UNITS LAB T4T Thyroxine (T4) Total 10.31 Normal 5.39-11.82 ug/dL Performed By: #### T3T, T4T, PTH, TSH3 #### [facility] [address] [place] [address] #### CAION #### [facility] , TRIIODOTHYRONINE (T3) TOTAL Collected: 10/19/2024 4:0 3 PM Status: F Source: [facility] TYPE CODE TESTS RESULT OUT OF RANGE REFERENCE UNITS LAB T3T Triiodothyronine (T3) Total 0.98 Normal 0.87-1.78 ng/mL Performed By: #### T3T, T4T, PTH, TSH3 #### [address] #### CAION #### [facility] , THYROID STIMULATING HORMONE Collected: 10/19/2024 4:0 3 PM Status: F Source: [facility] TYPE CODE TESTS RESULT OUT OF RANGE REFERENCE UNITS LAB TSH3 Thyroid Stimulating Hormone 0.94 Normal 0.45-5.33 u[iU]/mL Result Comment: PERFORMED BY : [place] [address] PATHOLOGIST HOME ECONOMICS TEACHER ELIUD HIGGINBOTHAM M.D. Performed By: #### T3T, T4T, PTH, TSH3 #### [address] #### CAION #### [facility] , IONIZED CALCIUM Collected: 10/19/2024 4:03 PM Status : F Source: [facility] TYPE CODE TESTS RESULT OUT OF RANGE REFERENCE UNITS LAB CAION Ionized Calcium 5.0 4.5-5.6 mg/dL Result Comment: Performed at : - [facility] [address] [id number] Body And Fender Mechanic: Joseph Miller PhD, Phone: [phone] PERFORMED BY: [place] [address] PATHOLOGIST HOME ECONOMICS TEACHER ELIUD HIGGINBOTHAM M.D. Performed By: #### T3T, T4T, PTH, TSH3 #### [place] [address] [place] #### CAION #### [facility] , US NEEDLE ASPIRATION Observed: 3:44 PM Status: COMPLETED Source: [facility] [place] [address] Ultrasound Report Signed Patient: Evy Morales MR#: [id number] : 1960 Acct:[id number] Age/Sex: 64 / F ADM Date: 10/05/24 Loc: Room: Type: [facility] Attending Dr: Fab Guevara DO Ordering Provider: Fab Guevara DO Date of Service: 10/05/24 US/US needle aspiration: E04.1 Copies to: Fab Guevara DO Ultrasound-guided fine-needle aspiration of right thyroid nodule. Informed consent obtained. Skin and the site prepped and draped in sterile fashion with local lidocaine administered. 4 20-gauge fine-needle aspirates obtained with ultrasound guidance. Specimens given to pathology for further assessment. Preliminary results adequate per pathologist. No immediate complications. Patient discharged in satisfactory condition. US/US needle aspiration IMPRESSION: Successful fine-needle aspiration of right thyroid nodule. Impression dictated by: Matthew Brewster M.D.10/05/2024 3:48 PM Dictation Location: [place] [address] Tech: Allyson Spencer Transcribed By: QIAN 10/05/24 1548 Dictated By: Matthew Brewster DO 10/05/24 1544 Signed By: <Electronically signed by Matthew Brewster DO in OV> 10/05/24 1548 L Observed: 10/05/2024 12:03 PM Status: F Source: [facility] ----- ------- Specimen: [id number] Received: 10/05/24-123 Status: ANGLE Mcwilliams Num: [id number] Spec Type: Cytology Subm Dr: Fab Guevara DO Tissues: A FNA SLIDES PATH (RT MID THY) Procedures: HE/2, -, DIFF QWIK/3, PAPSTN/4 Comments: IMMEDIATE ON-SITE ----- ------- Age/ Patient Sex Location Account Attending Physician ----- ------- Evy Morales 64/F [id number] Fab Guevara DO ----- ------- SPEC NUM: [id number] RECD: 10/05/24 STATUS: ANGLE MCWILLIAMS NUM: [id number] CLIFF: 10/05/[address]: Fab Guevara DO ENTERED: 10/05/24 [facility] DR: Matthew Brewster DO SPEC TYPE: Cytology DEPT: CNG ENTERED BY: [id number] RECV BY: [id number] ORDERED: HE/2, -, DIFF QWIK/3, PAPSTN/4 COMMENTS: IMMEDIATE ON-SITE ORDERED: HE/2, -, DIFF QWIK/3, PAPSTN/4 COMMENTS: IMMEDIATE ON-SITE Pathological Diagnosis Right mid thyroid nodule, fine needle aspiration (ThinPrep and Smear): -Cellular specimen with overall and focal nuclear features suspicious for papillary thyroid carcinoma Clinical Information Right mid thyroid nodule,hypothyroidism,elevated TSH Gross Description Received fresh is 2 ml red hazy unfixed fluid for cytology said to have been obtained as Thyroid Nodule. ThinPrep and cell block preparations are prepared for microscopic examination. (/tx) Also received are 3 spray fixed smeared slides for pap and a Veracyte vial stored at -20 for microscopic examination. (/nh) ----- ------- Specimen: [id number] Received: 10/05/24 Status: ANGLE Mcwilliams Num: [id number] Spec Type: Cytology Subm Dr: Fab Guevara DO Tissues: A FNA SLIDES PATH (RT MID THY) Procedures: HE/2, -, DIFF QWIK/3, PAPSTN/4 Comments: IMMEDIATE ON-SITE ----- ------- Patient: Evy Morales [id number] (Continued) ----- ------- Specimen: [id number] Received: 10/05/24 (Continued) Signed (signature on file) Jimenez Valdivia MD 10/06/24 1030 ----- ------- Specimen: [id number] Received: 10/05/24 Status: ANGLE Mcwilliams Num: [id number] Spec Type: Cytology Subm Dr: Fab Guevara DO Tissues: A FNA SLIDES PATH (RT MID THY) Procedures: HE/2, -, DIFF QWIK/3, PAPSTN/4 Comments: IMMEDIATE ON-SITE ----- ------- Patient: Evy Morales [id number] (Continued) ----- ------- Specimen: [id number] Received: 10/05/24 (Continued) Immediate Evaluation Cellular specimen, adequate for evaluation. Dr. Valdivia CPT Codes 25151, 98972 ----- ------- ----- ------- Specimen: [id number] Received: 10/05/24 Status: ANGLE Mcwilliams Num: [id number] Spec Type: Cytology Subm Dr: Fab Guevara DO Tissues: A FNA SLIDES PATH (RT MID THY) Procedures: HE/2, -, DIFF QWIK/3, PAPSTN/4 Comments: IMMEDIATE ON-SITE ----- ------- Patient: Evy Morales [id number] (Continued) ----- ------- Signed (signature on file) Jimenez Valdivia MD 10/06/24 1030 PLATELET COUNT Collected: 10:50 AM Status: F Source: [facility] TYPE CODE TESTS RESULT OUT OF RANGE REFERENCE UNITS LAB PLT Platelet Count 252 Normal 150-450 10*3/uL Result Comment: PERFORMED BY : [place] [address] PATHOLOGIST HOME ECONOMICS TEACHER ELIUD HIGGINBOTHAM M.D. Performed By: #### PLT #### [facility] [address] [place] [address] PROTHROMBIN TIME INR Collected: 025 10:50 AM Status: F Source: [facility] TYPE CODE TESTS RESULT OUT OF RANGE REFERENCE UNITS LAB R PT Prothrombin Time 11.9 Normal 9.0-12.9 s Result Comment: A hematocrit value greater than 55% may lead to inaccurate results in coagulation testing. Patients having hematocrit values >55% require a special collection tube for coagulation studies. Please contact the laboratory at [phone] for redraw instructions. LAB INR INR 1.0 Result Comment: INR Therapeu tic Range A) Pre- and Peroperative OAT started two weeks before surgery. NOT HIP SURGERY: 1.5 - 2.5 HIP SURGERY: 2 - 3 B) Primary and secondary prevention of venous THROMBOSIS: 2 - 3 C) Active venous thrombosis, pulmonary embolism and prevention of recurrent venous thrombosis: 2 - 3 D) Prevention of arterial thromboembolism including patients with mechanical heart valves: 3 - 4.5 Performed By: #### PTT, PT # ### [facility] [address] [place] [address] [facility] PARTIAL THROMBOPLASTIN TIME Collected: 10/05/2024 10: 50 AM Status: F Source: [facility] TYPE CODE TESTS RESULT OUT OF RANGE REFERENCE UNITS LAB PTT Partial Thromboplastin Time 34.2 Normal 25.1-36.5 s Result Comment: A hematocrit value greater than 55% may lead to inaccurate results in coagulation testing. Patients having hematocrit values >55% require a special collection tube for coagulation studies. Please contact the laboratory at [phone] for redraw instructions. PERFORMED BY: [facility] [address] [place] [address] PATHOLOGIST HOME ECONOMICS TEACHER ELIUD HIGGINBOTHAM M.D. Performed By: #### PTT, PT # ### [facility] [address] [place], [place] [address] [place] ALLERGIES DATE TYPE / CODE NAME / CODE REACTION SEVERITY SOURCE 01/09/2025 Drug Allergy/85377837 2(SNOMED CT) morphine/M653789857 (RXNORM) Vomiting Unknown [facility] 10/21/2022 DRUG INGREDI~NON-CBOR D/606032824(SNOM ED CT) MORPHINE [facility]iting [facility] ENCOUNTERS ADMIT/DISCHARGE ACCOUNT NUMBER ADMITTING ENCOUNTER CLASS LOCATION SOURCE 02/01/2025 [id number] [facility] 12/04/2024/12/05/[id number] [facility] 10/30/2024/10/31/[id number] [facility] 10/25/2024/10/26/[id number] [facility] 10/19/2024/10/19/[id number] [facility] 10/16/2024/10/17/19 [id number] Emergency Buildin 1Room: TELESTROKEBed : TELESTROKE BED [facility] 10/05/2024/10/05/19 [id number] Fab [facility]ue[facility] 08/17/2024 [id number] Ambulatory Building:Un kn own [facility] 08/14/2024 [id number] [facility] 08/14/2024 [id number] [facility] 08/14/2024 [id number] [facility] 08/12/2024/08/14/20 24 [id number] Emergency Buildin 1Room: TELESTROKEBed : TELESTROKE BED [facility] 05/16/2024/05/16/20 [id number] Ambulatory Buildin 8 [facility] 04/03/2024/04/03/20 [id number] Ambulatory Buildin 8 [facility] PAYERS ENCOUNTER GUARANTOR PAYER SUBSCRIBER SOURCE 02/01/[address] [place] [address]Zln: () Primary Insurance:MMOPolicy Number: [id number] Date:2265-62-55Xq [id number] [place] [address]NA: Evy ReynosoB: [id number] [place] [address]Yyu: () [facility] 02/01/2025 Secondary Insurance:Medicare-IP Part A OnlyPolicy Number: [id number] Date:2025-01-02 Evy ReynosoB: [id number] [place] [address]Exh: () [facility] 02/01/2025 Tertiary Insurance:Self PayPolicy Number: Effective Date:2025-01-29 [facility] 12/04/[address] [place] [address]Hbc: (HP) Primary Insurance:MMOPolicy Number: [id number] Date:5414-63-96Df [id number] [place] [address]PA: Evy MoralesDOB: [id number] [place] [address]Nvt: (HP) [facility] 12/04/2024 Secondary Insurance:MedicarePoli cy Number: [id number] Date:2024-11-01 Evy MoralesDOB: [id number] [place] [address]Ndd: () [facility] 12/04/2024 Tertiary Insurance:Self PayPolicy Number: Effective Date:2024-11-01 [facility] 10/30/2024 Evy Morales[address] [address]Iyj: (HP) Primary Insurance:MMOPolicy Number: [id number] Date:6426-56-36Ap [id number] [place] [address]AQ: Evy MoralesDOB: [id number] [place] [address]Ltq: (HP) [facility] 10/30/2024 Secondary Insurance:MedicarePoli cy Number: [id number] Date:2024-10-30 Evy MoralesDOB: [id number] [place] [address]Lns: () [facility] 10/30/2024 Tertiary Insurance:Self PayPolicy Number: Effective Date:2024-10-30 [facility] 10/25/2024 Evy Morales[address] [place] [address]Njr: () Primary Insurance:MMOPolicy Number: [id number] Date:3945-94-02Ig [id number] [place] [address]DE: Evy MartinidenaDOB: [id number] [place] [address]Tua: (HP) [facility] 10/25/2024 Secondary Insurance:MedicarePoli cy Number: [id number] Date:2024-10-17 Evy MartinidenaDOB: [id number] [place] [address]Wka: () [facility] 10/25/2024 Tertiary Insurance:Self PayPolicy Number: Effective Date:2024-10-23 [facility] 10/19/2024 Evy Martinirez[address] [address]Cjl: () Primary Insurance:MMOPolicy Number: [id number] Date:7866-53-72Vq [id number] [place] [address]ND: Evy MartinidenaDOB: [id number] [place] [address]Jiq: () [facility] 10/19/2024 Secondary Insurance:MedicarePoli cy Number: [id number] Date:2024-10-17 Evy MoralesDOB: [id number] [place] [address]Igj: () [facility] 10/19/2024 Tertiary Insurance:Self PayPolicy Number: Effective Date:2024-10-19 NOT GIVENUNK [facility] 10/16/2024 EVY MORALESDOB: [place], [place] [address]Osu: () Primary Insurance:[facility] HEALTH SERVICESPolicy Number: [id number] Date:2024-03-23 EVY MARTINIDenaDOB: [id number] [place], [place] [address]Wmm: (HP) () [facility] 10/05/2024 Evy EricksonIvlrekigz609 [place] [address]Orj: (HP) Primary Insurance:MMOPolicy Number: [id number] Date:0834-56-52Zn [phone] [place] [address]DT: Evy Ericksonhealthsouth rehabilitation hospital of southern arizonadenaB: [id number] [place] [address]Odi: () [facility] 10/05/2024 Secondary Insurance:MedicarePoli cy Number: [id number] Date:2024-09-14 Eyv EricksonSoutheast Arizona Medical CenterB: [id number] [place] [address]Pie: () [facility] 10/05/2024 Tertiary Insurance:Self PayPolicy Number: Effective Date:2024-09-14 [facility] 08/17/2024 EVY ERICKSONVALLEYWISE HEALTH MEDICAL CENTERDenaB: [place], [place] [address]Qaf: () Primary Insurance:[employer] HE[employer] SERVICESPolicy Number: [id number] Date:2024-03-23 EVY ERICKSONDIGNITY HEALTH ARIZONA GENERAL HOSPITALB: [id number] [place] [address]Vcr: (HP) (WP) [facility] 08/14/2024 [facility] GONZALO LORA [address]Lzv: (HP) Primary Insurance:[facility]IP HEALTH SERVICESPolicy Number: [id number] Date:2024-03-23 [facility]: [id number] [place] [address]Mbv: (HP) (WP) [facility] 08/14/2024 [facility]: G[place]ZALO [place] [address]Yds: (HP) Primary Insurance:[facility] SERVICESPolicy Number: [id number] Date:2024-03-23 [facility]OB: [id number] [place] [address]Fuj: (HP) (WP) [facility] 08/14/2024 [facility]: GONZALO [place]OR[place] [address]Jiu: (HP) Primary Insurance:[facility] SERVICESPolicy Number: [id number] Date:2024-03-23 [facility]: [id number] [place] [address]Qzu: (HP) (WP) [facility] 08/12/2024 [facility]: GONZALO LOR[place] [address]Nhj: (HP) Primary Insurance:[facility] SUPERMEDPolicy Number: [id number] Date:2016-04-23 [facility] HOSPITALREZDOB: [id number] [place] [address]Fst: (HP) (WP) [facility] 05/16/2024 EVYRADHA MARTINIZDOB: [place] [address]Zdb: (HP) Primary Insurance:[facility] Number: [id number] Date:2016-04-23 [facility]IL[facility] HOSPITALREZDOB: [id number] [place] [address]Nwh: (HP) (WP) [facility] 05/16/2024 Secondary Insurance:ADRIENNE Galindo Number: [id number] Date:2022-07-01 [facility]: [id number] [place] [address]Osu: (HP) (WP) [facility] 04/03/2024 EVYRADHA MARTINIZDOB: [place] [address]Wcl: (HP) Primary Insurance:ADRIENNE ErnstGenPrime Number: [id number] Date:2022-07-01 [facility]: [id number] [place] [address]Yla: (HP) (WP) [facility]
--- OUTSIDE RECORDS SUMMARY | 2025-02-26 11:51 | XMS_ITS | Continuity of Care Document ---
Author Organization [facility] Address [address] [place] [address] Insurance Providers Payer Plan Claims Address Claims Phone Policy Number Group Number Relation Employer Guarantor Name Guarantor Guarantor Address Guarantor Phone [employer] [address], [place] [address] [id number] [facility] Carmen Hewittz [address] [place] [address] [employer] ON [facility], [address], [place] [address] tel:[phone] [facility] Carmen Hewittz [address] [place] [address] [employer] [address], [place] [address] tel:[phone] [facility] Carmen Hewittz [address] [place] [address] Problems Unknown Problems Results No Results Allergies, adverse reactions, alerts No known allergies and adverse reactions Medications No administered medications reported Vital Signs Date Vital Result Comment 04/03/2023 Body Height 1.6957819063859 m Body Weight 84.12478420866 kg Body Mass Index 40.25 kg/m2 Social History No smoking Hx information available
--- OUTSIDE RECORDS SUMMARY | 2025-02-26 11:51 | XMS_ITS | Encounter Summary ---
Author Organization [facility] Address [address] [place] [address] Care Team Providers Care Flight Security Specialist Name Role Phone Lela, Russ CRYSTAL Unavailable [phone] Fab Mendoza DO Unavailable [phone] Fab Guevara DO Primary Care Provider [phone] Encounter Details Date Type Department Care Team (Late st Contact Info) Description 02/12/2025 Telephone [facility] [address] [place] [phone] Christine Ayoub MA Social History Tobacco Use Types Packs/Day Years Used Date Smoking Tobacco: Never Smokeless Tobacco: Never Alcohol Use Standard Drinks/Week Comments Never 0 (1 standard drink = 0.6 oz pur e alcohol) Comments Unknown Sex and Gender Information Value Date Recorded Sex Assigned at Not on file Legal Sex Female 7:35 PM EDT Gender Identity Female 05/01/2024 11:37 AM EDT Sexual Orientation Not on file documented as of this encounter Miscellaneous Notes * Telephone Encounter - Christine Ayoub MA - 02/14/2025 2:16 PM EDT Per Reji send patient levothyroxine (Synthroid) 100 MCG tablet 30 with 1 refill. Thank you * Telephone Encounter - Crhistine Ayoub MA - 02/12/2025 4:49 PM EDT Patient called not going to have enough levothyroxine till appt and also has been out of Vitamin D for 3 weeks. Appt coming up with labs 03/12Please assist. Thank you documented in this encounter Plan of Treatment Upcoming Encounters Date Type Department Care Team (Late st Contact Info) Description 03/12/2025 1:00 PM EDT Office Visit [facility] [place] [address] [place] [address] Fab Mendoza DO [address] [place] [address] documented as of this encounter Visit Diagnoses Diagnosis Malignant neoplasm of thyroid gland (HCC) Malignant neoplasm of thyroid gland Status post total thyroidectomy Other postprocedural status documented in this encounter Care Teams Flight Security Specialist Relationship Specialty Start Date End Date Fab Guevara DO [address] [place] [address] PCP - General Internal Medicine 12/13/24 Russ Vogel DO [address] [place] [address] Referring Physician Neurology 10/09/24 Fab Mendoza DO [address] [place] [address] Otolaryngology 11/01/24 documented as of this encounter
--- OUTSIDE RECORDS SUMMARY | 2025-02-26 11:51 | XMS_ITS | Clinical Summary ---
Author Organization [facility] Address [id number] [address] [place] [address] Care Team Providers Care Business Reporter Name Role Phone Fab Guevara Primary Care Provider [phone] Allergies Active Allergy Reactions Criticality Noted Date Comments Morphine Vomiting 10/21/2022 Medications amLODIPine (NORVASC) 5 mg tablet 2 Active ibuprofen (MOTRIN) 800 mg tablet TAKE 1 TABLET BY MOUTH EVERY 8 HOURS WITH FOOD OR MILK NEEDED 3 Active losartan (COZAAR) 25 mg tablet 3 Active metFORMIN (GLUCOPHAGE) 500 mg tablet 1 tablet (500 mg total) daily with breakfast. 2 Active pantoprazole (PROTONIX) 40 mg EC tablet 2 Active venlafaxine XR (EFFEXOR XR) 75 mg 24 hr capsule 2 Active OZEMPIC 2 mg/dose (8 mg/3 mL) pen injector 3 Active MOUNJARO 2.5 mg/0.5 mL pen injector ADMINISTER 2.5 MG UNDER THE SKIN EVERY WEEK FOR 4 WEEKS 4 Active levothyroxine (SYNTHROID, LEVOTHROID) 25 MCG tablet Take 1 tablet (25 mcg total) by mouth. 4 Active Active Problems Problem Noted Date Diagnosed Date Post-traumatic osteoarthritis of left knee 12/07 Sprain of MTP joint of left lesser toe(s), init 12/01/2023 Family History Medical History Relation Name Comments Cancer Brother Diabetes Brother Asthma Father Hypertension Mother Diabetes Sister Relation Name Status Comments Brother Father Mother Sister Social History Tobacco Use Types Packs/Day Years Used Date Smoking Tobacco: Never Passive Smoke Exposure: Never Smokeless Tobacco: Never Tobacco Cessation:Counseling Given: Not Answered Alcohol Use Standard Drinks/Week Comments Never 0 (1 standard drink = 0.6 oz pur e alcohol) Childcare Answer Date Recorded Childcare Unknown 02/01/2019 Employment Answer Date Recorded Employment Unknown 02/01/2019 Hunger Screening Answer Date Recorded Within the past 12 months we worried whether our food would run out before we got money to buy more. Never True 12/08/2023 Within the past 12 months th e food we bought just didn't last and we didn't have money to get more. Never True 12/08/2023 Purpose - Life Answer Date Recorded Purpose and direction in life Unknown Comments No Sex and Gender Information Value Date Recorded Sex Assigned at Female 01/26/2024 10:10 AM EDT Legal Sex Female 11:34 AM EDT Gender Identity Female 01/26/2024 10:10 AM EDT Sexual Orientation Straight 01/26/2024 10 :10 AM EDT Last Filed Vital Signs Vital Sign Reading Time Taken Comments Blood Pressure 141/79 10/05/2023 11:20 AM EST Pulse 68 10/05/2023 11:20 AM EST Temperature 36.8 C (98.3 F) 10/05/2023 9:23 AM EST Respiratory Rate 24 10/05/2023 11:20 AM EST Oxygen Saturation 96% 10/05/2023 11:20 AM EST Inhaled Oxygen Concentration - - Weight 84.4 kg (186 lb) 05/16/2024 2:59 PM EDT Height 142.2 cm (4' 8 ) 05/16/2024 2:59 PM EDT Body Mass Index 41.7 05/16/2024 2:59 PM EDT Plan of Treatment Health Maintenance Due Date Last Done Comments Depression Screening 1971 Adult BMI Follow Up Plan 1977 Zoster (Shingles) Vaccine (1 of 2) 2009 COVID-19 Vaccine (2023-2 5 season) 2024 03/04/2022, 07/07/2021, 11/15/2020, Additional history exists Fall Risk Screening 2024 Tobacco Screening 04/03/2025 04/03/2024 Influenza Vaccine 04/23/2025 08/02/2024, , 06/09/2019, Additional history exists Adult BMI Screening 05/16/2025 05/16/2024 DTaP,Tdap and Td Vaccines (2 - Td or Tdap) 07/01/2032 07/01/2022 Colonoscopy 10/05/2033 10/05/2023, 10/05/2023 Medical Devices Not on file Procedures Procedure Name Priority Date/Time Associated Diagnosis Comments PROVATION COLONOSCOPY Routine 10/05/2023 9:05 AM EST from Last 3 Months or Most Recently Relevant to Health Maintenance Results * Colonoscopy Report (10/05/2023 9:05 AM EST) Narrative SYSTEMGENERATED, DOCUMENTATION - 10/05/2023 9:05 AM EST This order has been auto-finalized for image and report archival in PACs. *For full report details, please reach out to your physician. This image is visible to you in MyChart.* us Isaiah iRvas DO IMG OR IMG ORDERABLES Final Result from Last 3 Months or Most Recently Relevant to Health Maintenance Insurance [employer] WORK[employer]ENSATION - [employer] Care Teams Business Reporter Relationship Specialty Start Date End Date Fab Guevara DO [address] [place] [phone] PCP - General Internal Medicine 04/07/21
--- OUTSIDE RECORDS SUMMARY | 2025-02-26 11:51 | XMS_ITS | Encounter Summary ---
Author Organization [facility] Address [id number] [address] [place] [address] Care Team Providers Care Quality Eng Name Role Phone Fab Guevara Primary Care Provider [phone] Reason for Referral * Diagnostic Imaging (Routine) - Pending Review Specialty Diagnoses / Procedures Referred By Contac t Referred To Contact Radiology Diagnoses Pain Procedures CT brain without contrast stroke alert [facility] [place] [address] Phone: tel: fax: Referral ID Status Reason Start Date Expiration Date V isits Requested Visits Authorized [id number] Pending Review 08/14/2024 08/14/2025 1 1 * Diagnostic Imaging (Routine) - Pending Review Specialty Diagnoses / Procedures Referred By Contac t Referred To Contact Radiology Diagnoses Pain Procedures CT angiogram head [facility] [place] [address] Phone: tel: fax: Referral ID Status Reason Start Date Expiration Date V isits Requested Visits Authorized [id number] Pending Review 08/14/2024 08/14/2025 1 1 * Diagnostic Imaging (Routine) - Pending Review Specialty Diagnoses / Procedures Referred By Contac t Referred To Contact Radiology Diagnoses Pain Procedures CT angiogram carotid [facility] [address] [place] [address] Phone: tel: fax: Referral ID Status Reason Start Date Expiration Date V isits Requested Visits Authorized [id number] Pending Review 08/14/2024 08/14/2025 1 1 Encounter Details Date Type Department Care Team (Late st Contact Info) Description 08/14/2024 Orders Only [facility] [place] [address] Transcribe, Orders Support User Pain (Primary Dx) Social History Tobacco Use Types Packs/Day Years Used Date Smoking Tobacco: Never Passive Smoke Exposure: Never Smokeless Tobacco: Never Alcohol Use Standard [...] Orientation Straight 01/26/2024 10 :10 AM EDT documented as of this encounter Plan of Treatment Not on file documented as of this encounter Results * CT angiogram head (08/12/2024 1:50 PM EST) us Scanning Provider External IMG CT ORDERABLES Fin al Result * CT angiogram carotid (08/12/2024 1:45 PM EST) us Scanning Provider External IMG CT ORDERABLES Fin al Result * CT brain without contrast stroke alert (08/12/2024 11:10 AM EST) us Scanning Provider External IMG CT ORDERABLES Fin al Result documented in this encounter Visit Diagnoses Diagnosis Pain- Primary Generalized pain documented in this encounter Care Teams Quality Eng Relationship Specialty Start Date End Date Fab Guevara DO [address] [place] [address] PCP - General Internal Medicine 04/07/21 documented as of this encounter
--- OUTSIDE RECORDS SUMMARY | 2025-02-26 11:51 | XMS_ITS | Clinical Summary ---
Author Organization [facility] Address [address] [place] [address] Care Team Providers Care Toll Service Observer Name Role Phone LelaRanjeet willinghamlyndon CRYSTAL Unavailable [phone] Fab Mendoza DO Unavailable [phone] Fab Guevara DO Primary Care Provider [phone] Allergies Active Allergy Reactions Criticality Noted Date Comments Morphine GI intolerance 10/21/2022 Medications venlafaxine (Effexor) 75 MG tablet Take 75 mg by mouth in the morning and 75 mg before bedtime. Active losartan (Cozaar) 25 MG tablet Take 25 mg by mouth Daily Active amLODIPine (Norvasc) 10 MG tablet Take 10 mg by mouth Daily Active pantoprazole (ProtoNix) 40 MG EC tablet Take 40 mg by mouth in the morning. Take before meals. Do not crush, chew, or split. Active aspirin 81 MG EC tablet Take 81 mg by mouth Daily Active levothyroxine (Synthroid, Levoxyl) 25 MCG tablet Take 25 mcg by mouth in the morning. Take before meals. Active ibuprofen 800 MG tablet Take 800 mg by mouth every 6 (six) hours if needed for mild pain Active atorvastatin (Lipitor) 20 MG tablet 5 Active OYSCO 500 + D 500-5 MG-MCG tablet 5 Active levothyroxine (Synthroid) 100 MCG tabletIndications :Status post total thyroidectomy Take 1 tablet (100 mcg) by mouth in the morning. Take before meals. 30 tablet 1 5 04/15/20 Active levothyroxine (Synthroid) 100 MCG tabletIndications :Status post total thyroidectomy Take 1 tablet (100 mcg) by mouth in the morning. Take before meals. 30 tablet 1 5 02/15/20 Discontinu ed(Reorder ) Active Problems Problem Noted Date Diagnosed Date Papillary thyroid carcinoma 11/01/2024 Overview (11/01/2024): FNA: 10/05/24 Resolved Problems Problem Noted Date Diagnosed Date Resolved Date Absence seizure 11/01/2024 11/01/2024 Overview (11/01/2024): Dx after experiencing global amnesia Elevated TSH 11/01/2024 11/01/2024 Fatigue 11/01/2024 11/01/2024 GERD (gastroesophageal reflux disease) 11/01/2024 11/01/2024 Headache 11/01/2024 11/01/2024 Hypercholesterolemia 11/01/2024 025 Chronic venous insufficiency of lower extremity 11/01/2024 11/01/2024 IFG (impaired fasting glucose) 11/01/2024 11/01/2024 Left shoulder pain 11/01/2024 SANTINO (obstructive sleep apnea) 11/01/2024 11/01/2024 Rotator cuff tendonitis 11/01/202410/21 Screening mammogram for breast cancer 11/01/2024 11/01/2024 Wellness examination 11/01/2024 025 Subclinical hypothyroidism 11/01/2024 0 11/01/2024 Thyroid nodule 11/01/2024 11/01/2024 Overview (11/01/2024): CTA neck: 2.5cm right thyroid nodule - 07/2024, US: 3cm TR4 right - 08/2024 FNA nodule: papillary thyroid cancer - 09/2024 TIA (transient ischemic attack) 11/01/2024 11/01/2024 Overview (11/01/2024): CT brain: normal - 07/2024, CTA brain/neck: normal - 07/2024, MRI brain: normal - 07/2024, Echo: LVEF 60%, LAE, normal RV size/function, RVSP 32 Transient global amnesia 11/01/202407/2025 Type 2 diabetes mellitus with hyperglycemia 11/01/2024 11/01/2024 Impaired gait 10/17/2024 10/17/2024 Post-traumatic osteoarthritis of left knee 12/08/2023 10/17/2024 Sprain of MTP joint of left lesser toe(s), init 12/01/2023 10/17/2024 Encounters Date Type Department Care Team Description 02/12/2025 Telephone [facility] [address] [place] [phone] Christine Ayoub MA 12/13/2024 4:00 PM EDT Office Visit [facility] [address] [place] [place] [phone] Fab Mendoza DO Change in voice (Primary Dx); Malignant neoplasm of thyroid gland (HCC); Status post total thyroidectomy 12/13/2024 Bamboo flowsheet [facility] [address] [place] [place] [phone] Fab Mendoza DO 12/13/2024 Travel from Last 3 Months Immunizations Immunization Administration Dates Next Due Hep B, Adolescent or Pediatric 06/29/2001 Influenza, injectable, quadrivalent, preservativ e free 07/04/2018 Influenza, recombinant, quad rivalent, injectable, preservative free 05/29/2022,06/09/2019 Influenza, seasonal, injectable, preservative fr ee 08/02/2024 Td (adult), 5 Lf tetanus tox oid, preservative free, adsorbed 05/22/2014 Tdap 07/01/2022 Family History Medical History Relation Name Comments Asthma Father Lázaro Hickey Hypertension Mother Arti oDug Hickey Relation Name Status Comments Father Lázaro Hickey Mother Arti Camacho Ruperto Social History Tobacco Use Types Packs/Day Years Used Date Smoking Tobacco: Never Smokeless Tobacco: Never Tobacco Cessation:Counseling Given: Not Answered Alcohol Use Standard Drinks/Week Comments Never 0 (1 standard drink = 0.6 oz pur e alcohol) Comments Unknown Sex and Gender Information Value Date Recorded Sex Assigned at Not on file Legal Sex Female 7:35 PM EDT Gender Identity Female 05/01/2024 11:37 AM EDT Sexual Orientation Not on file Last Filed Vital Signs Vital Sign Reading Time Taken Comments Blood Pressure 152/92 10/30/2024 8:58 AM EDT Pulse 73 10/30/2024 8:58 AM EDT Temperature - - Respiratory Rate - - Oxygen Saturation 95% 10/30/2024 8:58 AM EDT Inhaled Oxygen Concentration - - Weight 88.5 kg (195 lb) 12/13/2024 3:50 PM EDT Height 139.7 cm (4' 7 ) 12/13/2024 3:50 PM EDT Body Mass Index 45.32 12/13/2024 3:50 PM EDT Plan of Treatment Upcoming Encounters Date Type Department Care Team (Late st Contact Info) Description 03/12/2025 1:00 PM EDT Office Visit [facility] [address] [place] [address] Fab Mendoza, [address] [place] [address] Health Maintenance Due Date Last Done Comments CT Colonography 1959 FIT-DNA 1959 FIT 1959 FOBT 1959 Sigmoidoscopy 1959 Pap Smear 1980 Cervical Cancer Screening 1989 HPV/Cotest 1989 Pneumococcal Vaccine: 65+ Ye ars (1 of 1 - PCV) 2009 Mammogram 09/09/2024 09/09/2023 Influenza Vaccine (#1) 2025 , 05/29/2022, 06/09/2019, Additional history exists Colonoscopy 10/05/2033 10/05/2023 Colorectal Cancer Screening 10/05/2033 Procedures Procedure Name Priority Date/Time Associated Diagnosis Comments TSH Routine 12/04/2024 11:59 AM EDT Malignant neoplasm of thyroid gland (HCC) T4 (THYROXINE), TOTAL Routine 12/04/2024 11:59 AM EDT Malignant neoplasm of thyroid gland (HCC) T3, TOTAL Routine 12/04/2024 11:59 AM EDT Malignant neoplasm of thyroid gland (HCC) from Last 3 Months Results * (ABNORMAL) T3 (12/04/2024 11:59 AM EDT) TRIIODOTHYRONINE (T3) TOTAL 0.70(L) 0.87 - 1.78 ng/mL 12/04/2024 1:19 PM EDT [facility] Other Topography unknown / Unknown 12/04/2024 11:59 AM EDT 12/04/2024 11:59 AM EDT Fab Mendoza DO LAB BLOOD ORDERABLES Final Result [address] [address], [facility] [address] [place], [place] [id number] * (ABNORMAL) TSH (12/04/2024 11:59 AM EDT) THYROID STIMULATING HORMONE 115.36(H) 0.45 - 5.33 u[iU]/mL 12/04/2024 4:15 PM EDT [facility] Other Topography unknown / Unknown 12/04/2024 11:59 AM EDT 12/04/2024 11:59 AM EDT us Fab Mendoza DO LAB BLOOD ORDERABLES Final Result [address] [address], [address] [address] * (ABNORMAL) T4 (12/04/2024 11:59 AM EDT) THYROXINE (T4) TOTAL 3.18(L) 5.39 - 11.82 ug/dL 12/04/2024 1:16 PM EDT [facility] Other Topography unknown / Unknown 12/04/2024 11:59 AM EDT 12/04/2024 11:59 AM EDT Fab Mendoza DO LAB BLOOD ORDERABLES Final Result Performing Organization Address City/[facility] de Phone Number [facility] [address] [place] [address], [facility] [address] [place] [address] from Last 3 Months Insurance [employer] Care Teams Toll Service Observer Relationship Specialty Start Date End Date Fab Guevara DO [address] [place] [phone] PCP - General Internal Medicine 12/13/24 Russ Vogel DO [address] [place] [address] Referring Physician Neurology 10/09/24 Fab Mendoza DO [address] [place] [address] Otolaryngology 11/01/24
--- OUTSIDE RECORDS SUMMARY | 2025-02-26 11:51 | XMS_ITS | Clinical Summary ---
Author Organization [facility] Address [address] [place] [address] Care Team Providers Care Documentation Billing Clerk Name Role Phone Fab Guevara DO Primary Care Provider [phone] Allergies No known active allergies Medications losartan (COZAAR) 25 MG tablet Take 25 mg by mouth daily Active Social History Tobacco Use Types Packs/Day Years Used Date Smoking Tobacco: Never Smokeless Tobacco: Never Alcohol Use Standard Drinks/Week Comments No 0 (1 standard drink = 0.6 oz pur e alcohol) Comments No Sex and Gender Information Value Date Recorded Sex Assigned at Not on file Legal Sex Female 2:03 PM EDT Gender Identity Not on file Sexual Orientation Not on file Last Filed Vital Signs Vital Sign Reading Time Taken Comments Blood Pressure 194/93 01/07/2018 2:17 PM EDT Pulse 71 01/07/2018 2:17 PM EDT Temperature 36.2 C (97.2 F) 01/07/2018 2:17 PM EDT Respiratory Rate 16 01/07/2018 2:17 PM EDT Oxygen Saturation 97% 01/07/2018 2:17 PM EDT Inhaled Oxygen Concentration - - Weight 98.9 kg (218 lb) 01/07/2018 2:17 PM EDT Height 147.3 cm (4' 10 ) 01/07/2018 2:17 PM EDT Body Mass Index 45.56 01/07/2018 2:17 PM EDT Plan of Treatment Not on file Insurance [employer] Care Teams Documentation Billing Clerk Relationship Specialty Start Date End Date Fab Guevara DO PCP - General Internal Medicine 01/07/18
== END 2025-02-26 11:46 | disposition home or self-care (01) ==
LOC: LAB 11:49
PROVIDERS: PCP Internal Medicine; Visit Provider Internal Medicine
DX: R30.0 Dysuria (principal)
CPT/HCPCS: 87086; 87088; 87186

== ENCOUNTER 2025-06-23 09:43 | Outpatient (OUT) | payer OTHER, SELFPAY ==
--- OUTSIDE RECORDS SUMMARY | 2025-06-22 11:14 | XMS_ITS | Continuity of Care Document ---
Author Organization [facility] Address [address] [place] [address] Phone Care Team Providers Care Marklogic Developer Name Role Phone Ismael Fab CRYSTAL Primary Care Provider Anushka Lo APRN Attending Provider Fab Mendoza DO Referring Provider Fab Guevara DO Attending Provider [phone] Care Teams Patient Care Team Team Status: Active Member Role/Relationship Status Dates Fab Guevara DO Primary Care Provider Active Visit Care Team Team Status: Inactive Member Role/Relationship Status Dates Fab Guevara DO Primary Care Provider Active Start: May 08, 2025 End: May 08, 2025Preston Valerio ProviderActive Start: May 08, 2025 End: May 08, 2025 Visit Care Team Team Status: Active Member Role/Relationship Status Dates Fab Guevara DO Primary Care Provider Active Start: May 08, 2025 Stephenie Maki ProviderActiveStart: May 08, 2025 Preston Valerio ProviderActiveStart: May 08, 2025 Visit Care Team Team Status: Inactive Member Role/Relationship Status Dates Fab Guevara DO Primary Care Provider Active Start: May 09, 2025 End: May 09octavio Guevara DOAttsara ProviderActiveStart: May 09, 2025 End: May 09, 2025 Patient Care Team Team Status: Inactive Member Role/Relationship Status Dates Fab Guevara DO Primary Care Provider Active Start: June 22, 2025 End: June 22encarolina Guevara DOAttending ProviderActiveStart: June 22, 2025 End: June 22, 2025 Chief Complaint and Reason for Visit Chief Complaint Admit Date Virtual 2 Mo Follow Up May 08, 2 025 3:15pm Thyroid May 08, 2025 3:16pm 3 month f/u May 09, 2025 2:34pm Emotional, Thirsty June 22, 2025 2 :26pm Reason for Visit Admit Date Papillary thyroid carcinoma May 082024 3:15pm Absence seizure May 09, 2025 2:34pm Hypercholesterolemia May 09 2:34pm Hypertension May 09, 2025 2:34pm Hypothyroid May 09, 2025 2:34pm IFG (impaired fasting glucose) May 09, 2025 2:34pm Obesity May 09, 2025 2:34pm SANTINO (obstructive sleep apnea) May 09, 2025 2:34pm Papillary thyroid carcinoma May 092024 2:34pm Hypertension June 22, 2025 2 :26pm Hypothyroid June 22, 2025 2 :26pm IFG (impaired fasting glucose) May 252024 2:26pm Allergies, Adverse Reactions, Alerts Allergen Type Severity Reaction Last Updated Verified Status morphine Allergy Unknown Vomiting June 22, 2025 2:46pm Yes Active Social History Smoking Status Status Start Date End Date Date of Observa tion Never smoked tobacco (finding) January 09, 2025 3:00pm Observation Status Observation Response Date of Response Legal Sex [facility] (finding) [facility] 1960 Family History Relationship Condition Age at Onset Recorded Date/T laurel father Unknown AsthmaUnknownmotherDeceasedUnknownHypertensionUnknownbrotherDiabetes mellitus UnknownHypertensionUnknownMalignant neoplasm of liverUnknownHepatic cirrhosis UnknownsisterDiabetes mellitusUnknown Problems Active Problems Problem Diagnosis/Recorded Date Onset Date Status C omments Ganglion cyst of dorsum of l eft wrist March 01, 2025 12:20pm Unknown Active Chronic venous insufficiency of lower extremityJuly 2023 7:19amUnknown ActiveOSA (obstructive sleep apnea)March 13, 2024 7:20amUnknownActiveType 2 diabetes mellitus with hyperglycemiaJuly 2023 7:19amUnknownActiveScreening mammogram for breast cancerDeceer 2023 11:24pmUnknownActiveRotator cuff tendonitisOctober 2023 8:10amUnknownActiveTransient global amnesiaDeceer 2023 7:19pmUnknownActiveAbsence seizureMarch 2024 12:70fp9682EzhendXn after experiencing global amnesiaTIA (transient ischemic attack)August 13, 2024 7:22pmUnknownActiveCT brain: normal - 07/2024,CTA brain/neck: normal - 07/2024,MRI brain: normal - 07/2024,Echo: LVEF 60%, LAE, normal RV size/function, RVSP 32Wellness examinationDeceer 2023 11:24pmUnknown ActiveHeadacheJanuary 2024 10:05pmUnknownActiveHypercholesterolemiaJanuary 2024 1:39pmUnknownActiveHypothyroidApril 2024 7:37amUnknownActive Papillary thyroid carcinomaFebruary 2024 11:34pmUnknownActiveCTA neck: 2.5cm right thyroid nodule - 07/2024,US: 3cm TR4 right - 08/2024FNA nodule: papillary thyroid cancer - 09/2024Total thyroidectomy - 10/2024I-131 therapy - 12/2024IFG (impaired fasting glucose)May 09, 2025 8:41pmUnknownActiveLeft shoulder painOctober 2023 8:10amUnknownActiveGERD (gastroesophageal reflux disease)March 13, 2024 7:19amUnknownActiveHypertensionJuly 2023 7:17am UnknownActiveObesitySeptember 2024 8:42pmUnknownActiveInactive/Resolved Problems Problem Diagnosis/Recorded Date Onset Date Status C omments Thyroid nodule August 13, 2024 7:23pm Unknown Resol brunilda CTA neck: 2.5cm right thyroid nodule - 07/2024,US: 3cm TR4 right - 08/2024FNA nodule: papillary thyroid cancer - 09/2024 Medications Medication Status Dose Units Route Directions Qty Days Refills S tart Date Stop Date End Date Reason(s) Instructions Adherence Metformin 500 mg tablet Discontinued 500 MG PO Anne ly 30 0January 21, 2024 12:00amMay 2023 1:19pmMetformin 500 mg tabletDiscontinued0 .ROUTE.YDZQJTE1218Ubs2023 1:19pmJanuary 2024 12:51pmTAKE 1 TABLET BY MOUTH EVERY DAY WITH EVENING MEALVenlafaxine 75 mg capsule,extended release 24hr Discontinued0.ROUTE.LWAAQYL557Pcvn 2023 11:20amJanuary 2024 8:24pm TAKE 1 CAPSULE DAILYLevothyroxine 25 mcg bhqxcrCkeevgtrriup47HKLXAPfeub18058 March 23, 2024 12:00amA2023 1:21pmLevothyroxine 25 mcg tablet Discontinued0.ROUTE.ZROGUKN855Rabqtc 2023 1:21pmDece2023 3:51pm TAKE 1 TABLET BY MOUTH DAILYTirzepatide (Mounjaro) 5 mg/0.5 mL pen injector Rvfzyhwnglsh1BOXMZCBNvtkjs rthn7727Aytyfu2023 1:34pmSept2023 2:48pmType 2 diabetes mellitus with hyperglycemia Type 2 diabetes mellitus with hyperglycemiaTirzepatide (Mounjaro) 10 mg/0.5 mL pen hsfqrtfbAzvwzipkjnrp66AHNYMSQPnkjyc tqqn77Bvxboomdn2023 12:00am June 06, 2024 3:05pmTirzepatide (Mounjaro) 12.5 mg/0.5 mL pen injector Zpilbepcraed79.5MGSUBCUTevery ykgw4216Cedtbni2023 9:15amDemb2023 3:55pmAspirin 81 mg tablet,delayed release (DR/EC)Ibmsykkmjtaq13YNWYHprtd81 300December 2023 1:00amJanuary 2024 8:24pmAtorvastatin 20 mg tablet Sqlnnqtedftp05MWCJOxvkb at hvvlywi04279Bkzflzpa 2023 1:00amFebruary 2024 11:54amAmlodipine 10 mg vrxprdJpsgunqneqek4RFEKYkjqd37447Nlndvzy 2024 9:49amJanuary 2024 9:54amLosartan 25 mg xisxtuUoienlayjbpj85QBYBYdoyt jjdzl551277Njzxpww 2024 9:50amJanuary 2024 10:11amAmlodipine 5 mg nsumzwJwyqyyfkxhgv0NDRPTtxwa26052Bicaeko 2024 9:53amFebruary 2024 4:41pmLosartan 25 mg bddhgzVcnrjakxtgkq91BQSLUihcy hvczb701061Ivioubg 2024 10:11amSeptember 2024 1:12pmPantoprazole 40 mg tablet,delayed release (DR/EC)Dvftfmclocqq99XWHPLrois58250Kzntvol 2024 8:23pmFebruary 2024 4:41pmVenlafaxine 75 mg capsule,extended release 78bcJjcevdoepyvg3.ROUTE.COMPLEX 903Auguary 2024 8:23pmFebruary 2024 4:41pmTAKE 1 CAPSULE DAILY Aspirin 81 mg tablet,delayed release (DR/EC)Nwrrdoqdvtqk15HUNCUfufj47345Wdrfuct 2024 8:23pmFebruary 2024 4:41pmAmlodipine 5 mg tabletDiscontinued0 .ROUTE.VXPEWVX554Ujczs 2024 3:32pmApril 2024 2:53pmTAKE 1 TABLET BY MOUTH DAILYNitrofurantoin Monohyd/M-Cryst 100 mg jqmhuzgNzubzsghdhhy011RZQWZroft 12 owmkz0521Mfus 2024 12:00amSeptember 2024 3:21pmmust administer with a meal/foodLosartan 25 mg tabletActive0.ROUTE.GJLANPS6110Cgpvzrueu 2024 1:11pmTAKE ONE TABLET BY MOUTH TWICE DAILYComplies with drug therapy Amlodipine 5 mg tabletActive0.ROUTE.CHMFPCM343Kzufjxljy 2024 10:24pmTAKE ONE TABLET BY MOUTH DAILYComplies with drug therapyLevetiracetam (Keppra) 500 mg kdspvpWlmcpsavfnim534YGOMIhagw dailyFebruary 2024 1:00amMay 2024 2:59pmLevothyroxine 50 mcg ntoaqbMdvineeigogc44EDFLFUzkci dailyFebruary 2024 1:00amApril 2024 2:53pmIbuprofen 800 mg ydlociOlroon765JAYLvzqby 6 to 8 hours as needed for painFebruary 2024 1:00amComplies with drug therapy Venlafaxine 75 mg capsule,extended release 97csMxdceq54KOGSCyafv morningFebruary 2024 1:00amComplies with drug therapyAtorvastatin 20 mg khscefYrgljp35EZIU Every morningFebruary 2024 1:00amComplies with drug therapyAmlodipine 5 mg xyqoppZzcwrzxpphwl9PBIVIlkzq morningFebruary 2024 1:00amMarch 2024 7:06pmAspirin 81 mg tablet,delayed release (DR/EC)Ikkiwr24UNUWRxfrf morning October 19, 2024 1:00amOn Hold: Resume on 10/29/24.Complies with drug therapy Pantoprazole 40 mg tablet,delayed release (DR/EC)Beoxvf24MWKGBvonm morning October 19, 2024 1:00amOn Hold: Resume on 10/29/24.Complies with drug therapy Cholecalciferol (Vitamin D3) 1,250 mcg (50,000 unit) gdwpdlOcyxxsbdbvxv8880YSWYR March 16, 2024 12:00amJanuary 2024 12:50pmPotassium Chloride 10 mEq tablet extended zwatfnzKvyqchlgvcwc84ZHSXZMumff dailyJuly 2023 12:00amJuly 2023 12:01pmSemaglutide (Ozempic) 2 mg/dose (8 mg/3 mL) pen injectorDiscontinued MGSUBCUTJuly 2023 12:00amJuly 2023 12:02pmSemaglutide (Ozempic) 2 mg/dose (8 mg/3 mL) pen ndupvrdbWdiqeozzibqq1SDLAXLXFthtfc weekJuly 2023 12:01pmJuly 2023 1:17pmTirzepatide (Mounjaro) 2.5 mg/0.5 mL pen injector Discontinued2.5MGSUBCUTevery wdjg3063Kzac 2023 12:00amJuly 2023 1:22pmTirzepatide (Mounjaro) 5 mg/0.5 mL pen ompwfgwnUijmtbnzgass8WEMXLYBHtrfkj atpt9664Dzwe2023 12:00amAugust 2023 1:35pmType 2 diabetes mellitus with hyperglycemia Type 2 diabetes mellitus with hyperglycemiaBegin after 4 weeks at 2.5mg dose. Tirzepatide (Mounjaro) 7.5 mg/0.5 mL pen injectorDiscontinued7.5MGSUBCUTevery wkli8526Vqrk2023 12:00amSeptember 2023 2:48pmBegin after 4 weeks of 5mg doseTirzepatide (Mounjaro) 2.5 mg/0.5 mL pen injectorDiscontinued2.5MGSUBCUT every norq9687Fiak2023 1:19pmAugust 2023 3:34pmVenlafaxine 75 mg tablet extended release 25fsBdytjcuquaol68LLOKCklngFfbm 2023 12:00amJuly 2023 11:20amLosartan 25 mg gicdvoEzrpcsavmbio23QODSVgyswIijtpxxv 2023 1:00amFebruary 2023 7:11pmLosartan 25 mg jihbhyEwtlvggjwqhx39OFPM Wbuws70433Wfbdpdnz 2023 7:10pmJanuary 2024 9:50amAmlodipine 10 mg kutsfvPtxnmzlklcuu16TRFDIgpiwFnpzu 2023 12:00amApril 2023 9:39am Pantoprazole 40 mg tablet,delayed release (DR/EC)Faomunvlcaps86MHDCJihseDpbyc 2023 12:00amApril 2023 9:39amAmlodipine 10 mg dumvcnLqomcvtovilg42AR KJVlnnf05447Psqcn 2023 9:39amOctober 2023 3:05pmPantoprazole 40 mg tablet,delayed release (DR/EC)Wowlzkbhqeks58KVBUFvetl84673Foirb 2023 9:39amJanuary 2024 8:24pmIbuprofen 800 mg bkrzojQhvrcoheogeh097KVEHGtbje 8 hoursApril 2023 12:00amApril 2023 1:47pmIbuprofen 800 mg tablet Ezfkxpzotzyn985PRUVAdqpz 8 tximo322076Bhqql 2023 1:47pmJuly 2023 12:01pmTirzepatide (Mounjaro) 12.5 mg/0.5 mL pen kqrubctlRkmstmiyhdjm22OVSXKTCG every kyhb0888Mtcbhxi2023 3:04pmOctober 2023 9:15amAmlodipine 10 mg ntirbiLhuckjueaxdw10EGHOMpwfr12550Iezlzoq 2023 3:05pmJanuary 2024 4:04pmCefdinir 300 mg yudmqkbKagfwufucgjt548MYEXPpgcw dtnzu0174Bbrg 2024 12:00amOctober 2024 2:45pmTolterodine 4 mg capsule,extended release 24hr Ntbglz0UZLHKidzi95353Akvjbno 2024 12:00amComplies with drug therapy Levothyroxine 50 mcg iuwagtQeblryuykpnl47UIZSEGmvwa78331Dtuvmklc 2023 3:49pmFebruary 2024 11:55amTirzepatide 15 mg/0.5 mL pen injector Azmtvteceeix21FSRFBNNAhqyya oidr5654Zllsmsqa 2023 3:55pmFebruary 2024 4:40pmCholecalciferol (Vitamin D3) 25 mcg (1,000 unit) capsuleDiscontinued 25MCGPODailyApril 2024 12:00amOctober 2024 2:46pmLevothyroxine 25 mcg hpcoasAxqgfvvgsoli89YGUAEAcqb61963Osbzp 2024 2:51pmApril 2024 10:15pmAmlodipine 5 mg jaedxnXwkrimwbtxfo4YJCSNsftx flkot845079Gcthj 2024 2:52pmSeptember 2024 10:24pmLevothyroxine 125 mcg elesneLeihaxeidqvl036SAT SNHsui31727Uteym 2024 10:14pmApril 2024 10:15pmLevothyroxine 125 mcg euewbgKqkioa080PINWFPtka42053Ucizl 2024 10:15pmUnknownAtorvastatin 20 mg smplqhXwwodonxocuk23RGDBPagvj at chcflkf04578Ktejucl 2024 1:00amFebruary 2024 4:41pmAmlodipine 5 mg jjgncmKdqxnnimjpiy6QLKLCbokk10723Mopwkgn 2024 4:04pmJanuary 2024 9:49amAmlodipine 5 mg czdkvjKcbjgidsslbh2JZPOSsbxf dailyMarch 2024 12:11pmApril 2024 3:32pmNitrofurantoin Monohyd/M- Cryst 100 mg jcgpxyjVetgbfymdtra435KDKGBxlgw 12 gfnrw3545Xmhglixrb 2024 3:21pmOctober 2024 2:46pmmust administer with a meal/food Immunizations Immunization Event Date Not Given Reason Dose Number 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 Lot Number Reason(s) Given Vaccine Information Statement (VIS) Detail Administration Location COVID-19 mRNA-1273 (Moderna) October 16, 2020 COVID-19 mRNA-1273 (Moderna)November 15OVID-19 mRNA-1273 (Moderna)July 07OVID-19 mRNA-1273 (Moderna)March 04, 2022Fluzone TIV High-Dose 65YR+ May 09, 2025U8800CAFPG [facility] HospitalInfluenza, seasonal, injectable, pfDecember 20235920BU1485UCTLYAtrium Health WaxhawTetanus, Diphtheria adult, 5 Lf pres free absSeptember 2013 Procedures Procedure Date Performed Status NM tx radpharm oral February 02, 2025 10:00am comp leted NM thyroid ca whole body February 01, 2025 1:00pm completed NM thyroid ca whole body February 09, 2025 10:00am completed Relevant Diagnostic Tests and/or Laboratory Data Laboratory Results Test Collection Date/Time Result Date/Time Result Interpretation Reference Range Result Comment Performing Site Urine Color May 09, 2025 3:20pm May 09 3:22pm yellow Urine AppearanceSept2024 3:20pmSeptember 2024 3:22pmclearUrine Specific GravitySept2024 3:20pmSept2024 3:22pm1.010Urine pHSept2024 3:20pmSept2024 3:22pm5.0Urine Leukocyte EsteraseSept2024 3:20pmSept2024 3:22pm+Urine Nitrite May 09, 2025 3:20pmSept2024 3:22pmNegativeUrine Protein May 09, 2025 3:20pmSept2024 3:22pm+Urine Glucose (UA) May 09, 2025 3:20pmSeptember 2024 3:22pmnegativeUrine Ketones May 09, 2025 3:20pmSept2024 3:22pmnegativeUrine Urobilinogen May 09, 2025 3:20pmSeptember 2024 3:22pm0.2Urine Bilirubin May 09, 2025 3:20pmSept2024 3:22pmnegativeUrine Occult Blood May 09, 2025 3:20pmSept2024 3:22pmnegativeThyroid Stimulating Hormone 3rd GenJanuary 31, 2025 9:12amJun2024 11:58io961.48 u[iU]/mLAbove high normal0.45-5.33[facility] [id number] [address] [place] [address] 91989Fzxn-Yibnskmezaygc AntibodyJanuary 31, 2025 9:12amJun2024 4:08pm<1.0 [IU]/mL0.0-0.9Thyroglobulin Antibody measured by Jorge Alberto CoulterMethodologyIt should be noted that the presence of thyroglobulinantibodies may not be pathogenic nor diagnostic, especiallyat very low levels. The assay voice network administrator has found thatfour percent of individuals without evidence of thyroiddisease or autoimmunity will have positive TgAb levels upto 4 IU/mL.[facility] (RAMIRO)January 31, 2025 9:12amJune 2024 4:08pm0.2 ng/mLBelow low normal1.5-38.5According to the National Academy of Clinical Biochemistry,the reference interval for Thyroglobulin(TG) should berelated to euthyroid patients and not for patients whounderwent thyroidectomy. TG reference intervals for thesepatients depend on the residual mass of the thyroid tissueleft after surgery. Establishing a post- operative baselineis recommended. The assay limit of quantitation is 0.1ng/mL Thyroglobulin measured by Jorge Alberto Butler ImmunometricAssayPerformed at: [facility] [address] [id number] Director: Joseph Miller PhD, Phone: [phone] Diagnostic Imaging Reports Author Valerio Villa [facility] HospitalAuthoredJune 2024 11:08amReportDictated Date/TimeDictated ByStatusRadiology ReportJune 2024 11:08amJoseines Villa Jr [place]comp[place] [address] Nuclear Medicine Report Signed Patient: Carmen Mays MR#: [id number] : 1960 Acct:[id number] Age/Sex: 64 / F ADM Date: 5 Loc: XT Room: Type: [facility] Attending Dr: Faina Ibarra MD Copies to: Valerio Villa Jr, DO Faina Ibarra MD~ Ordering Provider: Faina Ibarra MD Date of [...] Jr., D.O. 02/01/2025 11:10 AM Dictation Location: [place] [address] Transcribed By: [facility] 02/01/25 1110 Dictated By: Valerio Villa Jr, DO 02/01/25 1108 Signed By: <Electronically signed by Valerio Villa Jr, DO in OV> 02/01/25 1110 Author Carmelo Estrada [facility] HospitalAuthoredUnc Health Southeastern 2024 5:41pmReportDictated Date/TimeDictated ByStatusRadiology ReportJune 2024 5:41pmCarmelo Estrada II [facility] [place] [address] Nuclear Medicine Report Signed Patient: Carmen Mays MR#: [id number] : 1960 Acct:[id number] Age/Sex: 64 / F ADM Date: 5 Loc: XT Room: Type: [facility] Attending Dr: Faina Ibarra MD Copies to: Carmelo Estrada II, MD Norleena Poynter, MD~ Ordering Provider: Faina Ibarra MD Date of Service: 02/09/25 NM/NM thyroid ca whole body: *Dose ordered* Thyroid cancer ([id number]) NM/NM tx radpharm oral: Thyroid cancer DOSE ORDERED [facility] NM thyroid ca whole body 02/09/2025 11:27 AM SIGNS AND SYMPTOMS: ^*Dose ordered* Thyroid cancer PROTOCOL: Scintigraphic images of [...] Estrada M.D. 02/09/2025 5:47 PM Dictation Location: [facility] Transcribed By: QIAN 02/09/251746 Dictated By: Carmelo Estrada II, MD 02/09/251740 Signed By: <Electronically signed by Carmelo Estrada II, MD in OV> 02/09/251746 Vital Signs Vital Reading Result Reference Range Collection Date/Time Height 55 [in_i] January 09, 2025 3:65bmToxvrm90.25 kgMay 2024 3:80ymEcjutp86 [in_i]May 09, 2025 3:32npTdjwbk43.45 kgSeptember 2024 3:01pmHeart Rate78 /min 60-100Sept2024 3:01pmRespiratory rate12 /ona13-94Vyqmtbptc 17th, 2025 3:01pmBP Nixpuacg206 mm[Hg]100-140Sept2024 3:01pmBP Qpigsvhat98 mm[Hg]60-100Sept2024 3:01pmBMI (Body Mass Index)50.9 kg/q5Cdwoufcrz 2024 3:97ijFayjxg42 [in_i]June 22, 2025 2:84djDfxgux84.33 kgOctober 2024 2:29pmBody Tlqykljgwcg30.6 [degF]97.6-99.0October 2024 2:29pm Heart Rate69 /spe53-524JiriloyJune 22, 2025 2:29pmRespiratory rate14 /ldd60-64 June 22, 2025 2:29pmOxygen saturation by Pulse fwftrkya58 %95-100October 2024 2:29pmBP Lqqjfsgy531 mm[Hg]100-140October 2024 2:29pmBP Pahbluyzc38 mm[Hg]60-100October 2024 2:29pmBMI (Body Mass Index)50.8 kg/m2 June 22, 2025 2:29pm Advance Directives Advance Directive Response Recorded Date/ Time Advance Directives No September 16, 2023 11:46am Insurance Providers Guarantor Carmen Mays Address [address] [facility] [address]Uwemmeb Info.Home Phone: Coverage Status Update:2025 Payer Group Member ID Coverage Type Subscriber Relationship to Subscriber Effective Date Expiration Date MMO Id: [id number] Gutierrez Id: [id number] [address] [facility] [address] Home Phone: Email: [email or web address]'s hospitalAC Immune SA.netSelfMedicare [id number] Gutierrez Id: [id number] [address] [facility] [address] Home Phone: Email: [email or web address] Encounters Encounter Location(s) Arrival/Admit Date Discharge/Departure Date Discharge/Departure Disposition Provider(s) Departed Physician/ Provider Office Visit -[facility] May 08, 2025 3:15pm May 08, 2025 3:16pm Discharged to home care or self care (routine discharge) Anushka Lo APRN Registered Recurring -[facility] Acute May 082024 3:16pm Anushka Lo APRNDeparted Physician/Provider [facility] 2:34pmSept2024 4:04pmDischarged to home care or self care (routine discharge)BAN Melissaeparted Physician/Provider [facility] 2:26pm June 22, 2025 3:12pmDischarged to home care or self care (routine discharge)Fab Guevara DO Recent Diagnosis Onset Date Admit Date Papillary thyroid carcinoma Unknown Apr 3:15pm Absence seizure 2023May 09, 2025 2:34pm Hypercholesterolemia Unknown April 232024 2:34pm Hypertension Unknown May 09, 2025 2:34pm Hypothyroid Unknown May 09, 2025 2:34pm IFG (impaired fasting glucose) Unknown S eptember 2024 2:34pm Obesity Unknown May 09, 2025 2:34pm SANTINO (obstructive sleep apnea) Unknown Se pt2024 2:34pm Papillary thyroid carcinoma Unknown Sept ember 2024 2:34pm Hypertension Unknown June 22 2:26pm Hypothyroid Unknown June 22 2:26pm IFG (impaired fasting glucose) Unknown O ctober 2024 2:26pm Assessments Diagnosis Onset Date Resolution Status Admit Date Papillary thyroid carcinoma acuteSept2024 3:15pmAbsence juetmqk2634rovdaJiwmmoqrf 17th, 2025 2:34pmHypercholesterolemiaacuteSept2024 2:34pmHypertensionacute May 09, 2025 2:34pmHypothyroidacuteSeptember 2024 2:34pmIFG (impaired fasting glucose)acuteSept2024 2:34pmObesityacuteSept2024 2:34pmOSA (obstructive sleep apnea)acuteSept2024 2:34pm Papillary thyroid carcinomaacuteSept2024 2:34pmHypertensionacute June 22, 2025 2:26pmHypothyroidacuteOctober 2024 2:26pmIFG (impaired fasting glucose)acuteOctober 2024 2:26pm Plan of Treatment Author [facility] CenterAuthoredSept2024 2:51pm Follow-up as needed Assessment: 64-year-old female with pT2 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 She is status post total thyroidectomy with final pathology showing a 3 cm primary tumor and less than 0.05 cm of tumor in the left lobe. There was angioinvasion and perineural invasion identified. There is extrathyroidal extension however this was noted to be minimal. Margins were negative. 5 of 7 lymph nodes with tumor from level . largest metastatic deposit was 2.1 mm. There was no extranodal extension. Based on her final pathology she falls into the GUERDA intermediate risk category due to the 5 positive lymph nodes and aggressive histology including columnar cell carcinoma. She received adjuvant I-131 to dose of 100 mCi on 02/02/25. She tolerated this well overall. Today she denies any VELARDE related toxicity. She continues to follow with ENT, next visit is next month with labs. We will follow-up as needed given full recovery from VELARDE therapy and close monitoring with ENT. She is agreeable and has no questions. Author Fab Guevara [facility] HospitalAuthoredSeptember 2024 8:44pmI have instructed this patient to consume a healthy, low-fat, low-salt diet. I have also encouraged them to continue exercise with weight loss to achieve/maintain a BMI < 30. I have instructed this patient on the correct procedure for obtaining home BP measurements:? - rest for 5 minutes w/o talking. - positioned w/ feet on floor and arms supported. - average best 2/3 readings w/ goal < 135/85. - update office w/ home readings in 2 weeks. Continue Amlodipine and Losartan without interruption - she was instructed to take both medications bid CTA neck: 2.5cm right thyroid nodule - 07/2024, US: 3cm TR4 right - 08/2024 FNA nodule: papillary thyroid cancer - 09/2024 s/p total thyroidectomy - 10/2024 Radioactive Iodine Therapy - 12/2024 Continue Levothyroxine without interruption f/u ENT Clinically euthyroid, monitor TSH. s/p total thyroidectomy for Papillary thyroid cancer - 10/2024 Continue Levothyroxine without interruption f/u ENT This patient is aware of the benefits associated with treatment of SANTINO: With continued use, the patient reduces the risk for MO, CVA, HTN, cardiac dysrhythmias and sudden cardiac deaths. The patient is also aware of the association between SANTINO and morning headaches, daytime somnolence, fatigue and obesity, which also has been improved with continued use. The patient is compliant with treatment, wearing the equipment every night for greater than 4 hours. The patient is instructed to continue use of the CPAP for SANTINO treatment. I have instructed this patient on a low fat, high fiber diet and exercise. I have discussed the primary and secondary prevention benefits attributed to lowering LDL cholesterol. I have also discussed the medical treatment of elevated cholesterol, which is based on the 10 year ASCVD risk. Continue Atorvastatin without interruption CT brain: normal - 07/2024, CTA brain/neck: normal - 07/2024, MRI brain: normal - 07/2024, Echo: LVEF 60%, LAE, normal RV size/function, RVSP 32 EKG: NSR EEG normal per patient Keppra stopped by patient Monitor for any further episodes f/u Neurology His A1C is between 5.7-6.5%. Instructed on low carb, high fiber diet. Instructed on routine exercise program for 30-60min three times weekly. Instructed on correlation between obesity and insulin resistance and encouraged to lose weight. Monitor A1C every 6 months. Latest A1C 7.5% Stopped GLP1 after dx of papilary thyroid cancer. I have instructed this patient on a low-fat, high-fiber diet.?? I have also instructed them to reduce calories, portions sizes, sweet drinks and snacks.?? I have also recommended they exercise for 30 minutes, 3-5 times weekly. They are aware of the comorbid conditions associated with excessive weight: Diabetes, HTN, Hyperlipidemia, CAD and arthritis. Future Tests Future scheduled test information is unavailable Pending Tests Test Name Ordered Date Scheduled Date Comprehensive Metabolic Panel June 22, 2025 3:05pm Future Visits Future appointment information is unavailable Future Procedures Procedure Name Ordered Date Scheduled Date A1C with Estimated Average Glu June 22 3:06pm Vitamin V49Kwgsoex 2024 3:05pmComplete Blood Count Auto DiffOctober 2024 3:05pmFerritinOctober 2024 3:05pmFolateOctober 2024 3:05pm Triiodothyronine (T3) TotalOctober 2024 3:05pmFree T4 (Free Thyroxine) June 22, 2025 3:05pmThyroid Stimulating HormoneOctober 2024 3:05pm Vitamin D 25 Hydroxy TotalOctober 2024 3:05pm Future Medications Future medication information is unavailable Patient Instructions Patient instructions are unavailable
--- OUTSIDE RECORDS SUMMARY | 2025-06-23 09:46 | XMS_ITS | Encounter Summary ---
Author Organization [facility] Address [address] [place] [address] Care Team Providers Care Cvor Nurse Name Role Phone Russ Vogel Unavailable [phone] Fab Mendoza DO Unavailable Fab Guevara DO Primary Care Provider [phone] Reason for Visit * ReasonCommentsMed Refill Encounter Details DateTypeDepartmentCare Team (Latest Contact Info)Ltaqctykotl32/25/2025Refill [facility] [address] [place] [phone] Fab Mendoza DO [address] [place], [place] [phone] Status post total thyroidectomy; Malignant neoplasm of thyroid gland (HCC) Social History Tobacco UseTypesPacks/DayYears UsedDateSmoking Tobacco: NeverSmokeless Tobacco: NeverAlcohol UseStandard Drinks/WeekCommentsNever0 (1 standard drink = 0.6 oz pure alcohol)CommentsUnknownSex and Gender InformationValueDate Recorded Sex Assigned at BirthNot on fileLegal JuyGjdioj48/15/2023 7:35 PM EDTGender DfiiapgvJhmpzs95/09/2024 11:37 AM EDTSexual OrientationNot on filedocumented as of this encounter Plan of Treatment DateTypeDepartmentCare Team (Latest Contact Info)Bkgeirlbjys45/26/2026 1:00 PM ESTOffice Visit [facility] [address] [place] [phone] Fab Mendoza DO [address] [place] [address] documented as of this encounter Visit Diagnoses Diagnosis Status post total thyroidectomy Other postprocedural status Malignant neoplasm of thyroid gland (HCC) Malignant neoplasm of thyroid gland documented in this encounter Care Teams Team MemberRelationshipSpecialtyStart DateEnd Date Fab Guevara DO [address] [place] [phone] PCP - GeneralInternal Medicine12/13/24 Russ Vogel DO [address] [place] [address] Referring PhysicianNeurolog10/09/24 Fab Mendoza DO [address] [place] [address] Otolaryngology11/01/24documented as of this encounter
--- OUTSIDE RECORDS SUMMARY | 2025-06-23 09:46 | XMS_ITS | Clinical Summary ---
Author Organization [facility] Address [id number] [address] [place] [address] Care Team Providers Care Corporate Legal Assistant Name Role Phone Fab Guevara Primary Care Provider [phone] Allergies Active AllergyReactionsCriticalityNoted NozmNxdseiprPttstglaDilgfxwq20/01/2023 Medications MedicationSigDispense QuantityRefillsLast FilledStart DateEnd DateStatus amLODIPine (NORVASC) 5 mg tablet 08/01/2022ctive ibuprofen (MOTRIN) 800 mg tablet TAKE 1 TABLET BY MOUTH EVERY 8 HOURS WITH FOOD OR MILK IXDQAK2510/06/2022ctive losartan (COZAAR) 25 mg tablet 09/02/2022ctive metFORMIN (GLUCOPHAGE) 500 mg tablet 1 tablet (500 mg total) daily with breakfast.08/01/2022ctive pantoprazole (PROTONIX) 40 mg EC tablet 08/01/2022ctive venlafaxine XR (EFFEXOR XR) 75 mg 24 hr capsule 08/02/2022ctive OZEMPIC 2 mg/dose (8 mg/3 mL) pen injector 07/14/2023ctive MOUNJARO 2.5 mg/0.5 mL pen injector ADMINISTER 2.5 MG UNDER THE SKIN EVERY WEEK FOR 4 WEEKS03/17/2024ctive levothyroxine (SYNTHROID, LEVOTHROID) 25 MCG tablet Take 1 tablet (25 mcg total) by mouth.03/23/2024ctive Active Problems ProblemNoted DateDiagnosed DatePost-traumatic osteoarthritis of left knee 12/08/2023Sprain of MTP joint of left lesser toe(s), init12/01/2023 Family History Medical HistoryRelationNameCommentsCancerBrotherDiabetesBrotherAsthmaFather HypertensionMotherDiabetesSisterRelationNameStatusCommentsBrotherFatherDeceased MotherDeceasedSister Social History Tobacco UseTypesPacks/DayYears UsedDateSmoking Tobacco: NeverPassive Smoke Exposure: NeverSmokeless Tobacco: Never Tobacco Cessation:Counseling Given: Not Answered Alcohol UseStandard Drinks/WeekCommentsNever0 (1 standard drink = 0.6 oz pure alcohol)ChildcareAnswerDate PyytfhecHkuychdgqWyjhdpx41/12/2019EmploymentAnswer Date BxslsupkKxcunidqyjVyayhwb54/12/2019Hunger ScreeningAnswerDate Recorded Within the past 12 months we worried whether our food would run out before we got money to buy more.Never True12/08/2023Within the past 12 months the food we bought just didn't last and we didn't have money to get more.Never True 4Purpose - LifeAnswerDate RecordedPurpose and direction in lifeUnknown 1CommentsNoSex and Gender InformationValueDate RecordedSex Assigned at WosbgUprplr13/05/2024 10:10 AM EDTLegal VxnLclqlh78/06/2015 11:34 AM EDTGender SojiexusDqnrmn16/05/2024 10:10 AM EDTSexual OrientationStraight 01/26/2024 10:10 AM EDT Last Filed Vital Signs Vital SignReadingTime TakenCommentsBlood Lxrlyvhq277/7910/05/2023 11:20 AM EST Ohioy856410/05/2023 11:20 AM BYGRputvktkpfv41.8 ??C (98.3 ??F)10/05/2023 9:23 AM ESTRespiratory Jnko304510/05/2023 11:20 AM ESTOxygen Xunhregbay63%10/05/2023 11:20 AM ESTInhaled Oxygen Concentration--Ihijbu39.4 kg (186 lb)05/16/2024 2:59 PM EDT Ajpxpp133.2 cm (4' 8 )05/16/2024 2:59 PM EDTBody Mass Index41.709 2:59 PM EDT Plan of Treatment Health MaintenanceDue DateLast DoneCommentsDepression Bxteojjsk21/21/1972Zoster (Shingles) Vaccine (1 of 2)2009Fall Risk Fdfbgnbfu50/21/2025Tobacco Uvfmjqoqp66/OVID-19 Vaccine ( season)2025 03/04/2022, 07/07/2021, 11/15/2020, Additional history existsInfluenza Vaccine /06/2024, 05/29/2022, 06/09/2019, Additional history existsAdult BMI Ehmpgcfrt15/TaP,Tdap and Td Vaccines (2 - Td or Tdap) /9787Esqimulqtwd44/13/203402/, 10/05/2023 Medical Devices Not on file Procedures Procedure NamePriorityDate/TimeAssociated DiagnosisCommentsPROVATION COLONOSCOPY Dtxzaxv2510/05/2023 9:05 AM EST from Last 3 Months or Most Recently Relevant to Health Maintenance Results * Colonoscopy Report (10/05/2023 9:05 AM EST)Specimen (Source)Anatomical Location / LateralityCollection Method / VolumeCollection TimeReceived Time Narrative SYSTEMGENERATED, DOCUMENTATION - 10/05/2023 9:05 AM EST This order has been auto-finalized for image and report archival in PACs. *For full report details, please reach out to your physician. ??This image is visible to you in MyChart.* Authorizing ProviderResult TypeResult StatusMichael E Grillis DOIMG OR IMG ORDERABLESFinal Result from Last 3 Months or Most Recently Relevant to [place] [address] Care Teams Team MemberRelationshipSpecialtyStart DateEnd Date Fab Guevara DO [address] [place] [address] PCP - GeneralInternal Medicine04/07/21
--- OUTSIDE RECORDS SUMMARY | 2025-06-23 09:46 | XMS_ITS | Clinical Summary ---
Author Organization [facility] Address [address] [place] [address] Care Team Providers Care Resizer Operator Name Role Phone Ranjeet Vogellyndon CRYSTAL Unavailable [phone] Fab Mendoza DO Unavailable [phone] Fab Guevara DO Primary Care Provider [phone] Allergies Active AllergyReactionsCriticalityNoted DateCommentsMorphineGI intolerance 10/21/2022 Medications MedicationSigDispense QuantityRefillsLast FilledStart DateEnd DateStatus venlafaxine (Effexor) 75 MG tablet Take 75 mg by mouth in the morning and 75 mg before bedtime.Active losartan (Cozaar) 25 MG tablet Take 25 mg by mouth DailyActive amLODIPine (Norvasc) 10 MG tablet Take 10 mg by mouth DailyActive pantoprazole (ProtoNix) 40 MG EC tablet Take 40 mg by mouth in the morning. Take before meals. Do not crush, chew, or split.Active aspirin 81 MG EC tablet Take 81 mg by mouth DailyActive ibuprofen 800 MG tablet Take 800 mg by mouth every 6 (six) hours if needed for mild painActive atorvastatin (Lipitor) 20 MG tablet 5Active OYSCO 500 + D 500-5 MG-MCG tablet 5Active levothyroxine (Synthroid, Levoxyl) 137 MCG tablet Indications:Status post total thyroidectomy,Malignant neoplasm of thyroid gland (HCC)TAKE 1 TABLET BY MOUTH IN THE MORNING BEFORE A MEAL 90 tablet ctive levothyroxine (Synthroid) 137 MCG tablet Indications:Status post total thyroidectomy,Malignant neoplasm of thyroid gland (HCC)Take 137 mcg by mouth in the morning. Take before meals. 90 tablet Discontinued Active Problems ProblemNoted DateDiagnosed DatePapillary thyroid eamosovpc61/12/2025 Overview (11/01/2024): FNA: 10/05/24 Resolved Problems ProblemNoted DateDiagnosed DateResolved DateAbsence obmxfpb39 Overview (11/01/2024): Dx after experiencing global amnesia Elevated TSHFatigueGERD (gastroesophageal reflux disease)Headache11/01/2024 11/01/20243807Zxvgwsricpdhrmklmtdc79/12/202503/12/2025Chronic venous insufficiency of lower bbaeiiiud59IFG (impaired fasting glucose)11/01/2024 11/01/2024Left shoulder painOSA (obstructive sleep apnea) Rotator cuff axszbsslqp85Screening mammogram for breast sukspg24Wellness ujefbypyykg45/12/2025 11/01/2024Subclinical lyoxzhfvwufjws74Thyroid ntvvdf7211/01/2024 11/01/2024 Overview (11/01/2024): CTA neck: 2.5cm right thyroid nodule - 07/2024, US: 3cm TR4 right - 08/2024 FNA nodule: papillary thyroid cancer - 09/2024 TIA (transient ischemic attack) Overview (11/01/2024): CT brain: normal - 07/2024, CTA brain/neck: normal - 07/2024, MRI brain: normal - 07/2024, Echo: LVEF 60%, LAE, normal RV size/function, RVSP 32 Transient global dfvuxnr30Type 2 diabetes mellitus with aofozqzdscuxm34Impaired gaitPost-traumatic osteoarthritis of left kneeSprain of MTP joint of left lesser toe(s), init/ Encounters DateTypeDepartmentCare YqufWcfvyqaewsq36/25/2025Refill [facility] [address] [place] [address] Fab Mendoza, DO Status post total thyroidectomy; Malignant neoplasm of thyroid gland (HCC)from Last 3 Months Immunizations ImmunizationAdministration DatesNext DueHep B, Adolescent or Xdpedezkm29/07/2001 Influenza, injectable, quadrivalent, preservative free07/04/2018Influenza, recombinant, quadrivalent, injectable, preservative free05/29/2022,06/09/2019 Influenza, seasonal, injectable, preservative free08/02/2024Td (adult), 5 Lf tetanus toxoid, preservative free, focrhgsb96/30/4831Npij56/09/2022 Family History Medical HistoryRelationNameCommentsAsthmaFatherEmilio T ChavezHypertensionMother Arti R ChavezRelationNameStatusCommentsFatherEmilio T ChavezMotherNatalia R Hickey Social History Tobacco UseTypesPacks/DayYears UsedDateSmoking Tobacco: NeverSmokeless Tobacco: Never Tobacco Cessation:Counseling Given: Not Answered Alcohol UseStandard Drinks/WeekCommentsNever0 (1 standard drink = 0.6 oz pure alcohol)CommentsUnknownSex and Gender InformationValueDate RecordedSex Assigned at BirthNot on fileLegal BbvIkjatz19/15/2023 7:35 PM EDTGender Identity Khvqzv36/04/2024 11:37 AM EDTSexual OrientationNot on file Last Filed Vital Signs Vital SignReadingTime TakenCommentsBlood Klnmwmpp968/9210/30/2024 8:58 AM EDT Vhxfq289810/30/2024 8:58 AM EDTTemperature--Respiratory Rate--Oxygen Aebpwpdfcq70% 10/30/2024 8:58 AM EDTInhaled Oxygen Concentration--Ppvxhq24.5 kg (195 lb) 03/12/2025 1:01 PM DSOHuvtec414.7 cm (4' 7 )03/12/2025 1:01 PM EDTBody Mass Index45.32003/12/2025 1:01 PM EDT Plan of Treatment DateTypeDepartmentCare Team (Latest Contact Info)Liiuxcylnnj12/26/2026 1:00 PM ESTOffice Visit [facility] [address] [place] [phone] Fab Mendoza, DO [address] [place] [address] Health MaintenanceDue DateLast DoneCommentsCT Miusmkmflszt89/21/1960FIT-DNA 1959FIT1959FOBT1959 7269Gyrtauozrkcyx62/21/1960MMR Vaccines (1 of 1 - Standard series)1Pap Smear1980Cervical Cancer Screening 1989HPV/Bpjtyo3409/12/1989Pneumococcal Vaccine: 65+ Years (1 of 1 - PCV) 2009DTaP/Tdap/Td Vaccines (3 - Td or Tdap)/04/2022, 05/22/2014 Tedidsqig74/18/5621554COVID-19 Vaccine ( - season)2025 03/04/2022, 07/07/2021, 11/15/2020, Additional history existsInfluenza Vaccine (#1), 05/29/2022, 06/09/2019, Additional history exists Nqsgzqwvcvw02/13//olorectal Cancer Cdtpcbvyt95/13/2034Hepatitis B VaccinesAged Out06/29/2001No longer eligible based on patient's age to complete this topicHIB VaccinesAged OutNo longer eligible based on patient's age to complete this topicHPV VaccinesAged OutNo longer eligible based on patient's age to complete this topicHepatitis A VaccinesAged OutNo longer eligible based on patient's age to complete this topicIPV VaccinesAged OutNo longer eligible based on patient's age to complete this topicMeningococcal B VaccineAged OutNo longer eligible based on patient's age to complete this topicMeningococcal VaccineAged OutNo longer eligible based on patient's age to complete this topicRotavirus VaccinesAged OutNo longer eligible based on patient's age to complete this topic Insurance Care Teams Team MemberRelationshipSpecialtyStart DateEnd Date Fab Guevara DO [address] [place] [phone] PCP - GeneralInternal Medicine12/13/24 Russ Vogel DO [address] [place] [address] Referring PhysicianNeurology2 Fab Mendoza DO [address] [place] [address] Otolaryngology11/01/24
--- OUTSIDE RECORDS SUMMARY | 2025-06-23 09:46 | XMS_ITS | Clinical Summary ---
Author Organization [facility] Address [address] [facility] [facility], [address] [place] [address] Care Team Providers Care Elementary Assistant Principal Name Role Phone Fab Guevara DO Primary Care Provider [phone] Allergies No known active allergies Medications MedicationSigDispense QuantityRefillsLast FilledStart DateEnd DateStatus losartan (COZAAR) 25 MG tablet Take 25 mg by mouth dailyActive Social History Tobacco UseTypesPacks/DayYears UsedDateSmoking Tobacco: NeverSmokeless Tobacco: NeverAlcohol UseStandard Drinks/WeekCommentsNo0 (1 standard drink = 0.6 oz pure alcohol)CommentsNoSex and Gender InformationValueDate RecordedSex Assigned at BirthNot on fileLegal QhxOclhfr24/18/2018 2:03 PM EDTGender Identity Not on fileSexual OrientationNot on file Last Filed Vital Signs Vital SignReadingTime TakenCommentsBlood Faisfpta315/9305 2:17 PM EDT Yyxqz5655 2:17 PM OZGQurguxvhbel89.2 ??C (97.2 ??F)01/07/2018 2:17 PM EDTRespiratory Hobe8442 2:17 PM EDTOxygen Wgkrxalzxx12%01/07/2018 2:17 PM EDTInhaled Oxygen Concentration--Yohtmz61.9 kg (218 lb)01/07/2018 2:17 PM EDT Cjxoty472.3 cm (4' 10 )01/07/2018 2:17 PM EDTBody Mass Index45.5605 2:17 PM EDT Plan of Treatment Not on file Insurance Care Teams Team MemberRelationshipSpecialtyStart DateEnd Date Fab Guevara DO PCP - GeneralInternal Medicine01/07/18
--- OUTSIDE RECORDS SUMMARY | 2025-06-23 09:47 | XMS_ITS | CCD ---
Author Organization [facility]ini[facility] Care Team Providers Care Hearing Therapist Name Role Phone ALEXA LADD Unavailable Unavailable BALL, FAB Herron Unavailable Unavailable BALL, FAB Herron Unavailable Unavailable Ball, Fab Unavailable MOUSTAPHA, DR WOOD Consulting Unavailable BALL, DR WOOD [...] Unavailable ZIEBER, DR JESUS Camacho Consulting Unavailable MOUSTAPHA, FAB E Referring Unavailable MOUSTAPHA, FAB Herron Primary Care Unavailable TERESA GABRIELLA L Referring Unavailable BALL, FAB Herron Primary Care Unavailable TERESA GABRIELLA Sharita Referring Unavailable BALL, FAB Herron Primary Care Unavailable BALL, FAB Herron Referring Unavailable BALL, FAB Herron Primary Care Unavailable SOPHIA BRUNO Admitting Unavailable GRILLISOPHIA Hogue Attending Unavailable BALL, FAB Herron Primary Care Unavailable CHIKISILLISOPHIA Hogue Attending Unavailable GRILLISSOPHIA Referring Unavailable BALL, FAB Herron Primary Care Unavailable TESS MADERA Attending Unavailable BALL, FAB Herron Primary Care Unavailable BALL, FAB Herron Referring Unavailable BALL, FAB Herron Primary Care Unavailable Unavailable Primary Care Provider UnavailFab Dow DO Primary Care Provider Fab Guevara DO Attending Provider Russ Vogel DO Unavailable Fab Guevara MD Primary Care Provider ANAHY SMYTH Attending Unavailable MOUSTAPHA, FAB Herron Referring Unavailable MOUSTAPHA, FAB Herron Primary Care Unavailable ANAHY SMYTH Attending Unavailable MOUSTAPHA, FAB Herron Referring Unavailable BALL, FAB Herron Primary Care Unavailable YESSICA MCKINNEY Attending Unavailable MOUSTAPHA, FAB Herron Referring Unavailable MOUSTAPHA, FAB Herron Primary Care Unavailable YESSICA MCKINNEY Attending Unavailable BALL, FAB E Referring Unavailable BALL, FAB E Primary Care Unavailable SADDEMI, YESSICA R Attending Unavailable BALL, FAB E Referring Unavailable BALL, FAB E Primary Care Unavailable SADDEMI, YESSICA R Attending Unavailable BALL, FAB E Referring [...] Unavailable BALL, FAB E Primary Care Unavailable Murcek DO, Fab Attending Provider [phone] Ball DO, Fab Primary Care Provider Ball DO, Fab Attending Provider [phone] Murcek DO, Fab Attending Provider Murcek DO, Fab W Unavailable [phone] Fab Guevara MD Primary Care Provider Ball DO, Fab Primary Care Provider Murcek DO, Fab Attending Provider [phone] Ball DO, Fab Attending Provider Faina Ibarra MD Attending Provider Murcek DO, Fab Referring Provider [phone] Ball DO, Fab Primary Care Provider Anushka Lo APRN Attending Provider Murcek DO, Fab Attending Provider [phone] Lela DO, Russ Unavailable Ball DO, Fab E Primary Care Provider Ball DO, Fab Attending Provider Ball DO, Fab Primary Care Provider Faina Ibarra MD Attending Provider Murcek DO, Fab Referring Provider [phone] Murcek DO, Fab Referring Provider [phone] Reji, Fab Admitting Unavailable Murcek, Fab Attending Unavailable Ball, Fab Primary Care Unavailable Ball, Fab Attending Unavailable Ball, Fab Admitting Unavailable Ball, Fab Primary Care Unavailable Murcek, Fab Referring Unavailable Demboske, Anushka King Admitting Unavail able Demboske, Corinna Attending Unavail able Murcek, Fab Admitting Unavailable Ball, Fab Primary Care Unavailable Murcek, Fab Attending Unavailable Ball, Fab Primary Care Unavailable Murcek, Fab Attending Unavailable Murcek, Fab Admitting Unavailable Ball, Fab Primary Care Unavailable Ball, Fab Attending Unavailable Ball, Fab Admitting Unavailable Murcek, Fab Admitting Unavailable Murcek, Fab Attending Unavailable Ball, Fab Primary Care Unavailable Murcek, Fab Admitting Unavailable Murcek, Fab Attending Unavailable Ball, Fab Primary Care Unavailable Ball, Fab Primary Care Unavailable Murcek, Fab Admitting Unavailable Murcek, Fab Attending Unavailable Ball DO, Fab Primary Care Provider Everetteboske MILK BOTTLING MACHINE OPERATOR, Corinna Attending Provider Moustapha DO, Fab Attending Provider [phone] Allergies Allergy ClassificationReported Allergen(s)Allergy TypeDate of OnsetReaction(s) Facility (20 sources)Morphine; Translations: [MORPHINE]Drug Nzalvtp20-44-5081RV intoleranceProMedica Repository (4 sources)patient allergy list reviewed by nurse or physiciaPropensity to adverse eexgvnkmh94-92-1343Hflpowh:[place] Other (2 sources)MorphineDrug AllergyUnknoAPEPTICO [facility] und [facility]wick[facility] Other (1 source)MorphineDrug Vtitzex58-46-2427[facility]nnnogthvC[facility] Medications Current Medications MedicationDrug Class(es)DatesSig (Normalized)Sig (Original)3 ML semaglutide 1.34 MG/ML Pen Injector [Ozempic] (11 sources)Ozempic (1 MG/DOSE) 4 MG/3ML as directed Subcutaneous Active3 ML semaglutide 2.68 MG/ML Pen Injector [Ozempic] (11 sources)Start: 98-81-0564gnatrr 2 mg by subcutaneous injection every week Ozempic (2 MG/DOSE) 8 MG/3ML 2 MG Subcutaneous weekly for 90 days 14 Sep, 2022 ActiveStart: 85-84-7121vbfwhx 2 mg by subcutaneous injection every weekOzempic (2 MG/DOSE) 8 MG/3ML 2 MG Subcutaneous weekly for 30 days Sep, Active amLODIPine 5 mg oral tablet (20 sources)Dihydropyridine Calcium Channel BlockerStart: 61-52-6090wvuo 1 tablet by mouth once dailyAmlodipine 5 mg tablet Active 0 .ROUTE .COMPLEX 90 3 May 16, 2025 10:24pm TAKE ONE TABLET BY MOUTH DAILY Complies with drug therapyStart: 12-13-2024 End: 98-72-1951mvnl 1 tablet by mouth twice dailyAmlodipine 5 mg tablet Discontinued 5 MG PO Twice daily 180 90 3 December 13, 2024 2:52pm April 242024 10:24pmStart: 12-02-2024 End: 75-59-6891apuo 1 tablet by mouth once dailyAmlodipine 5 mg tablet Discontinued 0 .ROUTE .COMPLEX 90 3 December 02, 2024 3:32pm December 13, 2024 2:53pm TAKE 1 TABLET BY MOUTH DAILYStart: 10-27-2024 End: 81-00-6664emcr 1 tablet by mouth twice dailyAmlodipine 5 mg tablet Discontinued 5 MG PO Twice daily October 27, 2024 12:11pm December 02, 2024 3:32pm Start: 09-05-2024 End: 22-17-1863lkot 5 mg by mouth once dailyAmlodipine 10 mg tablet Discontinued 5 MG PO Daily 45 90 3 September 05, 2024 9:49am September 05, 2024 9:54amStart: 09-04-2024 End: 70-64-2546wasq 1 tablet by mouth once daily in the morningAmlodipine 5 mg tablet Discontinued 5 MG PO Every morning October 19, 2024 1:00am October 27, 2024 7:06pmStart: 12-21-2023 End: 82-31-0122hapb 1 tablet by mouth once dailyAmlodipine 10 mg tablet Discontinued 10 MG PO Daily 90 90 3 June 06, 2024 3:05pm August 4:04pmtake 1 tablet by mouth every twenty-four hoursamLODIPine Besylate 5 MG 1 tablet Orally Once a day Activecalcium carbonate 1250 mg / cholecalciferol 200 unt oral tablet (13 sources)Vitamin DStart: 69-87-6479GPHNR 500 + D 500-5 MG-MCG tablet 10/25/2024 ActiveStart: 10-25-2024 End: 91-55-6145cgoi 3 tablets by mouth once in the morning, then take 3 tablets by mouth in the evening, then take3 tablets by mouth at bedtimeCalcium Carbonate-Vitamin D 500-5 MG-MCG tablet Indications: Malignant neoplasm of thyroid gland (CMS/HCC) , Hypocalcemia Take 3 tablets by mouth in the morning and 3 tablets in the evening and 3 tablets before bedtime. 270 tablet 1 10/25/2024 11/24/2024 Active0.5 ML dulaglutide 9 MG/ML Auto-Injector [Trulicity] (3 sources)GLP-1 Receptor AgonistStart: 85-57-8973Ajvtmuwup 4.5 MG/0.5ML as directed Subcutaneous weekly for 90 days Apr, ActiveStart: 03-22-2023 inject 4.5 mg by subcutaneous injection every weekTrulicity 4.5 MG/0.5ML 4.5 MG Subcutaneous weekly for 28 days Feb, Activeergocalciferol 1.25 mg oral capsule (4 sources)Provitamin D2 CompoundStart: 11-02-2024 End: 96-17-0265aehx 1 capsule by mouth every weekergocalciferol (Drisdol) 1.25 MG (86609 UT) capsule Indications: Low vitamin D level Take 1 capsule(1.25 mg) by mouth 1 (one) time per week for 12 doses 4 capsule 2 11/02/2024 01/19/2025 Activeibuprofen 800 mg oral tablet (20 sources)Nonsteroidal Anti-inflammatory DrugStart: 79-60-7140Iigldxkep 800 mg tablet Active 800 MG PO every 6 to 8 hours as needed for pain October 19, 2024 1:00am Complies with drug therapyStart: 12-21-2023 End: 23-05-4978gggd 1 tablet by mouth every eight hoursIbuprofen 800 mg tablet Discontinued 800 MG PO Every 8 hours 270 90 1 December 21, 2023 1:47pm March 16, 2024 12:01pmtake 1 tablet by mouth every six hours as needed for painibuprofen 800 MG tablet Take 800 mg by mouth every 6 (six) hours if needed for mild pain Activetake 1 tablet by mouth every eight hours at mealtime as neededIbuprofen 800 MG 1 tablet with food or milk as needed Orally every 8 hrs for 30 days Activelevothyroxine sodium 0.137 mg oral tablet (20 sources)l-ThyroxineStart: 03-12-2025 End: 75-54-3237mmsv 1 tablet by mouth before mealtimelevothyroxine (Synthroid) 137 MCG tablet Indications: Status post total thyroidectomy , Malignant neoplasm of thyroid gland (HCC) Take 137 mcg by mouth in the morning. Take before meals. 90 tablet 03/12/2025 06/10/2025 ActiveStart: 02-14-2025 End: 28-60-6825tcru 1 tablet by mouth before mealtimelevothyroxine (Synthroid) 100 MCG tablet Indications: Status post total thyroidectomy Take 1 tablet(100 mcg) by mouth in the morning. Take before meals. 30 tablet 1 02/14/2025 03/12/2025 DiscontinuedStart: 12-13-2024 End: 77-16-8700wfoz 1 tablet by mouth onceStart: 12-13-2024 End: 95-44-8963nfrf 1 tablet by mouth before mealtimelevothyroxine (Synthroid) 100 MCG tablet Indications: Status post total thyroidectomy Take 1 tablet(100 mcg) by mouth in the morning. Take before meals. 30 tablet 1 12/13/2024 02/11/2025 ActiveStart: 10-05-2024 End: 16-09-4551Grnoeofnvfwhl 50 mcg tablet Discontinued 25 MCG PO Twice daily October 05, 2024 1:00am December 13, 2024 2:53pmStart: 34-57-4897Oslbskvsissxs 50 mcg tablet Active 25 MCG PO Daily October 05, 2024 12:00amStart: 08-02-2024 End: 90-19-9111idnl 1 tablet by mouth once dailyLevothyroxine 50 mcg tablet Discontinued 50 MCG PO Daily 90 90 3 August 02, 2024 3:49pm October 05, 2024 11:55amStart: 03-23-2024 End: 22-08-3269tgih 1 tablet by mouth once dailyLevothyroxine 25 mcg tablet Discontinued 0 .ROUTE .COMPLEX 90 0 March 23, 2024 1:21pm August 02, 2024 3:51pm TAKE 1 TABLET BY MOUTH DAILYStart: 03-23-2024 End: 80-19-1905ynst 1 tablet by mouth onceLevothyroxine 25 mcg tablet Discontinued 25 MCG PO Once 30 30 0 December 13, 2024 2:51pm November 10:15pmlosartan potassium 25 mg oral tablet (20 sources)Angiotensin 2 Receptor BlockerStart: 94-70-5775ipja 1 tablet by mouth twice dailyLosartan 25 mg tablet Active 0 .ROUTE .COMPLEX 180 3 May 16, 2025 1:11pm TAKE ONE TABLET BYMOUTH TWICE DAILY Complies with drug therapy Start: 09-05-2024 End: 31-23-6705anel 1 tablet by mouth twice dailyLosartan 25 mg tablet Discontinued 25 MG PO Twice daily 180 90 3 September 05, 2024 10:11am May 16, 2025 1:12pmStart: 09-02-2022 End: 47-00-5928npjs 1 tablet by mouth once dailyLosartan 25 mg tablet Discontinued 25 MG PO Daily 90 90 3 October 13, 2023 7:10pm September 05, 2 025 9:50amozempic (2 mg/dose) 8 mg/3ml solution pen-injector (2 sources)Start: 79-47-8824tplzfu 2 mg by subcutaneous injection every week Ozempic (2 MG/DOSE) 8 MG/3ML 2 MG Subcutaneous weekly Sep, Active paxlovid (300/100) 20 x 150 mg & 10 x 100mg tablet therapy pack (2 sources)Start: 50-00-3342Zlkmfvql (300/100) 20 x 150 MG & 10 x 100MG as directed Orally bid for 5 days Jul, Cbjsnu17 hr tolterodine tartrate 4 mg extended release oral capsule (1 source)Cholinergic Muscarinic AntagonistStart: 70-48-8112dhpv 1 capsule by mouth once dailyTolterodine 4 mg capsule,extended release 24hr Active 4 MG PO Daily 30 30 0 June 22, 2025 12:00am Complies with drug okfcaau40 hr venlafaxine 75 mg extended release oral capsule (20 sources)Serotonin and Norepinephrine Reuptake InhibitorStart: 48-88-0105bttx 1 capsule by mouth once daily in the morningVenlafaxine 75 mg capsule,extended release 24hr Active 75 MG PO Every morning October 19, 2024 1:00am Complies with drug therapyStart: 03-17-2024 End: 09-45-3952Prapmenfgvh 75 mg capsule,extended release 24hr Discontinued 0 .ROUTE .COMPLEX September 11, 2024 8:23pm October 19, 2024 4:41pm TAKE 1 CAPSULE DAILYStart: 03-17-2024 End: 17-27-9816Mbracqubddu 75 mg capsule,extended release 24hr Discontinued 0 .ROUTE .COMPLEX March 17, 2024 11:20am September 11, 2024 8:24pm TAKE 1 CAPSULE DAILYStart: 03-17-2024 End: 31-10-7248Ffukrmolxbd 75 mg capsule,extended release 24hr Discontinued 0 .ROUTE .[place] [id number] March 17, 2024 10:20am September 11, 2024 7:24pm TAKE 1 CAPSULE DAILYStart: 14-56-7134Hmsmtblraga 75 mg capsule,extended release 24hr Active 0 .ROUTE .COMPLEX March 17, 2024 10:20amTAKE 1 CAPSULE DAILYStart: 84-60-1239Pivtphbkknn Active 0 .ROUTE .[place] [address] March 17, 2024 11:20am TAKE 1 CAPSULE DAILYStart: 03-17-2024 End: 09-40-4302mdjh 1 tablet by mouth once dailyVenlafaxine 75 mg tablet extended release 24hr Discontinued 75 MG PO Daily March 17, 2024 12:00am March 17, 2024 11:20amtake 1 tablet by mouth in the morningvenlafaxine (Effexor) 75 MG tablet Take 75 mg by mouth in the morning and 75 mg before bedtime. Active Venlafaxine HCl ER 75 mg TAKE 1 CAPSULE DAILY Active Completed/Discontinued Medications MedicationDrug Class(es)DatesSig (Normalized)Sig (Original)aspirin 81 mg delayed release oral tablet (20 sources)Platelet Aggregation Inhibitor, Nonsteroidal Anti-inflammatory Drug Start: 08-14-2024 End: 90-76-7606svsc 1 tablet by mouth once dailyAspirin 81 mg tablet,delayed release (DR/EC) Discontinued 81 MG PO Daily September 1158:23pm October 19, 2024 4:41pmatorvastatin 20 mg oral tablet (20 sources)HMG-CoA Reductase InhibitorStart: 08-14-2024 End: 33-89-1442egvc 1 tablet by mouth once daily at bedtimeAtorvastatin 20 mg tablet Discontinued 20 MG PO Daily at bedtime 90 90 3 August 24, 2024 1:00am October 19, 2024 4:41pmcalcitriol 0.09480 mg oral capsule (4 sources)Vitamin D3 AnalogStart: 10-25-2024 End: 31-94-2388myfo 1 capsule by mouth once dailycalcitriol (Rocaltrol) 0.25 MCG capsule Indications: Malignant neoplasm of thyroid gland (CMS/HCC) , Hypocalcemia Take 1 capsule (0.25 mcg) by mouth Daily 30 capsule 1 10/25/2024 11/02/2024 Discontinuedcefdinir 300 mg oral capsule (6 sources)Cephalosporin AntibacterialStart: 03-01-2025 End: 40-08-9025fgsm 1 capsule by mouth twice dailyCefdinir 300 mg capsule Discontinued 300 MG PO Twice daily 10 5 0 March 01, 2025 12:00am June 22, 2025 2:45pmcholecalciferol 0.025 mg oral capsule (20 sources)Vitamin DStart: 12-13-2024 End: 69-15-5397iaei 1 capsule by mouth once dailyCholecalciferol (Vitamin D3) 25 mcg (1,000 unit) capsule Discontinued 25 MCG PO Daily December 13, 2024 12:00am June 22, 2025 2:46pmStart: 03-16-2024 End: 08-70-9323Ymllwichtfbfjrw (Vitamin D3) 1,250 mcg (50,000 unit) tablet Discontinued 1250 MCG PO March 16, 2024 12:00am August 24, 2024 12:50pm Dialyvite Vitamin D3 Max 1.25 MG (90014 UT) 1 tablet Orally ActiveDialyvite Vitamin D3 Max 1.25 MG (10893 UT) 1 tablet Orally ActivelevETIRAcetam 500 mg oral tablet (20 sources)Start: 09-27-2024 End: 64-16-5512xibj 1 tablet by mouth twice dailyLevetiracetam (Keppra) 500 mg tablet Discontinued 500 MG PO Twice daily October 05, 2024 1:00am January 09, 2025 2:59pmLidocaine (11 sources)Antiarrhythmic, Amide Local AnestheticStart: 59-06-3081Nkuelojtk Jun, 20 mgStart: 22-35-9039Jfxokqwfk December, 10 mgmetFORMIN hydrochloride 500 mg oral tablet (20 sources)BiguanideStart: 01-21-2024 End: 59-17-9025fhwk 1 tablet by mouth once daily at dinnerMetformin 500 mg tablet Discontinued 0 .ROUTE .COMPLEX 30 January 21, 2024 1:19pm August 24, 2024 12:51pm TAKE 1 TABLET BY MOUTH EVERY DAY WITH EVENING MEALStart: 01-21-2024 End: 58-21-9698uoji 1 tablet by mouth once dailyMetformin 500 mg tablet Discontinued 500 MG PO Daily 30 January 21, 2024 12:00am January 21, 2024 1:19pm take 1 tablet by mouth at dinnermetFORMIN HCl 500 MG TAKE 1 TABLET BY MOUTH EVENING MEAL Activetake 1 tablet by mouth every twenty-four hoursmetFORMIN HCl ER 500 MG 1 tablet with evening meal Orally Once a day Activenitrofurantoin, macrocrystals 25 mg / nitrofurantoin, monohydrate 75 mg oral capsule (9 sources)Nitrofuran AntibacterialStart: 02-28-2025 End: 89-37-8693sdcv 1 capsule by mouth every twelve hours at mealtime Nitrofurantoin Monohyd/M-Cryst 100 mg capsule Discontinued 100 MG PO Every 12 hours 10 5 0 May 09, 2025 3:21pm June 22, 2025 2:46pm must administer with a meal/foodpantoprazole 40 mg delayed release oral tablet (20 sources)Proton Pump InhibitorStart: 12-21-2023 End: 41-63-4752oued 1 tablet by mouth once dailyPantoprazole 40 mg tablet,delayed release (DR/EC) Discontinued 40 MG PO Daily 90 90 3 December 21, 2023 9:39am September 11, 2024 8:24pmpotassium chloride 10 meq extended release oral tablet (20 sources)Start: 03-16-2024 End: 94-50-6301bfxc 1 tablet by mouth twice dailyPotassium Chloride 10 mEq tablet extended release Discontinued 10 MEQ PO Twice daily March 16, 2024 12:00am March 16, 2024 12:01pmtake 1 tablet by mouth every twelve hours Potassium Chloride ER 10 MEQ 1 tablet with food Orally Twice a day Active Semaglutide (16 sources)Start: 03-16-2024 End: 54-98-5520jjumxt 2 mg by subcutaneous injection every weekSemaglutide (Ozempic) 2 mg/dose (8 mg/3 mL) pen injector Discontinued 2 MG SUBCUT every week March 16, 2024 12:01pm March 16, 2024 1:17pmStart: 03-16-2024 End: 25-40-6257Mxwxhnffuqs (Ozempic) 2 mg/dose (8 mg/3 mL) pen injector Discontinued MG SUBCUT March 16, 2024 12:00am March 16, 2024 12:02pm Semaglutide (Ozempic) 2 mg/dose (8 mg/3 mL) pen injector (20 sources)Start: 03-16-2024 End: 44-76-1804inbbha 2 mg by subcutaneous injection every weekSemaglutide (Ozempic) 2 mg/dose (8 mg/3 mL) pen injector Discontinued 2 MG SUBCUT every week March 16, 2024 11:01am March 16, 2024 12:17pmStart: 03-16-2024 End: 40-13-0253dldsmy 2 mg by subcutaneous injection every weekSemaglutide (Ozempic) 2 mg/dose (8 mg/3 mL) pen injector Discontinued 2 MG SUBCUT every week March 16, 2024 12:01pm March 16, 2024 1:17pmStart: 83-23-2695kspiec 2 mg by subcutaneous injection every weekSemaglutide (Ozempic) 2 mg/dose (8 mg/3 mL) pen injector Active 2 MG SUBCUT every week March 16, 2024 12:01pmStart: 03-16-2024 End: 93-65-1145Bfzzsnbekuv (Ozempic) 2 mg/dose (8 mg/3 mL) pen injector Discontinued MG SUBCUT March 15, 2024 11:00pm March 16, 2024 11:02amStart: 03-16-2024 End: 05-09-3966Yuicjbayzua (Ozempic) 2 mg/dose (8 mg/3 mL) pen injector Discontinued MG SUBCUT March 16, 2024 12:00am March 16, 2024 12:02pm Tirzepatide (20 sources)Start: 06-12-2024 End: 26-82-7684Xdypfnhghjd (Mounjaro) 12.5 mg/0.5 mL pen injector Discontinued 12.5 MG SUBCUT every week 2 17 01June 12, 2024 9:15am August 02, 2024 3:55pmStart: 06-12-2024 End: 93-59-5908Lygozlpmfbz (Mounjaro) 12.5 mg/0.5 mL pen injector Discontinued 12.5 MG SUBCUT every week 2 June 12, 2024 9:15am August 02, 2024 3:55pmStart: 06-12-2024 End: 51-94-6567Yvbznkvqghg (Mounjaro) 12.5 mg/0.5 mL pen injector Discontinued 12.5 MG SUBCUT every week 2 June 12, 2024 8:15am August 02, 2024 2:55pmStart: 06-06-2024 End: 39-48-9591Towxhfuvpxb (Mounjaro) 12.5 mg/0.5 mL pen injector Discontinued 10 MG SUBCUT every week 2 17 01June 06, 2024 3:04pm June 12, 2024 9:15amStart: 06-06-2024 End: 22-63-1989Fdbddjamyqa (Mounjaro) 12.5 mg/0.5 mL pen injector Discontinued 10 MG SUBCUT every week 2 June 06, 2024 3:04pm June 12, 2024 9:15am Start: 06-06-2024 End: 43-08-2282Vvbcrwjgmpv (Mounjaro) 12.5 mg/0.5 mL pen injector Discontinued 10 MG SUBCUT every week 2 June 06, 2024 2:04pm June 12, 2024 8:15am Start: 23-46-5054Crnssixubry (Mounjaro) 12.5 mg/0.5 mL pen injector Active 10 MG SUBCUT every week 2 June 06, 2024 3:04pmTirzepatide (20 sources)Start: 04-10-2024 End: 57-61-0389Ktnbbcfeaac (Mounjaro) 5 mg/0.5 mL pen injector Discontinued 5 MG SUBCUT every week 2 17 01April 10, 2024 1:34pm May 02, 2024 2:48pm Type 2 diabetes mellitus with hyperglycemia Type 2 diabetes mellitus with hyperglycemiaStart: 04-10-2024 End: 01-80-8173Ngdldvfnhtw (Mounjaro) 5 mg/0.5 mL pen injector Discontinued 5 MG SUBCUT every week 2 April 10, 2024 12:34pm May 02, 2024 1:48pm Start: 04-10-2024 End: 64-27-8068Dbqvfcoofck (Mounjaro) 5 mg/0.5 mL pen injector Discontinued 5 MG SUBCUT every week 2 April 10, 2024 1:34pm May 02, 2024 2:48pm Start: 03-16-2024 End: 31-17-4400showqt 1 mg by subcutaneous injection every weekTirzepatide (Mounjaro) 5 mg/0.5 mL pen injector Discontinued 5 MG SUBCUT every week 2 March 16, 2024 12:00am April 10, 2024 1:35pm Type 2 diabetes mellitus with hyperglycemia Type 2 diabetesmellitus with hyperglycemia Begin after 4 weeks at 2.5mg dose.Start: 03-16-2024 End: 29-72-1590aqfdpf 1 mg by subcutaneous injection every weekTirzepatide (Mounjaro) 5 mg/0.5 mL pen injector Discontinued 5 MG SUBCUT every week 2 February 11:00pm April 10, 2024 12:35pm Begin after 4 weeks at 2.5mg dose.Start: 03-16-2024 End: 62-05-0377zrcdhj 1 mg by subcutaneous injection every weekTirzepatide (Mounjaro) 5 mg/0.5 mL pen injector Discontinued 5 MG SUBCUT every week 2 February 12:00am April 10, 2024 1:35pm Begin after 4 weeks at 2.5mg dose.Tirzepatide (19 sources)Start: 05-02-2024 End: 84-29-3396Dgqyrnwrppa (Mounjaro) 10 mg/0.5 mL pen injector Discontinued 10 MG SUBCUT every week 2 2023 12:00am June 06, 2024 3:05pm Start: 05-02-2024 End: 79-35-7383Kixwawgmfag (Mounjaro) 10 mg/0.5 mL pen injector Discontinued 10 MG SUBCUT every week 2 May 01, 2024 11:00pm June 06, 2024 2:05pm Start: 05-02-2024 End: 50-22-4716Lthqmupkrmq (Mounjaro) 10 mg/0.5 mL pen injector Discontinued 10 MG SUBCUT every week 2 May 02, 2024 12:00am June 06, 2024 3:05pm Tirzepatide (20 sources)Start: 03-16-2024 End: 36-01-6038Abnmvjvqray (Mounjaro) 2.5 mg/0.5 mL pen injector Discontinued 2.5 MG SUBCUT every week 2 2023 1:19pm April 07, 2024 3:34pm Start: 03-16-2024 End: 90-99-9344Uisclyqcgqc (Mounjaro) 2.5 mg/0.5 mL pen injector Discontinued 2.5 MG SUBCUT every week 2 March 16, 2024 12:19pm April 07, 2024 2:34pm Start: 03-16-2024 End: 94-69-1575Qdrnbmqokfm (Mounjaro) 2.5 mg/0.5 mL pen injector Discontinued 2.5 MG SUBCUT every week 2 March 16, 2024 1:19pm April 07, 2024 3:34pm Start: 03-16-2024 End: 78-96-0006Zbudwzatiax (Mounjaro) 2.5 mg/0.5 mL pen injector Discontinued 2.5 MG SUBCUT every week 2 2023 12:00am March 16, 2024 1:22pm Start: 03-16-2024 End: 66-34-9985Bwhlnhdegnt (Mounjaro) 2.5 mg/0.5 mL pen injector Discontinued 2.5 MG SUBCUT every week 2 March 15, 2024 11:00pm March 16, 2024 12:22pm Start: 03-16-2024 End: 54-67-3125Afaonbcxflo (Mounjaro) 2.5 mg/0.5 mL pen injector Discontinued 2.5 MG SUBCUT every week 2 March 16, 2024 12:00am March 16, 2024 1:22pm Tirzepatide (19 sources)Start: 03-16-2024 End: 72-90-7084tbmuhs 5 mg by subcutaneous injection every weekTirzepatide (Mounjaro) 7.5 mg/0.5 mL pen injector Discontinued 7.5 MG SUBCUT every week 2 2023 12:00am May 02, 2024 2:48pm Begin after 4 weeks of 5mg doseStart: 03-16-2024 End: 42-34-7061wipilv 5 mg by subcutaneous injection every weekTirzepatide (Mounjaro) 7.5 mg/0.5 mL pen injector Discontinued 7.5 MG SUBCUT every week 2 March 15, 2024 11:00pm May 02, 2024 1:48pm Begin after 4 weeks of 5mg doseStart: 03-16-2024 End: 68-79-6251iwthkk 5 mg by subcutaneous injection every weekTirzepatide (Mounjaro) 7.5 mg/0.5 mL pen injector Discontinued 7.5 MG SUBCUT every week 2 March 16, 2024 12:00am May 02, 2024 2:48pm Begin after 4 weeks of 5mg doseTirzepatide (18 sources)Start: 08-02-2024 End: 51-25-7815Jjrgueuygsz 15 mg/0.5 mL pen injector Discontinued 15 MG SUBCUT every week 2 17 01August 02, 2024 3:55pm October 19, 2024 4:40pmStart: 08-02-2024 End: 52-79-8942Zbxlbpfrvod 15 mg/0.5 mL pen injector Discontinued 15 MG SUBCUT every week 2 August 0243:55pm October 19, 2024 4:40pmStart: 08-02-2024 End: 72-78-8326Awrymzxnjgl 15 mg/0.5 mL pen injector Discontinued 15 MG SUBCUT every week 2 August 0242:55pm October 19, 2024 3:40pmStart: 19-71-5396Xvcajvojhfy 15 mg/0.5 mL pen injector Active 15 MG SUBCUT every week 2 August 02, 2024 2:55pmtriamcinolone acetonide 40 mg/ml injectable suspension (11 sources)CorticosteroidStart: 32-40-1085Ueefsqm-40 Jun, 40 mg Problems Active Problems Problem ClassificationProblemDateDocumented DateEpisodic/ChronicAcute bronchitis (10 sources)Acute bronchitis; Translations: [Acute bronchitis, unspecified] Onset: 36-82-7836TwxpvvwnYioeq cerebrovascular disease (1 source)Acute cerebrovascular diseaseOnset: 50-99-6630Lptefmy disorders (19 sources)Generalized anxiety disorder; Translations: [Generalized anxiety disorder]Onset: 76-87-7839VfjdrtgQjvfnx of thyroid (20 sources)Papillary thyroid carcinoma; Translations: [Malignant neoplasm of thyroid gland]Onset: 903747-57-6813IammajbQhohxal on above:FNA: 10/05/24CTA neck: 2.5cm right thyroid nodule - 07/2024,US: 3cm TR4 right - 08/2024FNA nodule: papillary thyroid cancer - 09/2024Total thyroidectomy - 10/2024i 131 therapy - TA neck: 2.5cm right thyroid nodule - 07/2024,US: 3cm TR4 right - 08/2024FNA nodule: papillary thyroid cancer - 09/2024Total thyroidectomy - 10/2024I-131 therapy - onditions associated with dizziness or vertigo (14 sources)Benign paroxysmal positional vertigo; Translations: [Benign paroxysmal vertigo, bilateral]EpisodicDiabetes mellitus with complications (20 sources)Hyperglycemia due to type 2 diabetes mellitus; Translations: [Type 2 diabetes mellitus with hyperglycemia]Onset: 11-01-2024 Resolved: 12-88-0595SsktnqcOzfpcmrd mellitus without complication (20 sources)Impaired fasting glycemia; Translations: [Impaired fasting glucose] Onset: 11-01-2024 Resolved: 160019-47-4686MouymhoaObxemcxph of lipid metabolism (20 sources)Hypercholesterolemia; Translations: [Pure hypercholesterolemia, unspecified]Onset: 11-01-2024 Resolved: 748788-27-4601LgmjnyqPdcmsxmqrabzcu and diverticulitis (1 source)Diverticulosis of intestine, part unspecified, without perforation or abscess without bleeding; Translations: [Diverticulosis of intestine, part unspecified, without perforation or abscess without bleeding]Onset: 10-05-2023 ChronicEpilepsy; convulsions (20 sources)Absence seizure; Translations: [Absence epileptic syndrome, not intractable, without status epilepticus]Onset: 08-23-2023 Resolved: 558685-91-1189XbfchcmQedizcd on above:Dx after experiencing global amnesiaEsophageal disorders (20 sources)Esophageal reflux finding; Translations: [Esophageal reflux]Onset: 01-31-2016 Resolved: 387122-14-6373FhicussKplahlicnt disorders (12 sources)Esophageal disorders; Translations: [Gastroesophageal reflux disease with esophagitis without hemorrhage]Essential hypertension (20 sources)Essential (primary) hypertension; Translations: [Essential hypertension]Onset: 53-81-0495UxycxbuNfakn and electrolyte disorders (13 sources)Hypokalemia; Translations: [Hypokalemia]EpisodicGenitourinary symptoms and ill-defined conditions (15 sources)Dysuria; Translations: [Dysuria]Onset: 49-61-1304SodduvolUoxccaej; including migraine (20 sources)Headache; Translations: [Headache, unspecified]Onset: 11-01-2024 Resolved: 498228-40-7944MzqpedytQdujhwyvrobjw mental health disorders (13 sources)Occipital headache; Translations: [Occipital headache]ChronicMood disorders (8 sources)Major depression single episode, in partial remission; Translations: [Major depressive disorder, single episode, in partial or unspecified remission] Onset: 44-98-7094KusjtswQljo disorders (2 sources)Mood disorders; Translations: [Major depressive disorder, single episode, in partial or unspecifiedremission]Onset: 39-53-2716Amuwpfnxwti deficiencies (18 sources)Vitamin D deficiency; Translations: [Vitamin D deficiency, unspecified]ChronicOther congenital anomalies (5 sources)Congenital pes planus; Translations: [Congenital pes planus, unspecified foot]Onset: 65-56-0277NrubaphXndgb connective tissue disease (18 sources)Other symptoms and signs involving the nervous system; Translations: [Suspected sleep apnea]EpisodicOther connective tissue disease (20 sources)Inflammation of rotator cuff tendon; Translations: [Other shoulder lesions, unspecified shoulder]Onset: 11-01-2024 Resolved: 082155-17-4588FtxbuyetUfylw connective tissue disease (9 sources)Other shoulder lesions, unspecified shoulder; Translations: [Disorders of bursae and tendons in shoulder region, unspecified]06-06-2024 EpisodicOther connective tissue disease (14 sources)Ganglion cyst of left dorsal wrist; Translations: [Ganglion, left wrist]00-99-7710IntqyaopPtlzh connective tissue disease (2 sources)Cramp; Translations: [Cramp and spasm]68-80-9629QvazdjwmZnmiv connective tissue disease (1 source)Cramp and spasm; Translations: [Cramp and spasm]Onset: 03-12-2025 EpisodicOther diseases of veins and lymphatics (13 sources)Chronic peripheral venous hypertension; Translations: [Chronic venous hypertension (idiopathic) without complications of bilateral lower extremity]ChronicOther diseases of veins and lymphatics (20 sources)Venous insufficiency of leg; Translations: [Venous insufficiency (chronic) (peripheral)]Onset: 11-01-2024 Resolved: 408051-78-2624AzsyumkiEllhr diseases of veins and lymphatics (2 sources)Venous insufficiency (chronic) (peripheral); Translations: [Venous (peripheral) insufficiency, unspecified]63-80-2929ZjzwacowQblip ear and sense organ disorders (5 sources)Otitis externa; Translations: [Unspecified otitis externa, unspecified ear]ChronicOther lower respiratory disease (4 sources)Cough; Translations: [Cough, unspecified]EpisodicOther nervous system disorders (20 sources)Chronic pain; Translations: [Other chronic pain]ChronicOther nervous system disorders (3 sources)Other chronic pain; Translations: [Chronic pain]ChronicOther nervous system disorders (13 sources)Skin sensation disturbance; Translations: [Paresthesia of skin] EpisodicOther nervous system disorders (4 sources)Paresthesia; Translations: [Paresthesia of skin]EpisodicOther nervous system disorders (1 source)Paresthesia of skin; Translations: [Paresthesia of skin]EpisodicOther non-traumatic joint disorders (9 sources)Rotator cuff arthropathy of left shoulder; Translations: [Other specific arthropathies, not elsewhere classified, left shoulder]ChronicOther non-traumatic joint disorders (2 sources)Other specific arthropathies, not elsewhere classified, left shoulder; Translations: [OTH SPEC ARTHROPATHIES NEC LT SHLDR]Onset: 12-17-2022 ChronicOther non-traumatic joint disorders (13 sources)Chronic pain of left upper limb; Translations: [Pain in left shoulder]EpisodicOther non-traumatic joint disorders (20 sources)Pain in left shoulder; Translations: [Left shoulder pain]Onset: 11-01-2024 Resolved: 92-69-1241XzeqtrrtNjgom nutritional; endocrine; and metabolic disorders (18 sources)Obesity; Translations: [Obesity, unspecified]08-21-3852FwmwdkfExkmm nutritional; endocrine; and metabolic disorders (5 sources)Obese class II; Translations: [Body mass index 39.0-39.9, adult] Onset: 96-09-4301VpopwtfMspxd nutritional; endocrine; and metabolic disorders (5 sources)Body mass index 40+ - severely obese; Translations: [Body mass index (BMI) 40.0-44.9, adult]Onset: 21-71-2035RovdkcmQueah nutritional; endocrine; and metabolic disorders (2 sources)Obesity, unspecified; Translations: [Obesity, unspecified]Chronic Other screening for suspected conditions (not mental disorders or infectious disease) (20 sources)Iron deficiency screening; Translations: [Encounter for screening for diseases of the blood and blood-forming organs and certain disorders involving the immune mechanism]Onset: 09-09-2023 Resolved: 507904-44-1515HprgruzvMfqwb upper respiratory disease (2 sources)Change in voice; Translations: [Unspecified voice and resonance disorder]83-48-3733CdlurxaqJybaanzc codes; unclassified (20 sources)Obstructive sleep apnea syndrome; Translations: [Obstructive sleep apnea (adult) (pediatric)]Onset: 11-01-2024 Resolved: 804031-75-4075EkotqcnZatasuxd codes; unclassified (20 sources)Obstructive sleep apnea (adult) (pediatric); Translations: [Obstructive sleep apnea (adult)(pediatric)]Onset: 91-55-6623WymdyokYyarmlhn codes; unclassified (1 source)Pain, unspecified; Translations: [Pain, unspecified]Onset: 08-14-2024 EpisodicResidual codes; unclassified (1 source)Other specified postprocedural states; Translations: [Other specified postprocedural states]Onset: 90-79-2922BpvusdeuDzurvknv codes; unclassified (1 source)Acquired absence of other organs; Translations: [Acquired absence of other organs]Onset: 60-83-9125FlcbdazxUysvbek disorders (20 sources)Subclinical hypothyroidism; Translations: [Other specified hypothyroidism]Onset: 10-05-2024 Resolved: 456849-84-8203JhainsuObrgakk on above:CTA neck: 2.5cm right thyroid nodule - TA neck: 2.5cm right thyroid nodule - 07/2024,US: 3cm TR4 right - TA neck: 2.5cm right thyroid nodule - 07/2024,US: 3cm TR4 right - 08/2024FNA nodule: papillary thyroid cancer - 09/2024Transient cerebral ischemia (20 sources)Transient global amnesia; 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] Onset: 11-01-2024 Resolved: 402943-41-8824XnygxjqZsrtzih on above:CT brain: normal - 07/2024,CTA brain/neck: normal - 07/2024,MRI brain: normal - 07/2024,Echo: LVEF 60%, LAE, normal RV size/function, RVSP 32Unclassified (4 sources)Exposure to acute respiratory syndrome coronavirus 2; Translations: [Contact with and (suspected) exposure to COVID-19]Unclassified (1 source)Contact dermatitis and other eczema, due to unspecified cause; Translations: [Contact dermatitis and other eczema, due to unspecified cause] Onset: 88-07-7370Xrjzvgnlxznn (1 source)Routine general medical examination at health care facility; Translations: [Routine general medicalexamination at health care facility]Onset: 23-70-5346Bgjnfpumzhhm (1 source)Other screening mammogram; Translations: [Other screening mammogram] Onset: 14-69-5908Roxrtfaizocq (1 source)Cough, unspecified; Translations: [Cough, unspecified]Unclassified (1 source)Contact with and (suspected) exposure to COVID-19; Translations: [Contact with and (suspected) exposure to COVID-19]Unclassified (1 source)screeningOnset: 20-31-2648Qrflyfwtckny (1 source)Work Related InjuryOnset: 10-20-2023 Past or Other Problems Problem ClassificationProblemDateDocumented DateEpisodic/ChronicAbdominal pain (5 sources)Left upper quadrant pain; Translations: [Left upper quadrant pain] Onset: 78-30-4163PkqldhkzZfapayhw reactions (9 sources)Allergic contact dermatitis due to plants, except food; Translations: [Allergic contact dermatitis due to plants, except food]Onset: 07-10-2014 EpisodicMalaise and fatigue (20 sources)Malaise; Translations: [Other malaise]Onset: 01-31-2016 Resolved: 150226-61-3762HwsqqifmAbnhhuftems chest pain (5 sources)Chest pain; Translations: [Chest pain, unspecified]Onset: 07-10-2014 EpisodicOsteoarthritis (20 sources)Localized, primary osteoarthritis of the ankle and/or foot; Translations: [Primary osteoarthritis, unspecified ankle and foot]Onset: 12-11-2022 Resolved: 51-60-8520IdzpltgLzfhj circulatory disease (4 sources)Elevated blood-pressure reading without diagnosis of hypertension; Translations: [Elevated blood-pressure reading, without diagnosis of hypertension]Onset: 32-97-3246ElrilakfTgxrz circulatory disease (1 source)Elevated blood-pressure reading, without diagnosis of hypertension; Translations: [Elevated blood-pressure reading, without diagnosis of hypertension]Onset: 26-31-9274KhelrtmlMlxcm connective tissue disease (5 sources)Enthesopathy of hip region; Translations: [Enthesopathy of hip region]Onset: 70-88-5694IjuthpivDdvzq connective tissue disease (1 source)Pain in left foot; Translations: [Pain in left foot]Onset: 09-22-2023 EpisodicOther diseases of veins and lymphatics (5 sources)Peripheral venous insufficiency; Translations: [Unspecified venous (peripheral) insufficiency]Onset: 96-93-6993XgmygeenBuvjy nervous system disorders (16 sources)Abnormal gait; Translations: [Unspecified abnormalities of gait and mobility]Onset: 10-17-2024 Resolved: 171050-13-5415YfatnnfnMpdof non-traumatic joint disorders (4 sources)Arthralgia of the ankle and/or foot; Translations: [Pain in unspecified ankle and joints of unspecified foot]Onset: 13-36-1449SwksyfunWcowd non-traumatic joint disorders (1 source)Pain in unspecified ankle and joints of unspecified foot; Translations: [Pain in unspecified ankle and joints of unspecified foot]Onset: 27-89-6325NlnfxjmcFvnxu non-traumatic joint disorders (1 source)Pain in left knee; Translations: [Pain in left knee]Onset: 09-22-2023 EpisodicOther nutritional; endocrine; and metabolic disorders (5 sources)Morbid obesity; Translations: [Morbid (severe) obesity due to excess calories] Resolved: 15-67-1156MypexjfMpnrnytj codes; unclassified (1 source)PainOnset: 12-17-0269YrfsuxtoXavideecmwo; intervertebral disc disorders; other back problems (5 sources)Low back pain; Translations: [Low back pain, unspecified]Onset: 36-05-7519HyevpltkVbzwmfq and strains (20 sources)Strain of other muscles, fascia and tendons at shoulder and upper arm level, left arm, subsequent encounter; Translations: [Strain of unspecified muscle, fascia and tendon at shoulder and upper arm level, left arm, subsequent encounter]Onset: 02-03-2019 Resolved: 172326-04-0380WniefpeiTnxgabpnugho (5 sources)Exposure to potentially hazardous substance; Translations: [Contact with and (suspected) exposure to other potentially hazardous chemicals]Onset: 95-68-6558Althf infection (14 sources)Disease caused by 2019-nCoV; Translations: [COVID-19] Results Test NameValueInterpretationReference RangeFacilityLaboratory - Chemistry and Chemistry - challengeOrdered By: Fab Guevara on 71-62-0605Hbcsarmvt Ql (U) NegativeCleveland Clinic South Pointe HospitalGlucose (U) [Mass/Vol]NegativeCleveland Clinic South Pointe HospitalKetones Ql (U)NegativeC[facility] Clinic [facility] Hospital pH (U)5.0 [pH][facility] Hospitalpecific gravity (U) [Rel density]1.010[facility] HospitalUrobilinogen (U) [Mass/Vol]0.2 mg/dLCleveland Clinic South Pointe HospitalLaboratory - Specimen informationOrdered By: Fab Guevara on 82-73-8687Zlpgzyidrb (U)clearCleveland Clinic South Pointe HospitalColor (U)yellowCleveland Clinic South Pointe HospitalLaboratory - Urinalysis Ordered By: Fab Guevara on 42-62-3018Cfjduovvg esterase Test strip Ql (U)+ [facility] HospitalNitrite Ql (U)NegativeC[facility] Clinic South Pointe HospitalProtein Ql (U)+[facility] HospitalNo Panel InformationOrdered By: Fab Guevara on 13-51-9520Sfvxk Occult BloodNegative [facility] HospitalCalcium [Mass/volume] in Serum or PlasmaOrdered By: Fab Mendoza on 61-30-4571Gsicmxh [Mass/Vol]8.1 mg/dLLow8.6-10.3 [facility] HospitalComment on above:Order Comment: [id number] Performed By: #### T4T, T3T, [id number], CA, TSH3 #### [facility] [address] [id number] USAMagnesium [Mass/volume] in Serum or PlasmaOrdered By: Fab Mendoza on 97-94-7993Swqsjhduc [Mass/Vol]1.9 mg/dLNormal1.9-2.7FUniversity Hospitals Geauga Medical CenterComment on above:Order Comment: /[id number] Comment: PERFORMED BY: [facility] [address] [place] [address] PATHOLOGIST MIR[employer]ACHINE FEEDER ULISES LAN M.D.Performed By: #### T4T, T3T, [id number], CA, TSH3 #### [facility] [address] [id number] USAParathyrin.intact [Mass/volume] in Serum or PlasmaOrdered By: Fab Mendoza on 19-20-0145Vkopphaeri.intact [Mass/Vol]107.2 pg/mLHigh [facility] HospitalParathyroid Hormone Intacton 03-12-2025 Parathyroid Hormone Lqcyvv557.2 pg/gPXlxy12-36Iqm [facility] Comment on above:Result Comment: PERFORMED BY: [place] [address] PATHOLOGIST MIRROR MACHINE FEEDER ULISES LAN M.D.Performed By: #### PTH #### [facility] [address] [place], [place] [id number] USAPotassium [Moles/volume] in Serum or PlasmaOrdered By: Fab Mendoza on 84-91-0977Kzlaeczaw [Moles/Vol]4.2 mmol/LNormal3.5-5.1 [facility] HospitalComment on above:Order Comment: [id number] Performed By: #### T4T, T3T, [id number], CA, TSH3 #### [place] [id number] USASerum or plasma thyroglobulin antibody assay (units/volume)Ordered By: Fab Mendoza on 37-82-2176Nwjnxtokuvzgu Ab Qn [IU]/mL0.0-0.9[facility] HospitalComment on above:Thyroglobulin Antibody measured by Jorge Alberto CoulterMethodologyIt should be noted that the presence of thyroglobulinantibodies may not be pathogenic nor diagnostic, especiallyat very low levels. The assay undercutter has found thatfour percent of individuals without evidence of thyroiddisease or autoimmunity will have positive TgAb levels upto 4 IU/mL.Sodium [Moles/volume] in Serum or Plasma Ordered By: Fab Mendoza on 96-17-2931Rljwdp [Moles/Vol]135 mmol/NDzy517-640 [facility] HospitalComment on above:Order Comment: [id number] Performed By: #### T4T, T3T, [id number], CA, TSH3 #### [facility] [address] [place] [address] USAThyroglobulin [Mass/volume] in Serum or PlasmaOrdered By: Fab Mendoza on 48-07-1289Pgeeiexyyrepg [Mass/Vol]<0.1 ng/mLLow1.5-38.5 [facility] HospitalComment on above:According to the National Academy of Clinical Biochemistry,the reference interval for Thyroglobulin(TG) should berelated to euthyroid patients and not for patients whounderwent thyroidectomy. TG reference intervals for thesepatients depend on the residual mass of the thyroid tissueleft after surgery. Establishing a post-operative baselineis recommended. The assay limit of quantitation is 0.1ng/mLThyroglobulin measured by Jorge Alberto Masha ImmunometricAssayPerformed at: [facility] [id number] Director: Joseph Miller PhD, Phone: [phone], Quant + Tg Abon 59-99-3243Buxfvryenjketiqgy Ab <1.6Wiknan8.0-0.9The [facility] Hospital Physician GroupComment on above:Result Comment: Thyroglobulin Antibody measured by Jorge Alberto Masha Methodology It should be noted that the presence of thyroglobulin antibodies may not be pathogenic nor diagnostic, especially at very low levels. The assay undercutter has found that four percent of individuals without evidence of thyroid disease or autoimmunity will have positive TgAb levels up to 4 IU/mL.Performed By: #### T4T, T3T, [id number], CA, TSH3 #### [place] [address] USAThyroglobulin by RAMIRO<0.2Nnxgbh7.5-38.5The [facility] Hospital Physician GroupComment on above:Result Comment: According to the National Academy of Clinical Biochemistry, the reference interval for Thyroglobulin (TG) should be related to euthyroid patients and not for patients who underwent thyroidectomy. TG reference intervals for these patients depend on the residual mass of the thyroid tissue left after surgery. Establishing a post-operative baseline is recommended. The assay limit of quantitation is 0.1 ng/mL Thyroglobulin measured by Jorge Alberto Grimstead Immunometric Assay Performed at: [facility] [id number] Meeting Facilitator: Joseph Miller PhD, Phone: [phone] PERFORMED BY: [place] [address] PATHOLOGIST MIRROR MACHINE FEEDER ULISES LAN M.D.Performed By: #### T4T, T3T, [id number], CA, TSH3 #### [address] [address] USAThyrotropin [Units/volume] in Serum or PlasmaOrdered By: Fab Mendoza on 51-81-8286LVR Qn1.21 m[IU]/LNormal0.45-5.33[facility] HospitalComment on above:Result Comment: PERFORMED BY: [place] [id number] PATHOLOGIST MIRROR MACHINE FEEDER ULISES LAN M.D.Performed By: #### T4T, T3T, [id number], CA, TSH3 #### [address] [address] USAThyroxine (T4) [Mass/volume] in Serum or PlasmaOrdered By: Fab Mendoza on 34-62-9401U3 [Mass/Vol]11.19 ug/dLNormal5.39-11.82[facility] HospitalComment on above:Performed By: #### T4T, T3T, [id number], CA, TSH3 #### [place] [id number] USATriiodothyronine (T3) Totalon 72-53-9776Sceoxtllcsmlljzx (T3) Total0.77 ng/mLLow0.87-1.78The [facility] Physician GroupComment on above: Performed By: #### T4T, T3T, [id number], CA, TSH3 #### [facility] [address] [place] [address] USATriiodothyronine (T3) [Mass/volume] in Serum or Plasma Ordered By: Fab Mendoza on 05-85-9784Q0 [Mass/Vol]0.77 ng/mLLow0.87-1.78 [facility] Hospitalerum or plasma thyroglobulin antibody assay (units/volume)Ordered By: Fab Mendoza on 48-97-0492Uzjfsrrjrmnzt Ab Qn [IU]/mL0.0-0.9[facility] HospitalComment on above:Thyroglobulin Antibody measured by Jorge Alberto CoulterMethodologyIt should be noted that the presence of thyroglobulinantibodies may not be pathogenic nor diagnostic, especiallyat very low levels. The assay undercutter has found thatfour percent of individuals without evidence of thyroiddisease or autoimmunity will have positive TgAb levels upto 4 IU/mL.Thyroglobulin [Mass/volume] in Serum or Plasma Ordered By: Fab Mendoza on 41-06-4344Gkaaurztlufjn [Mass/Vol]<0.1 ng/mLLow 1.5-38.5FUniversity Hospitals Geauga Medical CenterComment on above:According to the National Academy of Clinical Biochemistry,the reference interval for Thyroglobulin(TG) should berelated to euthyroid patients and not for patients whounderwent thyroidectomy. TG reference intervals for thesepatients depend on the residual mass of the thyroid tissueleft after surgery. Establishing a post- operative baselineis recommended. The assay limit of quantitation is 0.1ng/mL Thyroglobulin measured by Row [place] ImmunometricAssayPerformed at: [employer] [facility] [id number] Director: Joseph Miller PhD, Phone: [phone], Quant + Tg Abon 03-05-2025 Antithyroglobulin Ab<1.8Tomtzq5.0-0.9The [facility] Physician GroupComment on above:Result Comment: Thyroglobulin Antibody measured by Jorge Alberto Masha Methodology It should be noted that the presence of thyroglobulin antibodies may not be pathogenic nor diagnostic, especially at very low levels. The assay undercutter has found that four percent of individuals without evidence of thyroid disease or autoimmunity will have positive TgAb levels up to 4 IU/mL.Performed By: #### T4T, T3T, [id number], CA, TSH3 #### [facility] [address] [place] [address] USAThyroglobulin by RAMIRO<0.1Icozce7.5-38.5The [facility] Physician GroupComment on above:Result Comment: According to the National Academy of Clinical Biochemistry, the reference interval for Thyroglobulin (TG) should be related to euthyroid patients and not for patients who underwent thyroidectomy. TG reference intervals for these patients depend on the residual mass of the thyroid tissue left after surgery. Establishing a post-operative baseline is recommended. The assay limit of quantitation is 0.1 ng/mL Thyroglobulin measured by Jorge Alberto Masha Immunometric Assay Performed at: [facility] Lab[address] [id number] Meeting Facilitator: Joseph Miller PhD, Phone: [phone] PERFORMED BY: [place] [address] PATHOLOGIST MIRROR MACHINE FEEDER ULISES LAN M.D.Performed By: #### T4T, T3T, [id number], CA, TSH3 #### [place] [id number] USAThyrotropin [Units/volume] in Serum or PlasmaOrdered By: Fab Mendoza on 86-02-5387EYQ Qn3.95 m[IU]/LNormal0.45-5.33[facility] HospitalComment on above:Result Comment: PERFORMED BY: [place] [address] PATHOLOGIST MIRROR MACHINE FEEDER ULISES LAN M.D.Performed By: #### T4T, T3T, [id number], CA, TSH3 #### [place] [address] USAThyroxine (T4) [Mass/volume] in Serum or PlasmaOrdered By: Fab Mendoza on 83-94-2794J6 [Mass/Vol]12.28 ug/dLHigh5.39-11.82[facility] HospitalComment on above:Performed By: #### T4T, T3T, [id number], CA, TSH3 #### [place] [id number] USATriiodothyronine (T3) Totalon 26-35-3187Urpvaijszgqdompy (T3) Total0.81 ng/mLLow0.87-1.78The [facility] Physician GroupComment on above: Performed By: #### T4T, T3T, [id number], CA, TSH3 #### [place] [id number] USATriiodothyronine (T3) [Mass/volume] in Serum or Plasma Ordered By: Fab Mendoza on 75-56-9297J1 [Mass/Vol]0.81 ng/mLLow0.87-1.78 [facility] HospitalUrine Cultureon 21-24-2887Hdmqoidy identified Cx Nom (U)ORGANISM: Escherichia coli (O:ESCCOL) [place] Count >100,000 Aerobic JADON Charge (NMIC56) SUSCEPTIBILITY ORGANISM: O:ESCCOL ANTIBIOTIC INTERPRETATION JADON Amikacin S <16 Amoxacillin/K Clavulanate S <8 Ampicillin S <8 Ampicillin/Sulbactam S <4 Aztreonam S <4 Cefazolin S <2 Cefepime S <2 Ceftazidime S <1 Ceftazidime/Avibactam S <4 Ceftolozane/Tazobactam S <2 Ceftriaxone S <1 Cefuroxime S <4 Ciprofloxacin S <0.25 Ertapenem S <0.5 Gentamicin S <2 Levofloxacin S <0.5 Meropenem S <1 Meropenem/Vaborbactam S <2 Nitrofurantoin S <32 Piperacillin/Tazobactam S <8 Tetracycline S <4 Tigecycline S <2 Tobramycin S <2 Trimethoprim/Sulfamethoxazole R >2 S = SUSCEPTIBLE I = INTERMEDIATE R = RESISTANT BLANK = DATA NOT AVAILABLE, OR DRUG NOT ADVISABLE OR TESTED R* = RESISTANCE DUE TO EXTENDED SPECTRUM BETA-LACTAMASES ESBL = EXTENDED SPECTRUM BETA-LACTAMASE TFG = THYMIDINE-DEPENDENT STRAIN CHRISTOPHE = BETA-LACTAMASE POSITIVE IB = INDUCIBLE BETA-LACTAMASE. APPEARS IN PLACE OF 'S' WITH SPECIES KNOWN TO POSSESS INDUCIBLE BETA-LACTAMASES. POTENTIALLY THEY MAY BECOME RESISTANT TO ALL B-LACTAM DRUGS. PERFORMED BY: [facility] [address] [place] [address] PATHOLOGIST MIRROR MACHINE FEEDER ULISES LAN M.D.[facility] Physician GroupComment on above: Performed By: #### T4T, T3T, [id number], CA, TSH3 #### [facility] [address] StreetUrine cultureOrdered By: Fab Guevara on 02-26-2025 Bacteria identified Cx Nom (U)Escherichia coliAbLima City HospitalNM thyroid ca whole bodyon 51-94-7609XH thyroid ca whole bodyCLEVELAND [facility] Main [place] [address] [place] [address] Nuclear Medicine Report Signed Patient: Carmen Mays MR#: [id number] : 1960 Acct:[id number] Age/Sex: 64 / F ADM Date: 02/01/25 Loc: XT Room: Type: [facility] Attending Dr: Faina Ibarra MD Copies to: Carmelo Estrada II, MD Norleena Poynter, MD Ordering Provider: Faina Ibarra MD Date of Service: 02/09/25 NM/NM thyroid ca whole body: *Dose ordered* Thyroid cancer ([id number]) NM/NM tx radpharm oral: Thyroid cancer DOSE ORDERED [facility] thyroid ca whole body 02/09/2025 11:27 AM [...] Estrada M.D. 02/09/2025 5:47 PM Dictation Location: [place] [address] Transcribed By: [facility] 02/09/25 1747 Dictated By: Carmelo Estrada II, MD 02/09/25 174 Signed By: 02/09/25 1747[facility] thyroid ca whole bodyon 95-23-6875MR thyroid ca whole bodyCLEVELAND CLIN[facility] [place] [address] Nuclear Medicine Report Signed Patient: Carmen Mays MR#: [id number] : 1960 Acct:[id number] Age/Sex: 64 / F ADM Date: 02/01/25 Loc: Room: Type: [facility] Attending Dr: Faina Ibarra MD Copies to: Valerio Villa Jr, DO Faina Ibarra MD Ordering Provider: Faina Ibarra MD Date [...] Jr., D.O. 02/01/2025 11:10 AM Dictation Location: [place] [address] Transcribed By: [facility] 02/01/25 1110 Dictated By: Valerio Villa Jr, DO 02/01/25 1108 Signed By: 02/01/25 1110[facility] Physician GroupSerum or plasma thyroglobulin antibody assay (units/volume)Ordered By: Faina Ibarra on 01-31-2025 Thyroglobulin Ab Qn[IU]/mL0.0-0.9[facility] Pointe HospitalComment on above:Thyroglobulin Antibody measured by Jorge Alberto CoulterMethodologyIt should be noted that the presence of thyroglobulinantibodies may not be pathogenic nor diagnostic, especiallyat very low levels. The assay undercutter has found thatfour percent of individuals without evidence of thyroiddisease or auto immunity will have positive TgAb levels upto 4 IU/mL.Thyroglobulin [Mass/volume] in Serum or PlasmaOrdered By: Faina Ibarra on 21-34-5019Wzsvqpejvacrf [Mass/Vol]0.2 ng/mLLow1.5-38.5FUniversity Hospitals Geauga Medical CenterComment on above: According to the National Academy of Clinical Biochemistry,the reference interval for Thyroglobulin(TG) should berelated to euthyroid patients and not for patients whounderwent thyroidectomy. TG reference intervals for thesepatients depend on the residual mass of the thyroid tissueleft after surger y. Establishing a post-operative baselineis recommended. The assay limit of quantitation is 0.1ng/mLThyroglobulin measured by [place] ImmunometricAssayPerformed at: [id number] [id number] Director: Joseph Miller PhD, Phone: [phone], Quant + Tg Abon 14-25-2275Nqkorizxvpflnntlh Ab<1.2Kmznfb8.0-0.9The [facility] Hospital Physician GroupComment on above:Result Comment: Thyroglobulin Antibody measured by Jorge Alberto Grimstead Methodology It should be noted that the presence of thyroglobulin antibodies may not be pathogenic nor diagnostic, especially at very low levels. The assay undercutter has found that four percent of individuals without evidence of thyroid disease or autoimmunity will have positive TgAb levels up to 4 IU/mL.Performed By: #### TSH3 #### [address] #### THYGLOB #### [facility] ,Thyroglobulin by IMA0.2 ng/mLLow1.5-38.5The [facility] Hospital Physician GroupComment on above:Result Comment: According to the National Academy of Clinical Biochemistry, the reference interval for Thyroglobulin (TG) should be related to euthyroid patients and not for patients who underwent thyroidectomy. TG reference intervals for these patients depend on the residual mass of the thyroid tissue left after surgery. Establishing a post-operative baseline is recommended. The assay limit of quantitation is 0.1 ng/mL Thyroglobulin measured by Jorge Alberto BRAINDIGIT Immunometric Assay Performed at: [id number] [id number] Meeting Facilitator: Joseph Miller PhD, Phone: [phone] PERFORMED BY: [place] [address] PATHOLOGIST MIRROR MACHINE FEEDER ULISES LAN M.D.Performed By: #### TSH3 #### [facility] [address] [place] [address] #### THYGLOB #### [facility] ,Thyrotropin [Units/volume] in Serum or PlasmaOrdered By: Faina Ibarra on 45-15-4632SOA Qn154.48 m[IU]/LHigh0.45-5.33[facility] Comment on above:Result Comment: PERFORMED BY: [place] [address] PATHOLOGIST MIRROR MACHINE FEEDER ULISES LAN M.D.Performed By: #### TSH3 #### [facility] [address] [place] [address] #### THYGLOB #### [facility] ,Thyrotropin [Units/volume] in Serum or PlasmaOrdered By: Fab Mendoza on 73-70-9359SMH QnThyrotropin [Units/volume] in Serum or PlasmaHigh0.45-5.33 [facility] HospitalTS Qn115.36 m[IU]/LHigh0.45-5.33[facility] Pointe HospitalComment on above:Result Comment: PERFORMED BY: [place] [address] PATHOLOGIST MIRROR MACHINE FEEDER ELIUD HIGGINBOTHAM M.D.Performed By: #### T4T, T3T, [id number], CA, TSH3 #### [place] [address] USAThyroxine (T4) [Mass/volume] in Serum or PlasmaOrdered By: Fab Mendoza on 76-61-5850P9 [Mass/Vol]Thyroxine (T4) [Mass/volume] in Serum or PlasmaLow5.39-11.82[facility]inte HospitalT4 [Mass/Vol]3.18 ug/dL Low5.39-11.82[facility] Po[facility] HospitalComment on above:Performed By: #### T4T, T3T, [id number], CA, TSH3 #### [facility] [address] [place] [address] USATriiodothyronine (T3) Totalon 76-43-8153Twytargnjxopmymi (T3) Total0.70 ng/mLLow0.87-1.78The [facility] Physician GroupComment on above: Performed By: #### T4T, T3T, [id number], CA, TSH3 #### [facility] [address] [place] [address] USATriiodothyronine (T3) [Mass/volume] in Serum or Plasma Ordered By: Fab Mendoza on 91-43-9445Y5 [Mass/Vol]Triiodothyronine (T3) [Mass/volume] in Serum or PlasmaLow0.87-1.78[facility]inte HospitalT3 [Mass/Vol]0.70 ng/mLLow0.87-1.78[facility] HospitalCalciumon 94-78-1714Wqjqaof [Mass/Vol]9.7 mg/dLNormal8.6-10.3[facility] Comment on above:Performed By: #### T4T, T3T, [id number], CA, TSH3 #### [facility] [address] [place] [address] USACalcium [Mass/volume] in Serum or PlasmaOrdered By: Fab Mendoza on 96-63-5566Gkpexct [Mass/Vol]Calcium [Mass/volume] in Serum or Plasma8.6-10.3FUniversity Hospitals Geauga Medical CenterParathyrin.intact [Mass/volume] in Serum or PlasmaOrdered By: Fab Mendoza on 22-71-7650Gfefbasdzg.intact [Mass/Vol]Parathyrin.intact [Mass/volume] in Serum or Xjfszj32-77GpyswgurpCleveland Clinic South Pointe HospitalParathyroid Hormone Intacton 13-92-0899Wyymrqyfnbo Hormone Ewlhsp38.9 pg/mMDxtmqw22-87Gvs [facility] Physician GroupComment on above:Result Comment: PERFORMED BY: [facility] [address] [place] [address] PATHOLOGIST MIRROR MACHINE FEEDER ELIUD HIGGINBOTHAM M.D.Performed By: #### PTH #### [facility] [address] [place] [address] USAThyroid Stimulating Hormoneon 98-32-9773BFX Qn0.53 m[IU]/L Normal0.45-5.33The [facility] Hospital Physician GroupComment on above:Performed By: #### T4T, T3T, [id number], CA, TSH3 #### [facility] [address] [place] [address] USAThyrotropin [Units/volume] in Serum or PlasmaOrdered By: Fab Mendoza on 24-22-8780MIV QnThyrotropin [Units/volume] in Serum or Plasma 0.45-5.33[facility] Pointe HospitalThyroxine (T4) Totalon 28-03-7140J4 [Mass/Vol]10.80 ug/dLNormal5.39-11.82The [facility] Hospital Physician GroupComment on above:Performed By: #### T4T, T3T, [id number], CA, TSH3 #### [place] [id number] USAThyroxine (T4) [Mass/volume] in Serum or PlasmaOrdered By: Fab Mendoza on 48-19-8304F2 [Mass/Vol]Thyroxine (T4) [Mass/volume] in Serum or Plasma5.39-11.82[facility] Pointe HospitalTriiodothyronine (T3) Total on 70-34-0045Bnfoscbcvrziazom (T3) Total1.05 ng/mLNormal0.87-1.78The [facility] Hospital Physician GroupComment on above:Performed By: #### T4T, T3T, [id number], CA, TSH3 #### [place] [id number] USATriiodothyronine (T3) [Mass/volume] in Serum or Plasma Ordered By: Fab Mendoza on 24-88-8828M3 [Mass/Vol]Triiodothyronine (T3) [Mass/volume] in Serum or Plasma0.87-1.78[facility] Vitamin D 25 Hydroxy Totalon 38-36-2287Vksuotr D 25 Hydroxy Total13.8 ng/mLLow 30-100The [facility] Hospital Physician GroupComment on above:Result Comment: VITAMIN D STATUS 25(OH)VITAMIN D RANGE (ng/mL) Deficient <20 Insufficient 20 to <30 Sufficient 30 to 100 Reference: Neal Rodriguez, Jasvir ARRIOLA, et al. Evaluation,treatment, and prevention of vitamin D deficiency; an Endocrine Society clinical practice guideline. JCEM. 2010; 96(7):1911-. PERFORMED BY: [address] [place] [address] PATHOLOGIST MIRROR MACHINE FEEDER ELIUD HIGGINBOTHAM M.D.Performed By: #### T4T, T3T, [id number], CA, TSH3 #### [address] StreetVitamin D+Metabolites [Mass/volume] in Serum or Plasma Ordered By: Fab Mendoza on 81-36-8558Lhrmbgg D+Metabolites [Mass/Vol]Vitamin D+Metabolites [Mass/volume] in Serum or BhlnljMio09-260MqjscinncCleveland Clinic South Pointe HospitalComment on above:VITAMIN D STATUS 25(OH)VITAMIN D RANGE (ng/mL) Deficient <20 Insufficient 20 to <79Lzahogjfpg06 to 100Reference: Neal Rodriguez, Jasvir ARRIOLA, et al. Evaluation,treatment, and prevention of vitamin D deficiency; an Endocrine Society clinical practice guideline. JCEM. 2010; 96(7):1911-30.Pathology study report documentOrdered By: Ebony Freeman on 24-09-9366Mtdfnkhbg studyCleveland Clinic South Pointe Hospital Other Calciumon 95-22-4646Bimwvkn [Mass/Vol]9 mg/dL8.6 - 10.3 mg/dLNOMS HealthcareCalcium [Mass/Vol]9.0 mg/dLNormal8.6-10.3The [facility] Hospital Physician GroupComment on above:Order Comment: Comment Call to Dr. Palma Comment: PERFORMED BY: [address] [place] [address] PATHOLOGIST MIRROR MACHINE FEEDER ELIUD HIGGINBOTHAM M.D.Performed By: #### T4T, T3T, [id number], CA, TSH3 #### [facility] [address] [place] [address] USACalcium [Mass/Vol]on 10-45-5054Mxxsgek Call to Dr. Reji SMITH HealthcareCalcium [Mass/volume] in Serum or PlasmaOrdered By: Fab Mendoza on 43-05-9455Azvaqox [Mass/Vol]Calcium [Mass/volume] in Serum or Plasma8.6-10.3FUniversity Hospitals Geauga Medical CenterLon 10-25-2024L Specimen: [id number] Received: 10/25/24 Status: ANGLE Mcwilliams Num: [id number] Spec Type: Surgical Subm Dr: Fab Mendoza DO Tissues: A Parathyroid Gland (PARATHYROID) B Parathyroid Gland (PARATHYROID) C THYROID - Lobe (RT LOBE AND ISTHMUS) D Lymph Node - Regional Resection (RT LATERAL CENTRAL COMPARTME) E Lymph Node - Regional Resection (CENTRAL RT CENTRAL COMPARTME) F THYROID - Lobe (LEFT LOBE) Procedures: HE/32, Gross/Micro L5/4, Gross/Micro L4/2, TTF1/3, FS HE/4, DIFF QWIK/2 Age/ Patient Sex Location Account Attending Physician Carmen Mays 64/F MD [id number] Fab Mendoza DO SPEC NUM: [id number] RECD: 10/25/24 STATUS: ANGLE MCWILLIAMS NUM: [id number] CLIFF: 10/25/[address] [facility] [address]: Fba Mendoza DO ENTERED: 10/25/24 [facility] DR: RAVI TYPE: Surgical DEPT: S ENTERED BY: [id number] RECV BY: [id number] ORDERED: HE/32, Gross/Micro L5/4, Gross/Micro L4/2, TTF1/3, [...] 1 macrometastasis, 1 micrometastasis, No perinodal invasion) Specimen: [id number] Received: 10/25/24 Status: ANGLE Herbertrachel Num: [id number] Spec Type: Surgical Subm Dr: Fab Mendoza DO Tissues: A Parathyroid Gland (PARATHYROID) B Parathyroid Gland (PARATHYROID) C THYROID - Lobe (RT LOBE AND ISTHMUS) D Lymph Node - Regional Resection (RT LATERAL CENTRAL COMPARTME) E Lymph Node - Regional Resection (CENTRAL RT CENTRAL COMPARTME) F THYROID - Lobe (LEFT LOBE) Procedures: HE/32, Gross/Micro L5/4, Gross/Micro L4/2, TTF1/3, FS HE/4, DIFF QWIK/2 Patient: Carmen Mays [id number] (Continued) Specimen: [id number] Received: 10/25/24 (Continued) Pathological Diagnosis (Continued) Signed (signature on file) Ebony Freeman MD 10/29/242037 Specimen: [id number] Received: 10/25/24 Status: ANGLE Oj Num: [id number] Spec Type: Surgical Subm Dr: Fab Mendoza DO Tissues: A Parathyroid Gland (PARATHYROID) B Parathyroid Gland (PARATHYROID) C THYROID - Lobe (RT LOBE AND ISTHMUS) D Lymph Node - Regional Resection (RT LATERAL CENTRAL COMPARTME) E Lymph Node - Regional Resection (CENTRAL RT CENTRAL COMPARTME) F THYROID - Lobe (LEFT LOBE) Procedures: HE/32, Gross/Micro L5/4, Gross/Micro L4/2, TTF1/3, FS HE/4, DIFF QWIK/2 Patient: Carmen Mays [id number] (Continued) Specimen: [id number] Received: 10/25/24 (Continued) Pathological Diagnosis (Continued) -1 [...] cm (right lobe) and < 0.05 cm (more content not included)...NormalThe [facility] Physician Group Parathyrin.intact [Mass/volume] in Serum or PlasmaOrdered By: Fab Mendoza on 14-68-4269Nwcjobqxus.intact [Mass/Vol]Parathyrin.intact [Mass/volume] in Serum or DmwbiqWoe32-83JrjnkftlrCleveland Clinic South Pointe HospitalParathyroid Hormone Intacton 28-08-6320Emktksurdou Hormone Intact5.8 pg/aWYua26-64Arj [facility] Hospital Physician GroupComment on above:Order Comment: Comment Call to Dr. Palma Comment: PERFORMED BY: [place] [address] PATHOLOGIST MIRROR MACHINE FEEDER ELIUD HIGGINBOTHAM M.D.Performed By: #### T4T, T3T, [id number], CA, TSH3 #### [facility] [address] [place] [address] USACalcium.ionized [Moles/Vol]on 57-36-4755SLUTDOC CALCIUM5 mg/dL4.5 - 5.6 mg/dLNONM HealthcareComment on above:Performed at: [facility] Lab[address] [id number] Meeting Facilitator: Joseph Miller PhD, Phone: [phone] NOMS HealthcareIonized Calciumon 62-63-8365Nhpaurp Calcium5.0 mg/dLNormal4.5-5.6 The [facility] Hospital Physician GroupComment on above:Result Comment: Performed at: - [facility] [address] [place], [place] [id number] Meeting Facilitator: Joseph Miller PhD, Phone: [phone] PERFORMED BY: [place] [address] PATHOLOGIST MIRROR MACHINE FEEDER ELIUD HIGGINBOTHAM M.D.Performed By: #### T4T, T3T, [id number], CA, TSH3 #### [place] [id number] USAParathyrin.intact [Mass/Vol]on 98-10-4760Yliyqtlxpqnnjk and review of laboratory resultsAbnormalNONM HealthcarePARATHYROID HORMONE KGWAPZ204.5 pg/sXJzcp87 - pg/mLNOMS HealthcareNONM Healthcare Parathyrin.intact [Mass/volume] in Serum or PlasmaOrdered By: Fab Mendoza on 23-03-6408Xrepmjgjge.intact [Mass/Vol]Parathyrin.intact [Mass/volume] in Serum or EulqemSpmn09-87SgyyhnftiCleveland Clinic South Pointe HospitalParathyroid Hormone Intacton 07-21-8115Bwkzkikarar Hormone Mvotuz438.5 pg/gEXvcl39-80Hod [facility] Hospital Physician GroupComment on above:Result Comment: PERFORMED BY: [place] [address] PATHOLOGIST MIRROR MACHINE FEEDER ELIUD HIGGINBOTHAM M.D.Performed By: #### T4T, T3T, [id number], CA, TSH3 #### [place] [id number] USASerum ionized calcium measurement using ion specific electrode (mass/volume)Ordered By: Fab Mendoza on 27-38-1861Xvdprxw.ionized ISE [Mass/Vol]Serum ionized calcium measurement using ion specific electrode (mass/volume)4.5-5.6FUniversity Hospitals Geauga Medical CenterComment on above:Performed at: - [facility] [address] [place], [place] [id number] Director: Joseph Miller PhD, Phone: [phone] Stimulating Hormoneon 10-19-2024 TSH Qn0.94 m[IU]/LNormal0.45-5.33The [facility] Hospital Physician GroupComment on above: Result Comment: PERFORMED BY: [place] [id number] PATHOLOGIST MIRROR MACHINE FEEDER ELIUD HIGGINBOTHAM M.D.Performed By: #### T4T, T3T, BPOH70QH, CA, TSH3 #### [facility] [address] [place], [place] [address] USAThyrotropin [Units/volume] in Serum or PlasmaOrdered By: Fab Mendoza on 93-37-6528AQV QnThyrotropin [Units/volume] in Serum or Plasma 0.45-5.33[facility] Pointe HospitalThyroxine (T4) Totalon 59-25-5343E3 [Mass/Vol]10.31 ug/dLNormal5.39-11.82The [facility] Hospital Physician GroupComment on above:Performed By: #### T4T, T3T, [id number], CA, TSH3 #### [place] [id number] USAThyroxine (T4) [Mass/volume] in Serum or PlasmaOrdered By: Fab Mendoza on 63-34-7023E9 [Mass/Vol]Thyroxine (T4) [Mass/volume] in Serum or Plasma5.39-11.82[facility]inte HospitalTriiodothyronine (T3) Total on 65-76-4681Ccdzfnueikdbesup (T3) Total0.98 ng/mLNormal0.87-1.78The [facility] Hospital Physician GroupComment on above:Performed By: #### T4T, T3T, [id number], CA, TSH3 #### [facility] [address] [place] [address] USATriiodothyronine (T3) [Mass/volume] in Serum or Plasma Ordered By: Fab Mendoza on 49-86-8659L0 [Mass/Vol]Triiodothyronine (T3) [Mass/volume] in Serum or Plasma0.87-1.78[facility] Basophils Auto (Bld) [#/Vol]on 34-11-7252Hicltupbt (Bld) [#/Vol]Automated basophil count0.0-0.1FUniversity Hospitals Geauga Medical CenterBasophils/100 WBC Auto (Bld)on 86-96-6633Qjqnfwabe/100 WBC (Bld)Automated basophil %0.2-2.0[facility] HospitalEosinophils/100 WBC Auto (Bld)on 10-16-2024 Eosinophils/100 WBC (Bld)Automated eosinophil %0.9-7.0[facility] HospitalErythrocyte distribution width Auto (RBC) [Ratio]on 33-82-6537Lnipepupzhx distribution width (RBC) [Ratio]Erythrocyte distribution width [Ratio] by Automated count11.0-15.0[facility] HospitalEstimated glomerular filtration rate (GFR) non- Americanon 76-79-5451GHU/1.73 sq M.predicted among non-blacks MDRD (S/P/Bld) [Vol rate/Area]Estimated glomerular filtration rate (GFR) non->=60 mL/min/1.73m 2FUniversity Hospitals Geauga Medical CenterGlobulin Calc (S) [Mass/Vol]on 22-52-6846Jsovzepe (S) [Mass/Vol]Serum globulin measurement by calculation (mass/volume)[facility] HospitalHematocrit Auto (Bld) [Volume fraction]on 14-20-3712Nrjdwrrrkx (Bld) [Volume fraction]Hematocrit [Volume Fraction] of Blood by Automated count 36.0-48.0[facility] Pointe HospitalHemoglobin [Mass/volume] in Bloodon 49-89-3326Immllpdqcd (Bld) [Mass/Vol]Hemoglobin [Mass/volume] in Blood12.0-16.0 [facility] HospitalLaboratory - Chemistry and Chemistry - challengeon 49-86-0962Bjrvrcq [Mass/Vol]3.2 g/dLLow3.4-5.0[facility] HospitalALP [Catalytic activity/Vol]108 U/X27-778XijhcfnegCleveland Clinic South Pointe HospitalALT [Catalytic activity/Vol]19 U/B00-28AsoxhemytCleveland Clinic South Pointe HospitalAST [Catalytic activity/Vol]15 U/A97-52TnqxjsnmgCleveland Clinic South Pointe Hospital Bilirubin [Mass/Vol]0.4 mg/dL0.2-1.0[facility] HospitalCalcium [Mass/Vol]8.9 mg/dL8.5-10.1FUniversity Hospitals Geauga Medical CenterChloride [Moles/Vol] 105 mmol/C17-114WtaduhozjCleveland Clinic South Pointe HospitalCO2 [Moles/Vol]29.5 mmol/L 21.0-32.0[facility] HospitalCreatinine [Mass/Vol]0.81 mg/dL 0.55-1.02[facility] HospitalGFR/1.73 sq M.predicted MDRD (S/P/Bld) [Vol rate/Area]mL/min/{1.73_m2}>=60 mL/min/1.73m 2FUniversity Hospitals Geauga Medical CenterGlucose [Mass/Vol]92 mg/cP49-477UvxzxziwtCleveland Clinic South Pointe HospitalPotassium [Moles/Vol]3.8 mmol/L3.5-5.1FUniversity Hospitals Geauga Medical CenterProtein [Mass/Vol] 6.9 g/dL6.4-8.2FLutheran Hospitalodium [Moles/Vol]141 mmol/L 136-145C[facility] Pointe HospitalTSH Qn2.346 m[IU]/L0.358-3.740[facility]inte HospitalUrea nitrogen [Mass/Vol]16.0 mg/dL7.0-18.0[facility] HospitalUrea nitrogen/Creatinine [Mass ratio]19.8 mg/mgCleveland Clinic South Pointe HospitalLaboratory - Hematology and Cell countson 10-16-2024 Immature granulocytes/100 WBC (Bld)0.1 %0.0-0.5FUniversity Hospitals Geauga Medical Center Leukocytes [#/volume] corrected for nucleated erythrocytes in Blood by Automated counon 71-73-7797OHT corrected for nucl RBC Auto (Bld) [#/Vol]Leukocytes [#/volume] corrected for nucleated erythrocytes in Blood by Automated coun 4.0-11.0[facility]inte HospitalLymphocytes Auto (Bld) [#/Vol]on 88-92-2425Obxtdlbpbzr (Bld) [#/Vol]Lymphocytes [#/volume] in Blood by Automated count1.2-3.8[facility] HospitalLymphocytes/100 WBC Auto (Bld)on 62-53-2437Jktqvmbvlps/100 WBC (Bld)Lymphocytes/100 leukocytes in Blood by Automated count20.5-60.0[facility] HospitalH Auto (RBC) [Entitic mass]on 72-17-2932NAC (RBC) [Entitic mass]MCH [Entitic mass] by Automated count 26.7-34.0[facility]inte HospitalMCHC Auto (RBC) [Mass/Vol]on 07-63-5672JIZE (RBC) [Mass/Vol]MCHC [Mass/volume] by Automated count29.9-35.2 [facility] HospitalMCV Auto (RBC) [Entitic vol]on 51-97-3429FOP (RBC) [Entitic vol]MCV [Entitic volume] by Automated etymwQpsm73.0-99.0[facility] HospitalMonocytes Auto (Bld) [#/Vol]on 18-83-6986Dhgweatej (Bld) [#/Vol]Automated blood monocyte count0.3-0.8[facility] Monocytes/100 WBC Auto (Bld)on 66-96-5806Nbwaerpgk/100 WBC (Bld)Automated monocyte %1.7-12.0[facility] HospitalNeutrophils Auto (Bld) [#/Vol]on 40-62-7117Xsybqjhvybk (Bld) [#/Vol]Neutrophils [#/volume] in Blood by Automated count1.4-6.5FUniversity Hospitals Geauga Medical CenterNeutrophils/100 WBC Auto (Bld)on 87-39-1636Miveqsqylcn/100 WBC (Bld)Automated neutrophil %43.0-75.0 [facility] HospitalNo Panel Informationon 07-49-6914Koeijbuhwxa # (Auto)0.2 10 3/uL0.0-0.7FUniversity Hospitals Geauga Medical CenterImmature Granulocyte # (Auto)0.01 10 3/uL0.00-0.03[facility]inte HospitalPlatelet mean volume Auto (Bld) [Entitic vol]on 58-71-6534Vgjrcozc mean volume (Bld) [Entitic vol] Platelet mean volume [Entitic volume] in Blood by Automated count9.5-13.5 [facility]inte HospitalPlatelets Auto (Bld) [#/Vol]on 10-16-2024 Platelets (Bld) [#/Vol]Platelets [#/volume] in Blood by Automated hiqop833-963 [facility] HospitalRBC Auto (Bld) [#/Vol]on [id number] (Bld) [#/Vol]Erythrocytes [#/volume] in Blood by Automated countLow4.20-5.40[facility] Hospitalerum or plasma albumin/globulin mass ratioon 10-16-2024 Albumin/Globulin [Mass ratio]Serum or plasma albumin/globulin mass ratio [facility] Hospitalerum or plasma anion gap determinationon [id number] gap [Moles/Vol]Serum or plasma anion gap determinationCleveland Clinic South Pointe HospitalINR in Platelet poor plasma by Coagulation assayOrdered By: Fab Guevara on [id number] Coag (PPP) [Relative time]INR in Platelet poor plasma by Coagulation assayCleveland Clinic South Pointe HospitalComment on above:INR Therapeutic Range A) Pre- and Peroperative OAT started two weeks before surgery. NOT HIP SURGERY: 1.5 - 2.5 HIP SURGERY: 2 - 3B) Primary and secondary prevention of venous THROMBOSIS: 2 - 3C) Active venous thrombosis, pulmonary embolismand prevention of recurrent venous thrombosis: 2 - 3D) Preve ntion of arterial thromboembolismincluding patients with mechanical heart valves: 3 - 4.5Lon 10-05-2024L Specimen: [id number] Received: 10/05/24-1231 Status: ANGLE Mcwilliams Num: [id number] Spec Type: Cytology Subm Dr: Fab Guevara,DO Tissues: A FNA SLIDES PATH (RT MID THY) Procedures: HE/2, -, DIFF QWIK/3, PAPSTN/4 Comments: IMMEDIATE ON-SITE Age/ Patient Sex Location Account Attending Physician Carmen Mays 64/F [id number] Fab Guevara DO SPEC NUM: [id number] RECD: 10/05/24 STATUS: ANGLE MCWILLIAMS NUM: [id number] CLIFF: 10/05/24-[address] [facility] [address]: Fab Guevara DO ENTERED: 10/05/24-1232 [facility] DR: Matthew Brewster DO SPEC TYPE: Cytology DEPT: CNG ENTERED BY: [id number] RECV BY: [id number] ORDERED: HE/2, -, DIFF QWIK/3, PAPSTN/4 COMMENTS: [...] block preparations are prepared for microscopic examination. (/ma) Also received are 3 spray fixed smeared slides for pap and a Veracyte vial stored at -20 for microscopic examination. (/ma) Specimen: [id number] Received: 10/05/24 Status: ANGLE Herbertrachel Num: [id number] Spec Type: Cytology Subm Dr: Fab Guevara,DO Tissues: A FNA SLIDES PATH (RT MID THY) Procedures: HE/2, -, DIFF QWIK/3, PAPSTN/4 Comments: IMMEDIATE ON-SITE Patient: Carmen Mays [id number] (Continued) Specimen: [id number] Received: 10/05/24 (Continued) Signed (signature on file) Jimenez Valdivia MD 10/06/24 1030 Specimen: [id number] Received: 10/05/24 Status: ANGLE Mcwilliams Num: [id number] Spec Type: Cytology Subm Dr: Fab Guevara DO Tissues: A FNA SLIDES PATH (RT MID THY) Procedures: HE/2, -, DIFF QWIK/3, PAPSTN/4 Comments: IMMEDIATE ON-SITE Patient: Mays,Carmen [id number] (Continued) Specimen: [id number] Received: 10/05/24 (Continued) Immediate Evaluation Cellular specimen, adequate for evaluation. Dr. Valdivia CPT Codes 03433, 26251 Specimen: [id number] Received: 10/05/24-1232 Status: ANGLE Mcwilliams Num: [id number] Spec Type: Cytology Subm Dr: Fab Guevara DO Tissues: A FNA SLIDES PATH (RT MID THY) Procedures: HE/2, -, DIFF QWIK/3, PAPSTN/4 Comments: IMMEDIATE ON-SITE Patient: Carmen Mays [id number] (Continued) Signed (signature on file) Jimenez Valdivia MD 10/06/24 1030 [facility] Physician GroupPartial Thromboplastin Timeon 69-27-5487vXFH Coag (d) [Time]34.2 nXihagf44.1-36.5The [facility] Physician GroupComment on above:Result Comment: A hematocrit value greater than 55% may lead to inaccurate results in coagulation testing. Patients having hematocrit values >55% require a special collection tube for coagulation studies. Please contact the laboratory at [phone] for redraw instructions. PERFORMED BY: [address] [address] PATHOLOGIST MIRR[employer]ACHINE FEEDER ELIUD HIGGINBOTHAM M.D.Performed By: #### T4T, T3T, [id number], CA, TSH3 #### [address] [address] USAPlatelet Counton 60-02-5207Qhuszmmbe (Bld) [#/Vol]252 10*3/tEMhgczl439-266Wyx [facility] Physician GroupComment on above:Result Comment: PERFORMED BY: [address] [address] PATHOLOGIST MIRROR MACHINE FEEDER ELIUD HIGGINBOTHAM M.D.Performed By: #### PLT #### [address] [address] USAPlatelets Auto (Bld) [#/Vol]Ordered By: Fab Guevara on 22-39-8436Sjdifbgpb (Bld) [#/Vol]Platelets [#/volume] in Blood by Automated zdhos220-372JgayewziwCleveland Clinic South Pointe HospitalProthrombin Time INRon 10-05-2024 INR Coag (PPP) [Relative time]1.0 {INR}NormalThe [facility] Physician Group Comment on above:Result Comment: INR Therapeutic Range A) Pre- and Peroperative OAT started two weeks before surgery. NOT HIP SURGERY: 1.5 - 2.5 HIP SURGERY: 2 - 3 B) Primary and secondary prevention of venous THROMBOSIS: 2 - 3 C) Active venous thrombosis, pulmonary embolism and prevention of recurrent venous thrombosis: 2 - 3 D) Prevention of arterial thromboembolism including patients with mechanical heart valves: 3 - 4.5Performed By: #### T4T, T3T, [id number], CA, TSH3 #### [address] [address] USAPT Coag (PPP) [Time]11.9 sNormal9.0-12.9The [facility] Physician GroupComment on above:Result Comment: A hematocrit value greater than 55% may lead to inaccurate results in coagulation testing. Patients having hematocrit values >55% require a special collection tube for coagulation studies. Please contact the laboratory at [phone] for redraw instructions.Performed By: #### T4T, T3T, [id number], CA, TSH3 #### [address] [address] USAProthrombin time (PT)Ordered By: Fab Guevaar on 54-32-0304MV Coag (PPP) [Time]Prothrombin time (PT)9.0-12.9[facility] Pointe HospitalComment on above:A hematocrit value greater than 55% may lead to inaccurate results in coagulation testing. Patientshaving hematocrit values >55% require a special collection tube for coagulation studies. Please contact the laboratory at [phone] for redraw instructions.US needle aspirationon 95-30-0914HK needle aspirationCLEVELAND CLINIC MENTOR [facility] Main [place] [address] [place] [id number] Ultrasound Report Signed Patient: Carmen Mays MR#: [id number] : 1960 Acct:[id number] Age/Sex: 64 / F ADM Date: 10/05/24 Loc: Room: Type: [facility] Attending Dr: Fab Guevara DO Ordering Provider: [...] Matthew Brewster M.D.10/05/2024 3:48 PM Dictation Location: [place] [address] Tech: Allyson Spencer Transcribed By: QIAN 10/05/24 1548 Dictated By: Matthew Brewster DO 10/05/24 1544 Signed By: 10/05/24 1548NoCaroMont Regional Medical Center Physician GroupaPTT in Platelet poor plasma by Coagulation assayOrdered By: Fab Guevara on 53-12-7738gVNU Coag (PPP) [Time] Activated partial thromboplastin time (aPTT) in platelet poor plasma by coagulation a25.1-36.5FUniversity Hospitals Geauga Medical CenterComment on above:A hematocrit value greater than 55% may lead to inaccurate results in coagulation testing. Patientshaving hematocrit values >55% require a special collection tube for coagulation studies. Please contact the laboratory at [phone] for redraw instructions.Laboratory - Chemistry and Chemistry - challengeon 96-23-2052Oeiv T4 [Mass/Vol]1.00 ng/dL0.76-1.46[facility] TSH Qn3.049 m[IU]/L0.358-3.740[facility]inte HospitalNo Panel Informationon 82-90-7154Wkulo Ccthyboapawpiiib32 ng/lV29-963XwxtncfepCleveland Clinic South Pointe HospitalComment on above:Performed at: [facility] [id number] Director: Joseph Miller PhD, Phone: [phone] Basophils Auto (Bld) [#/Vol]on 56-68-8478Kqrjwggud (Bld) [#/Vol]Automated basophil count0.0-0.1FUniversity Hospitals Geauga Medical CenterBasophils/100 WBC Auto (Bld)on 99-41-8560Uodkcypmu/100 WBC (Bld)Automated basophil %0.2-2.0[facility]inte HospitalBuprenorphine [Presence] in Urineon 08-12-2024 Buprenorphine Ql (U)Buprenorphine [Presence] in UrineNEGATIVECleveland Clinic South Pointe HospitalComment on above:DRUG CLASS TEST SYSTEM CUT-OFF CONCENTRATIONS ARE ASFOLLOWS:AMP (Amphetamine): 500 ng/mLBAR (Barbiturates): 200 ng/mLBZO (Benzodiazepines): 150 ng/mLBUP (Buprenorphine): 10 ng/mLCOC (Cocaine): 150 ng/ mLmAMP (Methamphetamine): 500 ng/mLMTD (Methadone): 200 ng/mLOPI (Opiates): 100 ng/mLOXY (Oxycodone): 100 ng/mLPCP (Phencyclidine): 25 ng/mLTHC (Cannabinoids): 50 ng/mLTCA (Trycyclic Antidepressants): 300 ng/mLCholesterol in LDL Calc [Mass/Vol]on 62-96-2554Coehvcacoot in LDL [Mass/Vol]Cholesterol in LDL [Mass/volume] in Serum or Plasma by calculationCleveland Clinic South Pointe Hospital Comment on above:<100 mg/dl YSFXPTB873-842 mg/dl NEAR OR ABOVE IPLZWBG780-960 mg/dl BORDERLINE RHWF975-720 mg/dl HIGH>190 mg/dl VERY HIGHCholesterol in VLDL Calc [Mass/Vol]on 23-00-1885Dpkjvydyhwo in VLDL [Mass/Vol]Cholesterol in VLDL [Mass/volume] in Serum or Plasma by calculationCleveland Clinic South Pointe Hospital Eosinophils/100 WBC Auto (Bld)on 45-53-5561Xcczudafeke/100 WBC (Bld)Automated eosinophil %0.9-7.0[facility] Pointe HospitalErythrocyte distribution width Auto (RBC) [Ratio]on 80-59-6071Pjuhvdwzhyk distribution width (RBC) [Ratio]Erythrocyte distribution width [Ratio] by Automated count11.0-15.0 [facility] HospitalEstimated glomerular filtration rate (GFR) non- Americanon 55-25-2475MXU/1.73 sq M.predicted among non-blacks MDRD (S/P/Bld) [Vol rate/Area]Estimated glomerular filtration rate (GFR) non- AmericanLow>=60 mL/min/1.73m 2FUniversity Hospitals Geauga Medical CenterGlobulin Calc (S) [Mass/Vol]on 97-16-1362Qqkqfnhv (S) [Mass/Vol]Serum globulin measurement by calculation (mass/volume)[facility] HospitalGlucose mean value [Mass/volume] in Blood Estimated from glycated hemoglobinon 81-94-4156Awvdxxq glucose Estimated from glycated hemoglobin (Bld) [Mass/Vol]Glucose mean value [Mass/volume] in Blood Estimated from glycated hemoglobinCleveland Clinic South Pointe HospitalHematocrit Auto (Bld) [Volume fraction]on 97-27-2309Ugmboiytcp (Bld) [Volume fraction]Hematocrit [Volume Fraction] of Blood by Automated count 36.0-48.0C[facility] Pointe HospitalHemoglobin [Mass/volume] in Bloodon 98-07-3922Jyfhkzbuco (Bld) [Mass/Vol]Hemoglobin [Mass/volume] in Blood12.0-16.0 [facility] HospitalINR in Platelet poor plasma by Coagulation assayon 65-62-6968RBU Coag (PPP) [Relative time]INR in Platelet poor plasma by Coagulation assayCleveland Clinic South Pointe HospitalComment on above:DESIRED INR:2.0-3.0 CONDITIONS NOT LISTED BELOW2.5-3.5 FOR PROSTHETIC HEART VALVE REPLACEMENT2.5-3.5 RECURRENT THROMBOSISLaboratory - Chemistry and Chemistry - challengeon 98-82-2026Cfjtufjsr Ql (U)NegativeNEGATIVECleveland Clinic South Pointe HospitalGlucose (U) [Mass/Vol]NegativeNEGATIVECleveland Clinic South Pointe Hospital Ketones Ql (U)NegativeNEGATIVECleveland Clinic South Pointe HospitalpH (U)7.5 [pH] 5.0-9.0[facility]erm[facility] Hospitalpecific gravity (U) [Rel density]1.010 1.005-1.025C[facility] Pointe HospitalUrobilinogen Qn (U)0.2 {Kala'U}/dL0.2-1.0[facility] HospitalAlbumin [Mass/Vol]3.9 g/dL 3.4-5.0[facility] HospitalALP [Catalytic activity/Vol]105 U/L 46-116C[facility] HospitalALT [Catalytic activity/Vol]21 U/L14-59 [facility] HospitalAST [Catalytic activity/Vol]23 U/L15-37 [facility] HospitalBilirubin [Mass/Vol]0.7 mg/dL0.2-1.0[facility] HospitalCalcium [Mass/Vol]9.5 mg/dL8.5-10.1FUniversity Hospitals Geauga Medical CenterChloride [Moles/Vol]106 mmol/L08-262IzkqduzmpCleveland Clinic South Pointe HospitalCholesterol [Mass/Vol]174 mg/dL<=200[facility] Cholesterol in HDL [Mass/Vol]57 mg/aT48-60QqfmvercsCleveland Clinic South Pointe Hospital Comment on above:> or =60 mg/dl - LOW CARDIOVASCULAR RISK<40 mg/dl - HIGH CARDIOVASCULAR RISKCO2 [Moles/Vol]27.6 mmol/L21.0-32.0[facility] HospitalCreatinine [Mass/Vol]1.00 mg/dL0.55-1.02[facility] GFR/1.73 sq M.predicted MDRD (S/P/Bld) [Vol rate/Area]mL/min/{1.73_m2}>=60 mL/min/1.73m 2FUniversity Hospitals Geauga Medical CenterGlucose [Mass/Vol]90 mg/gR98-653 [facility] HospitalLactate [Moles/Vol]0.9 mmol/L0.4-2.0[facility] HospitalMagnesium [Mass/Vol]1.8 mg/dL1.8-2.4FUniversity Hospitals Geauga Medical CenterPotassium [Moles/Vol]3.7 mmol/L3.5-5.1FUniversity Hospitals Geauga Medical CenterProtein [Mass/Vol]7.3 g/dL6.4-8.2FLutheran Hospitalodium [Moles/Vol]144 mmol/Z045-513CvptgmqwkCleveland Clinic South Pointe HospitalTriglyceride [Mass/Vol]72 mg/dL<=150C[facility] HospitalUrea nitrogen [Mass/Vol] 14.0 mg/dL7.0-18.0[facility] HospitalUrea nitrogen/Creatinine [Mass ratio]14.0 mg/mgCleveland Clinic South Pointe HospitalLaboratory - Drug toxicologyon 80-54-5880Lzghrnoiazfm Ql (U)NegativeNEGATIVECleveland Clinic South Pointe HospitalBenzodiazepines Ql (U)NegativeNEGATIVECleveland Clinic South Pointe HospitalCocaine Ql (U)NegativeNEGATIVECleveland Clinic South Pointe HospitalOpiates Ql (U)NegativeNEGATIVECleveland Clinic South Pointe HospitalPhencyclidine Ql (U)Negative NEGATIVECleveland Clinic South Pointe HospitalLaboratory - Hematology and Cell counts on 20-85-7775QaK8x (Bld) [Mass fraction]5.1 %4.5-6.2FUniversity Hospitals Geauga Medical CenterComment on above:ADA RECOMMENDED LIMIT 4.0 - 6.0ADA THERAPEUTIC TARGET < 7.0ACTION SUGGESTED> 7.0Immature granulocytes/100 WBC (Bld)0.3 %0.0-0.5FUniversity Hospitals Geauga Medical CenterLaboratory - Specimen informationon 22-99-8525Kducrevxdg (U)CLEARCLEARFUniversity Hospitals Geauga Medical CenterColor (U)LT. YELLOWYELLOWCleveland Clinic South Pointe HospitalLaboratory - Urinalysison 22-28-1153Ewifwncqb esterase Test strip Ql (U)NegativeNEGATIVECleveland Clinic South Pointe HospitalNitrite Ql (U) NegativeNEGATIVECleveland Clinic South Pointe HospitalProtein Ql (U)NegativeNEG/TRACE [facility] HospitalLeukocytes [#/volume] corrected for nucleated erythrocytes in Blood by Automated counon 64-13-0571WTF corrected for nucl RBC Auto (Bld) [#/Vol]Leukocytes [#/volume] corrected for nucleated erythrocytes in Blood by Automated coun4.0-11.0[facility] HospitalLymphocytes Auto (Bld) [#/Vol]on 66-25-4997Zpzghwgszuk (Bld) [#/Vol]Lymphocytes [#/volume] in Blood by Automated count1.2-3.8[facility] HospitalLymphocytes/100 WBC Auto (Bld)on 78-12-6296Rrammclfxbp/100 WBC (Bld)Lymphocytes/100 leukocytes in Blood by Automated count20.5-60.0[facility] HospitalH Auto (RBC) [Entitic mass]on 17-37-7220DJD (RBC) [Entitic mass]MCH [Entitic mass] by Automated count26.7-34.0[facility] HospitalMCHC Auto (RBC) [Mass/Vol]on 53-02-5036VUKB (RBC) [Mass/Vol]MCHC [Mass/volume] by Automated count29.9-35.2FUniversity Hospitals Geauga Medical CenterMCV Auto (RBC) [Entitic vol]on 51-87-5108NAW (RBC) [Entitic vol]MCV [Entitic volume] by Automated countHigh 81.0-99.0[facility] HospitalMethadone [Presence] in Urine by Screen methodon 12-92-7341Rmwnffqyq Screen Ql (U)Methadone [Presence] in Urine by Screen methodNEGATIVECleveland Clinic South Pointe HospitalMonocytes Auto (Bld) [#/Vol]on 60-49-1688Yqzjlrggg (Bld) [#/Vol]Automated blood monocyte count0.3-0.8 [facility] HospitalMonocytes/100 WBC Auto (Bld)on 08-12-2024 Monocytes/100 WBC (Bld)Automated monocyte %1.7-12.0[facility] HospitalNeutrophils Auto (Bld) [#/Vol]on 10-33-6006Ynnguoivpsr (Bld) [#/Vol] Neutrophils [#/volume] in Blood by Automated count1.4-6.5FUniversity Hospitals Geauga Medical CenterNeutrophils/100 WBC Auto (Bld)on 79-14-7668Ytdpscwzlni/100 WBC (Bld)Automated neutrophil %43.0-75.0[facility] HospitalNo Panel Informationon 05-07-4627Hzada Barbiturates ScreenNegativeNEGATIVECleveland Clinic South Pointe HospitalUrine Marijuana (THC) ScreenNegativeNEGATIVECleveland Clinic South Pointe HospitalUrine Methamphetamines ScreenNegativeNEGBucyrus Community HospitalUrine Microscopic ReviewNOCleveland Clinic South Pointe HospitalUrine Occult BloodNegativeNEGBucyrus Community Hospital Eosinophils # (Auto)0.2 10 3/uL0.0-0.7FUniversity Hospitals Geauga Medical CenterEthyl Alcohol Level<3 mg/dLCleveland Clinic South Pointe HospitalComment on above:NOTE: 80 mg/dl is the legal limit for a blood alcohol levelImmature Granulocyte # (Auto) 0.02 10 3/uL0.00-0.03[facility] HospitalTroponin I High Sensitivity5.8 pg/mL4.0-51.3FUniversity Hospitals Geauga Medical CenterComment on above: CUT-OFF POINTS HAVE BEEN ESTABLISHED BASED ON THE FOURTHUNIVERSAL DEFINITION OF MYOCARDIAL INFARCTION. THE UPPERREFERENCE LIMIT (URL) OF TROPONIN, DEFINED THE 99THPERCENTILE OF cTnI DISTRIBUTION IN A REFERENCE POPULATION,HAS BEEN CONFIRMED THE DECISION THRESHOLD FOR MIDIAGNOSIS.99TH PERCENTILE = 51.4 PG/MLNOTE: HIGH-SENSITIVITY TROPONIN ASSAY IS NOT INTENDED TO BEUSED IN ISOLATION BUT SHOULD BE INTERPRETED IN CONJUNCTIONWITH OTHER DIAGNOSTIC AND CLINICAL INFORMATION.Platelet mean volume Auto (Bld) [Entitic vol]on 08-12-2024 Platelet mean volume (Bld) [Entitic vol]Platelet mean volume [Entitic volume] in Blood by Automated count9.5-13.5FUniversity Hospitals Geauga Medical CenterPlatelets Auto (Bld) [#/Vol]on 52-40-2845Xeotwxlea (Bld) [#/Vol]Platelets [#/volume] in Blood by Automated -999TykiiwpkgCleveland Clinic South Pointe HospitalProthrombin time (PT) on 13-47-6345EB Coag (PPP) [Time]Prothrombin time (PT)9.0-11.6FUniversity Hospitals Geauga Medical CenterRBC Auto (Bld) [#/Vol]on 74-78-5944VZU (Bld) [#/Vol]Erythrocytes [#/volume] in Blood by Automated countLow4.20-5.40[facility] Hospitalerum or plasma albumin/globulin mass ratioon 04-54-2588Tbolovf/Globulin [Mass ratio]Serum or plasma albumin/globulin mass ratioMercy Health Clermont Hospitalerum or plasma anion gap determinationon 41-81-3995Aqngn gap [Moles/Vol]Serum or plasma anion gap determinationMercy Health Clermont Hospitalerum or plasma total cholesterol/high density lipoprotein (HDL) cholesterol mass stephanie 19-80-5135Cjmrrsaqgca.total/Cholesterol in HDL [Mass ratio]Serum or plasma total cholesterol/high density lipoprotein (HDL) cholesterol mass ratCleveland Clinic South Pointe HospitalComment on above:3.3 - 4.4 LOW RISK4.4 - 7.1 AVERAGE RISK7.1 - 11.0 MODERATE RISK>11.0 HIGH RISKUrine tricyclic antidepressant measurementon 56-86-4169Ldzyftslk antidepressants (U) [Mass/Vol]Urine tricyclic antidepressant measurementNEGATIVECleveland Clinic South Pointe HospitaloxyCODONE+oxyMORphone [Presence] in Urine by Screen methodon 41-83-7803hcfJUBDCI+oxyMORphone Screen Ql (U)oxyCODONE+oxyMORphone [Presence] in Urine by Screen methodNEGBucyrus Community HospitalMAMM SCREENING BILATERAL W CADon 15-47-1898RPUF SCREENING BILATERAL W CADMAMM SCREENING BILATERAL W CAD *ADDENDUM*Addendum: Second read. IMPRESSION: I agree with the interpretation. Finalized by Rg Godoy MD on 12/28/2023 9:00 AM 1 b MAMM 1 YRNormalProMedica Joes HospitalXR FOOT LT MIN 3 VWSon 46-03-9059CJ FOOT LT MIN 3 VWSXR FOOT LT MIN 3 VWS HISTORY: Pain, fall COMPARISON: None FINDINGS: Multiple views of the left foot were obtained. Osseous structures are intact with normal alignment. Plantar calcaneal spur. Degenerative change involving the midfoot. Mild soft tissue swelling. IMPRESSION: * No acute abnormality. Finalized by Weston Key MD on 09/22/2023 1:30 PMNRegency Hospital Cleveland WestXR KNEE LT MIN 4 VWSon 28-63-8982MW KNEE LT MIN 4 VWSXR KNEE LT MIN 4 VWS History: Left knee pain, unspecified chronicity Exam/Technique: 3 views left knee and sunrise view Comparison: 10/21/2022 x-ray Findings: There is no acute osseous injury or significant degenerative fusion. Joint spaces grosslypreserved. IMPRESSION: Grossly unremarkable osseous exam Finalized by Dianna Casillas MD on 09/22/2023 1:26 [facility] HospitalMRI SHOULDER LT WO CONon 51-94-4623USE SHOULDER LT WO CONEXAMINATION: MRI SHOULDER LT WO CON HISTORY: Idiopathic [...] Electronically authenticated by: JESUS TINOCO Date: 2022-12-11 15:42[facility] Noteon 76-49-3869VUD IP Note OR TranscriptionNormUniversity Hospitals [facility] Center Provider Noteon 54-80-1315ZQB IP Note OR Fundraising Specialist [facility] Vital Signs Date TimeVital SignValuePerforming WsfubhxadRabhbtew03-92-9181 14:29-0400Body uokqvw434.7 cmBenjamin Ball DO Work Phone: [phone]10-31-2025 14:29-0400 Body mass index (BMI) [Ratio]50.8 kg/v1Zbetoqkt Ball DO Work Phone: [phone] [place], [place] 4911210-31-2025 14:29-0400 Body qamdnoprirv79.6 [degF]Fab Ball DO Work Phone: [phone]10-31-2025 14:29-0400 Body toofst82.33 kgBenjamin Ball DO Work Phone: [phone] [place], [place] 4911210-31-2025 14:29-0400 Diastolic blood iopnywnq56 mm[Hg]Fab Ball DO Work Phone: [phone] [place], [place] 4911210-31-2025 14:29-0400 Heart rate69 /minBenjamin Ball DO Work Phone: [phone] [place], [place] 4911210-31-2025 14:29-0400 Respiratory rate14 /minBenjamin Ball DO Work Phone: [phone] [place], [place] 4911210-31-2025 14:29-0400 SaO2% (BldA) [Mass fraction]95 %Fab Ball DO Work Phone: [phone] [place], [place] 93[address]10-31-2025 14:29-0400 Systolic blood mm[Hg]Fab Ball DO Work Phone: [phone]09-17-2025 15:01-0400 Body .7 cmBenjamin Ball DO Work Phone: [phone] [place], [place] 9320409-17-2025 15:01-0400 Body mass index (BMI) [Ratio]50.9 kg/x3Zevpqhtu Ball DO Work Phone: [phone] [place], [place] 9320409-17-2025 15:01-0400 Body ydnesh28.45 kgBenjamin Ball DO Work Phone: [phone] [place], [place] 9320409-17-2025 15:01-0400 Diastolic blood ksvtipjg55 mm[Hg]Fab Ball DO Work Phone: [phone] [place], [place] 9320409-17-2025 15:01-0400 Heart rate78 /minBenjamin Ball DO Work Phone: [phone] [place], [place] 9320409-17-2025 15:01-0400 Respiratory rate12 /minBenjamin Ball DO Work Phone: [phone] [place], [place] 9320409-17-2025 15:01-0400 Systolic blood tjohgpze589 mm[Hg]Fab Ball DO Work Phone: [phone] [place], [place] 9320407-21-2025 13:01-0400 Body gxlvol189.7 cmBenjamin Murcek DO Work Phone: [facility] HealthcareKgayikfwbh55-79-5596 13:01-0400Body mass index (BMI) [Ratio]45.32 kg/s3Jnkqfhtq Murcek DO Work Phone: [facility] HealthcareHncckamsjw01-80-6537 13:01-0400Body ijwzgb26.45 kgBenjamin Murcek DO Work Phone: [phone] [place], [place] [address]Ecgvxertpg35-03-9462 11:59-0400Body .7 cmBenjamin Ball DO Work Phone: [phone] [place], [place] 9320407-10-2025 11:59-0400 Body mass index (BMI) [Ratio]49.4 kg/x9Mksdbuvh Ball DO Work Phone: [phone] [place], [place] 9320407-10-2025 11:59-0400 Body pryuzb65.38 kgBenjamin Ball DO Work Phone: [phone] [place], [place] 9320407-10-2025 11:59-0400 Diastolic blood mm[Hg]Fab Ball DO Work Phone: [phone] [place], [place] 9320407-10-2025 11:59-0400 Heart rate93 /minBenjamin Ball DO Work Phone: [phone] [place], [place] 9320407-10-2025 11:59-0400 Respiratory rate12 /minBenjamin Ball DO Work Phone: [phone] [place], [place] 9320407-10-2025 11:59-0400 Systolic blood uehpbjmi829 mm[Hg]Fab Ball DO Work Phone: [phone] [place], [place] 9320405-20-2025 15:00-0400 Body .7 cmBenjamin Ball DO Work Phone: [phone] [place], [place] 9320405-20-2025 15:00-0400 Body mass index (BMI) [Ratio]48.8 kg/t7Csgtyajz Ball DO Work Phone: [phone] [place], [place] 9320405-20-2025 15:00-0400 Body qilhbmkcvcm48.8 [degF]Fab Ball DO Work Phone: [phone] [place], [place] 9320405-20-2025 15:00-0400 Body .25 kgBenjamin Ball DO Work Phone: [phone] [place], [place] 9320405-20-2025 15:00-0400 Diastolic blood emfjkuob88 mm[Hg]Fab Ball DO Work Phone: [phone] [place], [place] 9320405-20-2025 15:00-0400 Heart rate81 /minBenjamin Ball DO Work Phone: [phone] [place], [place] 4911205-20-2025 15:00-0400 Respiratory rate16 /minBenjamin Ball DO Work Phone: [phone] [place], [place] 4911205-20-2025 15:00-0400 SaO2% (BldA) [Mass fraction]96 %Fab Ball DO Work Phone: [phone] [place], [place] 4911205-20-2025 15:00-0400 Systolic blood uoeehgfn321 mm[Hg]Fab Ball DO Work Phone: [phone] [place], [place] 4911204-23-2025 15:50-0400 Body cnyryz474.7 cmBenjamin Murcek DO Work Phone: [facility] HealthcareQpxqedomma06-62-8267 15:50-0400Body mass index (BMI) [Ratio]45.32 kg/r2Eawdyjtg Murcek DO Work Phone: [facility] HealthcareHanqagujew85-67-7425 15:50-0400Body kobpuz87.45 kgBenjamin Murcek DO Work Phone: [facility] HealthcareSqfcyjmdkz30-83-7885 14:19-0400Body xxgypc246.7 cmBenjamin Ball DO Work Phone: [phone]04-23-2025 14:19-0400 Body mass index (BMI) [Ratio]47.4 kg/m8Randmkxv Ball DO Work Phone: [phone]04-23-2025 14:19-0400 Body asiniq15.53 kgBenjamin Ball DO Work Phone: [phone] [place], [place] 4911204-23-2025 14:19-0400 Diastolic blood nynzzooj67 mm[Hg]Fab Ball DO Work Phone: [phone]04-23-2025 14:19-0400 Heart rate80 /minBenjamin Ball DO Work Phone: [phone]04-23-2025 14:19-0400 Respiratory rate12 /minBenjamin Ball DO Work Phone: 1(752)601-[address] [place], [place] 4911204-23-2025 14:19-0400 Systolic blood yfbmnpha566 mm[Hg]Fab Ball DO Work Phone: 1(390)722-[address] [place], [place] 4911203-12-2025 15:40-0400 Body oflpxt275.7 cmBenjamin Murcek DO Work Phone: [phone]03-12-2025 15:40-0400Body mass index (BMI) [Ratio]44.63 kg/v1Aucpgejf Murcek DO Work Phone: 1([phone])0-[facility] HealthcareRscucmdicy38-75-9782 15:40-0400Body cukvgm00.09 kgBenjamin Murcek DO Work Phone: 1(842)[address]03-07-2025 10:59-0500Body .7 cmBenjamin Ball DO Work Phone: 1(788)212-[address] [place], [place] 4911203-07-2025 10:59-0500 Body mass index (BMI) [Ratio]45.1 kg/g8Vzitxkkr Ball DO Work Phone: 1(213)857-[address] [place], [place] 4911203-07-2025 10:59-0500 Body mphufd31.99 kgBenjamin Ball DO Work Phone: 1(394)255-[address] [place], [place] 4911203-07-2025 10:59-0500 Diastolic blood dnalurvf18 mm[Hg]Fab Ball DO Work Phone: 1(013)563-[address] [place], [place] 4911203-07-2025 10:59-0500 Systolic blood oxrqxuqv283 mm[Hg]Fab Ball DO Work Phone: 1(273)545-[address] [place], [place] 4911203-05-2025 12:34-0500 Diastolic blood moalsymg48 mm[Hg]Fab Ball DO Work Phone: 1(323)624-[address] [place], [place] 4911203-05-2025 12:34-0500 Heart rate93 /minBenjamin Ball DO Work Phone: [facility]03-05-2025 12:34-0500 Respiratory rate16 /minBenjamin Ball DO Work Phone: [phone]03-05-2025 12:34-0500 SaO2% (BldA) [Mass fraction]95 %Fab Ball DO Work Phone: [phone]03-05-2025 12:34-0500 Systolic blood dldodveb840 mm[Hg]Fab Ball DO Work Phone: [phone]03-05-2025 11:34-0500 Inhaled oxygen flow rate3 L/minBenjamin Ball DO Work Phone: 1(291)791-[address] [place], [place] 4911203-05-2025 10:10-0500 Body ikprbjmvznj48.5 [degF]Fab Ball DO Work Phone: 1(189)694-[address] [place], [place] 4911203-05-2025 06:23-0500 Body tmbzfe402.7 cmBenjamin Ball DO Work Phone: [phone]03-05-2025 06:23-0500 Body .4 kgBenjamin Ball DO Work Phone: [phone]02-25-2025 10:30-0500 Body .7 cmBenjamin Murcek DO Work Phone: 1(779)016-[facility] HealthcareSgnjfuicyp75-37-8952 10:30-0500Body mass index (BMI) [Ratio]44.16 kg/c3Ptpjbvur Murcek DO Work Phone: 1(644)824-[address] [place], [place] [address]Yiyqjvwwdo20-70-6324 10:30-0500Body fywjjv96.18 kgBenjamin Murcek DO Work Phone: 1(223)042-[facility] HealthcareQewanmruoe65-29-1877 11:40-0500Diastolic blood mm[Hg]Fab Ball DO Work Phone: 1(988)962-[address] [place], [place] 4911202-13-2025 11:40-0500 Heart rate63 /minBenjamin Ball DO Work Phone: [facility]02-13-2025 11:40-0500 Respiratory rate18 /minBenjamin Ball DO Work Phone: [facility]02-13-2025 11:40-0500 SaO2% (BldA) [Mass fraction]96 %Fab Ball DO Work Phone: [facility]02-13-2025 11:40-0500 Systolic blood khehzxzo997 mm[Hg]Fab Ball DO Work Phone: [phone]02-13-2025 10:56-0500 Body lyojsa308.7 cmBenjamin Ball DO Work Phone: [phone]02-13-2025 10:56-0500 Body ybychh44.64 kgBenjamin Ball DO Work Phone: [phone]02-05-2025 12:52-0500 Body wvgape24.55 kgChristopher Lela DO Work Phone: [facility] HealthcareYywtdoekxv13-02-9370 12:52-0500Diastolic blood llvktoro692 mm[Hg]Christopher Lela DO Work Phone: [facility] HealthcareNcywfsakoc12-10-1591 12:52-0500Heart rate76 /min Christopher Lela DO Work Phone: [facility] HealthcareNoolbswrfo20-42-9811 12:52-9563VkP2% (BldA) [Mass fraction]94 %Christopher Lela DO Work Phone: [facility] HealthcareCvuajdmelz32-28-5438 12:52-0500Systolic blood ecyoegrx760 mm[Hg]Christopher Lela DO Work Phone: [facility] HealthcareNoobwsnosd22-32-8576 14:46-0500Body qwdlli388.7 cmC[facility]01-13-2025 14:46-0500Body mass index (BMI) [Ratio]44.1 kg/z2BbclzgbbhC[facility] Clinic [facility]01-13-2025 14:46-0500Body wtdtfi01.23 [facility]01-13-2025 14:46-0500Diastolic blood vdoehtly55 mm[Hg][facility]01-13-2025 14:46-0500 Heart rate72 /[facility]01-13-2025 14:46-0500 Respiratory rate12 /[facility]01-13-2025 14:46-0500 Systolic blood mm[Hg][facility]01-02-2025 11:45-0500Body wlkuyd525.7 cmC[facility]01-02-2025 11:45-0500Body mass index (BMI) [Ratio]43 kg/t8KyiqthkjzC[facility] 08-24-2024 11:45-0500Body lulefh94.91 [facility] 08-24-2024 11:45-0500Diastolic blood vikxzptv74 mm[Hg][facility]01-02-2025 11:45-0500Heart rate65 /[facility] 08-24-2024 11:45-0500Systolic blood mtiefigp821 mm[Hg][facility]12-11-2024 14:28-0500Body xhbunu295.7 cmC[facility] 08-02-2024 14:28-0500Body mass index (BMI) [Ratio]43.5 kg/t8QhdrpvkdcC[facility] Clinic [facility]12-11-2024 14:28-0500Body .93 [facility]12-11-2024 14:28-0500Diastolic blood xqbxzaoc89 mm[Hg][facility]12-11-2024 14:28-0500Heart rate76 /[facility]12-11-2024 14:28-0500Respiratory rate12 /[facility]12-11-2024 14:28-0500Systolic blood jkvyhpse701 mm[Hg][facility]10-15-2024 14:45-0400Body dsbeso426.7 cmC[facility]10-15-2024 14:45-0400Body mass index (BMI) [Ratio]45.3 kg/c8YgadsnedyC[facility] Clinic [facility] Hospital10-15-2024 14:45-0400Body yhhzkp42.62 kgC[facility]10-15-2024 14:45-0400Diastolic blood soqdgzlc09 mm[Hg] [facility]10-15-2024 14:45-0400Heart rate74 /[facility]10-15-2024 14:45-0400Respiratory rate12 /[facility]10-15-2024 14:45-0400Systolic blood mm[Hg] [facility]07-25-2024 11:35-0400Body .7 cm [facility]07-25-2024 11:35-0400Body mass index (BMI) [Ratio]45.6 kg/o7IgdidmvmmC[facility] Clinic [facility]inte [facility]07-25-2024 11:35-0400Body yelwhd71.07 kgC[facility]07-25-2024 11:35-0400Diastolic blood mm[Hg][facility]07-25-2024 11:35-0400 Heart rate71 /[facility]07-25-2024 11:35-0400 Respiratory rate12 /[facility]07-25-2024 11:35-0400 Systolic blood opsedbav242 mm[Hg][facility]11-14-2023 11:30-0500Body gygrqi848.86 cmBenjamin Ball Other [employer] Other 11-14-2023 11:30-0500Body mass index (BMI) [Ratio]39.1 kg/j9Rmwtoxdg Ball Other [employer] Other 11-14-2023 11:30-0500Body olnbic06.82 kgBenjamin Ball Other [employer] Other 11-14-2023 11:30-0500Diastolic blood cezurnzo41 mm[Hg] Fab Ball Other [employer] Other 11-14-2023 11:30-0500Respiratory rate12 /minBenjamin Ball Other [employer] Other 11-14-2023 11:30-0500Systolic blood vcbhzqex072 mm[Hg] Fab Ball Other [employer] Other 05-02-2023 16:00-0400Body sejzzc205.86 cmBenjamin Ball Other [employer] Other 05-02-2023 16:00-0400Body mass index (BMI) [Ratio] 38.69 kg/x9Rgjfyxoj Ball Other [employer] Other 05-02-2023 16:00-0400Body eazuni18.91 kgBenjamin Ball Other [employer] Other 05-02-2023 16:00-0400Diastolic blood dpoinznm04 mm[Hg] Fab Ball Other [employer] Other 05-02-2023 16:00-0400Respiratory rate12 /minBenjamin Ball Other [employer] Other 05-02-2023 16:00-0400Systolic blood zzbifbam412 mm[Hg] Fab Ball Other [employer] Other 02-14-2023 15:00-0500Body hwgzyd440.86 cmBenjamin Ball Other [employer] Other 02-14-2023 15:00-0500Body mass index (BMI) [Ratio] 38.49 kg/p4Pavbzmua Ball Other [employer]Mer[employer] Other 02-14-2023 15:00-0500Body vxzazv16.46 kgBenjamin Ball Other [facility] [employer] Other 02-14-2023 15:00-0500Diastolic blood umourxrv01 mm[Hg] Fab Moustapha Other [facility] [employer] Other 02-14-2023 15:00-0500Respiratory rate12 /minBenjamin Ball Other [facility] [employer] Other 02-14-2023 15:00-0500Systolic blood gtmadyfs769 mm[Hg] Fab Ball Other [facility] [employer] Other Encounters Encounter DateEncounter TypeCare ProviderFacilityStart: 06-22-2025 End: 69-63-7783hlmyhtjnhaKqeilmos Ball DO Work Phone: -[facility] ClinicStart: 06-22-2025 End: 48-08-9893Nynjygz encounter procedureBenjamin Ball DO-[facility] Work Phone: Start: 05-09-2025 End: 06-95-3883fvivlemfylDkjvibum Ball DO Work Phone: [facility] Work Phone: Start: 05-09-2025 End: 86-22-3017Tpratex encounter procedureBenjamin Ball DO-[facility] Work Phone: Start: 50-22-7695Udryvqoimn Xavi Lo [facility]NCan[facility] Work Phone: Start: 05-08-2025 End: 63-33-7738byjxijmsuyLzcsbxta Ball DO Work Phone: [facility] Work Phone: Start: 05-08-2025 End: 20-61-6336Unapwiu encounter procedureAnushka Lo [facility] Work Phone: Start: 03-12-2025 End: 27-16-9325Bfxdze flowsheetBenjamin W Murcek DO Work Phone: [facility] SANDUSKYStart: 03-12-2025 End: 98-80-7688Jbqxle flowsheetBenjamin W Murcek DO Work Phone: [facility] SANDUSKYStart: 03-12-2025 End: 06-40-2014Kbvqian encounter procedureBenjamin W Murcek DO-[facility] [place] Work Phone: Start: 03-12-2025 End: 37-76-2071ppclrafuteEtlzfqdv Ball DO Work Phone: [facility] Work Phone: Start: 03-12-2025 End: 54-83-9059Stlpjb outpatient visit 25 minutesBenjamin W Murcek DO Work Phone: [facility] SANDUSKYComment on above:Status post total thyroidectomy (Primary Dx); Malignant neoplasm of thyroid gland (HCC); Muscle crampingStart: 26-97-5840Qhlxgiatjf Kimberly Ibarra MD-[facility] Work Phone: Start: 03-05-2025 End: 43-99-6059enocobtahhAtjeborl Ball DO Work Phone: [facility] Work Phone: Start: 03-05-2025 End: 64-12-2083Tfwpovd encounter procedureAnushka Lo [facility] Work Phone: Start: 03-01-2025 End: 25-41-3136gxgvvouluhWgnycwqd Ball DO Work Phone: [facility] Work Phone: Start: 03-01-2025 End: 09-36-9027Zjxnsjz encounter procedureBencarolina Guevara DO-[facility] Work Phone: Start: 02-26-2025 End: 74-38-2273qiyyhmtjgfArxjhxog Ball DO Work Phone: [facility] Work Phone: Start: 02-26-2025 End: 14-20-0208Hiehakwp ReferredBencarolina Guevara DO-LAB [facility] Start: 44-66-7367Xexqwvyrbv RecurringFaina Ibarra MDBanner Center Acute Work Phone: Start: 01-09-2025 End: 50-14-5611Prjoiyj encounter procedureFaina Ibarra MDA[facility] Work Phone: Start: 12-13-2024 End: 92-77-5255Bjxkej follow up visit related to original pxBentorymin Fidencio Mendoza DO Work Phone: [facility] SANDUSKYComment on above:Change in voice (Primary Dx); Malignant neoplasm of thyroid gland (CMS/HCC); Status post total thyroidectomyStart: 12-13-2024 End: 87-81-7549Ksdtdb flowsheetBenjamin W Reji DO Work Phone: [facility] SANDUSKYStart: 12-13-2024 End: 70-26-3822Ovowye flowsheetBenjamin W Murmatyk DO Work Phone: [facility] SANDUSKYStart: 12-13-2024 End: 00-97-1429khhxkkspczQrcvkgzq Ball DO Work Phone: [facility] Work Phone: Start: 12-13-2024 End: 81-93-2182Glztvnj encounter procedureBentorymin Ball DO Work Phone: [facility] Work Phone: start: 12-04-2024 End: 03-21-5076Crddyrg encounter procedureBenjamin Ball DO Work Phone: [facility] [place] Work Phone: Start: 12-04-2024 End: 45-51-1143ilhfzkqtfpJhcspwgc Ball DO Work Phone: [facility] Work Phone: Start: 11-02-2024 End: 89-98-2642Qecymbzat encounterBenjamin W Murcek DO Work Phone: [facility] SANDUSKYStart: 11-01-2024 End: 97-20-4480Enxhjy follow up visit related to original pxBenjamin W Murcek DO Work Phone: [facility] SANDUSKYComment on above:Malignant neoplasm of thyroid gland (CMS/HCC) (Primary Dx); Status post total thyroidectomy (CMS/HCC)Start: 11-01-2024 End: 19-11-9828Jvfbaq flowsheetBenjamin W Murcek DO Work Phone: [facility] SANDUSKYStart: 11-01-2024 End: 17-02-0175Cxkghn flowsheetBenjamin W Murcek DO Work Phone: [facility] SANDUSKYStart: 11-01-2024 End: 22-56-2064Bzofdin encounter statusBenjamin Murcek DO Work Phone: [facility] HealthcareStart: 10-30-2024 End: 08-61-0652Wpmoxnf encounter procedureBenjamin Ball DO Work Phone: [facility] [place] Work Phone: Start: 10-30-2024 End: 40-16-6100jbnikiyfcuLpyzxmga Ball DO Work Phone: [facility] Work Phone: Start: 10-27-2024 End: 51-29-0614mhacwveiyuDwvzpqam Ball DO Work Phone: [facility] Work Phone: Start: 10-27-2024 End: 54-92-0909Gkiiord encounter procedureBencarolina Guevara DO Work Phone: [facility] Work Phone: Start: 10-25-2024 End: 99-09-5872Svagdeco Result EncounterBentorymin Fidencio Murmatyk DO Work Phone: [facility] External Department UnsolicitedStart: 10-25-2024 End: 60-42-1584Vlhmfacv Result EncounterBenjamin Fidencio Murcek DO Work Phone: [facility] External Department UnsolicitedStart: 10-25-2024 End: 27-25-2178Jkwtguyji to same day surgery centerBencarolina Guevara DO Work Phone: [facility]Start: 10-25-2024 End: 77-40-4708xxygfuyuedUxggnfcb Moustapha DO Work Phone: [facility] Work Phone: Start: 10-19-2024 End: 55-27-9926Wwxeboq encounter procedureBencarolina Guevara DO Work Phone: [facility]-Pre-Surgical Testing Work Phone: Start: 10-19-2024 End: 73-59-0012gghxqjewpsTpzesalp Ball DO Work Phone: [facility] Work Phone: Start: 88-60-2155Zagjfqkan for preprocedural laboratory examinationBetamiko Bello [facility] GroupStart: 10-19-2024 End: 02-35-6055Qmajtnkz Result EncounterBenjamin Fidencio Murcek DO Work Phone: [facility] External Department UnsolicitedStart: 10-19-2024 End: 37-65-2702Arkxrlqj Result EncounterBentorymin Fidencio Murvaleria DO Work Phone: [facility] External Department UnsolicitedStart: 10-17-2024 End: 95-13-0429Exuwms flowsheetBenjamin W Murcek DO Work Phone: [facility] SANDUSKYStart: 10-17-2024 End: 60-08-7682Lnyfnr flowsheetBenjamin W Murcek DO Work Phone: [facility] SANDUSKYStart: 10-17-2024 End: 91-68-0892Nlamfc outpatient new 60 minutesBentorymin Fidencio Murcek DO Work Phone: [facility] SANDUSKYComment on above:Malignant neoplasm of thyroid gland (CMS/HCC)Start: 52-54-0304Taz-patient / Non-visitBentorymin Ball DO Work Phone: [facility] GroupGrand [facility] Work Phone: Start: 10-16-2024 End: 95-87-2077Fxotkjxgd department patient visitChelsea [facility] Ambulatory PPGStart: 79-08-3498Ghv-patient / Non-visitBetamiko Guevara DO Work Phone: [facility] Work Phone: Start: 96-60-6238draumpgycsVqgwvukc Ball DO Work Phone: [facility] Work Phone: Start: 03-17-9472Lxp-patient / Non-visitBencarolina Guevara DO Work Phone: [facility] Work Phone: Start: 10-05-2024 End: 18-08-1612Vgazelntq to same day surgery centerBevanluis Guevara DO Work Phone: [facility]-Ultrasound [facility] [place] Work Phone: Start: 10-05-2024 End: 75-33-4055lcgzoafpyzLdxpfqnp Ball DO Work Phone: [facility] Work Phone: Start: 09-27-2024 End: 28-30-7050Fkjqae flowsheetChristopher Lela DO Work Phone: aNA BELLEVUEStart: 09-27-2024 End: 63-40-3355Foybcz flowsheetChristopher Lela DO Work Phone: a[facility] BELLEVUEStart: 09-27-2024 End: 83-55-4879Ylbpcs outpatient new 60 minutesChristopher Lela DO Work Phone: aNA BELLEVUEComment on above:Transient global amnesia (Primary Dx); Abnormal EEGStart: 09-04-2024 End: 01-62-7372gqxnkyezkmJwpsbbyeoSelect Medical Specialty [facility] Work Phone: Start: 09-04-2024 End: 86-17-4429Byjutnp encounter procedureVidant P[facility] Work Phone: Start: 08-24-2024 End: 56-16-4506cytwgsoserKojaxkztoSelect Medical Specialty Hospital [facility] Work Phone: Start: 08-24-2024 End: 30-57-2221Vnqnesk encounter procedureVidant P[facility] Work Phone: Start: 53-34-3831bscidrvlbvEWVGWNYRBertrand Chaffee Hospital Ambulatory PPGStart: 74-34-5140Nhj-patient / Non-visitV[facility]ant [facility] Work Phone: Start: 45-17-4859gdujyhfniyMEESMGOEBertrand Chaffee Hospital Ambulatory PPGStart: 25-78-1559Ljr-patient / Non-visitBenmin [place] DO Work Phone: [facility] Work Phone: Start: 08-12-2024 End: 65-61-1115Ydazrvtcz department patient visitChelsea [facility] Ambulatory PPGStart: 45-90-8015Aoa-patient / Non-visitVidant P[facility] Work Phone: Start: 14-24-4474Hwx-patient / Non-visitVidant P[facility] Work Phone: Start: 08-02-2024 End: 60-49-7750Ngkexvtgb for general adult medical examination without abnormal findingsMercy Health Clermont Hospitaltart: 08-02-2024 End: 79-32-6322Sbtgdmc encounter procedureV[facility]ant [facility] Work Phone: Start: 98-49-7030Dhbuabm encounter statusMercy Health Clermont Hospitaltart: 06-06-2024 End: 63-52-6396fsmlewooumKgpmaaptdOhioHealth Van Wert Hospital Work Phone: Start: 06-06-2024 End: 77-91-7600Uwopbdo encounter procedureVidant [facility] Work Phone: Start: 05-16-2024 End: 59-69-6790hnoevfhvvaVQHQPOMNavarro Regional Hospital Ambulatory PPG Start: 04-03-2024 End: 29-06-7113ozsrrkblxsTTOQNVSSt. [facility]'s [facility] P[facility] Start: 03-16-2024 End: 34-44-0908emesydzcmeHdhjlwcwcOhioHealth Van Wert Hospital Work Phone: Start: 03-16-2024 End: 27-19-0582Tmqfmlk encounter procedureVidant [facility]ician [facility] Work Phone: Start: 01-04-2024 End: 11-67-6862nysykzysyhBPVUNMNNavarro Regional Hospital Ambulatory PPG Start: 12-08-2023 End: 82-88-7195bkuoctswctYQTTLBIHCA [facility] P[facility] Start: 12-01-2023 End: 26-52-1518eduhlmmkuuSOUZAL G [facility] PPG Start: 10-20-2023 End: 81-10-6969cpxjvruuobCFDFHD G [facility] PPG Start: 10-06-2023 End: 25-18-8809dgwhkfniyxHTOHJWZK E BALLProMedica Joes HospitalStart: 10-06-2023 End: 20-11-8004Fvmqkqtiao and management of inpatientBARBARA C GRAYProGrand Lake [facility] Hospital HospitalStart: 10-05-2023 End: 46-53-1276Xvzlmtblud and management of inpatientMICHAEL GRILLISProMedLake Regional Health System HospitalStart: 09-29-2023 End: 73-13-9608mjvtumjuuiIQQLSTBZ E BALLProMedica Joes HospitalStart: 09-22-2023 End: 74-17-2259lrkfnsuwdxJBZEXAG L CLARKProGrand Lake [facility] HospitalStart: 09-09-2023 End: 59-76-8734kruwxitiijIOHNJVCK E BALLProMedica Joes HospitalStart: 08-10-2023 End: 42-06-9419zmbmtvhyfbTdgenqqr Ball Other [employer] Other Start: 54-25-9177Fpjccvifa encounterBenjamin BallFP[facility] ClinicStart: 07-06-2023 End: 88-41-4991dtkmxihhydBrlnydip Ball Other [employer] Other Start: 98-74-9868Krjfbp outpatient visit 15 minutes Fab BallFPG [facility] Medical ClinicStart: 05-13-2023 End: 77-94-5391bmpfufqfqkKwrwsasc Ball Other [employer] Other Start: 93-04-5423Qsbcypqvr encounterBenjamin BallFPG [facility] Medical ClinicStart: 05-12-2023 End: 82-51-2841oujlbmargaKaoqucue Ball Other [employer] Other Start: 91-31-6739Fqtondisj encounterBenjamin BallFP[facility] ClinicStart: 03-22-2023 End: 70-11-5292fwggtdjeltNasqweac Ball Other [employer] Other Start: 87-48-2998Ldnhfftqr encounterBenjamin BallFP[facility] ClinicStart: 03-19-2023 End: 61-64-8780vapdlkqtzbSovpyvge Ball Other [employer] Other start: 39-41-6404Ednandual encounterBenjamin BallFPG [facility] Medical ClinicStart: 12-22-2022 End: 42-55-5595bhnaxzbtdnQjflarfz Ball Other [employer] Other Start: 71-54-8494Tpkcll outpatient visit 15 minutes Fab BallFP[facility] Medical ClinicStart: 12-17-2022 End: 07-54-8040hrrjwtgitoRlqxhoim Ball Other [employer] Other Start: 53-29-1587Fmtdjgoca encounterBenjamin BallFP[facility] Medical ClinicStart: 12-11-2022 End: 74-77-6648ldvjluzqmiAN FAB BALLFacility:D4Eksct: 10-06-2022 End: 73-59-0639jmeikmrsomFtktfqba Ball Other [employer] Other Start: 63-98-5063Zqhemi outpatient visit 25 minutes Fab BallFPG [facility] Medical ClinicStart: 09-02-2022 End: 25-49-1981eaeatnftzhMfiwhthd Ball Other [employer] Other Start: 34-84-9264Ubusvwhdu encounterBencarolina FitzgeraldG Moustapha Medical ClinicStart: 09-01-2022 End: 23-12-1064udabxzkiwlAheaqudd Ball Other nort [employer] Other Start: 74-26-6637Kavywfldy encounterBencarolina FitzgeraldG M[facility]ha Medical ClinicStart: 03-24-2022 End: 82-21-4675pqrzurbvduIE FAB BALLFacility:V5Ooafj: 03-03-2022 End: 01-24-2931xuxhjyxisqYR FAB BALLFacility:W0Fjsdh: 20-14-3008Ofszb health examinationBetamiko Guevara Other [employer]Mer[employer] Other Start: 38-70-1742Qxfgxnhgf for general adult medical examination without abnormal findingsBetamiko Guevara Other noMerLion [employer] Other Start: 01-07-2018 End: 27-44-5409Drfggprxe department patient visitALEXA Bojorquez [facility] Procedures DateProcedureProcedure DetailPerforming ClinicianStart: 01-18-1503Vgxwn culture Fab Ball DO Work Phone: Start: 47-91-2754Zhxcnklnyayc localization of tumor, whole bodyBenjamin Ball DO Work Phone: Start: 55-28-7602Xqux radionuclide therapyBenjamin Ball DO Work Phone: Start: 27-81-3038Kebmkiwnbxgf localization of tumor, whole bodyBenjamin Ball DO Work Phone: Start: 15-60-1010Fjglekq totalBenjamin W Murcek DO Work Phone: start: 44-20-5779Lpexvarsw of thyroid glandBenjamin Ball DO Work Phone: Start: 71-73-9798Rbqda of parathormoneBenjamin W Murcek DO Work Phone: start: 01-19-1592AowyzoztmsTrydzkir Ball DO Work Phone: Start: 29-45-4068PrniyryezrpGwmnampjtsi Lela DO Work Phone: Start: 18-31-1145VlckkidftsxAgmqsnxekdd Lela DO Work Phone: Start: 97-95-3343Seszyqo examination of patient Fab Guevara Other Start: 98-94-5291KX CONSULT TO PRIMARY CARE PROVIDER ALEXA Tariqart: 75-04-7305Pqfqgvsxo mammographyBencarolina Guevara Other Depression screeningBencarolina Guevara Other Depression screeningBencarolina Guevara Other History of thyroidectomyStatus post total thyroidectomy (CMS/HCC)Fab Mendoza DO Work Phone: History of thyroidectomyStatus post total thyroidectomyBenjaluis Mendoza DO Work Phone: History of thyroidectomyStatus post total thyroidectomyBencarolina Mendoza DO Work Phone: screening for malignant neoplasm of breastBencarolina Guevara Other Screening for malignant neoplasm of breastJrncarolina Guevara Other Plan of Treatment DateCare ActivityDetailAuthorStart: 67-56-2806Kkdmecxhj for malignant neoplasm of colonNOMS HealthcareStart: 09-17-2025 End: 53-55-0481Pggycje encounter qybikffrc33/26/2026 1:00 PM EST Office Visit [facility] [place] [address] [place] [phone] Fab Mendoza, DO [address] [place] [address] [facility] VARELAYStart: 13-70-1542Esyiugkju vaccination Influenza Vaccine (#1)[facility] HealthcareStart: 03-14-2025 End: 82-26-9983RyqydwvytempjHaxrlbqydqnhv Lab Routine Malignant neoplasm of thyroid gland (CMS/HCC) Status post total thyroidectomy Expected: 03/14/2025 (Approximate), Expires: 12/13/2025[facility] HealthcareComment on above:Expected: 03/14/2025 (Approximate), Expires: 12/13/2025Start: 03-14-2025 End: 48-69-8394Jiiggjeaqjl [Units/volume] in Serum or PlasmaTHE [facility] Comment on above:Expected: 03/14/2025 (Approximate), Expires: 12/13/2025Start: 03-14-2025 End: 54-69-7121Fpnclcpjlksmxrfx (T3) [Mass/volume] in Serum or PlasmaT3 Lab Routine Malignant neoplasm of thyroid gland (CMS/HCC) Status post total thyroidectomy Expected: 03/14/2025 (Approximate), Expires: 12/13/2025[facility] HealthcareComment on above:Expected: 03/14/2025 (Approximate), Expires: 12/13/2025Start: 03-12-2025 End: 12-00-7124Sqlcsny [Mass/volume] in Serum or PlasmaCalcium Lab STAT Status post total thyroidectomy Malignant neoplasm of thyroid gland (HCC) Muscle cr amping Expected: 03/12/2025 (Approximate), Expires: 03/12/2026[facility] Comment on above:Expected: 03/12/2025 (Approximate), Expires: 03/12/2026Start: 03-12-2025 End: 32-01-9432Dvfwdcdrm [Mass/volume] in Serum or PlasmaMagnesium Lab STAT Status post total thyroidectomy Malignant neoplasm of thyroid gland (HCC) Muscle cramping Expected: 03/12/2025 (Approximate), Expires: 03/12/2026[facility] Comment on above:Expected: 03/12/2025 (Approximate), Expires: 03/12/2026Start: 03-12-2025 End: 91-99-4201Pigjsfdcxp.intact [Mass/volume] in Serum or PlasmaPTH, intact Lab STAT Status post total thyroidectomy Malignant neoplasm of thyroid gland (HCC) Muscle cramping Expected: 03/12/2025 (Approximate), Expires: 03/12/2026[facility] Work Phone: comment on above:Expected: 03/12/2025 (Approximate), Expires: 03/12/2026Start: 03-12-2025 End: 10-01-6563Prmkcmequ [Moles/volume] in Serum or PlasmaPotassium Lab STAT Muscle cramping Expected: 03/12/2025 (Approximate), Expires: 03/12/2026[facility] HealthcareComment on above:Expected: 03/12/2025 (Approximate), Expires: 03/12/2026Start: 03-12-2025 End: 33-76-6807Tzvsyu [Moles/volume] in Serum or PlasmaSodium Lab STAT Muscle cramping Expected: 03/12/2025 (Approximate), Expires: 03/12/2026[facility] Comment on above:Expected: 03/12/2025 (Approximate), Expires: 03/12/2026Start: 03-12-2025 End: 67-70-7896Wvpczrx encounter procedureANA HEMANTHUSKYComment on above:Arrived Start: 18-23-6188Ihvhuiwo identified in Urine by CultureUrine [facility] Centertart: 19-30-4143[facility] Hospitaltart: 01-24-2025 End: 94-78-4906XptlezmbbrcjtFajryvyvwckev Lab Routine Malignant neoplasm of thyroid gland (CMS/HCC) Status post total thyroidectomy Expected: 01/24/2025 (Approximate), Expires: 12/13/2025[facility] HealthcareComment on above:Expected: 01/24/2025 (Approximate), Expires: 12/13/2025Start: 01-24-2025 End: 12-48-1756Dlbjfnjiwxw [Units/volume] in Serum or PlasmaNOMS Healthcare Work Phone: comment on above:Expected: 01/24/2025 (Approximate), Expires: 12/13/2025Start: 01-24-2025 End: 93-38-7268Ijwfhmhxhgadkovz (T3) [Mass/volume] in Serum or PlasmaT3 Lab Routine Malignant neoplasm of thyroid gland (CMS/HCC) Status post total thyroidectomy Expected: 01/24/2025 (Approximate), Expires: 12/13/2025[facility] HealthcareComment on above:Expected: 01/24/2025 (Approximate), Expires: 12/13/2025Start: 12-13-2024 End: 63-13-4252Ukorclm encounter procedureNOMS ENT SANDUSKYComment on above: ArrivedStart: 12-02-2024 End: 88-57-7724Avtn miscellaneous testMayo miscellaneous test Lab Routine Malignant neoplasm of thyroid gland (CMS/HCC) Expected: 12/02/2024 (Approximate), Expires: 11/01/2025[facility] HealthcareComment on above:Expected: 12/02/2024 (Approximate), Expires: 11/01/2025Start: 12-02-2024 End: 98-62-8894Noprktiqyxf [Units/volume] in Serum or PlasmaNONM Healthcare Comment on above:Expected: 12/02/2024 (Approximate), Expires: 11/01/2025Start: 12-02-2024 End: 88-35-4054Bokxheourlgprleo (T3) [Mass/volume] in Serum or PlasmaT3 Lab Routine Malignant neoplasm of thyroid gland (CMS/HCC) Expected: 12/02/2024 (Approximate), Expires: 11/01/2025[facility] Work Phone: comment on above:Expected: 12/02/2024 (Approximate), Expires: 11/01/2025Start: 11-01-2024 End: 38-00-4722Wvjovlq encounter procedureNOMS ENT SANDUSKYComment on above: ArrivedStart: 10-30-2024 End: 31-26-2431Zrytcmg encounter rsgtembxt15/10/2025 9:00 AM EDT Office Visit [facility] [place] [address] [place] [address] Russ Vogel DO [address] [place] [address] MONSE VARELAYStart: 20-01-3221AvkguozkjC[facility]inte [facility] Start: 08-47-0448JvksgegfaMercy Health Clermont Hospitaltart: 10-17-2024 End: 41-59-4637Schjrvx [Mass/volume] in Serum or PlasmaCalcium Lab Routine Malignant neoplasm of thyroid gland (CMS/HCC) Expected: 10/17/2024 (Approximate) , Expires: 10/17/2025[facility] HealthcareComment on above:Expected: 10/17/2024 (Approximate), Expires: 10/17/2025Start: 10-17-2024 End: 89-36-1426Asxlkhjfkq.intact [Mass/volume] in Serum or PlasmaPTH, intact Lab Routine Malignant neoplasm of thyroid gland (CMS/HCC) Expected: 10/17/2024 (Approximate), Expires: 10/17/2025[facility] HealthcareComment on above:Expected: 10/17/2024 (Approximate), Expires: 10/17/2025Start: 10-17-2024 End: 98-80-5406Hmhtaxqvxdu [Units/volume] in Serum or PlasmaN[facility]S Healthcare Work Phone: comment on above:Expected: 10/17/2024 (Approximate), Expires: 10/17/2025Start: 10-17-2024 End: 6917Rdnjclmyhbdzhuzn (T3) [Mass/volume] in Serum or PlasmaT3 Lab Routine Malignant neoplasm of thyroid gland (CMS/HCC) Expected: 10/17/2024 (Approximate), Expires: 10/17/2025[facility] HealthcareComment on above:Expected: 10/17/2024 (Approximate), Expires: 10/17/2025Start: 10-17-2024 End: 93-65-1014Ehnidcy encounter epwsgjrrk19/25/2025 10:30 AM EST Office Visit [facility] [place] [address] [place] [address] Fab Mendoza, DO [address] [place] [address] ArrivedNOMS ENT SANDUSKYComment on above:ArrivedStart: 10-12-2024 End: 62-89-0445Nixbymod Gzydsuj4910/12/2024 8:15 AM EST Clinical Support MONSE [place] [address] [facility] [address] aNA WILDER Start: 10-09-2024 End: 97-22-0528Vpsjjleouguu / ancillary services /17/2025 2:45 PM EST Ancillary Procedure MONSE SOTO [address] [facility] [place] [address] aNA JOHNATHANtart: 47-43-2502Qwhvfbv referralKettering Health Work Phone: Start: 47-86-1864BkdimuawfCleveland Clinic [facility] Pointe Hospital Start: 12-51-1093UfxdmraxdyTrywbkqyrMercy Health Clermont Hospitaltart: 09-27-2024 End: 84-06-2229Vndg EEG 36-84 HoursHome EEG 36-84 Hours Neurology Routine Abnormal EEG Expected: 09/27/2024 (Approximate), Expires: 09/27/2025[facility] Work Phone: comment on above:Expected: 09/27/2024 (Approximate), Expires: 09/27/2025Start: 09-27-2024 End: 83-03-5808Jlnxcih encounter zjclcwibt58/05/2025 1:00 PM EST Office Visit MONSE SOTO [address] [facility] [place] [address] Russ Vogel DO [address] [facility] [place] [address] Peter SOTOComment on above:ArrivedStart: 2024 Pneumococcal Vaccine: 65+ Years (1 of 1 - PCV)Pneumococcal Vaccine: 65+ Years (1 of 1 - PCV)[facility] HealthcareStart: 10-59-9319Dtvwylycb for malignant neoplasm of breastMammogramNOMS HealthcareStart: 32-33-9386Airgikluahoh Vaccine: 65+ Years (1 of 1 - PCV)Pneumococcal Vaccine: 65+ Years (1 of 1 - PCV)[facility] Healthcare Start: 30-49-9242Pegtihtin for malignant neoplasm of cervixNOMS HealthcareStart: 43-38-2373Bbypdvufi for malignant neoplasm of cervixPap SmearNONM Healthcare Start: 45-26-6399Psbbjvezd for malignant neoplasm of colonN[facility]S Healthcare Calcium.ionized [Mass/volume] in Serum or Plasma by Ion-selective membrane electrode (ISE)[facility] HospitalComprehensive metabolic 2000 panel - Serum or PlasmaCleveland Clinic South Pointe HospitalMG Breast - bilateral ScreeningCleveland Clinic South Pointe HospitalPatient EducationAultman Hospital Work Phone: Patient referralKettering Health Work Phone: Thyroglobulin Ab [Units/volume] in Serum or Plasma [facility] HospitalThyroglobulin Ab [Units/volume] in Serum or PlasmaCleveland Clinic South Pointe HospitalThyrotropin [Units/volume] in Serum or PlasmaTSH Lab Routine 10/19/2024 4:03 PM [facility] Work Phone: [place] Thyroid glandVencor Hospital Immunizations Immunization DateImmunizationNotesCare WgoxbfwnIwhypezd65-36-7820cuqmotfrp, high dose seasonal, preservative-freeBenjamin Ball DO Work Phone: [facility]12-11-2024influenza, seasonal, injectable, preservative [facility] 40-49-9643vokxcndzk virus vaccine, unspecified formulationBenjamin Murcek DO Work Phone: [facility] HealthcareXzedaaqcoh19-94-3811mctpzks toxoid, reduced diphtheria toxoid, and acellular pertussis vaccine, adsorbedBenjamin Murcek DO Work Phone: [facility] HealthcarePlcwrsuqgk57-83-0318Jztqbmey, quadrivalent, recombinant, injectable influenza vaccine, preservative freeBenjamin Murcek DO Work Phone: [facility] HealthcareIcrtenulkp53-19-3179JDCZQ-64 mRNA-1273 (Moderna) Fab Guevara DO Work Phone: [facility]11-15-2021COVID-19 mRNA-1273 (Moderna)Fab Guevara DO Work Phone: [facility]03-26-2021COVID-19 mRNA-1273 (Moderna)Fab Guevara DO Work Phone: [facility]02-24-2021COVID-19 mRNA-1273 (Moderna)Fab Guevara DO Work Phone: [facility]10-18-2019Seasonal, quadrivalent, recombinant, injectable influenza vaccine, preservative free Fab Mendoza DO Work Phone: [facility] HealthcarePfcnfvfwkl51-45-5245cowxgtfug, injectable, quadrivalent, preservative freeBenjaluis Murcek DO Work Phone: [facility] HealthcareTytoyazuez80-49-1647uubkyyr and diphtheria toxoids, adsorbed, preservative free, for adult use (5 Lf of tetanus toxoid and 2 Lf of diphtheria toxoid)Fab Guevara Other [facility]11-07-2001hepatitis B vaccine, pediatric or pediatric/adolescent dosageBenjamin Murcek DO Work Phone: [facility] Payers DatePayer CategoryPayerPolicy [id number] Health InsuranceMEDICAL MUTUAL Member Subscriber Plan / Payer (Effective 2024- Present) Name: Carmen Mays Relation to Subscriber: Self Name: Carmen Mays Payer ID: Not on file Group ID: [id number] Type: Not on file Address: [address] [id number] [id number] 2024MedicareMEDICARE Member Subscriber Plan / Payer (Effective 2023-Present) Name: Carmen Mays Member ID: [id number] Relation to Subscriber: Self Name: Carmen Mays Subscriber ID: [id number] ID: STATE Group ID: Not on file Type: Medicare Address: [place] [id number] [id number] 2.840.1.752436.3.579.2.92964-35-6079Eoavqzp [id number] 2.0.1.852227.3.57[id number] 2.840.1.453191.3.57[id number] 2.840.1.272614.3.57[id number] 2.840.1.328653.3.57[id number] 2.840.1.935127.3.57[id number] 2.16840.1.267519.3.57[id number] 2.840.1.243859.3.57[id number] 2.840.1.760870.3.579.[id number] 2.16.840.1.460819.3.57[id number] 2.16.840.1.512624.3.57[id number] 2.16.840.1.126987.3.579.[id number] 2.16.840.1.862955.3.579.2.4[id number] 2.16.840.1.884070.3.57[id number] 2.16.840.1.010424.3.579.[id number] 2.840.1.894659.3.57[id number] 2..840.1.666654.3.579.[id number] 2..840.1.203881.3.57[id number] 2.16.840.1.214199.3.57[id number] 2.16.840.1.245184.3.57[id number] 2.16.840.1.749818.3.57[id number] 2.16.840.1.988755.3.579.2.374552-19-8795Cflnipj33741931 2.16.840.1.839104.3.579.2.8[id number] 2.16.840.1.565835.3.579.2.[id number] 2.16.840.1.2[id number] 2.16.840.1.360649.3.579.2.531 [id number] 2.16.840.1.5[id number] 2.16.840.1.015338.3.579.2.367Tfsndin70299825 2.16.840.1.761914.3.579.2.531 [id number] 2.16.840.1.0[id number] 2.16.840.1.77020[id number] 2.16.840.1.958204.3.579.2.531 Suxjxcx89932503 2.16.840.1.302297.3.579.2.531 Social History DateTypeDetailFacilityStart: 10-17-2024 End: 69-20-0135Kdp Assigned At [facility] [employer] Other Start: 10-13-2023 End: 41-15-1432Uokvtwr smoking status NHISNever smoked tobacco (finding) [facility] Hospitaltart: 80-70-9466Krl Assigned At BirthFeUniversity Hospitals Conneaut Medical Centertart: 08-24-2024 End: 83-55-6712CbdXtrkln (finding)[facility] HospitalTobacco smoking status NHISTobacco smoking consumption unknownNOMS HealthcareStart: 91-17-0016Rym assigned at birthNot on fileNOMS HealthcareStart: 83-60-5592Olavxi identityIdentifies as female gender (finding)[facility] HealthcareStart: 10-17-2024 Tobacco use and exposureSmokeless tobacco non-userNOMS HealthcareStart: 10-17-2024 End: 58-28-0919Eqidhtlmw beverage intakeLifetime non-drinker (finding)[facility] HealthcareStart: 10-17-2024 End: 04-13-7821Dxqvruo of Social functionNOMS Healthcare Goals DatePatient GoalDesired Activity/State Clinical Notes 09-01-2022 to 05-08-2025 Note Date & XrdnHbfmChvsykjm60-10-9375 Evaluation note* Diagnosis Onset Date Resolution Status Admit Date Papillary thyroid carcinoma acuteSeptember 2024 3:15pmAbsence skvphqk1325qfybpLbfmnvbcd 2024 2:34pmHypercholesterolemiaacuteSeptember 2024 2:34pmHypertensionacute May 09, 2025 2:34pmHypothyroidacuteSeptember 2024 2:34pmIFG (impaired fasting glucose)acuteSeptember 2024 2:34pmObesityacuteSeptember 2024 2:34pmOSA (obstructive sleep apnea)acuteSept2024 2:34pm Papillary thyroid carcinomaacuteSeptember 2024 2:34pmHypertensionacute June 22, 2025 2:26pmHypothyroidacuteOctober 2024 2:26pmIFG (impaired fasting glucose)acuteOctober 2024 2:26pm [facility] Work Phone: 1(894) 381-164607-21-2025 History of Present illness Narrative* Fab Mendoza, DO - 03/12/2025 1:00 PM EDT Subjective Patient ID: HPI Patient presents today for follow-up. 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 Most recent lab work shows that her TSH is 3.9, T3 is little low, T4 is a little high, thyroglobulin is nondetectable. Sheis having a lot of cramping in her toes, she had abdominal cramping here in the office she says shegets it in her neck as well. That is new. Review of Systems ROS The specialty specific review of systems is noncontributory except for that recorded in the intake questionnaire and /or described in the history of present illness. Objective ENT Physical Exam Physical Exam Constitutional: Appearance: Normal appearance. HENT: Head: Atraumatic. Ears: External ear shows no abnormality Bilateral ear canals are clear Tympanic membranes intact, no evidence of middle ear fluid or other pathology. Nose: External nose appears to be normal Nares patent. Septal deviation to the right No evidence of polyp, mass or pus bilaterally. Oral Cavity: No evidence of trismus Lips appear normal Dental good Tongue of normal size and configuration, floor of mouth mucosa clear. Buccal mucosa shows no evidence of ulceration, mass or other abnormality Hard palate soft palate mucosa intact with no evidence of mass, ulceration or other abnormality Uvula of normal size and configuration Oropharynx: Tonsils Posterior pharyngeal wall Neck: No evidence of palpable abnormality Thyroid without evidence of thyromegaly or mass. No cervical lymphadenopathy present. Cardiovascular: Rate and Rhythm: Normal rate and regular rhythm. . Skin: General: Skin is warm and dry. Neurological: General: No focal deficit present. Mental Status: alert and oriented to person, place, and time. Assessment/Plan Carmen was seen today for thyroid cancer. Diagnoses and all orders for this visit: Status post total thyroidectomy (Primary) Comments: I am going to increase the patient's Synthroid to 137 micro g, recheck lab work in 60 days. Malignant neoplasm of thyroid gland (HCC) Comments: There is no clinical or biochemical evidence of recurrence, I will see her back in 6 months and perform ultrasound at that time and have lab work Muscle cramping Comments: I will have the patient go the hospital on her way home and we will do a stat calcium, PTH and magnesium, I will call those to her. I will also check a vitamin-D. documented in this encounterThree Rivers HealthcareHjreotnmaz09-91-9723 Evaluation note* Diagnosis Onset Date Resolution Status Admit Date Ganglion cyst of dorsum of left wrist acuteJuly 2024 10:58amHypertensionacuteJuly 2024 10:58amHypothyroid acuteJuly 2024 10:58amLeft shoulder painacuteJuly 2024 10:58am Papillary thyroid carcinomaacuteJuly 2024 10:58amRotator cuff tendonitis acuteJuly 2024 10:58amPapillary thyroid carcinomaacuteJuly 2024 10:35amPapillary thyroid carcinomaacuteSeptember 2024 3:15pm [facility] Work Phone: 1(608) 611-178907-10-2025 Evaluation note* Diagnosis Onset Date Resolution Status Admit Date Ganglion cyst of dorsum of left wrist acuteJuly 2024 10:58amHypertensionacuteJuly 2024 10:58amHypothyroid acuteJuly 2024 10:58amLeft shoulder painacuteJuly 2024 10:58am Papillary thyroid carcinomaacuteJuly 2024 10:58amRotator cuff tendonitis acuteJuly 2024 10:58amPapillary thyroid carcinomaacuteJuly 2024 10:35amPapillary thyroid carcinomaacuteSeptember 2024 3:15pmAbsence vbrwyci1545ekshuZmgdkruqu 2024 2:34pmGanglion cyst of dorsum of left wrist acuteSeptember 2024 2:34pmHypercholesterolemiaacuteSeptember 2024 2:34pmHypertensionacuteSeptember 2024 2:34pmHypothyroidacuteSeptember 2024 2:34pmLeft shoulder painacuteSeptember 2024 2:34pmOSA (obstructive sleep apnea)acuteSeptember 2024 2:34pmPapillary thyroid carcinomaacuteSeptember 2024 2:34pmRotator cuff tendonitisacuteSeptember 2024 2:34pmType 2 diabetes mellitus with hyperglycemiaacuteSeptember 2024 2:34pm [facility] Work Phone: 1(510) 754-197604-23-2025 History of Present illness Narrative* Fab Mendoza, - 12/13/2024 4:00 PM EDT HPI Patient presents today about 6 weeks postop total thyroidectomy and central compartment dissection for papillary thyroid cancer. She did have lymphatic metastases. She is a candidate for I 131. She is doing okay. Still concerned about her voice. Recent TSH is elevated 115, T3-T4 low normal. I did not increase her Synthroid postoperatively she is only taking 25 mics. Relevant postoperative physical examination Neck incision well healed, scar feeding. No palpable abnormality. FIBEROPTIC NASOPHARYNGOLARYNGOSCOPY A diagnostic flexible fiberoptic laryngoscopy was performed. The flexible fiberoptic laryngoscope was placed into the nose and advanced to the level of the tip of the epiglottis. Examination of the larynx including both surfaces of the epiglottis false and true vocal folds, arytenoids and surrounding mucosal surfaces show no evidence of lesion, ulceration or mass. Normal bilateral true vocal foldmotion is present. Bilateral piriform sinuses and base of tongue appear without lesion Assessment/plan Carmen was seen today for post-op. Diagnoses and all orders for this visit: Change in voice (Primary) Comments: I showed the patient the video endoscopy. She is absolutely normal vocal cord movement and no evidence of superior nerve abnormality. Malignant neoplasm of thyroid gland (CMS/HCC) Comments: I am going to increase the patient's Synthroid to 125 micro g daily, recheck lab work in 6 weeks and call for any further adjustments. Orders: - T4; Future - T3; Future - TSH; Future - Thyroglobulin; Future - T4 - T3 - TSH - Thyroglobulin - T4; Future - T3; Future - TSH; Future - Thyroglobulin; Future - T4 - T3 - TSH - Thyroglobulin Status post total thyroidectomy Comments: I will see her back in 3 months with lab work. I will refer her for I 131 therapy. Orders: - T4; Future - T3; Future - TSH; Future - Thyroglobulin; Future - T4 - T3 - TSH - Thyroglobulin - T4; Future - T3; Future - TSH; Future - Thyroglobulin; Future - T4 - T3 - TSH - Thyroglobulin Her proceed vocal change probably still residual edema and some residence change because of the procedure. I explained that to her. I will see her back in 3 months. documented in this encounterThree Rivers HealthcarePekhdltrla64-86-2999 Evaluation note* Diagnosis Onset Date Resolution Status Admit Date Absence seizure 2023 acuteApril 2024 1:50pmHypercholesterolemiaacuteApril 2024 1:50pm HypertensionacuteApril 2024 1:50pmHypothyroidacuteApril 2024 1:50pm SANTINO (obstructive sleep apnea)acuteApril 2024 1:50pmPapillary thyroid carcinomaacuteApril 2024 1:50pmType 2 diabetes mellitus with hyperglycemia acuteApril 2024 1:50pmPapillary thyroid carcinomaacuteMay 2024 2:52pm [facility] Work Phone: 1(671) 310-366204-23-2025 Evaluation note* Diagnosis Onset Date Resolution Status Admit Date Absence seizure 2023 acuteApril 2024 1:50pmHypercholesterolemiaacuteApril 2024 1:50pm HypertensionacuteApril 2024 1:50pmHypothyroidacuteApril 2024 1:50pm SANTINO (obstructive sleep apnea)acuteApril 2024 1:50pmPapillary thyroid carcinomaacuteApril 2024 1:50pmType 2 diabetes mellitus with hyperglycemia acuteApril 2024 1:50pmPapillary thyroid carcinomaacuteMay 2024 2:52pmGanglion cyst of dorsum of left wristacuteJuly 2024 10:58am HypertensionacuteJuly 2024 10:58amHypothyroidacuteJuly 2024 10:58am Left shoulder painacuteJuly 2024 10:58amPapillary thyroid carcinomaacute Frida 2024 10:58amRotator cuff tendonitisacuteJuly 2024 10:58am [facility] Work Phone: 1(162) 541-546804-23-2025 Evaluation note* Diagnosis Onset Date Resolution Status Admit Date Absence seizure 2023 acuteApril 2024 1:50pmHypercholesterolemiaacuteApril 2024 1:50pm HypertensionacuteApril 2024 1:50pmHypothyroidacuteApril 2024 1:50pm SANTINO (obstructive sleep apnea)acuteApril 2024 1:50pmPapillary thyroid carcinomaacuteApril 2024 1:50pmType 2 diabetes mellitus with hyperglycemia acuteApril 2024 1:50pmPapillary thyroid carcinomaacuteMay 2024 2:52pmGanglion cyst of dorsum of left wristacuteJuly 2024 10:58am HypertensionacuteJuly 2024 10:58amHypothyroidacuteJuly 2024 10:58am Left shoulder painacuteJuly 2024 10:58amPapillary thyroid carcinomaacute Frida 2024 10:58amRotator cuff tendonitisacuteJuly 2024 10:58am Papillary thyroid carcinomaacuteJuly 2024 10:35am [facility] Work Phone: 1(456) 287-113303-13-2025 Telephone encounter Note* Telephone Encounter - Fab Mendoza DO - 11/02/2024 7:41 PM EDT Rx for Drisdol Vitamin D [facility] [id number] Miscellaneous Notes* Telephone Encounter - Fab Mendoza DO - 11/02/2024 7:41 PM EDT Rx for Drisdol Vitamin D documented in this encounterThree Rivers [id number] History of Present illness Narrative* Fab Mendoza DO - 11/01/2024 4:00 PM EDT HPI Patient presents today 1 week postop total thyroidectomy right central compartment dissection for papillary thyroid cancer. Final pathology is T2 N1 a, stage II disease. She is doing fine. Her lab work now shows that her PTH is normal, calcium is normal as well. I did have her on postoperative calcium and Rocaltrol. Relevant postoperative physical examination Neck examination shows incision is intact, no evidence of hematoma or seroma. Voice is normal. Assessment/plan Carmen was seen today for post-op. Diagnoses and all orders for this visit: Malignant neoplasm of thyroid gland (CMS/HCC) (Primary) Comments: Patient given postoperative instructions. I am going to see her back in a month with lab work. We will initiate I 131 therapy shortly thereafter. Orders: - T3; Future - T4; Future - TSH; Future - [place] miscellaneous test; Future - T3 - T4 - TSH - [place] miscellaneous test Carmen was seen today for post-op. Diagnoses and all orders for this visit: Malignant neoplasm of thyroid gland (CMS/HCC) (Primary) Comments: Patient given postoperative instructions. I am going to see her back in a month with lab work. We will initiate I 131 therapy shortly thereafter. Orders: - T3; Future - T4; Future - TSH; Future - Mckeon miscellaneous test; Future - T3 - T4 - TSH - Mckeon miscellaneous test Status post total thyroidectomy (CMS/HCC) Comments: See above documented in this encounterThree Rivers [id number] History of Present illness Narrative* Fab Mendoza DO - 10/17/2024 10:30 AM EST Allergies as of 10/17/2024 - Reviewed 10/17/2024 Allergen Reaction Noted Morphine GI intolerance 10/21/2022 Past Medical History: Diagnosis Date Hypertension (CMS/HCC) Impaired gait 10/17/2024 Post-traumatic osteoarthritis of left knee 12/08/2023 Sprain of MTP joint of left lesser toe(s), init 12/01/2023 Current Outpatient Medications: amLODIPine (Norvasc) 10 MG tablet, Take 10 mg by mouth Daily, Disp: , Rfl: aspirin 81 MG EC tablet, Take 81 mg by mouth Daily, Disp: , Rfl: ibuprofen 800 MG tablet, Take 800 mg by mouth every 6 (six) hours if needed for mild pain, Disp: , Rfl: levETIRAcetam (Keppra) 500 MG tablet, Take 1 tablet (500 mg) by mouth in the morning and 1 tablet (500 mg) before bedtime., Disp: 60 tablet, Rfl: 3 levothyroxine (Synthroid, Levoxyl) 25 MCG tablet, Take 25 mcg by mouth in the morning. Take before meals., Disp: , Rfl: losartan (Cozaar) 25 MG tablet, Take 25 mg by mouth Daily, Disp: , Rfl: pantoprazole (ProtoNix) 40 MG EC tablet, Take 40 mg by mouth in the morning. Take before meals. Do not crush, chew, or split.., Disp: , Rfl: venlafaxine (Effexor) 75 MG tablet, Take 75 mg by mouth in the morning and 75 mg before bedtime., Disp: , Rfl: Past Surgical History: Procedure Laterality Date HYSTERECTOMY Social History Socioeconomic History Marital status: Spouse name: Not on file Number of children: Not on file Years of education: Not on file Highest education level: Not on file Occupational History Not on file Tobacco Use Smoking status: Never Smokeless tobacco: Never Substance and Sexual Activity Alcohol use: Never Drug use: Never Sexual activity: Not Currently Partners: Male Other Topics Concern Not on file Social History Narrative Not on file Social Drivers of Health Financial Resource Strain: Not on file Food Insecurity: No Food Insecurity (12/08/2023) Received from [facility] Hunger Screening Within the past 12 months we worried whether our food would run out before we got money to buy more.: Never True Within the past 12 months the food we bought just didn't last and we didn't have money to get more.: Never True Transportation Needs: Not on file Physical Activity: Not on file Stress: Not on file Social Connections: Not on file Intimate Partner Violence: Not on file Housing Stability: Not on file Subjective Patient ID: HPI Patient is 64-year-old female referred for recently biopsy 3.5 cm mass in the right thyroid lobe which is being call papillary thyroid cancer. Patient noted some fullness in the right side of her neck about a year ago. Recent ultrasound was performed and FNA was performed coming back as a Lawai V, highly suspicious for papillary thyroid cancer. Patient has no personal risk factors for thyroid cancer, no pertinent family history of thyroid disorder. She is hypothyroid. She currently takes Synthroid 50 micro g daily. Review of Systems ROS The specialty specific review of systems is noncontributory except for that recorded in the intake questionnaire and /or described in the history of present illness. Objective ENT Physical Exam Physical Exam Constitutional: Appearance: Normal appearance. HENT: Head: Atraumatic. Ears: External ear shows no abnormality Bilateral ear canals are clear Tympanic membranes intact, no evidence of middle ear fluid or other pathology. Nose: External nose appears to be normal Nares patent. Septal deviation to the right No evidence of polyp, mass or pus bilaterally. Oral Cavity: No evidence of trismus Lips appear normal Dental good Tongue of normal size and configuration, floor of mouth mucosa clear. Buccal mucosa shows no evidence of ulceration, mass or other abnormality Hard palate soft palate mucosa intact with no evidence of mass, ulceration or other abnormality Uvula of normal size and configuration Oropharynx: Tonsils atrophic Posterior pharyngeal wall normal Neck: No evidence of palpable abnormality Palpable firm right thyroid mass noted No cervical lymphadenopathy present. Cardiovascular: Rate and Rhythm: Normal rate and regular rhythm. . Skin: General: Skin is warm and dry. Neurological: General: No focal deficit present. Mental Status: alert and oriented to person, place, and time. THYROID ULTRASOUND EXAMINATION Indication: Thyroid nodule After informed consent was obtained the patient was placed supine on the examining table. Patient was asked to extend the neck. Topical ultrasound jelly was used. The right lobe of the thyroid gland measures _ 4.9 cm in greatest dimension. There is a lobulated hypoechoic nodule occupying most of the lobe with possible strap muscle involvement measuring 3.51 cm in greatest dimension. There is some microcalcification present. There are a couple of borderline enlarged lower jugular lymph nodes noted. Nothing particular in the central compartment. The isthmus is unremarkable. The left lobe of the thyroid gland measures __ 4.6 cm greatest dimension. No identifiable nodular mass There is no adenopathy in the central compartment. There is no appreciable adenopathy in either lateral neck. FIBEROPTIC NASOPHARYNGOLARYNGOSCOPY A diagnostic flexible fiberoptic laryngoscopy was performed. The flexible fiberoptic laryngoscope was placed into the nose and advanced to the level of the tip of the epiglottis. Examination of the larynx including both surfaces of the epiglottis false and true vocal folds, arytenoids and surrounding mucosal surfaces show no evidence of lesion, ulceration or mass. Normal bilateral true vocal foldmotion is present. Bilateral piriform sinuses and base of tongue appear without lesion Assessment/Plan Carmen was seen today for thyroid nodule. Diagnoses and all orders for this visit: Malignant neoplasm of thyroid gland (CMS/HCC) Comments: Given the patient's age, biopsy results and ultrasound findings I recommended total thyroidectomy and possible lymph node dissection. Orders: - T4; Future - T3; Future - TSH; Future - PTH, intact; Future - Calcium; Future - T4 - T3 - TSH - PTH, intact - Calcium Patient understands that she may need postoperative I 131. THYROID ULTRASOUND EXAMINATION Indication: Thyroid nodule After informed consent was obtained the patient was placed supine on the examining table. Patient was asked to extend the neck. Topical ultrasound jelly was used. The right lobe of the thyroid gland measures cm in greatest dimension. The isthmus is unremarkable. The left lobe of the thyroid gland measures cm greatest dimension. There is no adenopathy in the central compartment. There is no appreciable adenopathy in either lateral neck. The risks and benefits of neck dissection were discussed with the patient. These include but are not inclusive of perioperative , major neurovascular morbitiy, poor scarring, would breakdown, salivary fistulae, major neurovascular injury, stroke, shoulder dysfunction, infection, shallowness inthe neck, loss of cervical range of motion, inabitily to completely resect tumor, need for additional surgery/tx, etc. The patient has consened to proceed. The risks and benefits of neck dissection were discussed with the patient. These include but are not inclusive of perioperative , major neurovascular morbitiy, poor scarring, would breakdown, salivary fistulae, major neurovascular injury,stroke, shoulder dysfunction, lower lip weakness, infection, shallowness in the neck, loss of cervical range of motion, inabitily to completely resect tumor, need for additional surgery/tx, etc. The patient has consened to proceed. documented in this encounterThree Rivers [id number] Hospital Discharge instructionsAmbulatory Orders* Referral to ENT Time Frame: 10/09/24, Location: None [facility] Work Phone: 1(614) 913-581002-13-2025 Chief complaint+Reason for visit Narrative * Chief Complaint Admit Date e04.1 October 05, 2024 10:00am Referral Order October 09, 2024 10:32pm Amb Documentation October 17, 2024 9:00am Thyroid Cancer October 19, 2024 2:58pm Thyroid Cancer October 25, 2024 5:55 am ER [facility]; lightheaded fogginess October 27, 2024 10:23am C73 October 30, 2024 9:5 8am C73 December 04, 2024 11: 55am Reason for Visit Admit Date Thyroid nodule October 05, 2024 10:00am Absence seizure October 27, 2024 10:2 3am Hypercholesterolemia October 27, 2024 10: 23am Hypertension October 27, 2024 10:2 3am SANTINO (obstructive sleep apnea) October 27, 2024 10:23am Papillary thyroid carcinoma October 27 025 10:23am Subclinical hypothyroidism October 27 10:23am Type 2 diabetes mellitus with hyperglyce fabrizio October 27, 2024 10:23am [facility] Work Phone: 1(495) 450-891602-13-2025 Chief complaint+Reason for visit Narrative * Chief Complaint Admit Date e04.1 October 05, 2024 10:00am Referral Order October 09, 2024 10:32pm Amb Documentation October 17, 2024 9:00am Thyroid Cancer October 19, 2024 2:58pm Thyroid Cancer October 25, 2024 5:55 am ER [facility]; lightheaded fogginess October 27, 2024 10:23am C73 October 30, 2024 9:5 8am C73 December 04, 2024 11: 55am 4 month f/u December 13, 2024 1:5 0pm Reason for Visit Admit Date Thyroid nodule October 05, 2024 10:00am Absence seizure October 27, 2024 10:2 3am Hypercholesterolemia October 27, 2024 10: 23am Hypertension October 27, 2024 10:2 3am SANTINO (obstructive sleep apnea) October 27, 2024 10:23am Papillary thyroid carcinoma October 27 025 10:23am Type 2 diabetes mellitus with hyperglyce fabrizio October 27, 2024 10:23am Subclinical hypothyroidism October 27 10:23am Absence seizure December 13, 2024 1:5 0pm Hypercholesterolemia December 13, 2024 1: 50pm Hypertension December 13, 2024 1:5 0pm Hypothyroid December 13, 2024 1:5 0pm SANTINO (obstructive sleep apnea) November 1:50pm Papillary thyroid carcinoma December 13, 2024 1:50pm Type 2 diabetes mellitus with hyperglyce fabrizio December 13, 2024 1:50pm [facility] Work Phone: 1(317) 949-356102-13-2025 Evaluation note* Diagnosis Onset Date Resolution Status Admit Date Thyroid nodule acuteFebruary 2024 10:00amAbsence [id number] 2024 10:23am HypercholesterolemiaacuteMarch 2024 10:23amHypertensionacuteMarch 2024 10:23amOSA (obstructive sleep apnea)acuteMarch 2024 10:23amPapillary thyroid carcinomaacuteMarch 2024 10:23amSubclinical hypothyroidismacute March 2024 10:23amType 2 diabetes mellitus with hyperglycemiaacuteMarch 2024 10:23am [facility] Work Phone: 1(251) 837-319602-13-2025 Evaluation note* Diagnosis Onset Date Resolution Status Admit Date Thyroid nodule acuteFebruary 2024 10:00amAbsence [id number] 2024 10:23am HypercholesterolemiaacuteMarch 2024 10:23amHypertensionacuteMarch 2024 10:23amOSA (obstructive sleep apnea)acuteMarch 2024 10:23amPapillary thyroid carcinomaacuteMarch 2024 10:23amType 2 diabetes mellitus with hyperglycemiaacuteOctober 27, 2024 10:23amSubclinical hypothyroidismdeletedMarch 2024 10:23amAbsence [id number] 2024 1:50pm HypercholesterolemiaacuteApril 2024 1:50pmHypertensionacuteApril 2024 1:50pmHypothyroidacuteApril 2024 1:50pmOSA (obstructive sleep apnea) acuteApril 2024 1:50pmPapillary thyroid carcinomaacuteApril 2024 1:50pmType 2 diabetes mellitus with hyperglycemiaacuteApril 2024 1:50pm [facility] Work Phone: 1(175) 916-847602-05-2025 History of Present illness Narrative* Russ Vogel, - 09/27/2024 1:00 PM EST Images from the original note were not included. Chief Complaint: alteration of awareness Subjective Carmen Mays, 64 y.o., female Patient presents today for a neurologic consult for global transient amnesia, suspected CVA. Patient is accompanied by her daughter. Patients daughter states on Wednesday she was experiencing confusion, she wasn't making any sense, she was trying to get ready to work and she thought it was the wrongday and she was very emotional. 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 She drove to and from work. She was told by co workers she was in a daze all day and her color was off. Wednesday she remembers but this is the day she went to the ED. This episode lasted about 36 hours. She was back to feeling like herself Wednesday night. She was started on aspirin 81 mg daily in the hospital which she is still taking. She states she is about 85 percent back to her baseline. She is still having some difficulty speaking, difficulty comprehending, some dizziness and some memory issues. She reports an increase in anxiety. Review of Systems Constitutional: Positive for fatigue. Negative for diaphoresis and fever. Respiratory: Negative for shortness of breath. Cardiovascular: Negative for chest pain and palpitations. Gastrointestinal: Positive for nausea. Negative for abdominal pain and vomiting. Musculoskeletal: Negative for back pain and neck pain. Neurological: Positive for dizziness, syncope, weakness, light-headedness and headaches. Psychiatric/Behavioral: Positive for confusion. No past medical history on file. No past surgical history on file. No family history on file. Social History Tobacco Use Smoking status: Not on file Smokeless tobacco: Not on file Substance Use Topics Alcohol use: Not on file Allergies: Morphine Vitals: 09/27/24 1252 BP: (!) 158/102 Pulse: 76 SpO2: 94% There is no height or weight on file to calculate BMI. weight: 190 lb 12.8 oz Neurologic exam: Mental status: Awake, alert to person, place and time. Recent and remote memory are intact. Language is fluent without aphasia. Attention and concentration are normal. Fund of knowledge is appropriate for level of education. Cranial nerves: CN II: Visual acuity is normal. Visual coburn full to confrontation. CN III, IV, : pupils equal round and reactive to light. Extraocular movements intact. No ptosis present. CN V: Facial sensation is normal. CN VII: Full and symmetric facial movement. CN VIII: Hearing is normal to finger rub bilaterally: CN IX and X: Palate elevates symmetrically. CN XI: Shoulder shrug is normal bilaterally. CN XII: Tongue is midline without atrophy or fasciculation. Motor: RUE Strength deltoid, , biceps , triceps , wrist extensors , wrist flexor , flatwork finisher hand strength 5/5. LUE Strength deltoid , biceps , triceps , wrist extensors , wrist flexor , flatwork finisher hand strength 5/5. RLE Strength illopsoas, quadriceps, tibialis anterior, and gastrocnemius strength 5/5. LLE Strength illopsoas, quadriceps, tibialis anterior, and gastrocnemius strength 5/5. Normal tone x4 extremities. Bulk is normal. Sensory: Sensation is intact to light touch throughout Four extremities. Reflexes: RUE biceps reflex 2+ brachioradialis reflex 2+ . LUE biceps reflex 2+ brachioradialis reflex 2+ . RLE knee reflex 2+ . LLE knee reflex 2+ . Serrano's sign negative. Coordination: Hiblxp-fk-jurd testing and rapid alternating movements are normal Gait: Normal Review and summary of old records: Outpatient EEG done at [facility] in late July of 2024 suggest high amplitude rhythmic activity some of which last up to 25 seconds which was suspicious for epileptiform abnormality. Further EEG was suggested. I have reviewed hospital admission to [facility] on August 12, 2024 where the patient presented not having remember the events of the day when going to work. She was tearful and upset that she did not remember this. CT, CT angiogram and MRI were unremarkable for acute intracranial pathology that could be causative. It appears the patient was started on aspirin and discharged home in stable condition. Patient was noted to have an elevated blood pressure and had not taken her medicationson the day of the event. CT of the brain without contrast on 08/12/2024: No acute hemorrhage or mass identified. CT angiogram with the head and neck on 08/12/24: No high-grade stenosis of the arteries of the heador neck. Thyroid nodule identified with nonemergent follow up recommended. MRI of the brain with and without contrast on 08/12/2024: No acute process was identified Assessment/Plan Diagnoses and all orders for this visit: Alteration of awareness It my impression that the patient suffered an episode of transient global amnesia in late July 2024. CT, CT angiogram and MRI were unremarkable for acute pathology that explain the patient's symptoms. The patient is started on baby aspirin and was discharged home in stable condition. Interestingly, shortly after her discharge from the hospital, the patient had an outpatient EEG which did show high amplitude rhythmic activity very suspicious for seizure. Upon further questioning the patient did have episodes of staring as a child and did feel that she may have had seizures. Her mother young so there was some lack of clarity on this. She is not really convinced she has had any seizures in quite some time. However, her family member who accompanied her today stated that the patient did have persistent confusion during this episode in July and this really would not fit well with transient global amnesia. This combined with the abnormal EEG certainly raise suspicionfor a generalized epilepsy. Plan: Start Keppra 500 mg p.o. b.I.d. for secondary seizure prevention Ambulatory EEG to further assess the patient for any epileptic abnormalities that may contribute tosymptoms We did discuss no driving, tub bathing alone, swimming alone and other seizure precautions that need to be in place until the patient remains 3-6 months episode free and cleared by Neurology and on treatment As it is difficult to exclude etiology such as TIA or transient global amnesia,I suggest continuation of aspirin 81 mg p.o. daily for secondary stroke prevention. I also had an extensive discussion today with the patient regarding the need to more tightly controlled blood pressure and my feeling that this has played a substantial role in the events leading up to her episode of alteration mental status. She expressed understanding. We also had an extensive discussion on signs and symptoms of stroke and need to proceed to the emergency department right away with any signs or symptoms. Potential for high-degree morbidity and mortality condition with concern for seizure disorder and need for extensive records review, ongoing investigation, discussion of potential life-threatening etiology such as seizure and stroke. The patient was accompanied by her daughter today who provided additional history and who was in agreement with our treatment plan and the plan for no driving. Pt has been fully educated on their diagnosis, lab results, treatment options, follow up plan, and return instructions documented in this [facility]01-02-2025 Evaluation note* Diagnosis Onset Date Resolution Status Admit Date Hypercholesterolemia acuteJanuary 2024 11:28amHypertensionacuteJanuary 2024 11:28amOSA (obstructive sleep apnea)acuteJan2024 11:28amThyroid noduleacute August 24, 2024 11:28amTransient global amnesiaacuteAugust 24, 2024 11:28am Type 2 diabetes mellitus with hyperglycemiaacuteJanuary 2024 11:28am Elevated TSHacuteJanuary 2024 2:35pmHeadacheacuteJanuary 2024 2:35pm HypercholesterolemiaacuteJanuary 2024 2:35pmHypertensionacuteJanuary 2024 2:35pmIFG (impaired fasting glucose)acuteJanuary 2024 2:35pmOSA (obstructive sleep apnea)acuteJanuary 2024 2:35pmThyroid noduleacute September 04, 2024 2:35pmTransient global amnesiaacuteJanuary 2024 2:35pm Thyroid noduleacuteFebruary 2024 10:00amAbsence [id number] 2024 10:23amHypercholesterolemiaacuteMarch 2024 10:23amHypertensionacute October 27, 2024 10:23amOSA (obstructive sleep apnea)acuteMarch 2024 10:23am Papillary thyroid carcinomaacuteMarch 2024 10:23amSubclinical hypothyroidismacuteMarch 2024 10:23amType 2 diabetes mellitus with hyperglycemiaacuteMarch 2024 10:23am [facility] Work Phone: 1(109) 895-240712-11-2024 Evaluation note* Diagnosis Onset Date Resolution Status Admit Date Hypertension acuteDecember 2023 2:04pmRotator cuff tendonitisacuteDecember 2023 2:04pmScreening mammogram for breast canceracuteAugust 02, 2024 2:04pmType 2 diabetes mellitus with hyperglycemiaacuteDecember 2023 2:04pmWellness examinationacuteDecember 2023 2:04pmHypercholesterolemiaacuteJanuary 2024 11:28amHypertensionacuteJanuary 2024 11:28amOSA (obstructive sleep apnea)acuteJanuary 2024 11:28amThyroid noduleacuteJanuary 2024 11:28am Transient global amnesiaacuteJanuary 2024 11:28amType 2 diabetes mellitus with hyperglycemiaacuteJanuary 2024 11:28amElevated TSHacuteJanuary 2024 2:35pmHeadacheacuteJanuary 2024 2:35pmHypercholesterolemiaacute September 04, 2024 2:35pmHypertensionacuteJanuary 2024 2:35pmIFG (impaired fasting glucose)acuteJanuary 2024 2:35pmOSA (obstructive sleep apnea) acuteJanuary 2024 2:35pmThyroid noduleacuteJanuary 2024 2:35pm Transient global amnesiaacuteJanuary 2024 2:35pm [facility] Work Phone: 1(940) 843-449312-11-2024 Evaluation note* Diagnosis Onset Date Resolution Status Admit Date Hypertension acuteDecember 2023 2:04pmRotator cuff tendonitisacuteDecember 2023 2:04pmScreening mammogram for breast canceracutecember 2023 2:04pmType 2 diabetes mellitus with hyperglycemiaacutecember 2023 2:04pmWellness examinationacutecember 2023 2:04pmHypercholesterolemiaacuteJanuary 2024 11:28amHypertensionacuteJanuary 2024 11:28amOSA (obstructive sleep apnea)acuteJanuary 2024 11:28amThyroid noduleacuteJanuary 2024 11:28am Transient global amnesiaacuteJanuary 2024 11:28amType 2 diabetes mellitus with hyperglycemiaacuteJanuary 2024 11:28amElevated TSHacuteJanuary 2024 2:35pmHeadacheacuteJanuary 2024 2:35pmHypercholesterolemiaacute September 04, 2024 2:35pmHypertensionacuteJanuary 2024 2:35pmIFG (impaired fasting glucose)acuteJanuary 2024 2:35pmOSA (obstructive sleep apnea) acuteJanuary 2024 2:35pmThyroid noduleacuteJanuary 2024 2:35pm Transient global amnesiaacuteJanuary 2024 2:35pmThyroid noduleacute February 2024 10:00am [facility] Work Phone: 1(814) 965-191410-15-2024 Evaluation note* Diagnosis Onset Date Resolution Status Admit Date Hypertension acuteOctober 2023 2:38pmLeft shoulder painacuteOctober 2023 2:38pm Rotator cuff tendonitisacuteOctober 2023 2:38pmType 2 diabetes mellitus with hyperglycemiaacuteOctober 2023 2:38pmHypertensionacuteDecember 2023 2:04pmRotator cuff tendonitisacuteDecember 2023 2:04pmScreening mammogram for breast canceracuteDecember 2023 2:04pmType 2 diabetes mellitus with hyperglycemiaacuteDecember 2023 2:04pmWellness examination acutecember 2023 2:04pmHypertensionacuteJanuary 2024 11:28amOSA (obstructive sleep apnea)acuteJanuary 2024 11:28amThyroid noduleacute August 24, 2024 11:28amTransient global amnesiaacuteJanuary 2024 11:28am Type 2 diabetes mellitus with hyperglycemiaacuteJanuary 2024 11:28am [facility] Work Phone: 1(151) 838-355310-15-2024 Evaluation note* Diagnosis Onset Date Resolution Status Admit Date Hypertension acuteOctober 2023 2:38pmLeft shoulder painacuteOctober 2023 2:38pm Rotator cuff tendonitisacuteOctober 2023 2:38pmType 2 diabetes mellitus with hyperglycemiaacuteOctober 2023 2:38pmHypertensionacuteDecember 2023 2:04pmRotator cuff tendonitisacuteDecember 2023 2:04pmScreening mammogram for breast canceracutecember 2023 2:04pmType 2 diabetes mellitus with hyperglycemiaacuteDecember 2023 2:04pmWellness examination acuteDecember 2023 2:04pmHypercholesterolemiaacuteJanuary 2024 11:28amHypertensionacuteJanuary 2024 11:28amOSA (obstructive sleep apnea) acuteJanuary 2024 11:28amThyroid noduleacuteJanuary 2024 11:28am Transient global amnesiaacuteJanuary 2024 11:28amType 2 diabetes mellitus with hyperglycemiaacuteJanuary 2024 11:28amElevated TSHacuteJanuary 2024 2:35pmHypercholesterolemiaacuteJanuary 2024 2:35pmHypertensionacute Viv 2024 2:35pmOSA (obstructive sleep apnea)acuteJanuary 2024 2:35pmTransient global amnesiaacuteJanuary 2024 2:35pmType 2 diabetes mellitus with hyperglycemiaacuteJanuary 2024 2:35pm [facility] Work Phone: [phone] 664-493502-14-2024 NoteXR FOOT LT MIN 3 VWS Procedure: Left foot radiographs performed Number of views:3 History:Injury and pain Comparison:09/22/2023 Findings: There is no fracture, dislocation, or destructive lesion. There is a plantar calcaneal enthesophyte Impression: No acute findings. Finalized by Denise Phillips DO on 10/06/2023 4:16 [facility] 08-10-2023 Evaluation note* Encounter Date Diagnosis Assessment Notes Treatment Notes Treatment Clinical Notes Jul, COVID-19 (ICD-10 - U07.1) [employer] Other 11-14-2023 Evaluation note* Encounter Date Diagnosis Assessment Notes Treatment Notes Treatment Clinical Notes Jun, Rotator cuff arthropathy of left shoulder (ICD-10 - M12.812) ROM exercises, ice/heat and Tylenol. No impovement, consider referral to Orthopedics Jun,ain in left shoulder (ICD-10 - M25.512)Subacromial injection given w/o complications. SHe is aware that her pain may worsen before it improves. Jun,rimary hypertension (ICD-10 - I10)This patient is instructed to consume a healthy, low-fat, low-salt diet. They are also encouraged to continue exercise to achieve/maintain a normal BMI. Jun,Type 2 diabetes mellitus with hyperglycemia, without long-term current use of insulin (ICD-10 - E11.65)This patient is following a comprehensive diabetic treatment [...] Microalbumin, Dilated eye exam and Foot exam Jun,Other chronic pain (ICD-10 - G89.29) [employer] Other 09-21-2023 Evaluation note* Encounter Date Diagnosis Assessment Notes Treatment Notes Treatment Clinical Notes Apr, Type 2 diabetes flavia itus with hyperglycemia, without long-term current use of insulin (ICD-10 - E11.65) Apr,Type 2 diabetes mellitus with hyperglycemia (ICD-10 - E11.65) [employer] Other 07-31-2023 Evaluation note* Encounter Date Diagnosis Assessment Notes Treatment Notes Treatment Clinical Notes Feb, Type 2 diabetes mellitus with hy perglycemia (ICD-10 - E11.65) [employer] Other 05-02-2023 Evaluation note* Encounter Date Diagnosis Assessment Notes Treatment Notes Treatment Clinical Notes December, Primary osteoarthritis, left dean ulder (ICD-10 - M19.012) Ovoid reaching, lifting w/ left shoulder. ROM exercises to maintain adequate motion and ovoid stiffness December,cute pain of left shoulder (ICD-10 - M25.512)ROM exercises, heat/ice and Tylenol. PT completed w/o improvement. IA injection and further treatment/evaluation based on response - 40mg Kenalog w/ 3ml Xylocaine injected w/o complications, patient tolerated procedure - instructed to use ice and rest shoulder for next 48 hours December,Essential hypertension (ICD-10 - I10)This patient is instructed to consume a healthy, low-fat, low-salt diet. They are also encouraged to continue exercise to achieve/maintain a normal BMI. [employer] Other 04-27-2023 Evaluation note* Encounter Date Diagnosis Assessment Notes Treatment Notes Treatment Clinical Notes Nov, Type 2 diabetes flavia itus with hyperglycemia, without long-term current use of insulin (ICD-10 - E11.65) [employer] Other 02-14-2023 Evaluation note* Encounter Date Diagnosis Assessment Notes Treatment Notes Treatment Clinical Notes Sep, Essential hypertension (ICD-10 - I10) This patient is instructed to consume a healthy, low-fat, low-salt diet. They are also encouraged to continue exercise to achieve/maintain a normal BMI. Sep,Type 2 diabetes mellitus with hyperglycemia, without long-term current use of insulin (ICD-10 - E11.65)This patient is following a comprehensive diabetic treatment plan. They are checking their feet daily for calluses and nonhealing ulcers. They are being seen for yearly dilated eye examinations. Goals: SBP less than 130, LDL less than 100, FBS less than 140, AC and A1C less than 7%. They are checking their BS daily, will which are reviewed at the office visit. Sep,OSA (obstructive sleep apnea) (ICD-10 - G47.33)This patient is aware of the benefits associated with SANTINO: With continued use, the patient reduces the risk for VA, CVA, HTN, cardiac dysrhythmias and sudden cardiac deaths.The patient is also aware of the association between SANTINO and morning headaches, daytime somnolence, fatigue and obesity, whichalso has been improved with continued use.The patient is compliant with treatment, wearing the equipment every night for greater than 4 hours.The patient is instructed to continue use of the CPAP forOSA treatment. Sep,enign paroxysmal positional vertigo due to bilateral vestibular disorder (ICD-10 - H81.13)Sutherland-Daroff Maneuvers given to patient. Fall precautions Sep,ain in left shoulder (ICD-10 - M25.512)Completed PT w/o benefit. Has taken Tylenol, Motrin and creams w/o benefit Reduced ROM especially w/ abduction and internal rotation. Recommend MRI Sep,AD (generalized anxiety disorder) (ICD-10 - F41.1)Healthy diet and exercise. Continue w/ weight loss [employer] Other 01-11-2023 Evaluation note* Encounter Date Diagnosis Assessment Notes Treatment Notes Treatment Clinical Notes Aug, Type 2 diabetes flavia itus with hyperglycemia, without long-term current use of insulin (ICD-10 - E11.65) [employer] Other 01-10-2023 Evaluation note* Encounter Date Diagnosis Assessment Notes Treatment Notes Treatment Clinical Notes Aug, Pain in left shoulder (ICD-10 - M25.512) Aug,Other chronic pain (ICD-10 - G89.29) [employer] Other Evaluation noteNo InformationNort [employer] Other Evaluation note* Diagnosis Onset Date Resolution Status Chronic venous insufficiency of lower ex tremity acuteFatigueacuteGERD (gastroesophageal reflux disease)acuteHypertensionacuteOSA (obstructive sleep apnea)acuteSubclinical hypothyroidismacuteType 2 diabetes mellitus with hyperglycemiaacute [facility] Work Phone: Evaluation note* Diagnosis Onset Date Resolution Status Chronic venous insufficiency of lower ex tremity acuteFatigueacuteGERD (gastroesophageal reflux disease)acuteHypertensionacuteOSA (obstructive sleep apnea)acuteSubclinical hypothyroidismacuteType 2 diabetes mellitus with hyperglycemiaacuteHypertensionacuteLeft shoulder painacuteRotator cuff tendonitisacuteType 2 diabetes mellitus with hyperglycemiaacute [facility] Work Phone: Evaluation note* Diagnosis Transient global amnesia- Primary Abnormal EEG [facility] Diagnosis Malignant neoplasm of thyroid gland (CMS/HCC) Malignant neoplasm of thyroid gland [facility] Diagnosis Malignant neoplasm of thyroid gland (CMS/HCC)- Primary Malignant neoplasm of thyroid gland Status post total thyroidectomy (CMS/HCC) Other postprocedural status [facility] Diagnosis Low vitamin D level- Primary [facility] Diagnosis Change in voice- Primary Other voice and resonance disorders Malignant neoplasm of thyroid gland (CMS/HCC) Malignant neoplasm of thyroid gland Status post total thyroidectomy Other postprocedural status [facility] Diagnosis Status post total thyroidectomy- Primary Other postprocedural status Malignant neoplasm of thyroid gland (HCC) Malignant neoplasm of thyroid gland Muscle cramping [facility] Narrative - Reported* Type Description Date Medical History Essential hypertension Medical HistoryImpaired fasting blood sugarMedical HistoryDepression screening Medical HistoryCOVID-19Medical HistorySuspected sleep apneaMedical History Subclinical hypothyroidismMedical HistoryBreast cancer screening by mammogram Medical HistoryScreening for iron deficiency anemiaMedical HistoryMalaiseMedical HistoryFatigueMedical HistoryElevated TSHMedical HistoryVitamin D deficiency Medical HistoryObesityMedical HistoryOccipital headacheMedical HistoryType 2 diabetes mellitus with hyperglycemia, without long-term current use of insulin Medical HistoryHypokalemiaMedical HistoryPrimary osteoarthritis, left shoulder Medical HistoryStrain of other muscles, fascia and tendons at shoulder and upper arm level, left arm, subsequent encounterMedical HistoryLeft shoulder pain Medical HistoryChronic painMedical HistoryGastroesophageal reflux disease with esophagitis without hemorrhageMedical HistoryParesthesiasMedical HistoryPrimary osteoarthritis, unspecified ankle and footMedical HistoryObstructive sleep apnea Medical HistoryChronic venous hypertension (idiopathic) without complications of bilateral lower extremitySurgical HistoryHysterectomySurgical HistoryLeft wrist, ganglion cystHospitalization HistorySee above [employer] Other Hospital Discharge instructions Additional Instructions DISCHARGE INSTRUCTIONS FOR THYROIDECTOMY ACTIVITY -No lifting or straining. -[No strenuous activity for 2 weeks.] -[Sleep with head elevated on two pillows.] -May shower [today or tomorrow?] -[You may shower and wash the incision with soap and water, but do not submerge the incision or allow prolonged exposure to water. Pat dry.] -[No driving for at least 5 days, or while taking prescription pain medicine.] WOUND CARE/DRESSING -Be sure to keep your incision clean and dry. -[There is a clear, glue-like adhesive on your incision. Do not peel or pick at this adhesive. It wall fall off on its own after a few days.] -[Call the office if incision area appears to have any sign of infection, such as increased swelling, redness, or purulent drainage.] -[Watch for bleeding, swelling, difficulty breathing, difficulty swallowing.] MEDICATION -If any prescriptions have been given to you, be sure to take as directed. OTHER Any problems- call the office or return to the Emergency Room. If you are having excessive or persistent pain, swelling, fever (oral temp >101), yellow-green foul smelling drainage or bleeding from incision, excessive redness of incision, nausea, vomiting, or any other problems, you should first call your surgeon for advice. If you are unable to contact your surgeon, seek help from a hospital emergency room. FOLLOW UP -Call the office to follow up in one week. [][facility] Work Phone: Reason for referral (narrative)No reason for referral information availableCleveland Clinic Hillcrest [facility] Work Phone: Summary Purpose Family History Relationship Condition Age at Onset Recorded Date/T la[place] father Hypertension Unknown Diabetes mellitusUnknownAsthmaUnknownDeceasedUnknownmotherHypertensionUnknown Relationship Condition Age at Onset Recorded Date/T laurel father Unknown AsthmaUnknownmotherDeceasedUnknownHypertensionUnknownbrotherDiabetes mellitus UnknownMalignant neoplasm of liverUnknownHepatic cirrhosisUnknownsisterDiabetes mellitusUnknown Advance Directives Advance Directive Response Recorded Date/ [...] 6 month follow up Lt shoulder cortisone injectionReason for VisitChronic venous insufficiency of lower extremity Fatigue GERD (gastroesophageal reflux [...] 11 :28am SANTINO (obstructive sleep apnea) August d2024 11:28am Thyroid nodule August 24, 2024 11 [...] 2:04pm Type 2 diabetes mellitus with hyperglyce [facility] August 02, 2024 2:04pm Wellness examination August [...] :35pm Hypercholesterolemia September 04, 2024 2:35pm Hypertension Viv 13th, 2025 2 :35pm SANTINO (obstructive sleep apnea) September 042024 2:35pm Transient global amnesia September 04, 2 025 2:35pm Type 2 diabetes mellitus with hyperglyce fabrizio September 04, 2024 2:35pm Chief Complaint Admit Date wellness August 02, 2024 2:04pm CC Adult Risk Stratification August 042023 10:03am Amb Documentation August 14, 2024 2:05pm IP f/u altered mental status August 11:28am headache/dizziness September 04, 2024 2 :35pm [email or web address] October 05, 2024 10:00am Reason for Visit Admit Date Hypertension August 02, 2024 2:04pm Rotator cuff tendonitis August 02, 2 024 2:04pm Screening mammogram for breast cancer [facility] 2023 2:04pm Type 2 diabetes mellitus with [...] Elevated TSH September 04, 2024 2 :35pm Headache September 04, 2024 2 :35pm Hypercholesterolemia September 04, 2024 2:35pm Hypertension September 04, 2024 2 :35pm IFG (impaired fasting glucose) August 232024 2:35pm SANTINO (obstructive sleep apnea) September 042024 2:35pm Thyroid nodule September 04, 2024 2 :35pm Transient global amnesia September 04, 2 025 2:35pm Chief Complaint Admit Date wellness August 02, 2024 2:04pm CC Adult Risk Stratification August 042023 10:03am Amb Documentation August 14, 2024 2:05pm IP f/u altered mental status August 11:28am headache/dizziness September 04, 2024 2 :35pm [email or web address] October 05, 2024 10:00am Referral Order October 09, 2024 10:32pm Reason for Visit Admit Date Hypertension August 02, 2024 2:04pm Rotator cuff [...] Elevated TSH September 04, 2024 2 :35pm Headache September 04, 2024 2 :35pm Hypercholesterolemia September 04, 2024 2:35pm Hypertension September 04, 2024 2 :35pm IFG (impaired fasting glucose) August 232024 2:35pm SANTINO (obstructive sleep apnea) September 042024 2:35pm Thyroid nodule September 04, 2024 2 :35pm Transient global amnesia September 04, 2 025 2:35pm Thyroid nodule October 05, 2024 10:00am Chief Complaint Admit Date wellness August 02, 2024 2:04pm CC Adult Risk Stratification August 042023 10:03am Amb Documentation August 14, 2024 2:05pm IP f/u altered mental status August 11:28am headache/dizziness September 04, 2024 2 :35pm [email or web address] October 05, 2024 10:00am Referral Order October 09, 2024 10:32pm Amb Documentation October 17, 2024 9:00am Thyroid Cancer October 19, 2024 2:58pm Chief Complaint Admit Date wellness August 02, 2024 2:04pm CC Adult Risk Stratification August 042023 10:03am Amb Documentation August 14, 2024 2:05pm IP f/u altered mental status August 11:28am headache/dizziness September 04, 2024 2 :35pm [email or web address] October 05, 2024 10:00am Referral Order October 09, 2024 10:32pm Amb Documentation October 17, 2024 9:00am Thyroid Cancer October 19, 2024 2:58pm Thyroid Cancer October 25, 2024 5:55 am Chief Complaint Admit Date CC Adult Risk Stratification August 042023 10:03am Amb Documentation August 14, 2024 2:05pm IP f/u altered mental status August 11:28am headache/dizziness September 04, 2024 2 :35pm [email or web address] October 05, 2024 10:00am Referral Order October 09, 2024 10:32pm Amb Documentation October 17, 2024 9:00am Thyroid Cancer October 19, 2024 2:58pm Thyroid Cancer October 25, 2024 5:55 am ER [facility]; lightheaded fogginess October 27, 2024 10:23am Reason for Visit Admit Date Hypercholesterolemia August 24, 2024 1 1:28am Hypertension August 24, 2024 11 :28am SANTINO (obstructive sleep apnea) August 11:28am Thyroid nodule August 24, 2024 11 :28am Transient global amnesia August 24 11:28am Type 2 diabetes mellitus with hyperglyce fabrizio August 24, 2024 11:28am Elevated TSH September 04, 2024 2 :35pm Headache September 04, 2024 2 :35pm Hypercholesterolemia September 04, 2024 2:35pm Hypertension September 04, 2024 2 :35pm IFG (impaired fasting glucose) August 232024 2:35pm SANTINO (obstructive sleep apnea) September 042024 2:35pm Thyroid nodule September 04, 2024 2 :35pm Transient global amnesia September 04, 2 025 2:35pm Thyroid nodule October 05, 2024 10:00am Absence seizure October 27, 2024 10:2 3am Hypercholesterolemia October 27, 2024 10: 23am Hypertension October 27, 2024 10:2 3am SANTINO (obstructive sleep apnea) October 27, 2024 10:23am Papillary thyroid carcinoma October 27, 2 025 10:23am Subclinical hypothyroidism October 27 10:23am Type 2 diabetes mellitus with hyperglyce fabrizio October 27, 2024 10:23am Chief Complaint Admit Date CC Adult Risk Stratification August 042023 10:03am Amb Documentation August 14, 2024 2:05pm IP f/u altered mental status August 11:28am headache/dizziness September 04, 2024 2 :35pm [email or web address] October 05, 2024 10:00am Referral Order October 09, 2024 10:32pm Amb Documentation October 17, 2024 9:00am Thyroid Cancer October 19, 2024 2:58pm Thyroid Cancer October 25, 2024 5:55 am ER [facility]; lightheaded fogginess October 27, 2024 10:23am C73 October 30, 2024 9:5 8am Chief Complaint Admit Date C73 December 04, 2024 11: 55am 4 month f/u December 13, 2024 1:5 0pm New Patient, Thyroid Cancer January 09 2:52pm Thyroid February 01, 2025 10:0 4am Unknown February 26, 2025 11:58 am Reason for Visit Admit Date Absence seizure December 13, 2024 1:5 0pm Hypercholesterolemia December 13, 2024 1: 50pm Hypertension December 13, 2024 1:5 0pm Hypothyroid December 13, 2024 1:5 0pm SANTINO (obstructive sleep apnea) November 1:50pm Papillary thyroid carcinoma December 13, 2024 1:50pm Type 2 diabetes mellitus with hyperglyce fabrizio December 13, 2024 1:50pm Papillary thyroid carcinoma January 09 2:52pm Chief Complaint Admit Date C73 December 04, 2024 11: 55am 4 month f/u December 13, 2024 1:5 0pm New Patient, Thyroid Cancer January 09 2:52pm Thyroid February 01, 2025 10:0 4am Unknown February 26, 2025 11:58 am possible shoulder injection March 01, 2 025 10:58am Reason for Visit Admit Date Absence seizure December 13, 2024 1:5 0pm Hypercholesterolemia December 13, 2024 1: 50pm Hypertension December 13, 2024 1:5 0pm Hypothyroid December 13, 2024 1:5 0pm SANTINO (obstructive sleep apnea) November 1:50pm Papillary thyroid carcinoma December 13, 2024 1:50pm Type 2 diabetes mellitus with hyperglyce fabrizio December 13, 2024 1:50pm Papillary thyroid carcinoma January 09 2:52pm Ganglion cyst of dorsum of left wrist Ju 2024 10:58am Hypertension March 01, 2025 10:5 8am Hypothyroid March 01, 2025 10:5 8am Left shoulder pain March 01, 2025 10:5 8am Papillary thyroid carcinoma March 01 025 10:58am Rotator cuff tendonitis March 01, 2025 10:58am Chief Complaint Admit Date 4 month f/u December 13, 2024 1:5 0pm New Patient, Thyroid Cancer January 09 2:52pm Thyroid February 01, 2025 10:0 4am Unknown February 26, 2025 11:58 am possible shoulder injection March 01 025 10:58am 1 Month Follow Up, I-131 March 05, 2025 10:35am Chief Complaint Admit Date 4 month f/u December 13, 2024 1:5 0pm New Patient, Thyroid Cancer January 09 2:52pm Unknown February 26, 2025 11:58 am possible shoulder injection March 01 025 10:58am 1 Month Follow Up, I-131 March 05, 2025 10:35am z98.890 z90.89 March 05, 2025 11:3 1am Thyroid March 05, 2025 12:0 8pm Reason for Visit Admit Date Absence seizure December 13, 2024 1:5 0pm Hypercholesterolemia December 13, 2024 1: 50pm Hypertension December 13, 2024 1:5 0pm Hypothyroid December 13, 2024 1:5 0pm SANTINO (obstructive sleep apnea) November 1:50pm Papillary thyroid carcinoma December 13, 2024 1:50pm Type 2 diabetes mellitus with hyperglyce fabrizio December 13, 2024 1:50pm Papillary thyroid carcinoma January 09 2:52pm Ganglion cyst of dorsum of left wrist Ju 2024 10:58am Hypertension March 01, 2025 10:5 8am Hypothyroid March 01, 2025 10:5 8am Left shoulder pain March 01, 2025 10:5 8am Papillary thyroid carcinoma March 01 025 10:58am Rotator cuff tendonitis March 01, 2025 10:58am Papillary thyroid carcinoma March 05, 025 10:35am Chief Complaint Admit Date 4 month f/u December 13, 2024 1:5 0pm New Patient, Thyroid Cancer January 09 2:52pm Unknown February 26, 2025 11:58 am possible shoulder injection Frida 10th, 2 025 10:58am 1 Month Follow Up, I-131 March 05, 2025 10:35am z98.890 z90.89 March 05, 2025 11:3 1am Thyroid March 05, 2025 12:0 8pm Z98.890 Z90.89 C73 R25.2 March 12, 2025 1:47pm Chief Complaint Admit Date Unknown February 26, 2025 11:58 am possible shoulder injection March 01, 2 025 10:58am 1 Month Follow Up, I-131 March 05, 2025 10:35am z98.890 z90.89 March 05, 2025 11:3 1am Thyroid March 05, 2025 12:0 8pm Z98.890 Z90.89 C73 R25.2 March 12, 2025 1:47pm Virtual 2 Mo Follow Up May 08, 2 025 3:15pm Reason for Visit Admit Date Ganglion cyst of dorsum of left wrist Ju ly 2024 10:58am Hypertension March 01, 2025 10:5 8am Hypothyroid March 01, 2025 10:5 8am Left shoulder pain March 01, 2025 10:5 8am Papillary thyroid carcinoma March 01, 025 10:58am Rotator cuff tendonitis March 01, 2025 10:58am Papillary thyroid carcinoma March 05, 2 025 10:35am Papillary thyroid carcinoma May 082024 3:15pm Chief Complaint Admit Date Unknown February 26, 2025 11:58 am possible shoulder injection March 01, 2 025 10:58am 1 Month Follow Up, I-131 March 05, 2025 10:35am z98.890 z90.89 March 05, 2025 11:3 1am Z98.890 Z90.89 C73 R25.2 March 12, 2025 1:47pm Virtual 2 Mo Follow Up May 08, 2 025 3:15pm Thyroid May 08, 2025 3:16pm 3 month f/u May 09, 2025 2:34pm Reason for Visit Admit Date Ganglion cyst of dorsum of left wrist Ju ly 2024 10:58am Hypertension March 01, 2025 10:5 8am Hypothyroid March 01, 2025 10:5 8am Left shoulder pain March 01, 2025 10:5 8am Papillary thyroid carcinoma March 01, 2 025 10:58am Rotator cuff tendonitis March 01, 2025 10:58am Papillary thyroid carcinoma March 05, 2 025 10:35am Papillary thyroid carcinoma May 082024 3:15pm Absence seizure May 09, 2025 2:34pm Ganglion cyst of dorsum of left wrist Se ptember 2024 2:34pm Hypercholesterolemia May 09 2:34pm Hypertension May 09, 2025 2:34pm Hypothyroid May 09, 2025 2:34pm Left shoulder pain May 09, 2025 2:34pm SANTINO (obstructive sleep apnea) May 09, 2025 2:34pm Papillary thyroid carcinoma May 092024 2:34pm Rotator cuff tendonitis May 09, 2025 2:34pm Type 2 diabetes mellitus with hyperglyce fabrizio May 09, 2025 2:34pm Chief Complaint Admit Date Virtual 2 Mo Follow Up May 08 025 3:15pm Thyroid May 08, 2025 3:16pm [...] IFG (impaired fasting glucose) May 252024 2:26pm Additional Source Comments INFORMATION SOURCE (unrecogn ized section and content) DATE CREATED AUTHOR 02/09/2018 [facility] DATE CREATED AUTHOR AUTHOR'S ORGANIZ ATION 12/18/2022 [facility] DATE CREATED AUTHOR AUTHOR'S ORGANIZ ATION 12/29/2023 [facility] DATE CREATED AUTHOR AUTHOR'S ORGANIZ ATION 10/17/2024 [facility] DATE CREATED AUTHOR AUTHOR'S ORGANIZ ATION 05/09/2025 [facility] REASON FOR VISIT (unrecogniz ed section and content) ReasonCommentsThyroid Cancer3 month reckReasonCommentsPost-op1 month reckReason CommentsPost-opPost op Total thyroidReasonCommentsThyroid NoduleNew Patient : thyroid nodule / FNA doneTest resultsLEFT SHOULDER INJECTIONMedication Changeshoulder injectionCheck Upprescription refill Care Teams (unrecognized sec tion and content) Team Status: Active Member Role Status Joe Guevara DO Primary Care Provider Active Team Status: Inactive Member Role Status Joe Guevara DO Primary Care Provide r, Attending Provider Active Start: October 05, 2024 End: October 05, 2024 Team Status: Active Member Role Status Joe Guevara DO Primary Care Provide r, Attending Provider Active Start: October 09, 2024 Team Status: Active Member Role Status Joe Guevara DO Primary Care Provider Active Start: October 16, 2024 Jossy Rodriguez , MDAttending ProviderActiveStart: October 16, 2024 Team Status: Active Member Role Status Joe Guevara DO Primary Care Provider Active Start: October 17, 2024 Sima Carlos , CMAAttending ProviderActiveStart: October 17, 2024 Team Status: Inactive Member Role Status Joe Guevara DO Primary Care Provider Active Start: October 19, 2024 End: October 19octavio Mendoza , DOAttending ProviderActiveStart: October 19, 2024 End: October 19, 2024 Team Status: Inactive Member Role Status Joe Guevara DO Primary Care Provider Active Start: October 25, 2024 End: October 25encarolina Mendoza , DOAttending ProviderActiveStart: October 25, 2024 End: October 25, 2024 Team Status: Inactive Member Role Status Joe Guevara DO Primary Care Provide r, Attending Provider Active Start: October 27, 2024 End: October 27, 2024 Team Status: Inactive Member Role Status Joe Guevara DO Primary Care Provider Active Start: October 30, 2024 End: October 30encarolina Murvaleria , DOAttending ProviderActiveStart: October 30, 2024 End: October 30, 2024 Team Status: Inactive Member Role Status Dates Fab Ball , DO Primary Care Provider Active Start: December 04, 2024 End: December 04analicarolina Mendoza , DOAttending ProviderActiveStart: December 04, 2024 End: December 04, 2024 Team Status: Active Member Role Status Dates Fab Guevara , DO Primary Care Provide r, Attending Provider Active Start: August 04, 2024 Team Status: Active Member Role Status Dates Fab Guevara DO Primary Care Provider Active Start: August 12, 2024 Jossy Bojorquez Jennifer , MDAttending ProviderActiveStart: August 12, 2024 Team Status: Active Member Role Status Dates Fab Guevara DO Primary Care Provide r, Attending Provider Active Start: August 13, 2024 Team Status: Active Member Role Status Joe Guevara DO Primary Care Provider Active Start: August 14, 2024 Sima Terrance , CMAAttending ProviderActiveStart: August 14, 2024 Team Status: Inactive Member Role Status Joe Guevara DO Primary Care Provide r, Attending Provider Active Start: August 24, 2024 End: August 24, 2024 Team Status: Inactive Member Role Status Joe Guevara DO Primary Care Provide r, Attending Provider Active Start: September 04, 2024 End: September 04, 2024 Team Status: Inactive Member Role Status Joe Guevara , DO Primary Care Provide r, Attending Provider Active Start: March 16, 2024 End: March 16, 2024 Team Status: Inactive Member Role Status Joe Guevara DO Primary Care Provide r, Attending Provider Active Start: June 06, 2024 End: June 06, 2024 Team Status: Inactive Member Role Status Joe Guevara , DO Primary Care Provide r, Attending Provider Active Start: August 02, 2024 End: August 02, 2024Team MemberRelationshipSpecialtyStart DateEnd Date Fab Guevara MD [address] [place] [id number] PCP - GeneralInternal Medicine10/12/24 Russ Vogel DO [address] [place] [address] Referring PhysicianNeurolog10/09/24Team MemberRelationshipSpecialtyStart DateEnd Date Fab Guevara MD [address] [place] [address] PCP - GeneralInternal Medicine10/12/24 Russ Vogle DO [address] [address] Referring PhysicianNeurology2Team MemberRelationshipSpecialtyStart DateEnd Date Fab Guevara MD [address] [place] [id number] PCP - GeneralInternal Medicine10/12/24 Russ Vogel DO [address] [phone] Referring PhysicianNeurology2Team MemberRelationshipSpecialtyStart DateEnd Date Fab Guevara MD [address] [place] [address] PCP - GeneralInternal Medicine10/12/24 Russ Vogel DO [address] [phone] Referring PhysicianNeurology2Team MemberRelationshipSpecialtyStart DateEnd Date Fab Guevara MD [address] [place] [address] PCP - GeneralInternal Medicine10/12/24 Russ Vogel DO [address] [phone] Referring PhysicianNeurology2Team MemberRelationshipSpecialtyStart DateEnd Date Fab Guevara MD [address] [place] [address] PCP - GeneralInternal Medicine10/12/24 Russ Vogel DO [address] [address] Referring PhysicianNeurology2 Fab Mendoza DO [address] [place] [address] Otolaryngology11/01/24Team MemberRelationshipSpecialtyStart DateEnd Date Fab Guevara MD [address] [place] [phone] PCP - GeneralInternal Medicine10/12/24 Russ Vogel DO [address] [phone] Referring PhysicianNeurology2 Fab Mendoza DO [address] [place] [address] Otolaryngology11/01/24Team MemberRelationshipSpecialtyStart DateEnd Date Fab Guevara MD [address] [place] [address] PCP - GeneralInternal Medicine10/12/24 Russ Vogel DO [address] [address] Referring PhysicianNeurology2 Fab Mendoza DO [address] [place] [address] Otolaryngology11/01/24Team MemberRelationshipSpecialtyStart DateEnd Date Fab Guevara MD [address] [place] [address] PCP - GeneralInternal Medicine12/13/24 Russ Vogel DO [address] [address] Referring PhysicianNeurology2 Fab Mendoza DO [address] [place] [address] Otolaryngology11/01/24Team MemberRelationshipSpecialtyStart DateEnd Date Fab Guevara MD [address] [place] [address] PCP - GeneralInternal Medicine12/13/24 Russ Vogel DO [address] [place] [address] Referring PhysicianNeurology2 Fab Mendoza DO [address] [place] [address] Otolaryngology11/01/24 Team Status: Inactive Member Role Status Dates Fab Guevara DO Primary Care Provide r, Attending Provider Active Start: December 13, 2024 End: December 13, 2024 Team Status: Inactive Member Role Status Dates Fab Guevara DO Primary Care Provider Active Start: December 13, 2024 End: December 13encarolina Guevara , DOAttending ProviderActiveStart: December 13, 2024 End: December 13, 2024 Team Status: Inactive Member Role Status Dates Fab Guevara DO Primary Care Provider Active Start: January 09, 2025 End: January 09, 2025Faina Ibarra , MDAttending ProviderActiveStart: January 09, 2025 End: January 09encarolina Mendoza , Rhondaing ProviderActiveStart: January 09, 2025 End: January 09, 2025 Team Status: Active Member Role Status Dates Fab Guevara DO Primary Care Provider Active Start: February 01, 2025 Faina Ibarra , ADEELttending ProviderActiveStart: February 01, 2025 Fab Mendoza , Stephenie ProviderActiveStart: February 01, 2025 Team Status: Inactive Member Role Status Dates Fab Guevara DO Attending Provider Active Sta rt: February 26, 2025 End: February 26, 2025 Team Status: Inactive Member Role Status Dates Fab Gueavra DO Primary Care Provider Active Start: March 01, 2025 End: March 01encarolina Guevara , Attending ProviderActiveStart: March 01, 2025 End: March 01, 2025 Team Status: Inactive Member Role Status Dates Fab Guevara DO Primary Care Provider Active Start: March 05, 2025 End: March 05, 2025Preston Valerio ProviderActiveStart: March 05, 2025 End: March 05, 2025 Team Status: Inactive Member Role Status Dates Fab Guevara DO Primary Care Provider Active Start: March 05, 2025 End: March 05octavio Mendoza DOAttending ProviderActiveStart: March 05, 2025 End: March 05, 2025 Team Status: Active Member Role Status Dates Fab Guevara DO Primary Care Provider Active Start: March 05, 2025 Faina Ibarra MDAttending ProviderActiveStart: March 05, 2025 Stephenie Maki ProviderActiveStart: March 05, 2025 Team MemberRelationshipSpecialtyStart DateEnd Date Fab Guevara DO [address] [place] [id number] PCP - GeneralInternal Medicine12/13/24 Russ Vogel, [address] [address] Referring PhysicianNeurology2 Fab Mendoza, DO [address] [place] [address] Otolaryngology11/01/24Team MemberRelationshipSpecialtyStart DateEnd Date Fab Guevara DO [address] [place] [address] PCP - GeneralInternal Medicine12/13/24 Russ Vogel, [address] [address] Referring PhysicianNeurology2 Fab Mendoza, [address] [place] [address] Otolaryngology11/01/24 Team Status: Inactive Member Role Status Dates Fab Guevara DO Primary Care Provider Active Start: March 12, 2025 End: March 12octavio Mendoza DOAttsara ProviderActiveStart: March 12, 2025 End: March 12, 2025 Team Status: Inactive Member Role Status Dates Fab Guevara DO Primary Care Provider Active Start: May 08, 2025 End: May 08, 2025Preston Valerio ProviderActive Start: May 08, 2025 End: May 08, 2025 Team Status: Active Member Role Status Dates Fab Guevara DO Primary Care Provider Active Start: May 08, 2025 Rhonda Makivirginia ProviderActiveStart: May 08, 2025 Preston Valerio ProviderActiveStart: May 08, 2025 Team Status: Inactive Member Role Status Dates Fab Guevara DO Primary Care Provider Active Start: May 09, 2025 End: May 09octavio Guevara , DOAttending ProviderActiveStart: May 09, 2025 End: May 09, 2025 Team Status: Active Member Role/Relationship Status Dates Fab Guevara DO Primary Care Provider Active Team Status: Inactive Member Role/Relationship Status Dates Fab Guevara DO Primary Care Provider Active Start: May 08, 2025 End: May 08, 2025Nydiagabrielle FlorezChristine Demze DOROTHYNAttenyvan ProviderActive Start: May 08, 2025 End: May 08, 2025 Team Status: Active Member Role/Relationship Status Dates Fab Guevara DO Primary Care Provider Active Start: May 08, 2025 Fab Mendoza Simiperivirginia ProviderActiveStart: May 08, 2025 Anushka Lo Preston ProviderActiveStart: May 08, 2025 Team Status: Inactive Member Role/Relationship Status Dates Fab Guevara DO Primary Care Provider Active Start: May 09, 2025 End: May 09entoryluis Moustapha , DOAttending ProviderActiveStart: May 09, 2025 End: May 09, 2025 Team Status: Inactive Member Role/Relationship Status Dates Fab Guevara DO Primary Care Provider Active Start: June 22, 2025 End: June 22leslylusi Moustapha , DOAttending ProviderActiveStart: June 22, 2025 End: June 22, 2025 Goals (unrecognized section and content) Goals may [...] BE BASED ON THE PRIMARY CLINICAL RECORDS. [employer] [employer] [facility]. provides no warranty or guarantee of the accuracy or completeness of information in this document.
[2025-06-23 10:24] LABS: Hematocrit 39.1 % (36.0-48.0); Hemoglobin 12.9 g/dL (12.0-16.0); Immature Granulocytes Abs Auto 0.01 10^3/uL (0.00-0.03); Immature Granulocytes Pct Auto 0.2 % (0.0-0.5); Lymphocytes Absolute Auto 0.9 10^3/uL (1.2-3.8); Mean Corpuscular HGB Conc 33.0 g/dL (29.9-35.2); Mean Corpuscular Hemoglobin 33.1 pg (26.7-34.0); Mean Corpuscular Volume 100.3 fL (81.0-99.0); Platelet Count 302 10^3/uL (150-450); Red Blood Count 3.90 10^6/uL (4.20-5.40); White Blood Count 4.7 10^3/uL (4.0-11.0)
[2025-06-23 11:03] LABS: Alanine Aminotransferase 22 U/L (14-59); Albumin Globulin Ratio 1.0; Albumin Level 3.4 g/dL (3.4-5.0); Alkaline Phosphatase 93 U/L (46-116); Anion Gap 13.1; Aspartate Amino Transferase 19 U/L (15-37); Blood Urea Nitrogen 11.0 mg/dL (7.0-18.0); Calcium 8.5 mg/dL (8.5-10.1); Carbon Dioxide 27.0 mmol/L (21.0-32.0); Chloride 105 mmol/L (98-107); Estimated GFR (African America >60 (>=60 mL/min/1.73m^2); Estimated GFR (Non-African Ame >60 (>=60 mL/min/1.73m^2); Globulin 3.5 g/dL; Glucose 118 mg/dL (74-106); Potassium 4.1 mmol/L (3.5-5.1); Sodium 141 mmol/L (136-145); Thyroid Stimulating Hormone 0.090 uIU/mL (0.358-3.740); Total Protein 6.9 g/dL (6.4-8.2)
[2025-06-23 11:12] LABS: Ferritin 100.0 ng/mL (8.0-252.0); Folate 11.60 ng/mL (8.60-58.90)
[2025-06-24 06:38] LABS: Vitamin B12 481 pg/mL (232-1245)
== END 2025-06-23 09:44 | disposition home or self-care (01) ==
LOC: LAB 09:44
PROVIDERS: PCP Internal Medicine; Visit Provider Internal Medicine
DX: R73.01 Impaired fasting glucose (principal); I10 Essential (primary) hypertension; R53.83 Other fatigue; G31.84 Mild cognitive impairment of uncertain or unknown etiology; E89.0 Postprocedural hypothyroidism; E55.9 Vitamin D deficiency, unspecified
CPT/HCPCS: 36415; 80053; 82306; 82607; 82728; 82746; 83036; 84439; 84443; 84480; 85025